=== PATIENT | female | born 1940 | race Caucasian/White ===

== ENCOUNTER → 2017-11-13 | Outpatient (CLI) | payer MEDICARE ==
[2017-11-13 18:52] LABS: Hemoglobin A1C 7.5 % (4.0-6.0)
[2017-11-14 15:26] LABS: Imipramine + Desipramine 231 ng/mL (150-300)
== END | disposition home or self-care (01) ==
LOC: LABWHC1 10:57
PROVIDERS: ATTEND Psychiatry & Neurology Psychiatry
DX: E55.9 Vitamin D deficiency, unspecified (principal); E11.9 Type 2 diabetes mellitus without complications; Z79.899 Other long term (current) drug therapy
CPT/HCPCS: 82306; 83036; 36415; G0480; 80335

== ENCOUNTER → 2018-05-18 | Outpatient (CLI) | payer MEDICARE | END | disposition home or self-care (01) | LOC: LABWHC1 10:52 | PROVIDERS: ATTEND Psychiatry & Neurology Psychiatry | DX: F33.1 Major depressive disorder, recurrent, moderate (principal); Z79.899 Other long term (current) drug therapy | CPT/HCPCS: 36415; 80336 ==

== ENCOUNTER → 2018-08-19 | Outpatient (CLI) | payer MEDICARE ==
[2018-08-19 20:43] LABS: Hemoglobin A1C 7.8 % (4.0-6.0)
== END | disposition home or self-care (01) ==
LOC: LABWHC1 12:23
PROVIDERS: ATTEND Psychiatry & Neurology Psychiatry
DX: E11.9 Type 2 diabetes mellitus without complications (principal); F33.1 Major depressive disorder, recurrent, moderate
CPT/HCPCS: 36415; 80337; 83036

== ENCOUNTER → 2019-04-15 | Outpatient (CLI) | payer MEDICARE ==
[2019-04-19 13:16] LABS: Imipramine + Desipramine 132 ng/mL (150-300)
== END | disposition home or self-care (01) ==
LOC: LABWHC1 10:11
PROVIDERS: ATTEND Psychiatry & Neurology Psychiatry
DX: F33.1 Major depressive disorder, recurrent, moderate (principal); Z79.899 Other long term (current) drug therapy
CPT/HCPCS: 36415; G0480 ×2; 80335; 80337

== ENCOUNTER → 2019-08-10 | Outpatient (CLI) | payer MEDICARE | END | disposition home or self-care (01) | LOC: LABWHC1 10:56 | PROVIDERS: ATTEND Psychiatry & Neurology Psychiatry | DX: F33.1 Major depressive disorder, recurrent, moderate (principal); Z79.899 Other long term (current) drug therapy | CPT/HCPCS: 36415 ==

== ENCOUNTER → 2020-05-11 | Outpatient (CLI) | payer MEDICARE | END | disposition home or self-care (01) | LOC: LABWHC1 11:34 | PROVIDERS: ATTEND Psychiatry & Neurology Psychiatry | DX: F33.1 Major depressive disorder, recurrent, moderate (principal); Z79.899 Other long term (current) drug therapy | CPT/HCPCS: 36415 ==

== ENCOUNTER → 2020-06-29 | Outpatient (CLI) | payer MEDICARE ==
--- NOTE | 2020-06-29 15:49 | XR ---
EXAMINATION TYPE: XR chest 2V DATE OF EXAM: 06/29/2020 COMPARISON: NONE HISTORY: COPD, cough TECHNIQUE: Frontal and lateral views of the chest are obtained. FINDINGS: There is no focal air space opacity, pleural effusion, or pneumothorax seen. The cardiac silhouette size is enlarged although the patient is rotated. Aorta is dense. There are prominent shaye g volumes which could be consistent with underlying COPD The osseous structures are intact, suspect a spinal curvature. IMPRESSION: Cardiomegaly and additional findings above.
== END | disposition home or self-care (01) ==
LOC: RADXRMAIN 13:36
PROVIDERS: ATTEND Psychiatry & Neurology Psychiatry
DX: I51.7 Cardiomegaly (principal); I77.89 Other specified disorders of arteries and arterioles; J44.9 Chronic obstructive pulmonary disease, unspecified
CPT/HCPCS: 71046

== ENCOUNTER → 2020-12-11 | Outpatient (CLI) | payer MEDICARE ==
[2020-12-12 15:28] LABS: Imipramine + Desipramine 201 ng/mL (150-300)
== END | disposition home or self-care (01) ==
LOC: LABWHC1 11:26
PROVIDERS: ATTEND Psychiatry & Neurology Psychiatry
DX: F33.1 Major depressive disorder, recurrent, moderate (principal)
CPT/HCPCS: 36415; G0480; 80335

== ENCOUNTER 2024-03-03 22:13 | Observation (INO) | payer MEDICARE ==
--- NOTE | 2024-03-03 23:33 | ED ---
Extremity Problem HPI - General Chief complaint: Extremity Injury, Upper Stated complaint: left arm pain Time Seen by Provider: 03/03/24 23:18 Source: patient, family, RN notes reviewed, old records reviewed Mode of arrival: wheelchair - History of Present Illness Initial comments: This is an 83-year-old female with severe left shoulder pain left arm pain and significant debility in the left shoulder left arm without traumatic injury. Patient states she cannot move the left arm secondary to pain. Otherwise unsure of symptoms onset or cause patient pain 2 days ago got better and is now worse MD Complaint: extremity pain, extremity swelling -: days(s) (2) Location: left, upper extremity History of Same: Yes -: Yes myalgia, Yes arthralgia Radiation: proximal, distal Severity scale (1-10): 10 Quality: stabbing, aching Consistency: constant Improves with: nothing Worsens with: nothing - Related Data Allergies Allergy/AdvReac Type Severity Reaction Status Date / Time No Known Allergies Allergy Verified 03/03/24 23:09 Review of Systems ROS Statement: Those systems with pertinent positive or pertinent negative responses have been documented in the HPI. ROS Other: All systems not noted in ROS Statement are negative. Past Medical History Past Medical History: Atrial Fibrillation, Asthma, COPD, Diabetes Mellitus, Hyperlipidemia, Hypertension, Osteoarthritis (OA) History of Any Multi-Drug Resistant Organisms: None Reported Past Surgical History: Appendectomy, Hysterectomy, Orthopedic Surgery Additional Past Surgical History / Comment(s): hip Past Psychological History: Anxiety Smoking Status: Never smoker Past Alcohol Use History: None Reported Past Drug Use History: None Reported General Exam General appearance: alert, in no apparent distress Head exam: Present: atraumatic, normocephalic, normal inspection Eye exam: Present: normal appearance, PERRL, EOMI. Absent: scleral icterus, conjunctival injection, periorbital swelling ENT exam: Present: normal exam, mucous membranes moist Neck exam: Present: normal inspection. Absent: tenderness, meningismus, lymphadenopathy Respiratory exam: Present: normal lung sounds bilaterally. Absent: respiratory distress, wheezes, rales, rhonchi, stridor Cardiovascular Exam: Present: regular rate, normal rhythm, normal heart sounds. Absent: systolic murmur, diastolic murmur, rubs, gallop, clicks GI/Abdominal exam: Present: soft, normal bowel sounds. Absent: distended, tenderness, guarding, rebound, rigid Extremities exam: Present: normal inspection, full ROM, normal capillary refill. Absent: tenderness, pedal edema, joint swelling, calf tenderness Back exam: Present: normal inspection Neurological exam: Present: alert, oriented X3, CN II-XII intact Psychiatric exam: Present: normal affect, normal mood Skin exam: Present: warm, dry, intact, normal color. Absent: rash Course Vital Signs 03/03/24 03/04/24 03/04/24 23:00 00:20 00:59 Temperature 98.4 F Pulse Rate 71 72 59 L Respiratory 22 16 20 Rate Blood Pressure 191/67 196/91 197/89 O2 Sat by Pulse 94 L 92 L 96 Oximetry 03/04/24 03/04/24 01:11 01:50 Temperature Pulse Rate 61 67 Respiratory 18 20 Rate Blood Pressure 207/91 167/99 O2 Sat by Pulse 96 96 Oximetry - Reevaluation(s) Reevaluation #1: 03/04/24 00:14 Records reviewed Reevaluation #2: 03/04/24 00:14 Symptoms improved Reevaluation #3: 03/04/24 00:14 Patient informed of results questions answered Reevaluation #4: 03/04/24 00:14 Was pt. sent in by a medical professional or institution (, PA, [employer], urgent care, hospital, or correction...) When possible be specific @ -no Did you speak to anyone other than the patient for history (EMS, parent, family, police, friend...)? What history was obtained from this source @ -no Did you review nursing and triage notes (agree or disagree)? Why? @ -agree Are old charts reviewed (outside hosp., previous admission, EMS record, old EKG, old radiological studies, urgent care reports/EKG's, correction records)? Report findings @ -yes Differential Diagnosis (chest pain, altered mental status, abdominal pain women, abdominal pain men, vaginal bleeding, weakness, fever, dyspnea, syncope, headache, dizziness, GI bleed, back pain, seizure, CVA, palpatations, mental h ealth, musculoskeletal)? @ -prior EKG interpreted by me (3pts min.). @ -yes X-rays interpreted by me (1pt min.). @ -yes negative for acute disease CT interpreted by me (1pt min.). @ -no U/S interpreted by me (1pt. min.). @ -no What testing was considered but not performed or refused? (CT, X-rays, U/S, labs)? Why? @ -none What meds were considered but not given or refused? Why? @ -none Did you discuss the management of the patient with other professionals (professionals i.e. , PA, [employer], lab, RT, psych nurse, director social welfare, coil winder, teacher, human resources officer, onsite case manager)? Give summary @ -no Was smoking cessation discussed for >3mins.? @ -no Was critical care preformed (if so, how long)? @ -no Were there social determinants of health that impacted care today? How? (Homelessness, low income, unemployed, alcoholism, drug addiction, transportation, low edu. Level, literacy, decrease access to med. care, detention, rehab)? @ -none Was there de-escalation of care discussed even if they declined (Discuss DNR or withdrawal of care, Hospice)? DNR status @ -no What co-morbidities impacted this encounter? (DM, HTN, Smoking, COPD, CAD, Cancer, CVA, ARF, Chemo, Hep., AIDS, mental health diagnosis, sleep apnea, morbid obesity)? @ -none Was patient admitted / discharged? Hospital course, mention meds given and route, prescriptions, significant lab abnormalities, going to OR and other p ertinent info. @ - Undiagnosed new problem with uncertain prognosis? @ -no Drug Therapy requiring intensive monitoring for toxicity (Heparin, Nitro, Insulin, Cardizem)? @ -no Were any procedures done? @ -no Diagnosis/symptom? @ - Acute, or Chronic, or Acute on Chronic? @ -Acute Uncomplicated (without systemic symptoms) or Complicated (systemic symptoms)? @ -Complicated Side effects of treatment? @ -no Exacerbation, Progression, or Severe Exacerbation? @ -exacerbation Poses a threat to life or bodily function? How? (Chest pain, [place], [place], pneumonia, PE, COPD, DKA, ARF, appy, cholecystitis, CVA, Diverticulitis, Homicidal, Suicidal, threat to staff... and all critical care pts) @ -yes Medical Decision Making - Lab Data Result diagrams: 03/04/24 00:34 03/04/24 00:34 Lab Results 03/04/24 03/04/24 03/04/24 Range/Units 00:34 00:34 00:34 WBC 10.8 H (3.8-10.6) k/uL RBC 4.67 (3.80-5.40) m/uL Hgb 12.3 (11.4-16.0) gm/dL Hct 41.3 (34.0-46.0) % MCV 88.6 (80.0-100.0) fL MCH 26.3 (25.0-35.0) pg MCHC 29.8 L (31.0-37.0) g/dL RDW 14.9 (11.5-15.5) % Plt Count 467 H (150-450) k/uL MPV 9.7 Neutrophils % 82 % Lymphocytes % 8 % Monocytes % 5 % Eosinophils % 3 % Basophils % 1 % Neutrophils # 8.9 H (1.3-7.7) k/uL Lymphocytes # 0.9 L (1.0-4.8) k/uL Monocytes # 0.6 (0-1.0) k/uL Eosinophils # 0.3 (0-0.7) k/uL Basophils # 0.1 (0-0.2) k/uL Hypochromasia Moderate PT 10.2 (10.0-12.5) sec INR 0.9 (<1.2) APTT 23.5 (22.0-30.0) sec D-Dimer 0.52 (<0.60) mg/L FEU Sodium 138 (137-145) mmol/L Potassium 4.8 (3.5-5.1) mmol/L Chloride 105 (98-107) mmol/L Carbon Dioxide 27 (22-30) mmol/L Anion Gap 6 mmol/L BUN 46 H (7-17) mg/dL Creatinine 1.47 H (0.52-1.04) mg/dL Est GFR (CKD-EPI)AfAm 38 (>60 ml/min/1.73 sqM) Est GFR (CKD-EPI)NonAf 33 (>60 ml/min/1.73 sqM) Glucose 180 H (74-99) mg/dL Plasma Lactic Acid Marco (0.7-2.0) mmol/L Calcium 9.8 (8.4-10.2) mg/dL Phosphorus 5.0 H (2.5-4.5) mg/dL Magnesium 2.3 (1.6-2.3) mg/dL Total Bilirubin 0.5 (0.2-1.3) mg/dL AST 20 (14-36) U/L ALT 10 (4-34) U/L Alkaline Phosphatase 86 (38-126) U/L Troponin I (0.000-0.034) ng/mL NT-Pro-B Natriuret Pep 2960 pg/mL Total Protein 6.9 (6.3-8.2) g/dL Albumin 3.9 (3.5-5.0) g/dL 03/04/24 03/04/24 Range/Units 00:34 00:34 WBC (3.8-10.6) k/uL RBC (3.80-5.40) m/uL Hgb (11.4-16.0) gm/dL Hct (34.0-46.0) % MCV (80.0-100.0) fL MCH (25.0-35.0) pg MCHC (31.0-37.0) g/dL RDW (11.5-15.5) % Plt Count (150-450) k/uL MPV Neutrophils % % Lymphocytes % % Monocytes % % Eosinophils % % Basophils % % Neutrophils # (1.3-7.7) k/uL Lymphocytes # (1.0-4.8) k/uL Monocytes # (0-1.0) k/uL Eosinophils # (0-0.7) k/uL Basophils # (0-0.2) k/uL Hypochromasia PT (10.0-12.5) sec INR (<1.2) APTT (22.0-30.0) sec D-Dimer (<0.60) mg/L FEU Sodium (137-145) mmol/L Potassium (3.5-5.1) mmol/L Chloride (98-107) mmol/L Carbon Dioxide (22-30) mmol/L Anion Gap mmol/L BUN (7-17) mg/dL Creatinine (0.52-1.04) mg/dL Est GFR (CKD-EPI)AfAm (>60 ml/min/1.73 sqM) Est GFR (CKD-EPI)NonAf (>60 ml/min/1.73 sqM) Glucose (74-99) mg/dL Plasma Lactic Acid Marco 1.3 (0.7-2.0) mmol/L Calcium (8.4-10.2) mg/dL Phosphorus (2.5-4.5) mg/dL Magnesium (1.6-2.3) mg/dL Total Bilirubin (0.2-1.3) mg/dL AST (14-36) U/L ALT (4-34) U/L Alkaline Phosphatase (38-126) U/L Troponin I <0.012 (0.000-0.034) ng/mL NT-Pro-B Natriuret Pep pg/mL Total Protein (6.3-8.2) g/dL Albumin (3.5-5.0) g/dL - EKG Data -: EKG Interpreted by Me (EKG is sinus 63 IL 146 QRS 89 QTc 438) Disposition Clinical Impression: Left shoulder pain, Shoulder effusion, Hypertension Disposition: ADMITTED IP TO THIS HOSP Condition: Fair Is patient prescribed a controlled substance at d/c from ED?: No Referrals: Chris Juarez DO [Primary Care Provider] - 1-2 days Time of Disposition: 02:00
[2024-03-03] MEDS: HYDROmorphone 1 MG/ML 1 ML SYRINGE IM STA (23:44)
--- NOTE | 2024-03-04 00:06 | XR ---
EXAM: XR Chest, 2 Views CLINICAL HISTORY: ITS.REASON XR Reason: pain TECHNIQUE: Frontal and lateral views of the chest. COMPARISON: No relevant prior studies available. FINDINGS: Lungs: Volume loss and atelectasis at the left base. Pleural space: Small left pleural effusion. Heart: Cardiomegaly. Bones/joints: Unremarkable. No fracture or malalignment. IMPRESSION: 1. Cardiomegaly. 2. Small left pleural effusion. 3. Volume loss and atelectasis at the left base.
--- NOTE | 2024-03-04 00:07 | XR ---
EXAM: XR Left Shoulder Complete, 2 or More Views CLINICAL HISTORY: ITS.REASON XR Reason: pain TECHNIQUE: Two or more views of the left shoulder. COMPARISON: No relevant prior studies available. FINDINGS: Bones/joints: No acute fracture. Sizable joint effusion present. Soft tissues: Unremarkable. IMPRESSION: 1. No acute fracture. 2. Sizable joint effusion present. Could be further evaluated by MRI on a nonemergent basis.
[2024-03-04] MEDS: SODIUM CHLORIDE 0.9% 1,000 ML IV STA (00:37)
[2024-03-04] MEDS: MORPHINE SULFATE 4 MG/ML SYRINGE IV STA (00:38)
[2024-03-04 01:00] LABS: Basophils # (A) 0.1 k/uL (0-0.2); Basophils % (A) 1 %; Eosinophils # (A) 0.3 k/uL (0-0.7); Eosinophils % (A) 3 %; HCT 41.3 % (34.0-46.0); HGB 12.3 gm/dL (11.4-16.0); Hypochromasia Moderate; Lymphocytes # (A) 0.9 k/uL (1.0-4.8); Lymphocytes % (A) 8 %; MCH 26.3 pg (25.0-35.0); MCHC 29.8 g/dL (31.0-37.0); MCV 88.6 fL (80.0-100.0); Mean Platelet Volume 9.7; Monocytes # (A) 0.6 k/uL (0-1.0); Monocytes % (A) 5 %; Neutrophils # (A) 8.9 k/uL (1.3-7.7); Neutrophils % (A) 82 %; Platelet Count 467 k/uL (150-450); RBC 4.67 m/uL (3.80-5.40); RDW 14.9 % (11.5-15.5); WBC 10.8 k/uL (3.8-10.6)
[2024-03-04] MEDS: hydrALAZINE HCL 20 MG/ML 1 ML VIAL IVP STA (01:14)
[2024-03-04 01:15] LABS: INR 0.9 (<1.2); Partial Thromboplastin Time 23.5 sec (22.0-30.0); Prothrombin Time 10.2 sec (10.0-12.5)
[2024-03-04 01:33] LABS: ALT 10 U/L (4-34); AST 20 U/L (14-36); African American GFR (CKD) 38 (>60 ml/min/1.73 sqM); Albumin 3.9 g/dL (3.5-5.0); Alkaline Phosphatase 86 U/L (38-126); Anion Gap 6 mmol/L; Blood Urea Nitrogen 46 mg/dL (7-17); Calcium 9.8 mg/dL (8.4-10.2); Carbon Dioxide 27 mmol/L (22-30); Chloride 105 mmol/L (98-107); Glucose 180 mg/dL (74-99); Magnesium 2.3 mg/dL (1.6-2.3); Non-African American GFR(CKD) 33 (>60 ml/min/1.73 sqM); Potassium 4.8 mmol/L (3.5-5.1); Sodium 138 mmol/L (137-145); Total Bilirubin 0.5 mg/dL (0.2-1.3); Total Protein 6.9 g/dL (6.3-8.2)
[2024-03-04 01:38] LABS: NT-Pro-B-Type Natriuretic Pept 2960 pg/mL
[2024-03-04] MEDS ORDERED: HYDROmorphone 1 MG/ML 1 ML SYRINGE IVP PRN (01:58)
[2024-03-04] MEDS ORDERED: ONDANSETRON 4 MG/2 ML VIAL IVP PRN (01:58)
[2024-03-04] MEDS ORDERED: NALOXONE 0.4 MG/ML 1 ML VIAL IV PRN (01:58)
[2024-03-04] MEDS: SODIUM CHLORIDE 0.9% 1,000 ML IV SCH (02:03)
[2024-03-04] MEDS: KETOROLAC 15 MG/ML 1 ML VIAL IVP STA (02:14)
[2024-03-04 02:55] LABS: Glucose,Whole Blood 203 mg/dL (70-110)
[2024-03-04] MEDS ORDERED: DEXTROSE 50% SYRINGE 50 ML IVP PRN ×2 (09:56)
[2024-03-04] MEDS: ALPRAZolam 0.5 MG TAB PO SCH (10:24)
[2024-03-04] MEDS: ASPIRIN 81 MG PO SCH (10:24)
[2024-03-04] MEDS: busPIRone HCl 5 MG TAB PO SCH (10:25)
[2024-03-04] MEDS: CHOLECALCIFEROL 25 MCG (1000 IU) TABLET PO SCH (10:25)
[2024-03-04] MEDS: FENOFIBRATE 160 MG TAB PO SCH (10:26)
[2024-03-04] MEDS: FERROUS SULFATE 325 MG TAB PO SCH (10:26)
[2024-03-04] MEDS: ESCITALOPRAM 10 MG TAB PO SCH (10:26)
[2024-03-04] MEDS: metFORMIN 500 MG TAB PO SCH (10:27)
[2024-03-04] MEDS: METOPROLOL TARTRATE 25 MG TAB PO SCH (10:27)
[2024-03-04] MEDS: LOSARTAN 25 MG TAB PO SCH (10:27)
[2024-03-04] MEDS: POTASSIUM CHLORIDE ER 20 MEQ TAB.ER PO SCH (10:28)
[2024-03-04] MEDS: DESVENLAFAXINE SUCCINATE 50 MG TAB.ER.24H PO SCH (10:29)
[2024-03-04] MEDS: ETODOLAC 400 MG TAB PO SCH (10:30)
[2024-03-04] MEDS: PIOGLITAZONE 15 MG TAB PO SCH (10:31)
[2024-03-04] MEDS: GLIMEPIRIDE 4 MG TAB PO SCH (10:32)
[2024-03-04] MEDS: ENOXAPARIN 40 MG/0.4 ML SYRINGE SQ SCH (10:33)
--- NOTE | 2024-03-04 10:52 | P.CRDCN ---
History of Present Illness History of present illness: HISTORY OF PRESENT ILLNESS: This is a 83-year-old female with a past medical history significant for hypertension, hyperlipidemia, diabetes, and paroxysmal atrial fibrillation. Patient follows with Dr. Dennis in [place]. We have been asked to see the patient in consultation for hypertension and chest pain. Patient examined at the bedside. Patient states she has been having left shoulder pain for the past 3 days. She states the pain has been on and off. She states that she did not take anything at home to help with the pain. Patient denied having any chest pain or pressure. She denied having any shortness of breath. Patient's blood pressures were found to be significantly elevated upon admission to the hospital with a systolic around 200. Patient states she has been compliant with her blood pressure medications at home. She also reports compliance with a low-sodium diet. Patient believes she is taking Eliquis on an outpatient basis for her atrial fibrillation. However this is not listed in her home medication list. We will attempt to get records from her primary veneer layer to verify her medication list. DIAGNOSTICS: - EKG reveals sinus mechanism with T wave inversions in V1V4. No previous EKG available for review. - Chest xray cardiomegaly, small left pleural effusion, volume loss and atelectasis at the left base -Left shoulder x-ray reveals no acute fracture. Sizable joint effusion present. - Laboratory data: WBC 10.7. Hemoglobin 12.3. Platelet count 467. D-dimer 0.52. Sodium 138. Potassium 4.8. BUN 46. Creatinine 1.47. Troponin negative x 3 - Current home cardiac medications include aspirin 81 mg daily, Lasix 40 mg twice a day, metoprolol tartrate 25 mg twice a day, losartan 25 mg daily, pravastatin 80 mg at night. REVIEW OF SYSTEMS: At the time of my exam: CONSTITUTIONAL: Denies fever or chills. HEENT: Denies blurred vision, vision changes, or eye pain. Denies hemoptysis CARDIOVASCULAR: Denies chest pain. Denies orthopnea. Denies PND. Denies palpitations RESPIRATORY: Denies shortness of breath. GASTROINTESTINAL: Denies abdominal pain. Denies nausea or vomiting. HEMATOLOGIC: Denies bleeding disorders. GENITOURINARY: Denies any blood in urine. SKIN: Denies pruitis. Denies rash. PHYSICAL EXAM: VITAL SIGNS: Reviewed. GENERAL: Well-developed in no acute distress. HEENT: Head is normocephalic. Pupils are equal, round. Sclerae anicteric. Mucous membranes of the mouth are moist. Neck supple. No JVD or thyromegaly LUNGS: Respirations even and unlabored. Lungs essentially clear to auscultation bilaterally. HEART: Regular rate and rhythm. S1 and S2 heard. ABDOMEN: Soft. Nondistended. Nontender. EXTREMITIES: Normal range of motion. No clubbing or cyanosis. Peripheral pulses intact. No lower extremity edema NEUROLOGIC: Awake and alert. Oriented x 3. ASSESSMENT: Left shoulder pain with sizable joint effusion present per x-ray Hypertensive urgency, improving Chest pain, ruled out, patient denies having any chest pain or pressure during hospitalization or prior to coming to the hospital Paroxysmal atrial fibrillation Hypertension Hyperlipidemia Diabetes PLAN: Obtain 2D echo to assess cardiac structure and function Resume home cardiac medications Add amlodipine 5 mg daily Continue to monitor blood pressure. Will make adjustments pending trend of BP. Patient believes she is taking Eliquis on an outpatient basis for her atrial fibrillation. However this is not listed in her home medication list. We will attempt to get records from her primary veneer layer to verify her medication list. Further recommendations pending patient course Nurse practitioner note has been reviewed by physician. Signing provider agrees with the documented findings, assessment, and plan of care documented by [employer] as a scribe. Past Medical History Past Medical History: Atrial Fibrillation, Asthma, COPD, Diabetes Mellitus, Hyperlipidemia, Hypertension, Osteoarthritis (OA) History of Any Multi-Drug Resistant Organisms: None Reported Past Surgical History: Appendectomy, Hysterectomy, Orthopedic Surgery Additional Past Surgical History / Comment(s): hip Past Psychological History: Anxiety Smoking Status: Never smoker Past Alcohol Use History: None Reported Past Drug Use History: None Reported Medications and Allergies Home Medications Medication Instructions Recorded Confirmed Type ALPRAZolam [Xanax] 0.5 mg PO TID 03/04/24 03/04/24 History Aspirin EC [Ecotrin Low Dose] 81 mg PO DAILY 03/04/24 03/04/24 History Cholecalciferol [Vitamin D3 (25 50 mcg PO DAILY 03/04/24 03/04/24 History Mcg = 1000 Iu)] Desvenlafaxine [Pristiq ER] 200 mg PO DAILY 03/04/24 03/04/24 History Diclofenac Sodium [Voltaren] 75 mg PO DAILY 03/04/24 03/04/24 History Escitalopram [Lexapro] 10 mg PO DAILY 03/04/24 03/04/24 History Fenofibrate Nanocrystallized 145 mg PO DAILY 03/04/24 03/04/24 History [Fenofibrate] Ferrous Sulfate [Feosol] 325 mg PO DAILY 03/04/24 03/04/24 History Furosemide [Lasix] 40 mg PO BID 03/04/24 03/04/24 History Glimepiride [Amaryl] 6 mg PO [id number] 03/04/24 03/04/24 History Losartan [Cozaar] 25 mg PO DAILY 03/04/24 03/04/24 History Metoprolol Tartrate [Lopressor] 25 mg PO BID 03/04/24 03/04/24 History Pioglitazone [Actos] 15 mg PO DAILY 03/04/24 03/04/24 History Potassium Chloride [Klor-Con M20] 20 meq PO DAILY 03/04/24 03/04/24 History Pravastatin Sodium 80 mg PO HS 03/04/24 03/04/24 History busPIRone HCL 15 mg PO TID 03/04/24 03/04/24 History metFORMIN HCL 1,000 mg PO BID 03/04/24 03/04/24 History Allergies Allergy/AdvReac Type Severity Reaction Status Date / Time No Known Allergies Allergy Verified 03/04/24 06:56 Physical Exam Vitals: Vital Signs Temp Pulse Resp BP Pulse Ox 03/04/24 07:30 97.4 F L 65 18 167/69 100 03/04/24 05:41 64 28 H 96 03/04/24 04:32 65 18 196/85 95 03/04/24 02:55 64 23 179/71 97 03/04/24 01:50 67 20 167/99 96 03/04/24 01:11 61 18 207/91 96 03/04/24 00:59 59 L 20 197/89 96 03/04/24 00:20 72 16 196/91 92 L 03/03/24 23:00 98.4 F 71 22 191/67 94 L Intake and Output 03/03/24 03/04/24 03/04/24 22:59 06:59 14:59 Other: Weight 86.183 kg Results 03/04/24 00:34 03/04/24 00:34 Cardiac Enzymes 03/04/24 03/04/24 03/04/24 Range/Units 00:34 00:34 04:42 AST 20 (14-36) U/L Troponin I <0.012 0.026 (0.000-0.034) ng/mL 03/04/24 Range/Units 07:18 AST (14-36) U/L Troponin I 0.031 (0.000-0.034) ng/mL Coagulation 03/04/24 Range/Units 00:34 PT 10.2 (10.0-12.5) sec APTT 23.5 (22.0-30.0) sec CBC 03/04/24 Range/Units 00:34 WBC 10.8 H (3.8-10.6) k/uL RBC 4.67 (3.80-5.40) m/uL Hgb 12.3 (11.4-16.0) gm/dL Hct 41.3 (34.0-46.0) % Plt Count 467 H (150-450) k/uL Comprehensive Metabolic Panel 03/04/24 Range/Units 00:34 Sodium 138 (137-145) mmol/L Potassium 4.8 (3.5-5.1) mmol/L Chloride 105 (98-107) mmol/L Carbon Dioxide 27 (22-30) mmol/L BUN 46 H (7-17) mg/dL Creatinine 1.47 H (0.52-1.04) mg/dL Glucose 180 H (74-99) mg/dL Calcium 9.8 (8.4-10.2) mg/dL AST 20 (14-36) U/L ALT 10 (4-34) U/L Alkaline Phosphatase 86 (38-126) U/L Total Protein 6.9 (6.3-8.2) g/dL Albumin 3.9 (3.5-5.0) g/dL Current Medications Generic Name Dose Route Start Last Admin Trade Name Freq PRN Reason Stop Dose Admin Hydromorphone HCl 1 mg 03/04/24 01:58 Hydromorphone 1 Mg/Ml 1 Ml Syringe IVP Q3HR PRN Severe Pain (Scale 7 to 10) Sodium Chloride 1,000 mls @ 75 mls/hr 03/04/24 00:21 03/04/24 00:38 Saline 0.9% IV 03/04/24 13:40 75 mls/hr .[id number] STA Administration Sodium Chloride 1,000 mls @ 75 mls/hr 03/04/24 02:00 03/04/24 02:03 Saline 0.9% IV Not Given .[id number] JAD Naloxone HCl 0.2 mg 03/04/24 01:58 Naloxone 0.4 Mg/Ml 1 Ml Vial IV Q2M PRN Opioid Reversal Ondansetron HCl 4 mg 03/04/24 01:58 Ondansetron 4 Mg/2 Ml Vial IVP Q8HR PRN Nausea And Vomiting Intake and Output 03/03/24 03/04/24 03/04/24 22:59 06:59 14:59 Other: Weight 86.183 kg 03/04/24 00:34 03/04/24 00:34
[2024-03-04] MEDS: INSULIN ASPART (NovoLOG) 100 UNIT/ML VIAL SQ SCH (12:22)
[2024-03-04 12:23] LABS: Glucose,Whole Blood 137 mg/dL (70-110)
[2024-03-04] MEDS: amLODIPine 5 MG TAB PO SCH (12:24)
[2024-03-04] MEDS: DICLOFENAC SODIUM GEL 50 GM TUBE TOPICAL SCH (13:28)
--- NOTE | 2024-03-04 13:44 | P.CNOR ---
History of Present Illness - [facility] Consult date: 03/04/24 Consult reason: joint pain (Left shoulder pain) History of present illness: Patient is an 83-year-old female who presented to [facility] on 03/03/2024 with regards to severe left shoulder pain. No history of trauma is reported. Upon arrival patient was noted to have significant elevated blood pr essure. Patient has a known history of hypertension along with A-fib, she does take Eliquis. Patient was admitted to [facility] for further evaluation, cardiology and our orthopedic group were placed on consult. Patient was evaluated at bedside today, she is resting comfortably. Patient states that the pain started about 3 days ago. Patient has no change in activity, she denies any trauma. She has never had left shoulder problems she states before. Patient does take Eliquis for A-fib. Second time that the patient was evaluated the patient's daughter was there. She states that she was at [facility] about a month and a half ago with regards to congestive heart failure. Patient normally lives at home with her . Patient has no other orthopedic complaints at this time. She denies any previous surgery to the left shoulder. Review of Systems Constitutional: Reports as per [facility] Past Medical History Past Medical History: Atrial Fibrillation, Asthma, COPD, Diabetes Mellitus, Hyperlipidemia, Hypertension, Osteoarthritis (OA) History of Any Multi-Drug Resistant Organisms: None Reported Past Surgical History: Appendectomy, Hysterectomy, Orthopedic Surgery Additional Past Surgical History / Comment(s): hip Past Psychological History: Anxiety Smoking Status: Never smoker Past Alcohol Use History: None Reported Past Drug Use History: None Reported Medications and Allergies Home Medications Medication Instructions Recorded Confirmed Type ALPRAZolam [Xanax] 0.5 mg PO TID 03/04/24 03/04/24 History Aspirin EC [Ecotrin Low Dose] 81 mg PO DAILY 03/04/24 03/04/24 History Cholecalciferol [Vitamin D3 (25 50 mcg PO DAILY 03/04/24 03/04/24 History Mcg = 1000 Iu)] Desvenlafaxine [Pristiq ER] 200 mg PO DAILY 03/04/24 03/04/24 History Diclofenac Sodium [Voltaren] 75 mg PO DAILY 03/04/24 03/04/24 History Escitalopram [Lexapro] 10 mg PO DAILY 03/04/24 03/04/24 History Fenofibrate Nanocrystallized 145 mg PO DAILY 03/04/24 03/04/24 History [Fenofibrate] Ferrous Sulfate [Feosol] 325 mg PO DAILY 03/04/24 03/04/24 History Furosemide [Lasix] 40 mg PO BID 03/04/24 03/04/24 History Glimepiride [Amaryl] 6 mg PO AC-BRKFST 03/04/24 03/04/24 History Losartan [Cozaar] 25 mg PO DAILY 03/04/24 03/04/24 History Metoprolol Tartrate [Lopressor] 25 mg PO BID 03/04/24 03/04/24 History Pioglitazone [Actos] 15 mg PO DAILY 03/04/24 03/04/24 History Potassium Chloride [Klor-Con M20] 20 meq PO DAILY 03/04/24 03/04/24 History Pravastatin Sodium 80 mg PO HS 03/04/24 03/04/24 History busPIRone HCL 15 mg PO TID 03/04/24 03/04/24 History metFORMIN HCL 1,000 mg PO BID 03/04/24 03/04/24 History Allergies Allergy/AdvReac Type Severity Reaction Status Date / Time No Known Allergies Allergy Verified 03/04/24 06:56 Physical Examination Left upper extremity: No obvious open lesions, sores, areas of erythema. Generalized swelling is note d to the lateral aspect of the shoulder compared to the right side. Patient does demonstrate tenderness to palpation along the glenohumeral joint line. Patient is nontender along the clavicle and acromioclavicular joint. Patient demonstrates no point tenderness to the lower humerus, elbow, forearm, hand and wrist Active range of motion, she can forward elevate to about 90 degrees and abduct to about 90 degrees before pain is reproduced. She has about 60 degrees of external rotation before pain is reproduced. Passive range of motion I am able to extend past 90 degrees in all ranges of motion, this does reproduce some discomfort Elbow extension, elbow flexion, wrist extension, wrist flexion, occupational therapy manager are intact 4-/5 strength is appreciated in the left upper extremity with shoulder elevation and shoulder abduction, 4+/5 strength is appreciated with elbow extension, elbow flexion, wrist extension, wrist flexion, occupational therapy manager Sensory exam to light touch throughout the extremity is intact Radial ulnar pulse are 2+ Results - Labs Labs: Abnormal Lab Results - Last 24 Hours (Table) 03/04/24 03/04/24 03/04/24 Range/Units 00:34 00:34 02:51 WBC 10.8 H (3.8-10.6) k/uL MCHC 29.8 L (31.0-37.0) g/dL Plt Count 467 H (150-450) k/uL Neutrophils # 8.9 H (1.3-7.7) k/uL Lymphocytes # 0.9 L (1.0-4.8) k/uL BUN 46 H (7-17) mg/dL Creatinine 1.47 H (0.52-1.04) mg/dL Glucose 180 H (74-99) mg/dL POC Glucose (mg/dL) 203 H (70-110) mg/dL Phosphorus 5.0 H (2.5-4.5) mg/dL 03/04/24 Range/Units 12:21 WBC (3.8-10.6) k/uL MCHC (31.0-37.0) g/dL Plt Count (150-450) k/uL Neutrophils # (1.3-7.7) k/uL Lymphocytes # (1.0-4.8) k/uL BUN (7-17) mg/dL Creatinine (0.52-1.04) mg/dL Glucose (74-99) mg/dL POC Glucose (mg/dL) 137 H (70-110) mg/dL Phosphorus (2.5-4.5) mg/dL H & H 03/04/24 Range/Units 00:34 Hgb 12.3 (11.4-16.0) gm/dL Hct 41.3 (34.0-46.0) % Coagulation 03/04/24 Range/Units 00:34 INR 0.9 (<1.2) Result Diagrams: 03/04/24 00:34 03/04/24 00:34 - Diagnostic results Shoulder x-ray: report reviewed, image reviewed (Images and reports were rev iewed of the left shoulder. No acute fractures noted. Subluxation of the humeral head noted. Sclerotic changes are appreciated near the greater tuberosity. Moderate acromioclavicular joint osteoarthritic changes noted with joint space narrowing and osteophyte formatio ) Assessment and Plan Assessment: Left shoulder pain Left shoulder joint pseudosubluxation Left shoulder acromioclavicular joint osteoarthritis Multiple medical comorbidities Plan: I was able to discuss the case, this to include imaging tests and physical exam findings and my attending Dr. Scherer. No emergent orthopedic surgical intervention is recommended at this time. I did discuss with the patient and family today options for treatment, we did discuss the possibility of an aspiration with cortisone injection. Risk and benefits of this procedure were discussed, this to include blood loss, neurovascular injury, infection, and adequate resolution of symptoms. Discussed with patient and family if I am unable to aspirate any obvious fluid suggesting infection that we could provide a intra-articular cortisone injection to help with symptoms. Patient and family were in good understanding would like to proceed. A consent form was obtained prior to the procedure. Please see procedure note for further detail. During procedure, I was unable to aspirate any obvious fluid from the shoulder joint. Cortisone injection was placed. Recommend use of Tylenol, internal medicine did order Voltaren gel to be utilized basic range of motion exercises to help prevent further stiffness in the shoulder, can ice the extremity for symptomatic relief GI/ DVT prophylaxis, orthopedically patient can remain on her scheduled blood thinner Other medical specialty recommendations appreciated We will continue to follow patient during hospital stay Time with Patient: Less than 30
--- NOTE | 2024-03-04 13:46 | P.PCN ---
Date of Procedure: 03/04/24 Preoperative Diagnosis: Left shoulder pain Postoperative Diagnosis: Same Procedure(s) Performed: Left shoulder aspiration with intra-articular cortisone injection Anesthesia: local Surgeon: Kiet Haile Estimated Blood Loss (ml): 0 Pathology: none sent Condition: stable Disposition: no change Indications for Procedure: Left shoulder pain Description of Procedure: Discussed with patient at bedside possible causes for the acute pain, inflammation and swelling in the left shoulder. With the patient's white blood cell count, aspiration was also done to evaluate for any infective processes. Risk and benefits of the procedure were discussed with the patient prior, consent form was then obtained. Patient was sitting up in bed, the anterior glenohumeral joint line was prepped with 1 iodine swab and 3 alcohol swabs. A 25-gauge needle was used to first try to aspirate any obvious fluid from the joint, no fluid was obtained. I then changed syringes and placed 1 cc of 1% plain lidocaine, 1 cc of quarter percent plain Marcaine and 40 mg of Depo-Medrol. Patient tolerated the procedure well, a bandage was then placed.
--- NOTE | 2024-03-04 14:46 | P.HPIM ---
History of Present Illness H&P Date: 03/04/24 Chief Complaint: Left arm pain This is a pleasant 83-year-old patient who follows with Dr. Chris Drummond. Patient is accompanied by her daughter at the bedside in the ER. Chronic stable medical conditions include asthma, diabetes, hyperlipidemia, hypertension, oste oarthritis, atrial fibrillation. About couple of months ago was also admitted for CHF. Has home oxygen. Unsure about the amount possibly 2 L. Also has depression and anxiety. Patient complains of pain in the left arm for last 4 days. On day 1 it felt like it to take from the left shoulder laterally. Next day did not hurt much. Following day again pain was much more. Pain is much worse when she moves her arm. Not related to her activity. Denies any anterior chest wall pain. Review of systems: GEN.: None EYES: None HEENT: None NECK: None RESPIRATORY: [Baseline some shortness of breath CARDIOVASCULAR: As above GASTROINTESTINAL: None GENITOURINARY: None MUSCULOSKELETAL: [Joint pains LYMPHATICS: None HEMATOLOGICAL: None PSYCHIATRY: None NEUROLOGICAL: None Social history: Lives with her . Non-smoker. Home oxygen Physical examination: VITAL SIGNS: 97.4, 65, 18, 167/69, 100% on 2 L GENERAL: [BMI 31.6, reclining bed awake not in distress. EYES: Pupils equal. Conjunctiva rosalind l. HEENT: External appearance of nose and ears normal, oral cavity grossly normal. NECK: JVD not raised; masses not palpable. HEART: First and second heart sounds are normal; no edema. LUNGS: Respiratory rate normal; decreased breath sounds. ABDOMEN: Soft, nontender, liver spleen not palpable, no masses palpable. PSYCH: Alert and oriented x3; mood and affect rosalind l. MUSCULOSKELETAL:No Clubbing/cyanosis;muscles-grossly intact. OA Limited range of motion of the left shoulder. Some tenderness at the AC joint. Patient is limited in raising her arm sideways to about 90 degrees. Barely able to take her arm towards the back. NEUROLOGICAL: Cranial nerves grossly intact; no facial asymmetry, power and sensation grossly intact. LYMPHATICS: No lymph nodes palpable in the axilla and neck INVESTIGATIONS, reviewed in the clinical context: March 04, 2024: White count 10.8 hemoglobin 12.3 platelets 467 sodium 138 potassium 4.8 BUN 46 creatinine 1.47 Troponin I less than 0.012 x 3 EKG tracing personally reviewed by me-normal sinus rhythm. Flipped T waves. Anterior leads. And some of the T wave changes in inferior leads II. Chest x-ray film personally reviewed by me-cardiomegaly. [AP film] some atelectasis X-ray left shoulder: No fracture. Sizable joint effusion. Assessment plan: -Left arm pain, there was concern from the ER about this being a cardiac presentation. No anterior chest wall pain. No cardiac sounding pain. Unlikely. Add Voltaren gel. Patient does take Voltaren p.o. Cardiology consulted for the input -Acute on chronic AC joint osteoarthritis likely leading to referred pain. Also may be involving rotator cuff. Consult orthopedics -Asthma/COPD in a non-smoker. Causing chronic hypoxic respiratory failure On home oxygen 2 L -Diabetes mellitus type 2 on oral hypoglycemic Amaryl, Actos, metformin Diabetic diet with sliding scale insulin -Depression and anxiety, chronic BuSpar. Xanax. Lexapro. -Chronic congestive heart failure EF not known Lasix 40 mg twice daily. Potassium. -Essential hypertension Cozaar. Lopressor. -Chronic hypoxic respiratory failure from underlying COPD/asthma Home oxygen 2 L -Paroxysmal atrial fibrillation, currently sinus rhythm Lopressor 25 mg twice daily -Primary osteoarthritis Continue Motrin -Obesity BMI 31.6 Weight loss measures -Full code Care was discussed with the patient daughter at bedside. Both cardiology and orthopedics consulted. Past Medical History Past Medical History: Atrial Fibrillation, Asthma, COPD, Diabetes Mellitus, Hy perlipidemia, Hypertension, Osteoarthritis (OA) History of Any Multi-Drug Resistant Organisms: None Reported Past Surgical History: Appendectomy, Hysterectomy, Orthopedic Surgery Additional Past Surgical History / Comment(s): hip Past Psychological History: Anxiety Smoking Status: Never smoker Past Alcohol Use History: None Reported Past Drug Use History: None Reported Medications and Allergies Home Medications Medication Instructions Recorded Confirmed Type ALPRAZolam [Xanax] 0.5 mg PO TID 03/04/24 03/04/24 History Aspirin EC [Ecotrin Low Dose] 81 mg PO DAILY 03/04/24 03/04/24 History Cholecalciferol [Vitamin D3 (25 50 mcg PO DAILY 03/04/24 03/04/24 History Mcg = 1000 Iu)] Desvenlafaxine [Pristiq ER] 200 mg PO DAILY 03/04/24 03/04/24 History Diclofenac Sodium [Voltaren] 75 mg PO DAILY 03/04/24 03/04/24 History Escitalopram [Lexapro] 10 mg PO DAILY 03/04/24 03/04/24 History Fenofibrate Nanocrystallized 145 mg PO DAILY 03/04/24 03/04/24 History [Fenofibrate] Ferrous Sulfate [Feosol] 325 mg PO DAILY 03/04/24 03/04/24 History Furosemide [Lasix] 40 mg PO BID 03/04/24 03/04/24 History Glimepiride [Amaryl] 6 mg PO AC-BRKFST 03/04/24 03/04/24 History Losartan [Cozaar] 25 mg PO DAILY 03/04/24 03/04/24 History Metoprolol Tartrate [Lopressor] 25 mg PO BID 03/04/24 03/04/24 History Pioglitazone [Actos] 15 mg PO DAILY 03/04/24 03/04/24 History Potassium Chloride [Klor-Con M20] 20 meq PO DAILY 03/04/24 03/04/24 History Pravastatin Sodium 80 mg PO HS 03/04/24 03/04/24 History busPIRone HCL 15 mg PO TID 03/04/24 03/04/24 History metFORMIN HCL 1,000 mg PO BID 03/04/24 03/04/24 History Allergies Allergy/AdvReac Type Severity Reaction Status Date / Time No Known Allergies Allergy Verified 03/04/24 06:56 Physical Exam Vitals: Vital Signs Temp Pulse Resp BP Pulse Ox 03/04/24 07:30 97.4 F L 65 18 167/69 100 03/04/24 05:41 64 28 H 96 03/04/24 04:32 65 18 196/85 95 03/04/24 02:55 64 23 179/71 97 03/04/24 01:50 67 20 167/99 96 03/04/24 01:11 61 18 207/91 96 03/04/24 00:59 59 L 20 197/89 96 03/04/24 00:20 72 16 196/91 92 L 03/03/24 23:00 98.4 F 71 22 191/67 94 L Intake and Output 03/03/24 03/04/24 03/04/24 22:59 06:59 14:59 Other: Weight 86.183 kg Results CBC & Chem 7: 03/04/24 00:34 03/04/24 00:34 Labs: Abnormal Lab Results - Last 24 Hours (Table) 03/04/24 03/04/24 03/04/24 Range/Units 00:34 00:34 02:51 WBC 10.8 H (3.8-10.6) k/uL MCHC 29.8 L (31.0-37.0) g/dL Plt Count 467 H (150-450) k/uL Neutrophils # 8.9 H (1.3-7.7) k/uL Lymphocytes # 0.9 L (1.0-4.8) k/uL BUN 46 H (7-17) mg/dL Creatinine 1.47 H (0.52-1.04) mg/dL Glucose 180 H (74-99) mg/dL POC Glucose (mg/dL) 203 H (70-110) mg/dL Phosphorus 5.0 H (2.5-4.5) mg/dL
[2024-03-04] MEDS: FUROSEMIDE 40 MG TAB PO SCH (15:33)
[2024-03-04 17:55] LABS: Glucose,Whole Blood 130 mg/dL (70-110)
[2024-03-04 21:26] LABS: Glucose,Whole Blood 133 mg/dL (70-110)
[2024-03-04] MEDS: PRAVASTATIN SODIUM 80 MG TAB PO SCH (22:52)
[2024-03-05 02:39] VITALS: RESP 16
[2024-03-05 06:22] LABS: Glucose,Whole Blood 103 mg/dL (70-110)
[2024-03-05 07:34] VITALS: BP 175/67; PULSE 71; TEMP 98.1
[2024-03-05] MEDS: APIXABAN 5 MG TAB PO SCH (08:41)
[2024-03-05] MEDS: amLODIPine 10 MG TAB PO SCH (08:43)
--- NOTE | 2024-03-05 10:19 | P.PN ---
Subjective HISTORY OF PRESENT ILLNESS: This is a 83-year-old female with a past medical history significant for hypertension, hyperlipidemia, diabetes, and paroxysmal atrial fibrillation. Patient follows with Dr. Dennis in [place]. We have been asked to see the patient in consultation for hypertension and chest pain. Patient examined at the bedside. Patient states she has been having left shoulder pain for the past 3 days. She states the pain has been on and off. She states that she did not take anything at home to help with the pain. Patient denied having any chest pain or pressure. She denied having any shortness of breath. Patient's blood pressures were found to be significantly elevated upon admission to the hospital with a systolic around 200. Patient states she has been compliant with her blood pressure medications at home. She also reports compliance with a low- sodium diet. Patient believes she is taking Eliquis on an outpatient basis for her atrial fibrillation. However this is not listed in her home medication list. We will attempt to get records from her primary taper operator to verify her medication list. DIAGNOSTICS: - EKG reveals sinus mechanism with T wave inversions in V1V4. No previous EKG available for review. - Chest xray cardiomegaly, small left pleural effusion, volume loss and atelectasis at the left base -Left shoulder x-ray reveals no acute fracture. Sizable joint effusion present. - Laboratory data: WBC 10.7. Hemoglobin 12.3. Platelet count 467. D-dimer 0.52. Sodium 138. Potassium 4.8. BUN 46. Creatinine 1.47. Troponin negative x 3 - Current home cardiac medications include aspirin 81 mg daily, Lasix 40 mg twice a day, metoprolol tartrate 25 mg twice a day, losartan 25 mg daily, pravastatin 80 mg at night. 03/05/2024 Patient examined this morning at the bedside. Patient denies chest pain or pressure. Denies SOB. Vital signs are stable. PHYSICAL EXAM: VITAL SIGNS: Reviewed. GENERAL: Well-developed in no acute distress. HEENT: Head is normocephalic. Pupils are equal, round. Sclerae anicteric. Mucous membranes of the mouth are moist. Neck supple. No JVD or thyromegaly LUNGS: Respirations even and unlabored. Lungs essentially clear to auscultation bilaterally. HEART: Regular rate and rhythm. S1 and S2 heard. ABDOMEN: Soft. Nondistended. Nontender. EXTREMITIES: Normal range of motion. No clubbing or cyanosis. Peripheral pulses intact. No lower extremity edema NEUROLOGIC: Awake and alert. Oriented x 3. ASSESSMENT: Left shoulder pain with sizable joint effusion present per x-ray Hypertensive urgency, improving Chest pain, ruled out, patient denies having any chest pain or pressure during hospitalization or prior to coming to the hospital Paroxysmal atrial fibrillation Hypertension Hyperlipidemia Diabetes PLAN: Increase amlodipine to 10 mg daily Add Eliquis 5 mg twice a day Patient is stable for discharge home today from a cardiac standpoint She is to follow-up postdischarge with her primary taper operator Nurse practitioner note has been reviewed by physician. Signing provider agrees with the documented findings, assessment, and plan of care documented by TRANSITION SOCIAL WORKER as a scribe. Objective - Vital Signs Vital signs: Vital Signs Temp 98.1 F 03/05/24 07:01 Pulse 71 03/05/24 07:01 Resp 16 03/05/24 07:01 BP 175/67 03/05/24 07:01 Pulse Ox 100 03/05/24 07:01 FiO2 Intake & Output 03/04/24 03/05/24 03/05/24 18:59 06:59 18:59 Intake Total 100 Balance 100 Weight 86.183 kg Intake: Oral 100 Other: Voiding Method Toilet # Voids 1 2 - Labs CBC & Chem 7: 03/04/24 00:34 03/04/24 00:34 Labs: Abnormal Lab Results - Last 24 Hours (Table) 03/04/24 03/04/24 03/04/24 Range/Units 12:21 17:54 21:25 POC Glucose (mg/dL) 137 H 130 H 133 H (70-110) mg/dL
--- NOTE | 2024-03-05 10:41 | CA ---
Transthoracic Echo Report Name: Wanda Teran Age: 83 Gender: F : 1940 Exam Date: 03/04/2024 14:25 Exam Location: [facility] Ht (in): 65 Wt (lb): 190 Ordering Physician: Alissa Ivory Attending/Referring Phys: [id number], [employer] Operator Luz Celestin, THONG Procedure CPT: Indications: LV function, elevated blood pressure Cardiac Hx: Technical Quality: Contrast 1: Total Dose (mL): Contrast 2: Total Dose (mL): MEASUREMENTS (Male / Female) Normal Values 2D ECHO LV Diastolic Diameter PLAX 5.3 cm 4.2 - 5.9 / 3.9 - 5.3 cm LV Systolic Diameter PLAX 4.5 cm IVS Diastolic Thickness 1.5 cm 0.6 - 1.0 / 0.6 - 0.9 cm LVPW Diastolic Thickness 1.7 cm 0.6 - 1.0 / 0.6 - 0.9 cm LV Relative Wall Thickness 0.6 RV Internal Dim ED PLAX 2.3 cm LA Systolic Diameter LX 3.9 cm 3.0 - 4.0 / 2.7 - 3.8 cm LA Volume 109.1 cm??? 18 - 58 / 22 - 52 cm??? LA Volume Index 54.1 cm???/m??? 16 - 28 cm???/m??? M-MODE Aortic Root Diameter MM 3.2 cm AV Cusp Separation MM 2.1 cm DOPPLER AV Peak Velocity 166.4 cm/s AV Peak Gradient 11.1 mmHg MV Area PHT 2.3 cm??? Mitral E Point Velocity 70.1 cm/s Mitral A Point Velocity 115.1 cm/s Mitral E to A Ratio 0.6 MV Deceleration Time 330.2 ms TR Peak Velocity 220.7 cm/s TR Peak Gradient 19.5 mmHg Right Ventricular Systolic Press 24.5 mmHg FINDINGS Left Ventricle Left ventricular ejection fraction is estimated at 55-60 %. Moderately increased septal wall thickness. Severely increased posterior wall thickness. Normal left ventricular wall motion. Right Ventricle Normal right ventricular size and function. Severely increased right ventricular wall thickness. Right Atrium Normal right atrial size. No right atrial thrombus or mass seen. Left Atrium Mildly increased left atrial diameter. Severely increased left atrial volume. Mildly increased left atrial area. Mitral Valve Structurally normal mitral valve. Mitral annular calcification. Aortic Valve Aortic valve sclerosis. No aortic valve stenosis or regurgitation. Tricuspid Valve Tricuspid valve not well visualized. Mild tricuspid regurgitation. Pulmonic Valve Pulmonic valve not well visualized. No pulmonic regurgitation. Pericardium No pericardial effusion. Aorta Normal size aortic root and proximal ascending aorta. CONCLUSIONS Technically very difficult study for interpretation Probably normal LV systolic function Poorly visualized intracardiac valves Previewed by: Dr. Hadley Estrada MD (Electronically Signed) Final Date: 05 Mar 2024 10:40
[2024-03-05 10:44] LABS: Basophils # (A) 0.08 X 10*3/uL (0.00-0.10); Basophils % (A) 0.9 %; Eosinophils # (A) 0.27 X 10*3/uL (0.04-0.35); Eosinophils % (A) 3.1 %; HCT 38.7 % (37.2-46.3); HGB 11.3 g/dL (12.0-15.0); Lymphocytes # (A) 1.07 X 10*3/uL (0.90-5.00); Lymphocytes % (A) 12.5 %; MCH 26.7 pg (27.0-32.0); MCHC 29.2 g/dL (32.0-37.0); MCV 91.5 FL (80.0-97.0); Mean Platelet Volume 12.3 FL (9.5-12.2); Monocytes # (A) 0.63 X 10*3/uL (0.20-1.00); Monocytes % (A) 7.3 %; NRBC Per 100 WBC 0 X 10*3/uL (0.00-0.01); Neutrophils # (A) 6.38 X 10*3/uL (1.80-7.70); Neutrophils % (A) 74.3 %; Platelet Count 458 X 10*3/uL (140-440); RBC 4.23 X 10*6/uL (4.10-5.20); RDW 15.6 % (11.5-14.5); WBC 8.59 X 10*3/uL (4.50-10.00)
--- NOTE | 2024-03-05 10:58 | P.PN ---
Subjective Progress Note Date: 03/05/24 Principal diagnosis: Left shoulder pain Patient was seen at bedside this morning lying in bed. Patient says since receiving a steroid injection yesterday she has noticed any changes as far as improvement in pain or range of motion in the left shoulder. Patient denies any other orthopedic issues at this time. Patient says she has been trying to move her shoulder a little bit more since the injection yesterday. Patient denies any other issues at this time Objective - Vital Signs Vital signs: Vital Signs Temp 98.1 F 03/05/24 07:01 Pulse 71 03/05/24 07:01 Resp 16 03/05/24 07:01 BP 175/67 03/05/24 07:01 Pulse Ox 100 03/05/24 07:01 FiO2 Intake & Output 03/04/24 03/05/24 03/05/24 18:59 06:59 18:59 Intake Total 100 Balance 100 Weight 86.183 kg Intake: Oral 100 Other: Voiding Method Toilet # Voids 1 2 - Exam Negative for any obvious lesions, ecchymosis, erythema or wounds to the left upper extremity. Patient does seem to hold left shoulder fully adducted. Sensation is equal, symmetric, bilaterally intact about the upper extremities. There is some tenderness to palpation over the glenohumeral joint anteriorly. NTTP throughout left elbow distal humerus and AC joint. Patient does have full range of motion throughout left wrist and left elbow in flexion/extension. Limit range of motion left shoulder forward elevation, abduction, external/internal rotation. 4-/5 in resisted left shoulder forward elevation, abduction and external/internal rotation. 4+/5 in resisted left elbow flexi on/extension and left wrist flexion extension. Radial pulse intact, 2+ bilaterally. Cap refill under 3 seconds in digits of upper extremities. - Labs CBC & Chem 7: 03/05/24 06:21 03/04/24 00:34 Labs: Abnormal Lab Results - Last 24 Hours (Table) 03/04/24 03/04/24 03/04/24 Range/Units 12:21 17:54 21:25 POC Glucose (mg/dL) 137 H 130 H 133 H (70-110) mg/dL Assessment and Plan Assessment: 1. Left shoulder pseudosubluxation; AC joint osteoarthritis Plan: 1. Left shoulder pseudosubluxation; AC joint osteoarthritis - surgery injection was performed yesterday at bedside into the glenohumeral joint on the left shoulder. Pain medication as needed. Patient may weight-bear as tolerated. Patient is encouraged to perform gentle range of motion exercises of the left shoulder as tolerated. Apply Voltaren gel left shoulder. We do recommend patient to follow-up in the outpatient setting for continued evaluation. From orthopedic standpoint, patient is stable from discharge. At this time, orthopedics is signing off. Please do not hesitate to contact us for any further questions. 2. Appreciate medical management 3. Pain management - voltaren 4. GI prophylaxis recs 5. DVT prophylaxis - Eliquis; aspirin 6. PT/OT - patient may perform gentle range of motion x-rays of the left shoulder/upper extremity. Weightbearing as tolerated with walker 7. Encourage incentive spirometer use Time with Patient: Less than 30
[2024-03-05 11:08] LABS: ALT 10 U/L (8-44); AST 18 U/L (13-35); Albumin 3.8 g/dL (3.8-4.9); Albumin/Globulin Ratio 1.52 Ratio (1.60-3.17); Alkaline Phosphatase 49 U/L (41-126); BUN/Creat Ratio 26.38 Ratio (12.00-20.00); Blood Urea Nitrogen 42.2 mg/dL (9.0-27.0); Calcium 9.9 mg/dL (8.7-10.3); Carbon Dioxide 22.2 mmol/L (21.6-31.8); Chloride 104 mmol/L (96-109); Globulin 2.5 g/dL (1.6-3.3); Glucose 95 mg/dL (70-110); Magnesium 2.3 mg/dL (1.5-2.4); Potassium 4.9 mmol/L (3.5-5.5); Sodium 141 mmol/L (135-145); Total Bilirubin 0.3 mg/dL (0.3-1.2); Total Protein 6.3 g/dL (6.2-8.2)
[2024-03-05 12:17] LABS: Glucose,Whole Blood 72 mg/dL (70-110)
--- NOTE | 2024-03-05 16:35 | P.DS ---
Providers Date of admission: 03/04/24 01:59 Expected date of discharge: 03/05/24 Attending physician: Elvin Mendez Consults: 03/04/24 01:58 Consult Physician Routine Consulting Provider: Antoine Scherer Consult Reason/Comments: shoulderPain,effusion Do you want consulting provider notified?: Yes Primary care physician: [facility] Course: Chief Complaint: Left arm pain This is a pleasant 83-year-old patient who follows with Dr. Chris Drummond. Patient is accompanied by her daughter at the bedside in the ER. Chronic stable medical conditions include asthma, diabetes, hyperlipidemia, hypertension, osteoarthritis, atrial fibrillation. About couple of months ago was also admitted for CHF. Has home oxygen. Unsure about the amount possibly 2 L. Also has depression and anxiety. Patient complains of pain in the left arm for last 4 days. On day 1 it felt like it to take from the left shoulder laterally. Next day did not hurt much. Following day again pain was much more. Pain is much worse when she moves her arm. Not related to her activity. Denies any anterior chest wall pain. March 05, 2024: Left shoulder pain much better. 2D echo unremarkable. Discussed with patient. Follow-up with orthopedic Dr. Nielsen outpatient. Overall feeling much better. Social history: Lives with her . Non-smoker. Home oxygen Physical examination: VITAL SIGNS: 98.1, 71, 16, 156% 8, 97% room air GENERAL: Reclining in bed, comfortable EYES: Pupils equal. Conjunctiva rosalind l. HEENT: External appearance of nose and ears normal, oral cavity grossly normal. NECK: JVD not raised; masses not palpable. HEART: First and second heart sounds are normal; no edema. LUNGS: Respiratory rate normal; decreased breath sounds. ABDOMEN: Soft, nontender, liver spleen not palpable, no masses palpable. PSYCH: Alert and oriented x3; mood and affect rosalind l. MUSCULOSKELETAL:No Clubbing/cyanosis;muscles-grossly intact. OA Limited range of motion of the left shoulder. Some tenderness at the AC joint. Patient is limited in raising her arm sideways to about 90 degrees. Barely able to take her arm towards the back. INVESTIGATIONS, reviewed in the clinical context: March 05, 2024: White count 8.5 hemoglobin 11.3 platelets 458 sodium 141 potassium 4.9 BUN 42.2 creatinine 1.6 March 04, 2024: White count 10.8 hemoglobin 12.3 platelets 467 sodium 138 potassium 4.8 BUN 46 creatinine 1.47 Troponin I less than 0.012 x 3 EKG tracing personally reviewed by me-normal sinus rhythm. Flipped T waves. Anterior leads. And some of the T wave changes in inferior leads II. Chest x-ray film personally reviewed by me-cardiomegaly. [AP film] some atelectasis X-ray left shoulder: No fracture. Sizable joint effusion. Assessment plan: -Left arm pain, there was concern from the ER about this being a cardiac presentation. No anterior chest wall pain. No cardiac sounding pain. Unlikely. Added Voltaren gel. Patient does take Voltaren p.o. -Acute on chronic AC joint osteoarthritis likely leading to referred pain. Also may be involving rotator cuff. By Dr. Scherer. Left shoulder aspiration was done: Nothing obtained. 40 mg of Depo-Medrol was placed.-Much improved after that -Asthma/COPD in a non-smoker. Causing chronic hypoxic respiratory failure On home oxygen 2 L -Diabetes mellitus type 2 on oral hypoglycemic Amaryl, Actos, metformin Diabetic diet with sliding scale insulin -Depression and anxiety, chronic BuSpar. Xanax. Lexapro. -Chronic congestive heart failure EF not known Lasix 40 mg twice daily. Potassium. -Essential hypertension Cozaar. Lopressor. -Chronic hypoxic respiratory failure from underlying COPD/asthma Home oxygen 2 L -Paroxysmal atrial fibrillation, currently sinus rhythm Lopressor 25 mg twice daily -Primary osteoarthritis Continue Motrin -Obesity BMI 31.6 Weight loss measures -Full code Disposition: Home Past Medical History Past Medical History: Atrial Fibrillation, Asthma, COPD, Diabetes Mellitus, Hyperlipidemia, Hypertension, Osteoarthritis (OA) History of Any Multi-Drug Resistant Organisms: None Reported Past Surgical History: Appendectomy, Hysterectomy, Orthopedic Surgery Additional Past Surgical History / Comment(s): hip Past Psychological History: Anxiety Smoking Status: Never smoker Past Alcohol Use History: None Reported Past Drug Use History: None Reported Plan - Discharge Summary Discharge Rx Participant: Yes New Discharge Prescriptions: New Diclofenac Sodium Gel [Voltaren 1% Gel] 2 gm TOPICAL TID #1 gm amLODIPine [Norvasc] 10 mg PO DAILY #30 tab Continue Potassium Chloride [Klor-Con M20] 20 meq PO DAILY Diclofenac Sodium [Voltaren] 75 mg PO DAILY Metoprolol Tartrate [Lopressor] 25 mg PO BID Desvenlafaxine [Pristiq ER] 200 mg PO DAILY Pravastatin Sodium 80 mg PO HS Fenofibrate Nanocrystallized [Fenofibrate] 145 mg PO DAILY Cholecalciferol [Vitamin D3 (25 Mcg = 1000 Iu)] 50 mcg PO DAILY Apixaban [Eliquis] 5 mg PO BID Furosemide [Lasix] 40 mg PO BID Escitalopram [Lexapro] 10 mg PO DAILY Losartan [Cozaar] 25 mg PO DAILY ALPRAZolam [Xanax] 0.5 mg PO TID Ferrous Sulfate [Iron (65 MG Elemental)] 325 mg PO DAILY metFORMIN HCL 1,000 mg PO BID busPIRone HCL 15 mg PO TID Pioglitazone [Actos] 15 mg PO DAILY Glimepiride [Amaryl] 6 mg PO - Aspirin EC [Ecotrin Low Dose] 81 mg PO DAILY Discharge Medication List ALPRAZolam [Xanax] 0.5 mg PO TID 03/04/24 [History] Apixaban [Eliquis] 5 mg PO BID 03/04/24 [History] Aspirin EC [Ecotrin Low Dose] 81 mg PO DAILY 03/04/24 [History] Cholecalciferol [Vitamin D3 (25 Mcg = 1000 Iu)] 50 mcg PO DAILY 03/04/24 [History] Desvenlafaxine [Pristiq ER] 200 mg PO DAILY 03/04/24 [History] Diclofenac Sodium [Voltaren] 75 mg PO DAILY 03/04/24 [History] Escitalopram [Lexapro] 10 mg PO DAILY 03/04/24 [History] Fenofibrate Nanocrystallized [Fenofibrate] 145 mg PO DAILY 03/04/24 [History] Ferrous Sulfate [Iron (65 MG Elemental)] 325 mg PO DAILY 03/04/24 [History] Furosemide [Lasix] 40 mg PO BID 03/04/24 [History] Glimepiride [Amaryl] 6 mg PO AC-BRKT 03/04/24 [History] Losartan [Cozaar] 25 mg PO DAILY 03/04/24 [History] Metoprolol Tartrate [Lopressor] 25 mg PO BID 03/04/24 [History] Pioglitazone [Actos] 15 mg PO DAILY 03/04/24 [History] Potassium Chloride [Klor-Con M20] 20 meq PO DAILY 03/04/24 [History] Pravastatin Sodium 80 mg PO HS 03/04/24 [History] busPIRone HCL 15 mg PO TID 03/04/24 [History] metFORMIN HCL 1,000 mg PO BID 03/04/24 [History] Diclofenac Sodium Gel [Voltaren 1% Gel] 2 gm TOPICAL TID #1 gm 03/05/24 [Rx] amLODIPine [Norvasc] 10 mg PO DAILY #30 tab 03/05/24 [Rx] Follow up Appointment(s)/Referral(s): Alton Ragland DO [Doctor of Osteopathic Medicine] - 3 Weeks Chris Juarez DO [Primary Care Provider] - 1-2 days Scottie Cooper MD [STAFF PHYSICIAN] - 3 Weeks Discharge Disposition: HOME SELF-CARE
== END 2024-03-05 14:19 | disposition home or self-care (01) ==
LOC: EC 22:13 → 6NMEDSUR 03-04 01:59
PROVIDERS: ADMIT Hospitalist; ATTEND Hospitalist
DX: M79.602 Pain in left arm (principal); M19.012 Primary osteoarthritis, left shoulder; J44.9 Chronic obstructive pulmonary disease, unspecified; E11.9 Type 2 diabetes mellitus without complications; F41.8 Other specified anxiety disorders; I50.9 Heart failure, unspecified; J96.11 Chronic respiratory failure with hypoxia; I48.0 Paroxysmal atrial fibrillation; I11.0 Hypertensive heart disease with heart failure; E78.5 Hyperlipidemia, unspecified; E66.9 Obesity, unspecified; Z68.31 Body mass index [BMI] 31.0-31.9, adult; Z90.49 Acquired absence of other specified parts of digestive tract; Z90.710 Acquired absence of both cervix and uterus; Z79.82 Long term (current) use of aspirin; Z79.84 Long term (current) use of oral hypoglycemic drugs; Z79.899 Other long term (current) drug therapy
CPT/HCPCS: 36415; 93005; 85379; 83880; 80053 ×2; 83605; 83735 ×2; 84100 ×2; 84484; 85025 ×2; 85610; 85730; 73030; 71046; 20610; G0378 ×2; C8929; J2270; J0360; J1650; Q9957; J1170; J1885; 93306

== ENCOUNTER 2024-08-24 23:08 | Observation (INO) | payer MEDICARE ==
[2024-08-25] MEDS: SODIUM CHLORIDE 0.9% 500 ML 500 ML IV ONE (00:22)
[2024-08-25 00:56] LABS: ALT 8 U/L (4-34); AST 21 U/L (14-36); African American GFR (CKD) 34 (>60 ml/min/1.73 sqM); Albumin 3.9 g/dL (3.5-5.0); Alkaline Phosphatase 74 U/L (38-126); Anion Gap 4 mmol/L; Blood Urea Nitrogen 30 mg/dL (7-17); Calcium 9.2 mg/dL (8.4-10.2); Carbon Dioxide 30 mmol/L (22-30); Chloride 107 mmol/L (98-107); Glucose 154 mg/dL (74-99); Non-African American GFR(CKD) 29 (>60 ml/min/1.73 sqM); Partial Thromboplastin Time 20.1 sec (22.0-30.0); Potassium 4.6 mmol/L (3.5-5.1); Prothrombin Time 10.5 sec (10.0-12.5); Sodium 141 mmol/L (137-145); Total Bilirubin 0.5 mg/dL (0.2-1.3)
[2024-08-25 00:58] LABS: HCT 37.9 % (34.0-46.0); HGB 11.5 gm/dL (11.4-16.0); Hypochromasia Marked; MCH 27.8 pg (25.0-35.0); MCHC 30.3 g/dL (31.0-37.0); MCV 91.8 fL (80.0-100.0); Mean Platelet Volume 9.3; Platelet Count 343 k/uL (150-450); RBC 4.13 m/uL (3.80-5.40); RDW 14.2 % (11.5-15.5); WBC 8.1 k/uL (3.8-10.6)
[2024-08-25 01:08] LABS: Appearance,Urine Clear (Clear); Bacteria,Urine Many /hpf; Bilirubin,Urine Negative (Negative); Blood,Urine Trace (Negative); Color,Urine Colorless; Glucose,Urine (UA) 4+ (Negative); Ketones,Urine Negative (Negative); Leukocyte Esterase,Urine Large (Negative); Nitrite,Urine Positive (Negative); PH, Urine 5.5 (5.0-8.0); Protein,Urine 1+ (Negative); RBC,Urine 1 /hpf (0-5); Specific Gravity,Urine 1.013 (1.001-1.035); Squamous Epithelial Cell,Urine 2 /hpf (0-4); Urobilinogen,Urine <2.0 mg/dL (<2.0); WBC,Urine 69 /hpf (0-5)
[2024-08-25 01:39] LABS: Lymphocytes # (M) 0.73 k/uL (1.0-4.8); Monocytes # (M) 0.57 k/uL (0-1.0); Neutrophils % (M) 84 %; Nucleated Red Blood Cells 0 /100 WBC (0-0); Total Cells Counted 100
[2024-08-25] MEDS: cefTRIAXone IN SWFI 1,000 MG/10 ML SYRINGE IVP STA (02:32)
--- NOTE | 2024-08-25 02:40 | ED ---
General Adult HPI - General Chief complaint: Psychiatric Symptoms Stated complaint: AMS Time Seen by Provider: 08/24/24 23:24 Source: patient Mode of arrival: EMS - History of Present Illness Initial comments: 83-year-old female brought in by her with chief complaint of unco ntrollable crying. Patient's states the patient has been uncontrollably crying for few weeks now. Symptoms are particularly bad at night. She has also been increasingly confused. Patient denies feeling sad. She denies any suicidal or homicidal ideation. She denies any chest pain, difficulty breathing, abdominal pain, nausea, vomiting, extremity pain, fever, cough, congestion, sore throat. is requesting psychiatric evaluation - Related Data Home Medications Medication Instructions Recorded Confirmed ALPRAZolam [Xanax] 0.5 mg PO TID 03/04/24 03/04/24 Apixaban [Eliquis] 5 mg PO BID 03/04/24 03/04/24 Aspirin EC [Ecotrin Low Dose] 81 mg PO DAILY 03/04/24 03/04/24 Cholecalciferol [Vitamin D3 (25 50 mcg PO DAILY 03/04/24 03/04/24 Mcg = 1000 Iu)] Desvenlafaxine [Pristiq ER] 200 mg PO DAILY 03/04/24 03/04/24 Diclofenac Sodium [Voltaren] 75 mg PO DAILY 03/04/24 03/04/24 Escitalopram [Lexapro] 10 mg PO DAILY 03/04/24 03/04/24 Fenofibrate Nanocrystallized 145 mg PO DAILY 03/04/24 03/04/24 [Fenofibrate] Ferrous Sulfate [Iron (65 MG 325 mg PO DAILY 03/04/24 03/04/24 Elemental)] Furosemide [Lasix] 40 mg PO BID 03/04/24 03/04/24 Glimepiride [Amaryl] 6 mg PO AC-BRKFST 03/04/24 03/04/24 Losartan [Cozaar] 25 mg PO DAILY 03/04/24 03/04/24 Metoprolol Tartrate [Lopressor] 25 mg PO BID 03/04/24 03/04/24 Pioglitazone [Actos] 15 mg PO DAILY 03/04/24 03/04/24 Potassium Chloride [Klor-Con M20] 20 meq PO DAILY 03/04/24 03/04/24 Pravastatin Sodium 80 mg PO HS 03/04/24 03/04/24 busPIRone HCL 15 mg PO TID 03/04/24 03/04/24 metFORMIN HCL 1,000 mg PO BID 03/04/24 03/04/24 Previous Rx's Medication Instructions Recorded Diclofenac Sodium Gel [Voltaren 1% 2 gm TOPICAL TID #1 gm 03/05/24 Gel] amLODIPine [Norvasc] 10 mg PO DAILY #30 tab 03/05/24 Allergies Allergy/AdvReac Type Severity Reaction Status Date / Time No Known Allergies Allergy Verified 08/24/24 23:09 Review of Systems ROS Statement: Those systems with pertinent positive or pertinent negative responses have been documented in the HPI. ROS Other: All systems not noted in ROS Statement are negative. Past Medical History Past Medical History: Atrial Fibrillation, Asthma, COPD, CVA/TIA, Diabetes Mellitus, Hyperlipidemia, Hypertension, Memory Impairment, Osteoarthritis (OA) History of Any Multi-Drug Resistant Organisms: None Reported Past Surgical History: Appendectomy, Hysterectomy, Orthopedic Surgery Additional Past Surgical History / Comment(s): hip Past Psychological History: Anxiety Smoking Status: Former smoker Past Alcohol Use History: None Reported Past Drug Use History: None Reported General Exam General appearance: alert, in no apparent distress Head exam: Present: atraumatic, normocephalic, normal inspection Eye exam: Present: normal appearance, EOMI Neck exam: Present: normal inspection. Absent: meningismus Respiratory exam: Present: normal lung sounds bilaterally. Absent: respiratory distress, wheezes, rales, rhonchi, stridor Cardiovascular Exam: Present: regular rate, normal rhythm, normal heart sounds. Absent: systolic murmur, diastolic murmur, rubs, gallop, clicks Neurological exam: Present: alert, altered (Pleasantly confused) Psychiatric exam: Present: normal affect, normal mood Skin exam: Present: warm, dry Course Vital Signs 08/24/24 08/25/24 23:10 02:22 Temperature 98 F Pulse Rate 65 67 Respiratory 18 18 Rate Blood Pressure 208/77 167/72 O2 Sat by Pulse 89 L 95 Oximetry EKG Findings - EKG Comments: EKG Findings:: Atrial fibrillation with slow ventricular response. Ventricular rate 57. QRS 109. QT 465. QTc 460. Medical Decision Making - Medical Decision Making Was pt. sent in by a medical professional or institution ([facility], SLD TE[employer]ER, urgent care, hospital, or penitentiary...) When possible be specific @ -No Did you speak to anyone other than the patient for history (EMS, parent, family, police, friend...)? What history was obtained from this source @ -Majority of history is obtained from Did you review nursing and triage notes (agree or disagree)? Why? @ -I reviewed and agree with nursing and triage notes Were old charts reviewed (outside hosp., previous admission, EMS record, old EKG, old radiological studies, urgent care reports/EKG's, penitentiary records)? Report findings @ -No old charts were reviewed Differential Diagnosis (chest pain, altered mental status, abdominal pain women, abdominal pain men, vaginal bleeding, weakness, fever, dyspnea, syncope, headache, dizziness, GI bleed, back pain, seizure, CVA, palpatations, mental health, musculoskeletal)? @ -MDM Differential Altered Mental Status: Hypoglycemia, DKA, hypercapnia, ETOH, overdose, CO poisoning, trauma, myxedema coma, HTN encephalopathy, infection, encephalitis, psychosis, intercranial hemorrhage, hepatic encephalopathy, meningitis, CVA this is not meant to be an all-inclusive list EKG interpreted by me (3pts min.). @ -As above X-rays interpreted by me (1pt min.). @ -Chest x-ray shows cardiomegaly. Mild vascular congestion. CT interpreted by me (1pt min.). @ -None done U/S interpreted by me (1pt. min.). @ -None done What testing was considered but not performed or refused? (CT, X-rays, U/S, labs)? Why? @ -None What meds were considered but not given or refused? Why? @ -None Did you discuss the management of the patient with other professionals (professionals i.e. [facility], SLD TEACHER, lab, RT, psych nurse, social media specialist, radiator mechanic, teacher, data officer, disease case manager)? Give summary @ -Attending spoke with the [facility] provider on-call accepts admission Was smoking cessation discussed for >3mins.? @ -No Was critical care preformed (if so, how long)? @ -No Were there social determinants of health that impacted care today? How? (Homelessness, low income, unemployed, alcoholism, drug addiction, transportation, low edu. Level, literacy, decrease access to med. care, residential, rehab)? @ -No Was there de-escalation of care discussed even if they declined (Discuss DNR or withdrawal of care, Hospice)? DNR status @ -No What co-morbidities impacted this encounter? (DM, HTN, Smoking, COPD, CAD, Cancer, CVA, ARF, Chemo, Hep., AIDS, mental health diagnosis, sleep apnea, m orbid obesity)? @ -None Was patient admitted / discharged? Hospital course, mention meds given and route, prescriptions, significant lab abnormalities, going to OR and other pertinent info. @ -84-year-old female brought in by her with chief complaint of uncontrollable crying has been ongoing for few weeks. He is requesting mental health evaluation. History and physical examination are conducted. Urine shows positive nitrates and large leukocytes, patient is treated with Rocephin for UTI and urine culture sent out. Elevated BUN and creatinine of 30 and 1.61 respectively appear consistent with baseline. Negative troponin. Patient and are educated on today's findings. Patient will be admitted for UTI and consult was placed for psychiatry per 's request. Patient has been are agreeable with this plan. I discussed this case with my attending Dr. Varghese patient denies any shortness of breath but appears slightly dyspneic on reassessment. Chest x-ray and BNP are ordered. Chest x-ray shows cardiomegaly with mild vascular congestion. BNP is pending. Undiagnosed new problem with uncertain prognosis? @ -No Drug Therapy requiring intensive monitoring for toxicity (Heparin, Nitro, Insulin, Cardizem)? @ -No Were any procedures done? @ -No Diagnosis/symptom? @ -UTI, altered mental status Acute, or Chronic, or Acute on Chronic? @ -Acute Uncomplicated (without systemic symptoms) or Complicated (systemic symptoms)? @ -Complicated Side effects of treatment? @ -No Exacerbation, Progression, or Severe Exacerbation? @ -No Poses a threat to life or bodily function? How? (Chest pain, [place], [place], pneumonia, PE, COPD, DKA, ARF, appy, cholecystitis, CVA, Diverticulitis, Homicidal, Suicidal, threat to staff... and all critical care pts) @ -Yes - Lab Data Result diagrams: 08/25/24 00:00 08/25/24 00:00 Lab Results 08/25/24 08/25/24 08/25/24 Range/Units 00:00 00:00 00:00 WBC 8.1 (3.8-10.6) k/uL RBC 4.13 (3.80-5.40) m/uL Hgb 11.5 (11.4-16.0) gm/dL Hct 37.9 (34.0-46.0) % MCV 91.8 (80.0-100.0) fL MCH 27.8 (25.0-35.0) pg MCHC 30.3 L (31.0-37.0) g/dL RDW 14.2 (11.5-15.5) % Plt Count 343 (150-450) k/uL MPV 9.3 Neutrophils % Not Reportable Neutrophils % (Manual) 84 % Lymphocytes % Not Reportable Lymphocytes % (Manual) 9 % Monocytes % Not Reportable Monocytes % (Manual) 7 % Eosinophils % Not Reportable Basophils % Not Reportable Neutrophils # Not Reportable Neutrophils # (Manual) 6.80 (1.3-7.7) k/uL Lymphocytes # Not Reportable Lymphocytes # (Manual) 0.73 L (1.0-4.8) k/uL Monocytes # Not Reportable Monocytes # (Manual) 0.57 (0-1.0) k/uL Eosinophils # Not Reportable Basophils # Not Reportable Nucleated RBCs 0 (0-0) /100 WBC Manual Slide Review Performed Hypochromasia Marked PT 10.5 (10.0-12.5) sec INR 1.0 (<1.2) APTT 20.1 L (22.0-30.0) sec Sodium 141 (137-145) mmol/L Potassium 4.6 (3.5-5.1) mmol/L Chloride 107 (98-107) mmol/L Carbon Dioxide 30 (22-30) mmol/L Anion Gap 4 mmol/L BUN 30 H (7-17) mg/dL Creatinine 1.61 H (0.52-1.04) mg/dL Est GFR (CKD-EPI)AfAm 34 (>60 ml/min/1.73 sqM) Est GFR (CKD-EPI)NonAf 29 (>60 ml/min/1.73 sqM) Glucose 154 H (74-99) mg/dL Calcium 9.2 (8.4-10.2) mg/dL Total Bilirubin 0.5 (0.2-1.3) mg/dL AST 21 (14-36) U/L ALT 8 (4-34) U/L Alkaline Phosphatase 74 (38-126) U/L Troponin I (0.000-0.034) ng/mL Total Protein 7.0 (6.3-8.2) g/dL Albumin 3.9 (3.5-5.0) g/dL Urine Color Urine Appearance (Clear) Urine pH (5.0-8.0) Ur Specific Miles (1.001-1.035) Urine Protein (Negative) Urine Glucose (UA) (Negative) Urine Ketones (Negative) Urine Blood (Negative) Urine Nitrite (Negative) Urine Bilirubin (Negative) Urine Urobilinogen (<2.0) mg/dL Ur Leukocyte Esterase (Negative) Urine RBC (0-5) /hpf Urine WBC (0-5) /hpf Ur Squamous Epith Cells (0-4) /hpf Urine Bacteria (None) /hpf 08/25/24 08/25/24 Range/Units 00:00 00:23 WBC (3.8-10.6) k/uL RBC (3.80-5.40) m/uL Hgb (11.4-16.0) gm/dL Hct (34.0-46.0) % MCV (80.0-100.0) fL MCH (25.0-35.0) pg MCHC (31.0-37.0) g/dL RDW (11.5-15.5) % Plt Count (150-450) k/uL MPV Neutrophils % Neutrophils % (Manual) % Lymphocytes % Lymphocytes % (Manual) % Monocytes % Monocytes % (Manual) % Eosinophils % Basophils % Neutrophils # Neutrophils # (Manual) (1.3-7.7) k/uL Lymphocytes # Lymphocytes # (Manual) (1.0-4.8) k/uL Monocytes # Monocytes # (Manual) (0-1.0) k/uL Eosinophils # Basophils # Nucleated RBCs (0-0) /100 WBC Manual Slide Review Hypochromasia PT (10.0-12.5) sec INR (<1.2) APTT (22.0-30.0) sec Sodium (137-145) mmol/L Potassium (3.5-5.1) mmol/L Chloride (98-107) mmol/L Carbon Dioxide (22-30) mmol/L Anion Gap mmol/L BUN (7-17) mg/dL Creatinine (0.52-1.04) mg/dL Est GFR (CKD-EPI)AfAm (>60 ml/min/1.73 sqM) Est GFR (CKD-EPI)NonAf (>60 ml/min/1.73 sqM) Glucose (74-99) mg/dL Calcium (8.4-10.2) mg/dL Total Bilirubin (0.2-1.3) mg/dL AST (14-36) U/L ALT (4-34) U/L Alkaline Phosphatase (38-126) U/L Troponin I <0.012 (0.000-0.034) ng/mL Total Protein (6.3-8.2) g/dL Albumin (3.5-5.0) g/dL Urine Color Colorless Urine Appearance Clear (Clear) Urine pH 5.5 (5.0-8.0) Ur Specific Miles 1.013 (1.001-1.035) Urine Protein 1+ H (Negative) Urine Glucose (UA) 4+ H (Negative) Urine Ketones Negative (Negative) Urine Blood Trace H (Negative) Urine Nitrite Positive H (Negative) Urine Bilirubin Negative (Negative) Urine Urobilinogen <2.0 (<2.0) mg/dL Ur Leukocyte Esterase Large H (Negative) Urine RBC 1 (0-5) /hpf Urine WBC 69 H (0-5) /hpf Ur Squamous Epith Cells 2 (0-4) /hpf Urine Bacteria Many H (None) /hpf Disposition Clinical Impression: UTI (urinary tract infection), AMS (altered mental status) Disposition: ADMITTED IP TO THIS HOSP Condition: Fair Time of Disposition: 03:52
[2024-08-25] MEDS ORDERED: NALOXONE 0.4 MG/ML 1 ML VIAL IV PRN (03:50)
--- NOTE | 2024-08-25 04:22 | XR ---
EXAM: XR Chest, 2 Views CLINICAL HISTORY: ITS.REASON XR Reason: dyspnea TECHNIQUE: Frontal and lateral views of the chest. COMPARISON: No relevant prior studies available. IMPRESSION: Cardiomegaly. Mild vascular congestion
[2024-08-25] MEDS: SODIUM CHLORIDE 0.9% 1,000 ML IV SCH (04:46)
[2024-08-25] MEDS: amLODIPine 10 MG TAB PO STA (06:52)
[2024-08-25] MEDS: LOSARTAN 25 MG TAB PO STA (06:52)
[2024-08-25] MEDS: FENOFIBRATE 160 MG TAB PO SCH (10:28)
[2024-08-25] MEDS: busPIRone HCl 5 MG TAB PO SCH (10:28)
[2024-08-25] MEDS: ALPRAZolam 0.5 MG TAB PO SCH (10:28)
[2024-08-25] MEDS: FUROSEMIDE 40 MG TAB PO SCH (10:28)
[2024-08-25] MEDS: ESCITALOPRAM 10 MG TAB PO SCH (10:31)
[2024-08-25] MEDS: ARIPiprazole 2 MG TAB PO SCH (10:31)
[2024-08-25] MEDS: POTASSIUM CHLORIDE ER 20 MEQ TAB.ER PO SCH (10:31)
[2024-08-25] MEDS: DESVENLAFAXINE SUCCINATE 50 MG TAB.ER.24H PO SCH (10:31)
[2024-08-25] MEDS: metFORMIN 500 MG TAB PO SCH (10:31)
[2024-08-25] MEDS: METOPROLOL TARTRATE 25 MG TAB PO SCH (10:31)
[2024-08-25] MEDS: PIOGLITAZONE 15 MG TAB PO SCH (10:31)
[2024-08-25] MEDS: FERROUS SULFATE 325 MG TAB PO SCH (10:31)
[2024-08-25] MEDS: DAPAGLIFLOZIN PROPANEDIOL 5 MG TABLET PO SCH (10:31)
[2024-08-25 14:20] VITALS: RESP 18
--- NOTE | 2024-08-25 14:36 | P.CN ---
Psychiatric Consult - . Consult date: 08/25/24 Consult:: 08/25/24 14:26 IDENTIFYING DATA: This patient is a 84-year-old female, retired and living with REASON FOR REFERRAL: Psychiatry was consulted for AMS HISTORY OF PRESENT ILLNESS: The patient presented to the hospital on 08/24 with a chief complaint of AMS. Per ED note, "patient brought in by her with chief complaint of uncontrollable crying. Patient's states the patient has been uncontrollably crying for few weeks now. Symptoms are particularly bad at night. She has also been increasingly confused. She denies any suicidal homicidal ideations. is requesting psychiatric eval." UA returned positive for UTI, patient vitals were significant for hypertension, EKG showed A-fib, QTc 460. Patient seen and evaluated at bedside however most of patient's history was provided by her Jonathon. He states for the past year patient has been uncontrollably crying that is worse at night and getting progressively worse. He denies any triggers or stressors however did state that patient does not like their apartment that they are staying at and she does better when she is able to leave the house. Patient reports both depressive and anxious symptoms, rating both a 6 out of 10 in severity. She reports feeling afraid for unknown reason. She has been following Dr. Trotter psychiatrist for the past 2 years and he has been adjusting her medications for the symptoms, most recently discontinuing Abilify. Patient's states she also sees a neurologist who started her on nuedexta for crying spells however he discontinued this after no improvement but recently patient psychiatrist restarted this medication. At this time patient denies any suicidal or homical ideations, intent or plan. Patient denies any auditory, visual hallucinations and denies any paranoia or delusions. reports patient's memory has been impaired for quite a while however has worsened over the last few months. He states patient is not independent with her ADLs as he assists with her medications. Lengthy discussion was had with patient and her regarding medication adjustments and was resistant on decreasing 1 of patient's antidepressants thus this will be deferred to her outpatient psychiatrist as he states having an upcoming appointment in a few weeks. PAST PSYCHIATRIC HISTORY: Patient has a a history of depression, anxiety. She is currently taking Lexapro 10 mg daily, Xanax 0.5 mg 3 times daily, Pristiq ER 200 mg daily, BuSpar 15 mg 3 times daily. Patient has 2 prior inpatient hospitalizations, both remotely. Patient sees Dr. Trotter patient and has an upcoming counseling appointment as well within the next month. Patient denies any history of suicide attempts in the past. PAST MEDICAL HISTORY: A-fib, COPD, asthma, diabetes, hypertension, memory impairment. ALLERGIES: as per EMR. CHEMICAL DEPENDENCY HISTORY: as per HPI. FAMILY PSYCHIATRIC/SUBSTANCE USE HISTORY: Patient's dad had dementia and underlying mental illness SOCIAL HISTORY: Patient is and has 2 children. She lives at home with her in an apartment. She is retired. She has no legal issues. MENTAL STATUS EXAM: General Appearance: Patient appears to be stated age is alert, pleasant, and cooperative. Patient appears to have fair hygiene and grooming wearing hospital gown with fair eye contact. Behavior: Patient is calmly lying in bed without any agitated behavior. Speech: Patient's speech is fluent and nonpressured. Mood/Affect: Patient reports their mood is "ok", affect is congruent Suicidality/Homicidality: Patient denies having any suicidal or homicidal id eation intent or plan. Perceptions: Patient denies any visual hallucinations and denies any auditory hallucinations Though content/process: There is no evidence of any delusional thought content and thought process is linear and goal-directed. Memory and concentration: AOX3, grossly intact for the purposes of this session. Can spell "WORLD" backwards Judgment and insight: limited IMPRESSIONS: Depression, unspecified Anxiety, unspecified Unspecified neurocognitive disorder PLAN: -At this time patient DOES NOT meet criteria for inpatient psychiatric admission. -Delirium precautions recommended with patient including - avoiding use of narcotics and [employer] sedatives, limit anticholinergic medications when possible, frequent re-orientation, minimize use of restraints, open window shades during the day and close them at night -Would recommend the following medication changes/additions: Increase BuSpar to 20 mg 3 times daily, discontinue Abilify 1 mg daily and continue other psychotropic medications as is. Discussed with patient's the overall goal of simplifying her psychotropic medications however he was resistant at this time thus will defer this to her outpatient psychiatrist -Patient has an upcoming appointments for both her outpatient psychiatrist Dr. Trotter and counselor and she should follow-up with both upon discharge -Will continue to follow along -Please contact with any questions.
[2024-08-25] MEDS: busPIRone HCl 10 MG TAB PO SCH (15:31)
--- NOTE | 2024-08-25 17:19 | P.HPIM ---
History of Present Illness H&P Date: 08/25/24 Chief Complaint: Crying a lot This 84-year-old patient, follows Dr. Chris Drummond. Medical condition include atrial fibrillation, COPD, diabetes hypertension hyperlipidemia cognitive impairment, osteoarthritis. Patient presents after for a 1 month patient being crying quite a bit. Denies feeling sad but feels rather depressed. Appetite is good. Sleeps more than usual. Does use a walker. No fever no chills. Patient also had slight tremors for some time. Normally has a bowel movement every day or every other day. Review of systems: GEN.: Tired EYES: None HEENT: None NECK: None RESPIRATORY: None CARDIOVASCULAR: None GASTROINTESTINAL: None GENITOURINARY: None MUSCULOSKELETAL: Some joint pains LYMPHATICS: None HEMATOLOGICAL: None PSYCHIATRY: Depressed NEUROLOGICAL: Uses a walker Social history: . Does use a walker. Did smoke in the remote past. No alcohol Physical examination: VITAL SIGNS: 98, 65, 18, 167 x 72, 95% on 4 L GENERAL: BMI 32.3, laying in bed awake a bit withdrawn. EYES: Pupils equal. Conjunctiva rosalind l. HEENT: External appearance of nose and ears normal, oral cavity grossly normal. NECK: JVD not raised; masses not palpable. HEART: First and second heart sounds are normal; no edema. LUNGS: Respiratory rate normal; clear to auscultation. ABDOMEN: Soft, nontender, liver spleen not palpable, no masses palpable. PSYCH: [Alert and oriented x3; mood and affect appear depressed l. MUSCULOSKELETAL:No Clubbing/cyanosis;muscles-grossly intact. OA NEUROLOGICAL: Cranial nerves grossly intact; no facial asymmetry, power and sensation grossly intact. LYMPHATICS: No lymph nodes palpable in the axilla and neck INVESTIGATIONS, reviewed in the clinical context: August 25 06/15/2024: White count 8.1 hemoglobin 11.5 platelets 343 sodium 141 potassium 4.6 BUN 30 creatinine 1.61 Troponin I less than 0.012 proBNP 4340 UA: 1 protein plus glucose 4+ nitrate positive leukoesterase large WBC 69 bacteria many EKG tracing personally reviewed by me-possible atrial fibrillation Chest x-ray film personally reviewed by me-cardiomegaly. Possible venous prominence Assessment plan: -Patient presents with crying episodes for close to a month. Patient is on multiple medications depression anxiety. Her appetite is fair. Does sleep quite a bit. Psychiatry consulted, to review medications -Acute UTI with cystitis Received IV ceftriaxone. Will switch to oral Keflex -Asthma/COPD in a non-smoker. Causing chronic hypoxic respiratory failure On home oxygen 2 L -Diabetes mellitus type 2 on oral hypoglycemic Farxiga, Actos, metformin Diabetic diet with sliding scale insulin -Depression and anxiety, chronic BuSpar. Xanax. Lexapro. -Chronic congestive heart failure EF not known Lasix 40 mg twice daily. Potassium. -Essential hypertension Cozaar. Lopressor. -Chronic hypoxic respiratory failure from underlying COPD/asthma Home oxygen 2 L -Persistent atrial fibrillation, rate controlled Lopressor 25 mg twice daily -Primary osteoarthritis Continue Motrin -Obesity BMI 32.3 Weight loss measures -Full code Past Medical History Past Medical History: Atrial Fibrillation, Asthma, COPD, CVA/TIA, Diabetes Mellitus, Hyperlipidemia, Hypertension, Memory Impairment, Osteoarthritis (OA) Additional Past Medical History / Comment(s): UTI History of Any Multi-Drug Resistant Organisms: None Reported Past Surgical History: Appendectomy, Hysterectomy, Orthopedic Surgery Additional Past Surgical History / Comment(s): hip Additional Past Anesthesia/Blood Transfusion Reaction / Comment(s): Never rcvd. blood Past Psychological History: Anxiety Smoking Status: Former smoker Past Alcohol Use History: None Reported Past Drug Use History: None Reported Medications and Allergies Home Medications Medication Instructions Recorded Confirmed Type ALPRAZolam [Xanax] 0.5 mg PO TID 03/04/24 08/25/24 History Cholecalciferol [Vitamin D3 (25 50 mcg PO DAILY 03/04/24 08/25/24 History Mcg = 1000 Iu)] Desvenlafaxine [Pristiq ER] 200 mg PO DAILY 03/04/24 08/25/24 History Escitalopram [Lexapro] 10 mg PO DAILY 03/04/24 08/25/24 History Fenofibrate Nanocrystallized 145 mg PO DAILY 03/04/24 08/25/24 History [Fenofibrate] Ferrous Sulfate [Iron (65 MG 325 mg PO DAILY 03/04/24 08/25/24 History Elemental)] Furosemide [Lasix] 40 mg PO BID 03/04/24 08/25/24 History Losartan [Cozaar] 25 mg PO DAILY 03/04/24 08/25/24 History Metoprolol Tartrate [Lopressor] 25 mg PO BID 03/04/24 08/25/24 History Pioglitazone [Actos] 15 mg PO DAILY 03/04/24 08/25/24 History Potassium Chloride [Klor-Con M20] 20 meq PO DAILY 03/04/24 08/25/24 History Pravastatin Sodium 80 mg PO HS 03/04/24 08/25/24 History busPIRone HCL 15 mg PO TID 03/04/24 08/25/24 History metFORMIN HCL 1,000 mg PO BID 03/04/24 08/25/24 History amLODIPine [Norvasc] 10 mg PO DAILY #30 tab 03/05/24 08/25/24 Rx ARIPiprazole [Abilify] 1 mg PO DAILY 08/25/24 08/25/24 History Dapagliflozin Propanediol [Farxiga] 5 mg PO DAILY 08/25/24 08/25/24 History Allergies Allergy/AdvReac Type Severity Reaction Status Date / Time No Known Allergies Allergy Verified 08/25/24 09:55 Physical Exam Vitals: Vital Signs Temp Pulse Pulse Resp BP BP Pulse Ox 08/25/24 09:30 80 186/68 92 L 08/25/24 07:30 98.5 F 78 22 191/88 94 L 08/25/24 06:00 69 18 177/94 95 08/25/24 05:30 19 186/83 95 08/25/24 02:22 67 18 167/72 95 08/24/24 23:10 98 F 65 18 208/77 89 L Intake and Output 08/24/24 08/25/24 08/25/24 22:59 06:59 14:59 Other: # Voids 1 Weight 90.718 kg 90.718 kg Results CBC & Chem 7: 08/25/24 00:00 08/25/24 00:00 Labs: Abnormal Lab Results - Last 24 Hours (Table) 08/25/24 08/25/24 08/25/24 Range/Units 00:00 00:00 00:00 MCHC 30.3 L (31.0-37.0) g/dL Lymphocytes # (Manual) 0.73 L (1.0-4.8) k/uL APTT 20.1 L (22.0-30.0) sec BUN 30 H (7-17) mg/dL Creatinine 1.61 H (0.52-1.04) mg/dL Glucose 154 H (74-99) mg/dL Urine Protein (Negative) Urine Glucose (UA) (Negative) Urine Blood (Negative) Urine Nitrite (Negative) Ur Leukocyte Esterase (Negative) Urine WBC (0-5) /hpf Urine Bacteria (None) /hpf 08/25/24 Range/Units 00:23 MCHC (31.0-37.0) g/dL Lymphocytes # (Manual) (1.0-4.8) k/uL APTT (22.0-30.0) sec BUN (7-17) mg/dL Creatinine (0.52-1.04) mg/dL Glucose (74-99) mg/dL Urine Protein 1+ H (Negative) Urine Glucose (UA) 4+ H (Negative) Urine Blood Trace H (Negative) Urine Nitrite Positive H (Negative) Ur Leukocyte Esterase Large H (Negative) Urine WBC 69 H (0-5) /hpf Urine Bacteria Many H (None) /hpf Thrombosis Risk Factor Assmnt - Choose All That Apply Any of the Below Risk Factors Present?: Yes Each Factor Represents 1 point: Abnormal pulmonary function (COPD), Obesity (BMI >25) Each Risk Factor Represents 3 Points: Age 75 years or older Thrombosis Risk Factor Assessment Total Risk Factor Score: 5 Thrombosis Risk Factor Assessment Level: High Risk
[2024-08-25] MEDS: PRAVASTATIN SODIUM 80 MG TAB PO SCH (20:30)
[2024-08-26] MEDS: ACETAMINOPHEN TAB 325 MG TAB PO PRN (00:08)
[2024-08-26] MEDS: amLODIPine 10 MG TAB PO SCH (08:51)
[2024-08-26] MEDS: LOSARTAN 25 MG TAB PO SCH (08:51)
[2024-08-26] MEDS: CEPHALEXIN 250 MG CAP PO SCH (08:56)
[2024-08-26 12:43] VITALS: BP 195/72; PULSE 63; TEMP 98.1
--- NOTE | 2024-08-26 16:55 | P.DS ---
Providers Date of admission: 08/25/24 03:51 Expected date of discharge: 08/26/24 Attending physician: Elvin Mendez Consults: 08/25/24 03:50 Consult Physician Urgent Consulting Provider: Starr Umaña Consult Reason/Comments: AMS Do you want consulting provider notified?: Already Contacted Primary care physician: Chris Gomesrien [facility] Course: Chief Complaint: Crying a lot This 84-year-old patient, follows Dr. Crhis Chow. Medical condition include atrial fibrillation, COPD, diabetes hypertension hyperlipidemia cognitive impairment, osteoarthritis. Patient presents after for a 1 month patient being crying quite a bit. Denies feeling sad but feels rather depressed. Appetite is good. Sleeps more than usual. Does use a walker. No fever no chills. Patient also had slight tremors for some time. Normally has a bowel movement every day or every other day. August 26: Laying in bed. Comfortable. Patient to complete a short course of Keflex for UTI. Abilify discontinued per psychiatry. BuSpar increased to 60 mg total a day. Patient to follow-up with outpatient psychiatry. Since patient's blood pressure is running high. I am also sending a prescription of clonidine 0.1 mg twice daily. I called the patient's and let him know the same. Prescription being sent to the [facility] pharmacy in [place]. Discussion and discharge planning more than 35 minutes Social history: . Does use a walker. Did smoke in the remote past. No alcohol Physical examination: VITAL SIGNS: 97.8, 66, 18, 167 x 77, 93% on 3 L GENERAL: BMI 32.3, laying in bed awake a bit withdrawn. EYES: Pupils equal. Conjunctiva rosalind l. HEENT: External appearance of nose and ears normal, oral cavity grossly normal. NECK: JVD not raised; masses not palpable. HEART: First and second heart sounds are normal; no edema. LUNGS: Respiratory rate normal; clear to auscultation. ABDOMEN: Soft, nontender, liver spleen not palpable, no masses palpable. PSYCH: [Alert and oriented x3; mood and affect appear depressed l. MUSCULOSKELETAL:No Clubbing/cyanosis;muscles-grossly intact. OA NEUROLOGICAL: Cranial nerves grossly intact; no facial asymmetry, power and sensation grossly intact. LYMPHATICS: No lymph nodes palpable in the axilla and neck INVESTIGATIONS, reviewed in the clinical context: August 25 06/15/2024: White count 8.1 hemoglobin 11.5 platelets 343 sodium 141 potassium 4.6 BUN 30 creatinine 1.61 Troponin I less than 0.012 proBNP 4340 UA: 1 protein plus glucose 4+ nitrate positive leukoesterase large WBC 69 bacteria many EKG tracing personally reviewed by me-possible atrial fibrillation Chest x-ray film personally reviewed by me-cardiomegaly. Possible venous prominence Assessment plan: -Depression unspecified: Anxiety unspecified: Exacerbation BuSpar increased to 30 mg twice daily -Acute UTI with cystitis Received IV ceftriaxone. Complete short course of Keflex -Asthma/COPD in a non-smoker. Causing chronic hypoxic respiratory failure On home oxygen 2 L -Diabetes mellitus type 2 on oral hypoglycemic Farxiga, Actos, metformin Diabetic diet with sliding scale insulin -Depression and anxiety, chronic BuSpar. Xanax. Lexapro. -Chronic congestive heart failure EF not known Lasix 40 mg twice daily. Potassium. -Essential hypertension: Uncontrolled Cozaar. Lopressor. Add clonidine 0.1 mg twice daily -Chronic hypoxic respiratory failure from underlying COPD/asthma Home oxygen 2 L -Cognitive impairment -Persistent atrial fibrillation, rate controlled Lopressor 25 mg twice daily -Chronic kidney disease stage III likely nephrosclerosis from hypertension and diabetic nephropathy Baseline creatinine about 1.6 -Primary osteoarthritis Tylenol as needed -Obesity BMI 32.3 Weight loss measures -Full code Disposition: Home Past Medical History Past Medical History: Atrial Fibrillation, Asthma, COPD, CVA/TIA, Diabetes Mellitus, Hyperlipidemia, Hypertension, Memory Impairment, Osteoarthritis (OA) Additional Past Medical History / Comment(s): UTI History of Any Multi-Drug Resistant Organisms: None Reported Past Surgical History: Appendectomy, Hysterectomy, Orthopedic Surgery Additional Past Surgical History / Comment(s): hip Additional Past Anesthesia/Blood Transfusion Reaction / Comment(s): Never rcvd. blood Past Psychological History: Anxiety Smoking Status: Former smoker Past Alcohol Use History: None Reported Past Drug Use History: None Reported Plan - Discharge Summary Discharge Rx Participant: Yes New Discharge Prescriptions: New Cephalexin [Keflex] 250 mg PO QID #12 cap busPIRone HCL [Buspar] 30 mg PO BID #60 tablet Continue Potassium Chloride [Klor-Con M20] 20 meq PO DAILY Metoprolol Tartrate [Lopressor] 25 mg PO BID Desvenlafaxine [Pristiq ER] 200 mg PO DAILY Pravastatin Sodium 80 mg PO HS Fenofibrate Nanocrystallized [Fenofibrate] 145 mg PO DAILY Cholecalciferol [Vitamin D3 (25 Mcg = 1000 Iu)] 50 mcg PO DAILY Dapagliflozin Propanediol [Farxiga] 5 mg PO DAILY Furosemide [Lasix] 40 mg PO BID Escitalopram [Lexapro] 10 mg PO DAILY Losartan [Cozaar] 25 mg PO DAILY ALPRAZolam [Xanax] 0.5 mg PO TID Ferrous Sulfate [Iron (65 MG Elemental)] 325 mg PO DAILY metFORMIN HCL 1,000 mg PO BID Pioglitazone [Actos] 15 mg PO DAILY amLODIPine [Norvasc] 10 mg PO DAILY #30 tab Discontinued ARIPiprazole [Abilify] 1 mg PO DAILY busPIRone HCL 15 mg PO TID Discharge Medication List ALPRAZolam [Xanax] 0.5 mg PO TID 03/04/24 [History] Cholecalciferol [Vitamin D3 (25 Mcg = 1000 Iu)] 50 mcg PO DAILY 03/04/24 [History] Desvenlafaxine [Pristiq ER] 200 mg PO DAILY 03/04/24 [History] Escitalopram [Lexapro] 10 mg PO DAILY 03/04/24 [History] Fenofibrate Nanocrystallized [Fenofibrate] 145 mg PO DAILY 03/04/24 [History] Ferrous Sulfate [Iron (65 MG Elemental)] 325 mg PO DAILY 03/04/24 [History] Furosemide [Lasix] 40 mg PO BID 03/04/24 [History] Losartan [Cozaar] 25 mg PO DAILY 03/04/24 [History] Metoprolol Tartrate [Lopressor] 25 mg PO BID 03/04/24 [History] Pioglitazone [Actos] 15 mg PO DAILY 03/04/24 [History] Potassium Chloride [Klor-Con M20] 20 meq PO DAILY 03/04/24 [History] Pravastatin Sodium 80 mg PO HS 03/04/24 [History] metFORMIN HCL 1,000 mg PO BID 03/04/24 [History] amLODIPine [Norvasc] 10 mg PO DAILY #30 tab 03/05/24 [Rx] Dapagliflozin Propanediol [Farxiga] 5 mg PO DAILY 08/25/24 [History] Cephalexin [Keflex] 250 mg PO QID #12 cap 08/26/24 [Rx] busPIRone HCL [Buspar] 30 mg PO BID #60 tablet 08/26/24 [Rx] cloNIDine HCL [Catapres] 0.1 mg PO BID #60 tab 08/26/24 [Rx] Follow up Appointment(s)/Referral(s): own-psychiatristdr [Other] - 1 Week (Please keep follow-up appt. with Psychiatrist that was previously scheduled. ) Chris Juarez DO [Primary Care Provider] - 1-2 days (please reference [facility] letter sent from Dr. Chow's office regarding new PCP recommendations. ) Patient Instructions/Handouts: Cephalexin (By mouth), Buspirone (By mouth), Urinary Tract Infection in Women (DC), Depression (DC), Anxiety (GEN) Discharge Disposition: HOME SELF-CARE
[2024-08-26] MEDS ORDERED: CEPHALEXIN 250 MG CAP PO SCH (22:00)
== END 2024-08-26 13:15 | disposition home or self-care (01) ==
LOC: EC 23:08 → 5NMEDONC 08-25 03:51
PROVIDERS: ADMIT Hospitalist; ATTEND Hospitalist
DX: F41.8 Other specified anxiety disorders (principal); N30.00 Acute cystitis without hematuria; J44.89 Other specified chronic obstructive pulmonary disease; J96.11 Chronic respiratory failure with hypoxia; I13.0 Hypertensive heart and chronic kidney disease with heart failure and stage 1 through stage 4 chronic kidney disease, or unspecified chronic kidney disease; I50.9 Heart failure, unspecified; N18.30 Chronic kidney disease, stage 3 unspecified; E11.22 Type 2 diabetes mellitus with diabetic chronic kidney disease; I48.19 Other persistent atrial fibrillation; E78.5 Hyperlipidemia, unspecified; R25.1 Tremor, unspecified; M19.91 Primary osteoarthritis, unspecified site; G31.84 Mild cognitive impairment of uncertain or unknown etiology; E66.9 Obesity, unspecified; Z68.32 Body mass index [BMI] 32.0-32.9, adult; Z66 Do not resuscitate; Z99.81 Dependence on supplemental oxygen; Z79.01 Long term (current) use of anticoagulants; Z79.82 Long term (current) use of aspirin; Z79.84 Long term (current) use of oral hypoglycemic drugs; Z79.899 Other long term (current) drug therapy; Z87.891 Personal history of nicotine dependence; Z81.8 Family history of other mental and behavioral disorders
CPT/HCPCS: 96361; 96374; 99285; 36415; 93005; 83880; 80053; 84484; 85025; 85610; 85730; 81001; 87086; 71046; G0378 ×2; J0696

== ENCOUNTER 2024-10-06 15:20 | Inpatient (IN) | payer MEDICARE, OTHER ==
[2024-10-06 16:26] LABS: Basophils # (A) 0.1 k/uL (0-0.2); Basophils % (A) 1 %; Eosinophils # (A) 0.1 k/uL (0-0.7); Eosinophils % (A) 2 %; HCT 38.5 % (34.0-46.0); HGB 12.1 gm/dL (11.4-16.0); Lymphocytes # (A) 0.5 k/uL (1.0-4.8); Lymphocytes % (A) 5 %; MCH 27.5 pg (25.0-35.0); MCHC 31.4 g/dL (31.0-37.0); MCV 87.7 fL (80.0-100.0); Mean Platelet Volume 9.8; Monocytes # (A) 0.4 k/uL (0-1.0); Monocytes % (A) 4 %; Neutrophils # (A) 7.7 k/uL (1.3-7.7); Neutrophils % (A) 87 %; Platelet Count 389 k/uL (150-450); RBC 4.39 m/uL (3.80-5.40); RDW 14.3 % (11.5-15.5); WBC 8.8 k/uL (3.8-10.6)
[2024-10-06 16:46] LABS: ALT 11 U/L (4-34); AST 25 U/L (14-36); Albumin 3.4 g/dL (3.5-5.0); Alkaline Phosphatase 59 U/L (38-126); Anion Gap 14 mmol/L; Calcium 9.4 mg/dL (8.4-10.2); Carbon Dioxide 16 mmol/L (22-30); Chloride 103 mmol/L (98-107); Glucose 68 mg/dL (74-99); Potassium 5.9 mmol/L (3.5-5.1); Sodium 133 mmol/L (137-145); Total Bilirubin 0.7 mg/dL (0.2-1.3); Total Protein 6.1 g/dL (6.3-8.2)
[2024-10-06 16:52] LABS: African American GFR (CKD) 5 (>60 ml/min/1.73 sqM); Non-African American GFR(CKD) 4 (>60 ml/min/1.73 sqM)
--- NOTE | 2024-10-06 17:13 | US ---
EXAMINATION TYPE: US renals and bladder DATE OF EXAM: 10/06/2024 COMPARISON: NONE CLINICAL INDICATION: Female, 84 years old with history of arf; ARF TECHNIQUE: Grayscale imaging of the bilateral kidneys and urinary bladder: FINDINGS: EXAM MEASUREMENTS: Right Kidney: 12.5 x 5.0 x 4.5 cm Left Kidney: 11.6 x 6.0 x 4.5 cm Right Kidney: no evidence of hydronephrosis Left Kidney: limited evaluation due to overlying bowel gas Bladder: debris noted *incidental finding: gallstones IMPRESSION: 1. [facility], , 10/06/2024 5:11 PM
[2024-10-06 17:22] LABS: Blood Urea Nitrogen 113 mg/dL (7-17)
[2024-10-06] MEDS: ALBUTEROL NEB (CONC) 2.5 MG/0.5 ML INHALATION ONE (17:57)
[2024-10-06] MEDS: SODIUM BICARB 8.4% 50 ML SYR (1 MEQ/ML) IV ONE (18:10)
[2024-10-06] MEDS: DEXTROSE 50% SYRINGE 50 ML IVP ONE (18:12)
[2024-10-06] MEDS: INSULIN REGULAR 100 UNIT/ML VIAL (IV) IV ONE (18:12)
[2024-10-06] MEDS: SODIUM ZIRCONIUM CYCLOSILICATE 10 GM PACKET PO ONE (18:14)
[2024-10-06 18:55] LABS: Appearance,Urine Turbid (Clear); Bacteria,Urine Many /hpf; Bilirubin,Urine Negative (Negative); Blood,Urine Large (Negative); Color,Urine Light Red; Glucose,Urine (UA) Negative (Negative); Ketones,Urine Negative (Negative); Leukocyte Esterase,Urine Large (Negative); Nitrite,Urine Negative (Negative); Protein,Urine 3+ (Negative); RBC,Urine 67 /hpf (0-5); Urobilinogen,Urine <2.0 mg/dL (<2.0); WBC,Urine >182 /hpf (0-5)
[2024-10-06 18:59] LABS: Specific Gravity,Urine 1.016 (1.001-1.035)
[2024-10-06] MEDS: LACTATED RINGERS 1,000 ML IV ONE (19:09)
[2024-10-06] MEDS ORDERED: NALOXONE 0.4 MG/ML 1 ML VIAL IV PRN (19:17)
--- NOTE | 2024-10-06 19:20 | ED ---
General Adult HPI - General Chief complaint: Recheck/Abnormal Lab/Rx Stated complaint: renal failure Time Seen by Provider: 10/06/24 16:07 Source: patient, EMS, RN notes reviewed, old records reviewed Mode of arrival: EMS Limitations: no limitations - History of Present Illness Initial comments: Is an 84-year-old female who presents emergency department after being transferred to our facility for acute renal failure. Patient has been monitored for NANCY on CKD since October. Was at her nursing facility where they found that she was hyperkalemic as well as an acute renal failure. Was transferred here for further evaluation. Patient given hyperkalemia cocktail at [facility]. Patient has no other acute complaints at this time. States she feels fine. Denies nausea or vomiting. Denies chest pain. No other acute complaints. - Related Data Home Medications Medication Instructions Recorded Confirmed ALPRAZolam [Xanax] 0.5 mg PO Q6H PRN 03/04/24 10/06/24 Desvenlafaxine [Pristiq ER] 100 mg PO DAILY 03/04/24 10/06/24 Fenofibrate Nanocrystallized 145 mg PO DAILY 03/04/24 10/06/24 [Fenofibrate] Ferrous Sulfate [Iron (65 MG 325 mg PO DAILY 03/04/24 10/06/24 Elemental)] Losartan [Cozaar] 25 mg PO DAILY 03/04/24 10/06/24 Metoprolol Tartrate [Lopressor] 25 mg PO BID 03/04/24 10/06/24 Pioglitazone [Actos] 15 mg PO DAILY 03/04/24 10/06/24 Pravastatin Sodium 80 mg PO HS 03/04/24 10/06/24 metFORMIN HCL 1,000 mg PO BID 03/04/24 10/06/24 ARIPiprazole [Abilify] 2 mg PO DAILY 10/06/24 10/06/24 Apixaban [Eliquis] 5 mg PO BID 10/06/24 10/06/24 Bumetanide [Bumex] 1 mg PO DAILY 10/06/24 10/06/24 Cholecalciferol [Vitamin D3 (125 125 mcg PO DAILY 10/06/24 10/06/24 Mcg = 5000 Iu)] Escitalopram [Lexapro] 20 mg PO DAILY 10/06/24 10/06/24 INSULIN LISPRO (HumaLOG) [humaLOG] See Protocol SQ ACHS 10/06/24 10/06/24 Melatonin 5 mg PO HS 10/06/24 10/06/24 amLODIPine [Norvasc] 5 mg PO DAILY 10/06/24 10/06/24 busPIRone HCL 15 mg PO BID 10/06/24 10/06/24 Allergies Allergy/AdvReac Type Severity Reaction Status Date / Time No Known Allergies Allergy Verified 10/06/24 18:16 Review of Systems ROS Statement: Those systems with pertinent positive or pertinent negative responses have been documented in the HPI. Review of Systems: CONST: Denies fever EYES: Denies blurry vision ENT: Denies nasal congestion C/V: Denies Chest pain RESP: Denies shortness of breath GI: Denies abdominal pain : Denies dysuria SKIN: Denies rash. MSK: Denies joint pain. NEURO: Denies headache ROS Other: All systems not noted in ROS Statement are negative. Past Medical History Past Medical History: Atrial Fibrillation, Asthma, COPD, CVA/TIA, Diabetes Mellitus, Hyperlipidemia, Hypertension, Memory Impairment, Osteoarthritis (OA) Additional Past Medical History / Comment(s): UTI History of Any Multi-Drug Resistant Organisms: None Reported Past Surgical History: Appendectomy, Hysterectomy, Orthopedic Surgery Additional Past Surgical History / Comment(s): hip Additional Past Anesthesia/Blood Transfusion Reaction / Comment(s): Never rcvd. blood Past Psychological History: Anxiety Smoking Status: Former smoker Past Alcohol Use History: None Reported Past Drug Use History: None Reported General Exam - General Exam Comments Initial Comments: General: Appears in no acute distress. HEAD: Normal with no signs of head trauma. EYES: PERRLA, EOMI, conjunctiva normal, no discharge. ENT: Hearing grossly intact, normal oropharynx. Appears dehydrated. RESPIRATORY: Clear breath sounds bilaterally. No wheezes, rales, or rhonchi. C/V: Regular rate and rhythm. S1 and S2 auscultated, no edema, peripheral pulses 2+ and intact throughout ABD: Abd is soft, nontender, nondistended EXT: Normal range of motion, no obvious deformity SKIN: No rashes or lesions observed on exposed skin. NEURO: Alert and oriented x 4. Limitations: no limitations Course Vital Signs 10/06/24 10/06/24 10/06/24 15:29 17:58 18:16 Temperature 97.4 F L Pulse Rate 62 64 67 Respiratory 17 Rate Blood Pressure 144/72 O2 Sat by Pulse 100 Oximetry 10/06/24 10/06/24 19:00 21:00 Temperature Pulse Rate 73 Respiratory 24 Rate Blood Pressure 88/61 116/60 O2 Sat by Pulse 98 Oximetry Medical Decision Making - Medical Decision Making Was pt. sent in by a medical professional or institution (, [facility], SHIFT FOREMAN, urgent care, hospital, or jail...) When possible be specific @ -Transferred from [facility] for evaluation by nephrology. Did you speak to anyone other than the patient for history (EMS, parent, family, police, friend...)? What history was obtained from this source @ -No Did you review nursing and triage notes (agree or disagree)? Why? @ -I reviewed and agree with nursing and triage notes Were old charts reviewed (outside hosp., previous admission, EMS record, old EKG, old radiological studies, urgent care reports/EKG's, jail records)? Report findings @ -No old charts were reviewed Differential Diagnosis (chest pain, altered mental status, abdominal pain women, abdominal pain men, vaginal bleeding, weakness, fever, dyspnea, syncope, headache, dizziness, GI bleed, back pain, seizure, CVA, palpatations, mental health, musculoskeletal)? @ -Acute renal failure, hyperkalemia, dehydration, UTI. This list is not all inclusive. EKG interpreted by me (3pts min.). @ -As above X-rays interpreted by me (1pt min.). @ -None done CT interpreted by me (1pt min.). @ -None done U/S interpreted by me (1pt. min.). @ -Renal ultrasound unremarkable. What testing was considered but not performed or refused? (CT, X-rays, U/S, labs)? Why? @ -None What meds were considered but not given or refused? Why? @ -None Did you discuss the management of the patient with other professionals (professionals i.e. [facility] Fisher, SHIFT FOREMAN, lab, RT, psych nurse, social media marketer, pbx supervisor, teacher, signals officer, counter caser)? Give summary @ -Discussed with on-call pulp plant supervisor, Dr. Hancock who was in agreement the plan with her acute hyperkalemia cocktail. Recommended initiation of lactated Ringer's IV fluids. She will be notified of repeat potassium by nursing staff later this evening. Discussed the case with admitting provider, TERRENCE Laura of [facility] who accepted the admission. Was smoking cessation discussed for >3mins.? @ -No Was critical care preformed (if so, how long)? @ -Yes, 36 minutes Were there social determinants of health that impacted care today? How? (Homelessness, low income, unemployed, alcoholism, drug addiction, transportation, low edu. Level, literacy, decrease access to med. care, halfway, rehab)? @ -No Was there de-escalation of care discussed even if they declined (Discuss DNR or withdrawal of care, Hospice)? DNR status @ -No What co-morbidities impacted this encounter? (DM, HTN, Smoking, COPD, CAD, Cancer, CVA, ARF, Chemo, Hep., AIDS, mental health diagnosis, sleep apnea, morbid obesity)? @ -None Was patient admitted / discharged? Hospital course, mention meds given and route, prescriptions, significant lab abnormalities, going to OR and other pertinent info. @ -Patient presents for acute renal failure and hyperkalemia. We will repeat labs however patient had elevated BUN and creatinine as well as elevated potassium outside facility. Was given hyperkalemia cocktail at outside facility. Vitals within acceptable limits. EKG shows some T wave inversions. Laboratory studies remarkable for hyperkalemia of 5.9, as well as elevated BUN and creatinine of 113 and 8.51. Urinalysis returned positive for UTI. Patient started on IV Rocephin. Patient given hyperkalemia cocktail including Lokelma, insulin, D50 amp, sodium bicarb. Repeat potassium ordered. Patient and she will be admitted to the hospital. She was in agreement this plan. So was family. Linares catheter placed for urine monitoring. Discussed with nephrology and we will hold diuretic medications at this time as patient appears clinically dehydrated. Discussed with on-call pulp plant supervisor, Dr. Hancock who was in agreement the plan with her acute hyperkalemia cocktail. Recommended initiation of lactated Ringer's IV fluids. She will be notified of repeat potassium by nursing staff later this evening. Discussed the case with admitting provider, TERRENCE Laura of [facility] who accepted the admission. Undiagnosed new problem with uncertain prognosis? @ -No Drug Therapy requiring intensive monitoring for toxicity (Heparin, Nitro, Insulin, Cardizem)? @ -No Were any procedures done? @ -No Diagnosis/symptom? @ -Acute renal failure, hyperkalemia, UTI Acute, or Chronic, or Acute on Chronic? @ -Acute Uncomplicated (without systemic symptoms) or Complicated (systemic symptoms)? @ -Complicated Side effects of treatment? @ -No Exacerbation, Progression, or Severe Exacerbation? @ -No Poses a threat to life or bodily function? How? (Chest pain, USA, PR, pneumonia, PE, COPD, DKA, ARF, appy, cholecystitis, CVA, Diverticulitis, Homicidal, Suicidal, threat to staff... and all critical care pts) @ -Yes - Lab Data Result diagrams: 10/06/24 16:15 10/06/24 16:15 Lab Results 10/06/24 10/06/24 10/06/24 Range/Units 16:15 16:15 16:15 WBC 8.8 (3.8-10.6) k/uL RBC 4.39 (3.80-5.40) m/uL Hgb 12.1 (11.4-16.0) gm/dL Hct 38.5 (34.0-46.0) % MCV 87.7 (80.0-100.0) fL MCH 27.5 (25.0-35.0) pg MCHC 31.4 (31.0-37.0) g/dL RDW 14.3 (11.5-15.5) % Plt Count 389 (150-450) k/uL MPV 9.8 Neutrophils % 87 % Lymphocytes % 5 % Monocytes % 4 % Eosinophils % 2 % Basophils % 1 % Neutrophils # 7.7 (1.3-7.7) k/uL Lymphocytes # 0.5 L (1.0-4.8) k/uL Monocytes # 0.4 (0-1.0) k/uL Eosinophils # 0.1 (0-0.7) k/uL Basophils # 0.1 (0-0.2) k/uL Sodium 133 L (137-145) mmol/L Potassium 5.9 H (3.5-5.1) mmol/L Chloride 103 (98-107) mmol/L Carbon Dioxide 16 L (22-30) mmol/L Anion Gap 14 mmol/L BUN 113 H* (7-17) mg/dL Creatinine 8.51 H* (0.52-1.04) mg/dL Est GFR (CKD-EPI)AfAm 5 (>60 ml/min/1.73 sqM) Est GFR (CKD-EPI)NonAf 4 (>60 ml/min/1.73 sqM) Glucose 68 L (74-99) mg/dL Calcium 9.4 (8.4-10.2) mg/dL Total Bilirubin 0.7 (0.2-1.3) mg/dL AST 25 (14-36) U/L ALT 11 (4-34) U/L Alkaline Phosphatase 59 (38-126) U/L Troponin I 0.017 (0.000-0.034) ng/mL Total Protein 6.1 L (6.3-8.2) g/dL Albumin 3.4 L (3.5-5.0) g/dL Urine Color Urine Appearance (Clear) Urine pH (5.0-8.0) Ur Specific [place] (1.001-1.035) Urine Protein (Negative) Urine Glucose (UA) (Negative) Urine Ketones (Negative) Urine Blood (Negative) Urine Nitrite (Negative) Urine Bilirubin (Negative) Urine Urobilinogen (<2.0) mg/dL Ur Leukocyte Esterase (Negative) Urine RBC (0-5) /hpf Urine WBC (0-5) /hpf Urine WBC Clumps (None) /hpf Urine Bacteria (None) /hpf 10/06/24 Range/Units 18:16 WBC (3.8-10.6) k/uL RBC (3.80-5.40) m/uL Hgb (11.4-16.0) gm/dL Hct (34.0-46.0) % MCV (80.0-100.0) fL MCH (25.0-35.0) pg MCHC (31.0-37.0) g/dL RDW (11.5-15.5) % Plt Count (150-450) k/uL MPV Neutrophils % % Lymphocytes % % Monocytes % % Eosinophils % % Basophils % % Neutrophils # (1.3-7.7) k/uL Lymphocytes # (1.0-4.8) k/uL Monocytes # (0-1.0) k/uL Eosinophils # (0-0.7) k/uL Basophils # (0-0.2) k/uL Sodium (137-145) mmol/L Potassium (3.5-5.1) mmol/L Chloride (98-107) mmol/L Carbon Dioxide (22-30) mmol/L Anion Gap mmol/L BUN (7-17) mg/dL Creatinine (0.52-1.04) mg/dL Est GFR (CKD-EPI)AfAm (>60 ml/min/1.73 sqM) Est GFR (CKD-EPI)NonAf (>60 ml/min/1.73 sqM) Glucose (74-99) mg/dL Calcium (8.4-10.2) mg/dL Total Bilirubin (0.2-1.3) mg/dL AST (14-36) U/L ALT (4-34) U/L Alkaline Phosphatase (38-126) U/L Troponin I (0.000-0.034) ng/mL Total Protein (6.3-8.2) g/dL Albumin (3.5-5.0) g/dL Urine Color Light Red Urine Appearance Turbid H (Clear) Urine pH 8.0 (5.0-8.0) Ur Specific [place] 1.016 (1.001-1.035) Urine Protein 3+ H (Negative) Urine Glucose (UA) Negative (Negative) Urine Ketones Negative (Negative) Urine Blood Large H (Negative) Urine Nitrite Negative (Negative) Urine Bilirubin Negative (Negative) Urine Urobilinogen <2.0 (<2.0) mg/dL Ur Leukocyte Esterase Large H (Negative) Urine RBC 67 H (0-5) /hpf Urine WBC >182 H (0-5) /hpf Urine WBC Clumps Many H (None) /hpf Urine Bacteria Many H (None) /hpf - EKG Data -: EKG Interpreted by Me EKG Comments: 12-lead Electrocardiogram Interpretation Note EKG was reviewed and interpreted by myself. 12-lead ECG performed at 1554 is interpreted by me as revealing normal sinus rhythm at a rate of 57 beats per minute. Left axis deviation. SD interval is 155 ms, QRS duration is 104 ms, QTc is 461 ms. T wave inversions present.. There were no ST or T wave abnormalities to suggest myocardial ischemia or injury. R wave progression across the precordium was satisfactory. Disposition Clinical Impression: Acute renal failure, Hyperkalemia, Dehydration Disposition: ADMITTED IP TO THIS [facility] Condition: Serious Time of Disposition: 16:10
[2024-10-06 20:48] LABS: Glucose,Whole Blood 85 mg/dL (70-110)
--- NOTE | 2024-10-06 21:59 | ED ---
Medical Decision Making - Lab Data Result diagrams: 10/06/24 16:15 10/06/24 16:15 Lab Results 10/06/24 10/06/24 10/06/24 Range/Units 16:15 16:15 16:15 WBC 8.8 (3.8-10.6) k/uL RBC 4.39 (3.80-5.40) m/uL Hgb 12.1 (11.4-16.0) gm/dL Hct 38.5 (34.0-46.0) % MCV 87.7 (80.0-100.0) fL MCH 27.5 (25.0-35.0) pg MCHC 31.4 (31.0-37.0) g/dL RDW 14.3 (11.5-15.5) % Plt Count 389 (150-450) k/uL MPV 9.8 Neutrophils % 87 % Lymphocytes % 5 % Monocytes % 4 % Eosinophils % 2 % Basophils % 1 % Neutrophils # 7.7 (1.3-7.7) k/uL Lymphocytes # 0.5 L (1.0-4.8) k/uL Monocytes # 0.4 (0-1.0) k/uL Eosinophils # 0.1 (0-0.7) k/uL Basophils # 0.1 (0-0.2) k/uL Sodium 133 L (137-145) mmol/L Potassium 5.9 H (3.5-5.1) mmol/L Chloride 103 (98-107) mmol/L Carbon Dioxide 16 L (22-30) mmol/L Anion Gap 14 mmol/L BUN 113 H* (7-17) mg/dL Creatinine 8.51 H* (0.52-1.04) mg/dL Est GFR (CKD-EPI)AfAm 5 (>60 ml/min/1.73 sqM) Est GFR (CKD-EPI)NonAf 4 (>60 ml/min/1.73 sqM) Glucose 68 L (74-99) mg/dL Calcium 9.4 (8.4-10.2) mg/dL Total Bilirubin 0.7 (0.2-1.3) mg/dL AST 25 (14-36) U/L ALT 11 (4-34) U/L Alkaline Phosphatase 59 (38-126) U/L Troponin I 0.017 (0.000-0.034) ng/mL Total Protein 6.1 L (6.3-8.2) g/dL Albumin 3.4 L (3.5-5.0) g/dL Urine Color Urine Appearance (Clear) Urine pH (5.0-8.0) Ur Specific [place] (1.001-1.035) Urine Protein (Negative) Urine Glucose (UA) (Negative) Urine Ketones (Negative) Urine Blood (Negative) Urine Nitrite (Negative) Urine Bilirubin (Negative) Urine Urobilinogen (<2.0) mg/dL Ur Leukocyte Esterase (Negative) Urine RBC (0-5) /hpf Urine WBC (0-5) /hpf Urine WBC Clumps (None) /hpf Urine Bacteria (None) /hpf 10/06/24 Range/Units 18:16 WBC (3.8-10.6) k/uL RBC (3.80-5.40) m/uL Hgb (11.4-16.0) gm/dL Hct (34.0-46.0) % MCV (80.0-100.0) fL MCH (25.0-35.0) pg MCHC (31.0-37.0) g/dL RDW (11.5-15.5) % Plt Count (150-450) k/uL MPV Neutrophils % % Lymphocytes % % Monocytes % % Eosinophils % % Basophils % % Neutrophils # (1.3-7.7) k/uL Lymphocytes # (1.0-4.8) k/uL Monocytes # (0-1.0) k/uL Eosinophils # (0-0.7) k/uL Basophils # (0-0.2) k/uL Sodium (137-145) mmol/L Potassium (3.5-5.1) mmol/L Chloride (98-107) mmol/L Carbon Dioxide (22-30) mmol/L Anion Gap mmol/L BUN (7-17) mg/dL Creatinine (0.52-1.04) mg/dL Est GFR (CKD-EPI)AfAm (>60 ml/min/1.73 sqM) Est GFR (CKD-EPI)NonAf (>60 ml/min/1.73 sqM) Glucose (74-99) mg/dL Calcium (8.4-10.2) mg/dL Total Bilirubin (0.2-1.3) mg/dL AST (14-36) U/L ALT (4-34) U/L Alkaline Phosphatase (38-126) U/L Troponin I (0.000-0.034) ng/mL Total Protein (6.3-8.2) g/dL Albumin (3.5-5.0) g/dL Urine Color Light Red Urine Appearance Turbid H (Clear) Urine pH 8.0 (5.0-8.0) Ur Specific [place] 1.016 (1.001-1.035) Urine Protein 3+ H (Negative) Urine Glucose (UA) Negative (Negative) Urine Ketones Negative (Negative) Urine Blood Large H (Negative) Urine Nitrite Negative (Negative) Urine Bilirubin Negative (Negative) Urine Urobilinogen <2.0 (<2.0) mg/dL Ur Leukocyte Esterase Large H (Negative) Urine RBC 67 H (0-5) /hpf Urine WBC >182 H (0-5) /hpf Urine WBC Clumps Many H (None) /hpf Urine Bacteria Many H (None) /hpf Critical Care Time Critical Care Time: Yes Total Critical Care Time: 36 Disposition Clinical Impression: Acute renal failure, Hyperkalemia, Dehydration Disposition: ADMITTED IP TO THIS [facility] Condition: Serious
[2024-10-06] MEDS: ALPRAZolam 0.5 MG TAB PO PRN (22:29)
[2024-10-07 06:19] LABS: Glucose,Whole Blood 110 mg/dL (70-110)
[2024-10-07] MEDS ORDERED: ZINC OXIDE PASTE (Z-GUARD) 1 APPLIC TOPICAL PRN (06:24)
[2024-10-07 07:57] LABS: Basophils # (A) 0.1 k/uL (0-0.2); Basophils % (A) 1 %; Eosinophils % (A) 1 %; HCT 38.1 % (34.0-46.0); HGB 12.3 gm/dL (11.4-16.0); Lymphocytes # (A) 0.5 k/uL (1.0-4.8); Lymphocytes % (A) 5 %; MCH 28.5 pg (25.0-35.0); MCHC 32.2 g/dL (31.0-37.0); MCV 88.5 fL (80.0-100.0); Mean Platelet Volume 9.4; Monocytes # (A) 0.5 k/uL (0-1.0); Monocytes % (A) 5 %; Neutrophils # (A) 8.3 k/uL (1.3-7.7); Neutrophils % (A) 88 %; Platelet Count 362 k/uL (150-450); RBC 4.31 m/uL (3.80-5.40); RDW 14.4 % (11.5-15.5); WBC 9.4 k/uL (3.8-10.6)
[2024-10-07 08:12] LABS: ALT 10 U/L (4-34); AST 23 U/L (14-36); Albumin 3.4 g/dL (3.5-5.0); Alkaline Phosphatase 57 U/L (38-126); Anion Gap 14 mmol/L; Calcium 9.4 mg/dL (8.4-10.2); Carbon Dioxide 20 mmol/L (22-30); Chloride 100 mmol/L (98-107); Glucose 104 mg/dL (74-99); Sodium 134 mmol/L (137-145); Total Bilirubin 0.5 mg/dL (0.2-1.3); Total Protein 5.9 g/dL (6.3-8.2)
[2024-10-07 08:18] LABS: African American GFR (CKD) 5 (>60 ml/min/1.73 sqM); Non-African American GFR(CKD) 4 (>60 ml/min/1.73 sqM)
[2024-10-07 08:25] LABS: Blood Urea Nitrogen 115 mg/dL (7-17)
[2024-10-07 08:26] LABS: Potassium 6.1 mmol/L (3.5-5.1)
[2024-10-07] MEDS: amLODIPine 5 MG TAB PO SCH (08:33)
[2024-10-07] MEDS: busPIRone HCl 5 MG TAB PO SCH (08:33)
[2024-10-07] MEDS: LOSARTAN 25 MG TAB PO SCH (08:33)
[2024-10-07] MEDS: APIXABAN 2.5 MG TABLET PO SCH (08:33)
[2024-10-07] MEDS: METOPROLOL TARTRATE 25 MG TAB PO SCH (08:33)
[2024-10-07] MEDS: SODIUM CHLORIDE 0.9% 1,000 ML IV SCH (11:38)
[2024-10-07] MEDS: SODIUM CHLORIDE 0.9% 500 ML 500 ML IV ONE (11:39)
[2024-10-07] MEDS: SODIUM ZIRCONIUM CYCLOSILICATE 10 GM PACKET PO ONE (11:40)
[2024-10-07] MEDS: DEXTROSE 50% SYRINGE 50 ML IVP STA (11:41)
[2024-10-07] MEDS: INSULIN REGULAR 100 UNIT/ML VIAL (IV) IV ONE (11:45)
--- NOTE | 2024-10-07 12:58 | P.NPCON ---
History of Present Illness - Reason for Consult acute renal failure - History of Present Illness patient is an 84-year-old female who has been transferred from an outside facility for further evaluation of acute kidney injury. Patient initially presented at [facility]. She was noted to be hyperkalemic and was treated with IV medications and transferred here. Difficult to obtain history from the patient. Serum creatinine at 8.5 today. It was 1.4 on 09/13/2024 Serum potassium was 6.1 today Losartan noted on home med list. I do not see any NSAIDs. Patient was maintained on Bumex which is currently on hold. Blood pressure is notLow currently. Patient has a Linares catheter with no s ignificant urine output noted. Past Medical History Past Medical History: Atrial Fibrillation, Asthma, COPD, CVA/TIA, Diabetes Mellitus, Hyperlipidemia, Hypertension, Memory Impairment, Osteoarthritis (OA) Additional Past Medical History / Comment(s): UTI History of Any Multi-Drug Resistant Organisms: None Reported Past Surgical History: Appendectomy, Hysterectomy, Orthopedic Surgery Additional Past Surgical History / Comment(s): hip Additional Past Anesthesia/Blood Transfusion Reaction / Comment(s): Never rcvd. blood Past Psychological History: Anxiety Smoking Status: Former smoker Past Alcohol Use History: None Reported Past Drug Use History: None Reported Medications and Allergies Home Medications Medication Instructions Recorded Confirmed Type ALPRAZolam [Xanax] 0.5 mg PO Q6H PRN 03/04/24 10/06/24 History Desvenlafaxine [Pristiq ER] 100 mg PO DAILY 03/04/24 10/06/24 History Fenofibrate Nanocrystallized 145 mg PO DAILY 03/04/24 10/06/24 History [Fenofibrate] Ferrous Sulfate [Iron (65 MG 325 mg PO DAILY 03/04/24 10/06/24 History Elemental)] Losartan [Cozaar] 25 mg PO DAILY 03/04/24 10/06/24 History Metoprolol Tartrate [Lopressor] 25 mg PO BID 03/04/24 10/06/24 History Pioglitazone [Actos] 15 mg PO DAILY 03/04/24 10/06/24 History Pravastatin Sodium 80 mg PO HS 03/04/24 10/06/24 History metFORMIN HCL 1,000 mg PO BID 03/04/24 10/06/24 History ARIPiprazole [Abilify] 2 mg PO DAILY 10/06/24 10/06/24 History Apixaban [Eliquis] 5 mg PO BID 10/06/24 10/06/24 History Bumetanide [Bumex] 1 mg PO DAILY 10/06/24 10/06/24 History Cholecalciferol [Vitamin D3 (125 125 mcg PO DAILY 10/06/24 10/06/24 History Mcg = 5000 Iu)] Escitalopram [Lexapro] 20 mg PO DAILY 10/06/24 10/06/24 History INSULIN LISPRO (HumaLOG) [humaLOG] See Protocol SQ ACHS 10/06/24 10/06/24 History Melatonin 5 mg PO HS 10/06/24 10/06/24 History amLODIPine [Norvasc] 5 mg PO DAILY 10/06/24 10/06/24 History busPIRone HCL 15 mg PO BID 10/06/24 10/06/24 History Allergies Allergy/AdvReac Type Severity Reaction Status Date / Time No Known Allergies Allergy Verified 10/06/24 18:16 Physical Exam Vitals: Vital Signs Temp Pulse Pulse Resp BP BP Pulse Ox 10/07/24 11:06 60 20 118/52 98 10/07/24 08:00 98 F 69 20 161/69 98 10/07/24 04:00 97.8 F 67 17 154/76 100 10/07/24 02:00 71 18 10/06/24 23:40 97.7 F 71 18 124/73 97 10/06/24 22:56 85 20 123/72 10/06/24 21:00 116/60 10/06/24 19:00 73 24 88/61 98 10/06/24 18:16 67 10/06/24 17:58 64 10/06/24 15:29 97.4 F L 62 17 144/72 100 Intake and Output 10/06/24 10/07/24 10/07/24 22:59 06:59 14:59 Intake Total 10 Output Total 140 Balance -130 Intake: IV 10 Invasive Line 1 10 Output: Urine 140 Other: Voiding Method Indwelling Catheter Indwelling Catheter # Bowel Movements 1 Weight 90.718 kg 90.5 kg patient is awake, comfortable, no acute distress. Examination of the heart S1 and S2 Examination of the lungs bilateral breath sounds are heard Abdomen is soft nontender Examination of lower extremities shows no significant edema, chronic skin changes noted. FINANCIAL PLANNING ADVISOR exam is grossly intact. Results - Lab Results Most recent lab results Calcium 9.4 mg/dL (8.4-10.2) 10/07/24 07:28 10/07/24 07:28 10/07/24 07:28 Assessment and Plan Assessment: 1. Acute kidney injury, ATN, oliguric associated with underlying infection and volume depletion. Rule out obstructive uropathy. UA is suggestive of UTI. 2. Hyperkalemia associated with acute kidney injury and metabolic acidosis 3. Non-gap metabolic acidosis secondary to acute kidney injury 4. Pyuria rule out UTI 5. Volume depletion 6. History of hypertension, Cozaar currently on hold Plan: IV fluid bolus 1 Start normal saline at 100 mL an hour Check ultrasound of the kidneys Continue to hold angiotensin receptor blockers and metformin Repeat labs in a.m. Avoid any nephrotoxic agents Continue with empiric antibiotics Patient may need renal replacement therapy if there is no improvement in renal function. Thank you for the consultation. We will continue to follow the patient with you during her hospitalization.
--- NOTE | 2024-10-07 13:02 | P.HPIM ---
History of Present Illness Patient pleasant 83-year-old female was transferred [place] a penitentiary to her district in from [facility] to here weekly dose of acute renal failure with serum creatinine going up to 8.5 baseline around 1.3. Patient has longstanding history of major depression and is on multiple antidepressants and antianxiety medications has been in penitentiary as her was unable to take care of the patient. Patient does have some memory loss appears to have mild to moderate dementia occasional agitation episodes. Patient denies any fever chills dysuria nausea vomiting abdominal pain increased urinary urgency or frequency but patient has not been urinating. Renal ultrasound was done which showed incidental finding of cholelithiasis without any evidence of cholecystitis. Patient urine is significantly abnormal with highly elevated white count patient does not have any fever or leukocytosis. Patient is on losartan as well as along with diuretics for congestive heart failure patient has a normal systolic function appears to have chronic diastolic function has admissions in the past for heart failure exacerbations. REVIEW OF SYSTEMS: All other systems are negative except those mentioned in the HPI PHYSICAL EXAMINATION: GENERAL: The patient is alert and oriented x3, not in any acute distress. Well developed, well nourished. Obese appears to be severely depressed. HEENT: Pupils are round and equally reacting to light. EOMI. No scleral icterus. No conjunctival pallor. Normocephalic, atraumatic. No pharyngeal erythema. No thyromegaly. CARDIOVASCULAR: S1 and S2 present. No murmurs, rubs, or gallops. PULMONARY: Chest is clear to auscultation, no wheezing or crackles. ABDOMEN: Soft, nontender, nondistended, normoactive bowel sounds. No palpable organomegaly. MUSCULOSKELETAL: No joint swelling or deformity. EXTREMITIES: No cyanosis, clubbing, or pedal edema. NEUROLOGICAL: Gross neurological examination did not reveal any focal deficits. SKIN: No rashes. Assessment and plan -Acute renal failure secondary to acute tubular necrosis patient has poor p.o. intake and UTI may have contributed to her acute tubular necrosis will continue with Rocephin continue with IV fluids nephrology for evaluated the patient -Hyperkalemia secondary to acute renal failure patient was given Lokelma and insulin calcium gluconate will repeat the potassium patient potassium was around 6 -Possible urinary tract infection patient is on Rocephin which will be continued Cholelithiasis incidental finding no further intervention at this time -Dementia supportive care PT and OT evaluation Seroquel as needed at nighttime -Congestive heart failure chronic diastolic function without any acute exacerbation. Chest x-ray was ordered will also order BNP -Hypertension hold off on losartan -Atrial fibrillation paroxysmal presently rate controlled continue with rate control medications and Eliquis -COPD without any acute exacerbation patient has chronic hypercapnic respiratory failure uses 2 L of oxygen presently on 2 L of oxygen -Obesity -Possibility of senile dementia/vascular dementia -Hypertension holding of losartan because of hyperkalemia and acute renal failure -Type 2 diabetes mellitus patient will be on sliding scale insulin hold of Actos DVT prophylaxis:on Eliquis text Past Medical History Past Medical History: Atrial Fibrillation, Asthma, COPD, CVA/TIA, Diabetes Mellitus, Hyperlipidemia, Hypertension, Memory Impairment, Osteoarthritis (OA) Additional Past Medical History / Comment(s): UTI History of Any Multi-Drug Resistant Organisms: None Reported Past Surgical History: Appendectomy, Hysterectomy, Orthopedic Surgery Additional Past Surgical History / Comment(s): hip Additional Past Anesthesia/Blood Transfusion Reaction / Comment(s): Never rcvd. blood Past Psychological History: Anxiety Smoking Status: Former smoker Past Alcohol Use History: None Reported Past Drug Use History: None Reported Medications and Allergies Home Medications Medication Instructions Recorded Confirmed Type ALPRAZolam [Xanax] 0.5 mg PO Q6H PRN 03/04/24 10/06/24 History Desvenlafaxine [Pristiq ER] 100 mg PO DAILY 03/04/24 10/06/24 History Fenofibrate Nanocrystallized 145 mg PO DAILY 03/04/24 10/06/24 History [Fenofibrate] Ferrous Sulfate [Iron (65 MG 325 mg PO DAILY 03/04/24 10/06/24 History Elemental)] Losartan [Cozaar] 25 mg PO DAILY 03/04/24 10/06/24 History Metoprolol Tartrate [Lopressor] 25 mg PO BID 03/04/24 10/06/24 History Pioglitazone [Actos] 15 mg PO DAILY 03/04/24 10/06/24 History Pravastatin Sodium 80 mg PO HS 03/04/24 10/06/24 History metFORMIN HCL 1,000 mg PO BID 03/04/24 10/06/24 History ARIPiprazole [Abilify] 2 mg PO DAILY 10/06/24 10/06/24 History Apixaban [Eliquis] 5 mg PO BID 10/06/24 10/06/24 History Bumetanide [Bumex] 1 mg PO DAILY 10/06/24 10/06/24 History Cholecalciferol [Vitamin D3 (125 125 mcg PO DAILY 10/06/24 10/06/24 History Mcg = 5000 Iu)] Escitalopram [Lexapro] 20 mg PO DAILY 10/06/24 10/06/24 History INSULIN LISPRO (HumaLOG) [humaLOG] See Protocol SQ ACHS 10/06/24 10/06/24 History Melatonin 5 mg PO HS 10/06/24 10/06/24 History amLODIPine [Norvasc] 5 mg PO DAILY 10/06/24 10/06/24 History busPIRone HCL 15 mg PO BID 10/06/24 10/06/24 History Allergies Allergy/AdvReac Type Severity Reaction Status Date / Time No Known Allergies Allergy Verified 10/06/24 18:16 Physical Exam Vitals: Vital Signs Temp Pulse Pulse Resp BP BP Pulse Ox 10/07/24 11:06 60 20 118/52 98 10/07/24 08:00 98 F 69 20 161/69 98 10/07/24 04:00 97.8 F 67 17 154/76 100 10/07/24 02:00 71 18 10/06/24 23:40 97.7 F 71 18 124/73 97 10/06/24 22:56 85 20 123/72 10/06/24 21:00 116/60 10/06/24 19:00 73 24 88/61 98 10/06/24 18:16 67 10/06/24 17:58 64 10/06/24 15:29 97.4 F L 62 17 144/72 100 Intake and Output 10/06/24 10/07/24 10/07/24 22:59 06:59 14:59 Intake Total 10 Output Total 140 Balance -130 Intake: IV 10 Invasive Line 1 10 Output: Urine 140 Other: Voiding Method Indwelling Catheter Indwelling Catheter # Bowel Movements 1 Weight 90.718 kg 90.5 kg Results CBC & Chem 7: 10/07/24 07:28 10/07/24 07:28 Labs: Abnormal Lab Results - Last 24 Hours (Table) 10/06/24 10/06/24 10/06/24 Range/Units 16:15 16:15 18:16 Neutrophils # (1.3-7.7) k/uL Lymphocytes # 0.5 L (1.0-4.8) k/uL Sodium 133 L (137-145) mmol/L Potassium 5.9 H (3.5-5.1) mmol/L Carbon Dioxide 16 L (22-30) mmol/L BUN 113 H* (7-17) mg/dL Creatinine 8.51 H* (0.52-1.04) mg/dL Glucose 68 L (74-99) mg/dL Total Protein 6.1 L (6.3-8.2) g/dL Albumin 3.4 L (3.5-5.0) g/dL Urine Appearance Turbid H (Clear) Urine Protein 3+ H (Negative) Urine Blood Large H (Negative) Ur Leukocyte Esterase Large H (Negative) Urine RBC 67 H (0-5) /hpf Urine WBC >182 H (0-5) /hpf Urine WBC Clumps Many H (None) /hpf Urine Bacteria Many H (None) /hpf 10/06/24 10/07/24 10/07/24 Range/Units 21:20 07:28 07:28 Neutrophils # 8.3 H (1.3-7.7) k/uL Lymphocytes # 0.5 L (1.0-4.8) k/uL Sodium 134 L (137-145) mmol/L Potassium 5.5 H 6.1 H* (3.5-5.1) mmol/L Carbon Dioxide 20 L (22-30) mmol/L BUN 115 H* (7-17) mg/dL Creatinine 8.53 H* (0.52-1.04) mg/dL Glucose 104 H (74-99) mg/dL Total Protein 5.9 L (6.3-8.2) g/dL Albumin 3.4 L (3.5-5.0) g/dL Urine Appearance (Clear) Urine Protein (Negative) Urine Blood (Negative) Ur Leukocyte Esterase (Negative) Urine RBC (0-5) /hpf Urine WBC (0-5) /hpf Urine WBC Clumps (None) /hpf Urine Bacteria (None) /hpf Thrombosis Risk Factor Assmnt - Choose All That Apply Any of the Below Risk Factors Present?: Yes Each Factor Represents 1 point: Abnormal pulmonary function (COPD), Obesity (BMI >25) Other Risk Factors: Yes Each Risk Factor Represents 3 Points: Age 75 years or older Thrombosis Risk Factor Assessment Total Risk Factor Score: 5 Thrombosis Risk Factor Assessment Level: High Risk
--- NOTE | 2024-10-07 13:11 | XR ---
EXAMINATION TYPE: XR chest 1V DATE OF EXAM: 10/07/2024 12:49 PM COMPARISON: Chest radiographs from 08/25/2024 CLINICAL INDICATION: Female, 84 years old with history of CHF; TECHNIQUE: XR chest 1V Frontal view of the chest. FINDINGS: Lungs/Pleura: There is no evidence of pleural effusion, focal consolidation, or pneumothorax. Pulmonary vascularity: Pulmonary vascular congestion. Heart/mediastinum: Cardiomediastinal silhouette is enlarged. Musculoskeletal: No acute osseous pathology. IMPRESSION: Improved aeration with persistent Cardiomegaly and mild pulmonary vascular congestion. Correlate with BNP for congestive heart failure. [facility], , 10/07/2024 1:09 PM
[2024-10-07] MEDS: DESVENLAFAXINE SUCCINATE 50 MG TAB.ER.24H PO SCH (16:32)
[2024-10-07 16:45] LABS: Glucose,Whole Blood 98 mg/dL (70-110)
[2024-10-07] MEDS: INSULIN ASPART (NovoLOG) 100 UNIT/ML VIAL SQ SCH (16:56)
[2024-10-07 19:51] LABS: Glucose,Whole Blood 80 mg/dL (70-110)
[2024-10-07] MEDS: PRAVASTATIN SODIUM 80 MG TAB PO SCH (20:16)
[2024-10-08] MEDS: ACETAMINOPHEN TAB 325 MG TAB PO PRN (05:04)
[2024-10-08 06:03] LABS: Glucose,Whole Blood 78 mg/dL (70-110)
[2024-10-08 08:12] LABS: Anion Gap 11 mmol/L; Calcium 8.6 mg/dL (8.4-10.2); Carbon Dioxide 14 mmol/L (22-30); Chloride 110 mmol/L (98-107); Glucose 86 mg/dL (74-99); Sodium 135 mmol/L (137-145)
[2024-10-08 08:18] LABS: African American GFR (CKD) 5 (>60 ml/min/1.73 sqM); Non-African American GFR(CKD) 4 (>60 ml/min/1.73 sqM)
[2024-10-08 08:22] LABS: Blood Urea Nitrogen 111 mg/dL (7-17)
[2024-10-08] MEDS: ARIPiprazole 2 MG TAB PO SCH (09:17)
[2024-10-08] MEDS: FENOFIBRATE 160 MG TAB PO SCH (09:17)
[2024-10-08] MEDS: ESCITALOPRAM 20 MG TAB PO SCH (09:17)
[2024-10-08] MEDS: ONDANSETRON 4 MG/2 ML VIAL IVP PRN (10:40)
[2024-10-08] MEDS: DEXTROSE 50% SYRINGE 50 ML IVP STA (10:57)
[2024-10-08] MEDS: SODIUM BICARB 8.4% 50 ML SYR (1 MEQ/ML) IV STA (10:57)
[2024-10-08] MEDS: INSULIN REGULAR 100 UNIT/ML VIAL (IV) IV ONE (10:57)
[2024-10-08] MEDS: DEXTROSE 5% IN WATER 1,000 ML with SODIUM BICARB (1 MEQ/ML) 150 ML IV SCH (10:57)
[2024-10-08 11:23] LABS: Glucose,Whole Blood 118 mg/dL (70-110)
[2024-10-08 12:28] LABS: Potassium 4.5 mmol/L (3.5-5.1)
[2024-10-08 12:35] LABS: African American GFR (CKD) 5 (>60 ml/min/1.73 sqM); Non-African American GFR(CKD) 4 (>60 ml/min/1.73 sqM)
[2024-10-08 12:43] LABS: Blood Urea Nitrogen 110 mg/dL (7-17)
[2024-10-08 16:09] LABS: Basophils % (A) 1 %; Eosinophils # (A) 0.1 k/uL (0-0.7); Eosinophils % (A) 1 %; HCT 38.1 % (34.0-46.0); HGB 11.9 gm/dL (11.4-16.0); Hypochromasia Slight; Lymphocytes # (A) 0.4 k/uL (1.0-4.8); Lymphocytes % (A) 5 %; MCH 28.1 pg (25.0-35.0); MCHC 31.3 g/dL (31.0-37.0); MCV 89.7 fL (80.0-100.0); Monocytes # (A) 0.3 k/uL (0-1.0); Monocytes % (A) 4 %; Neutrophils # (A) 7.2 k/uL (1.3-7.7); Neutrophils % (A) 89 %; Platelet Count 356 k/uL (150-450); RBC 4.25 m/uL (3.80-5.40); RDW 14.2 % (11.5-15.5); WBC 8.1 k/uL (3.8-10.6)
[2024-10-08 16:09] LABS: Glucose,Whole Blood 91 mg/dL (70-110)
[2024-10-08] MEDS: FUROSEMIDE 10 MG/ML 10 ML VIAL IV STA (16:09)
--- NOTE | 2024-10-08 16:36 | P.PN ---
Subjective Patient is seen for follow-up for acute kidney injury. Serum creatinine remains elevated at 8.3. Urine output is minimal. Serum potassium was elevated at 6.0 this morning. Family is present at bedside and discussed renal replacement therapy with the patient and family. They are agreeable to proceed. Objective - Vital Signs Vital signs: Vital Signs Temp 97.6 F 10/08/24 04:00 Pulse 60 10/08/24 09:10 Resp 18 10/08/24 09:10 BP 176/70 10/08/24 09:10 Pulse Ox 96 10/08/24 09:10 FiO2 Intake & Output 10/07/24 10/08/24 10/08/24 18:59 06:59 18:59 Intake Total 1150 Output Total 100 110 Balance 1050 -110 Weight 83.5 kg 83.5 kg Intake: Intake, IV Titration 1150 Amount Sodium Chloride 0.9% 1, 600 000 ml @ 100 mls/hr IV . Q10H [facility] Rx#:[id number] Sodium Chloride 0.9% 500 500 ml 500 ml @ 999 mls/hr IV .Q31M ONE Rx#:[id number] cefTRIAXone 1 gm In 50 Sodium Chloride 0.9% 50 ml @ 100 mls/hr IVPB Q24HR [facility] Rx#:[id number] Output: Urine 100 110 Other: Voiding Method Indwelling Catheter Indwelling Catheter Indwelling Catheter # Bowel Movements 1 - Exam patient is awake, comfortable, no acute distress. Examination of the heart S1 and S2 Examination of the lungs bilateral breath sounds are heard Abdomen is soft nontender Examination of lower extremities shows no significant edema, chronic skin changes noted. [employer] exam is grossly intact. - Labs CBC & Chem 7: 10/08/24 16:00 10/08/24 11:54 Labs: Abnormal Lab Results - Last 24 Hours (Table) 10/07/24 10/08/24 10/08/24 Range/Units 16:52 06:29 11:22 Lymphocytes # (1.0-4.8) k/uL Sodium 135 L (137-145) mmol/L Potassium 5.5 H 6.0 H (3.5-5.1) mmol/L Chloride 110 H (98-107) mmol/L Carbon Dioxide 14 L (22-30) mmol/L BUN 111 H* (7-17) mg/dL Creatinine 8.30 H* (0.52-1.04) mg/dL POC Glucose (mg/dL) 118 H (70-110) mg/dL 10/08/24 10/08/24 Range/Units 11:54 16:00 Lymphocytes # 0.4 L (1.0-4.8) k/uL Sodium (137-145) mmol/L Potassium (3.5-5.1) mmol/L Chloride (98-107) mmol/L Carbon Dioxide (22-30) mmol/L BUN 110 H* (7-17) mg/dL Creatinine 8.35 H* (0.52-1.04) mg/dL POC Glucose (mg/dL) (70-110) mg/dL Microbiology - Last 24 Hours (Table) 10/06/24 18:16 Urine Culture - Preliminary Urine,Voided Gram Neg Bacilli Assessment and Plan Assessment: 1. Acute kidney injury, ATN, oliguric associated with underlying infection and volume depletion. No evidence of obstructive uropathy. UA is suggestive of UTI. Proceed with renal replacement therapy as there is no improvement in renal function. 2. Hyperkalemia associated with acute kidney injury and metabolic acidosis 3. Non-gap metabolic acidosis secondary to acute kidney injury 4. Pyuria rule out UTI 5. Volume depletion 6. History of hypertension, Cozaar currently on hold Plan: proceed with renal replacement therapy as there is no improvement in renal function. Family is agreeable. Treat hyperkalemia with IV medications. Repeat labs later today Start IV bicarb
--- NOTE | 2024-10-08 16:51 | P.OP ---
Date of Procedure: 10/08/24 Description of Procedure: SURGEON: Sari Linares DO PROCESS ENGINEERING TECHNICIAN: None PREOPERATIVE DIAGNOSIS: NANCY, need for dialysis POSTOPERATIVE DIAGNOSIS: Same OPERATION: Ultrasound-guided right common femoral vein access, placement of temporary dialysis catheter DESCRIPTION OF PROCEDURE: The groin was prepped and draped in usual sterile fashion. A preprocedure timeout was performed, all parties were in agreement. An ultrasound was utilized and the right common femoral vein was identified. It was patent and compressible. The skin overlying the vein was anesthetized with 1% lidocaine plain. A multipurpose needle was utilized and the femoral vein was accessed under ultrasound guidance on first attempt with return of dark venous, nonpulsatile blood. The guidewire was passed easily. Serial dilation was performed of the subcutaneous tissues. The catheter was placed and secured with suture. It aspirated and flushed freely. A dressing was applied. The patient tolerated the procedure well.
[2024-10-08] MEDS: QUEtiapine 25 MG TAB PO PRN (20:18)
[2024-10-08 20:48] LABS: Glucose,Whole Blood 79 mg/dL (70-110)
[2024-10-09 06:11] LABS: Glucose,Whole Blood 82 mg/dL (70-110)
[2024-10-09 06:39] LABS: Basophils % (A) 1 %; Eosinophils # (A) 0.1 k/uL (0-0.7); Eosinophils % (A) 2 %; HCT 34.1 % (34.0-46.0); HGB 10.9 gm/dL (11.4-16.0); Lymphocytes # (A) 0.6 k/uL (1.0-4.8); Lymphocytes % (A) 9 %; MCH 28.3 pg (25.0-35.0); MCHC 31.9 g/dL (31.0-37.0); MCV 88.5 fL (80.0-100.0); Mean Platelet Volume 9.5; Monocytes # (A) 0.4 k/uL (0-1.0); Monocytes % (A) 7 %; Neutrophils # (A) 5.2 k/uL (1.3-7.7); Neutrophils % (A) 81 %; Platelet Count 314 k/uL (150-450); RBC 3.85 m/uL (3.80-5.40); RDW 14.6 % (11.5-15.5); WBC 6.3 k/uL (3.8-10.6)
[2024-10-09 06:58] LABS: Anion Gap 9 mmol/L; Calcium 8.4 mg/dL (8.4-10.2); Carbon Dioxide 25 mmol/L (22-30); Chloride 102 mmol/L (98-107); Glucose 89 mg/dL (74-99); Magnesium 1.4 mg/dL (1.6-2.3); Potassium 4.9 mmol/L (3.5-5.1); Sodium 136 mmol/L (137-145)
[2024-10-09 07:04] LABS: African American GFR (CKD) 4 (>60 ml/min/1.73 sqM); Non-African American GFR(CKD) 3 (>60 ml/min/1.73 sqM)
[2024-10-09 07:19] LABS: Blood Urea Nitrogen 108 mg/dL (7-17)
--- NOTE | 2024-10-09 10:03 | P.PN ---
Subjective Progress Note Date: 10/08/24 Patient pleasant 83-year-old female was transferred from a care home to her district in from [facility] to here weekly dose of acute renal failure with serum creatinine going up to 8.5 baseline around 1.3. Patient has longstanding history of major depression and is on multiple antidepressants and antianxiety medications has been in care home as her was unable to take care of the patient. Patient does have some memory loss appears to have mild to moderate dementia occasional agitation episodes. Patient denies any fever chills dysuria nausea vomiting abdominal pain increased urinary urgency or frequency but patient has not been urinating. Renal ultrasound was done which showed incidental finding of cholelithiasis without any evidence of cholecystitis. Patient urine is significantly abnormal with highly elevated white count patient does not have any fever or leukocytosis. Patient is on losartan as well as along with diuretics for congestive heart failure patient has a normal systolic function appears to have chronic diastolic function has admissions in the past for heart failure exacerbations. 10/08/2024 Patient is evaluated today sitting in the chair she is quite anxious and tearful states that she is having worsening depression. She is being treated for an acute urinary tract infection and at this time continues on IV Rocephin. Cultures are growing gram-negative bacilli. She continues on a bicarb drip running at 100 mL/h. Renal function today reveals a BUN of 110 and a creatinine of 8.35 her potassium is down to 4.5. Patient scheduled for temporary dialysis catheter placement this afternoon with plans to start hemodialysis tomorrow Review of Systems Constitutional: Denied any fatigue denied any fever. Cardio vascular: denied any chest pain, palpitations Gastrointestinal: denied any nausea, vomiting, diarrhea Pulmonary: Denied any shortness of breath cough Neurologic denied any new focal deficits All inpatient medications were reviewed and appropriate changes in these medications as dictated in the interval history and assessment and plan. PHYSICAL EXAMINATION: GENERAL: The patient is alert and oriented x3, not in any acute distress. Well developed, well nourished. Obese appears to be severely depressed. HEENT: Pupils are round and equally reacting to light. EOMI. No scleral icterus. No conjunctival pallor. Normocephalic, atraumatic. No pharyngeal erythema. No thyromegaly. CARDIOVASCULAR: S1 and S2 present. No murmurs, rubs, or gallops. PULMONARY: Chest is clear to auscultation, no wheezing or crackles. ABDOMEN: Soft, nontender, nondistended, normoactive bowel sounds. No palpable organomegaly. MUSCULOSKELETAL: No joint swelling or deformity. EXTREMITIES: No cyanosis, clubbing, or pedal edema. NEUROLOGICAL: Gross neurological examination did not reveal any focal deficits. SKIN: No rashes. Assessment and plan -Acute renal failure secondary to acute tubular necrosis patient has poor p.o. intake and UTI may have contributed to her acute tubular necrosis will continue with Rocephin continue with IV fluids nephrology for evaluated the patient and patient will be started on hemodialysis -Hyperkalemia secondary to acute renal failure patient was given Lokelma and insulin calcium gluconate will repeat the potassium patient potassium was around 6 -Possible urinary tract infection patient is on Rocephin which will be continued Cholelithiasis incidental finding no further intervention at this time -Dementia supportive care PT and OT evaluation Seroquel as needed at nighttime -Congestive heart failure chronic diastolic function without any acute exacerbation. Chest x-ray was ordered will also order BNP -Hypertension hold off on losartan -Atrial fibrillation paroxysmal presently rate controlled continue with rate control medications and Eliquis -COPD without any acute exacerbation patient has chronic hypercapnic respiratory failure uses 2 L of oxygen presently on 2 L of oxygen -Obesity -Possibility of senile dementia/vascular dementia -Hypertension holding of losartan because of hyperkalemia and acute renal failure -Type 2 diabetes mellitus patient will be on sliding scale insulin hold of Actos DVT prophylaxis:on Eliquis The impression and plan of care has been dictated by Jaye Fonseca, Nurse Practitioner as directed. Dr. Denzel MD I have performed a history and physical examination and medical decision making of this patient, discussed the same with the dictator, and agree with the dictators assessment and plan as written, documented as a scribe. Based on total visit time, I have performed more than 50% of this visit. Objective - Vital Signs Vital signs: Vital Signs Temp 97.6 F 10/08/24 04:00 Pulse 60 10/08/24 04:00 Resp 19 10/08/24 04:00 BP 144/60 10/08/24 04:00 Pulse Ox 96 10/08/24 04:00 FiO2 Intake & Output 10/07/24 10/08/24 10/08/24 18:59 06:59 18:59 Intake Total 1150 Output Total 100 110 Balance 1050 -110 Weight 83.5 kg Intake: Intake, IV Titration 1150 Amount Sodium Chloride 0.9% 1, 600 000 ml @ 100 mls/hr IV . Q10H [facility] Rx#:[id number] Sodium Chloride 0.9% 500 500 ml 500 ml @ 999 mls/hr IV .Q31M ONE Rx#:[id number] cefTRIAXone 1 gm In 50 Sodium Chloride 0.9% 50 ml @ 100 mls/hr IVPB Q24HR [facility] Rx#:[id number] Output: Urine 100 110 Other: Voiding Method Indwelling Catheter Indwelling Catheter # Bowel Movements 1 - Labs CBC & Chem 7: 10/09/24 05:53 10/09/24 05:53 Labs: Abnormal Lab Results - Last 24 Hours (Table) 10/07/24 10/08/24 Range/Units 16:52 06:29 Sodium 135 L (137-145) mmol/L Potassium 5.5 H 6.0 H (3.5-5.1) mmol/L Chloride 110 H (98-107) mmol/L Carbon Dioxide 14 L (22-30) mmol/L BUN 111 H* (7-17) mg/dL Creatinine 8.30 H* (0.52-1.04) mg/dL Microbiology - Last 24 Hours (Table) 10/06/24 18:16 Urine Culture - Preliminary Urine,Voided Gram Neg Bacilli Assessment and Plan Time with Patient: Less than 30
[2024-10-09] MEDS ORDERED: Magnesium Replacement Protocol 1 EACH MISC MISCELLANE PRN (10:04)
[2024-10-09] MEDS: MAGNESIUM SULFATE-D5W PMX 1 GM in DEXTROSE/WATER 1 100ML.BAG IVPB SCH (11:28)
[2024-10-09 11:31] LABS: Glucose,Whole Blood 63 mg/dL (70-110)
[2024-10-09 11:55] LABS: Glucose,Whole Blood 82 mg/dL (70-110)
--- NOTE | 2024-10-09 12:47 | P.PN ---
Subjective Patient is seen for follow-up for acute kidney injury. status post dialysis catheter placement and received first treatment of hemodialysis today. Urine output is minimal. no significant complaints. no vomiting today. Appetite remains poor Objective - Vital Signs Vital signs: Vital Signs Temp 97.1 F L 10/09/24 03:55 Pulse 60 10/09/24 12:00 Resp 16 10/09/24 12:00 BP 172/74 10/09/24 12:00 Pulse Ox 96 10/09/24 08:31 FiO2 Intake & Output 10/08/24 10/09/24 10/09/24 18:59 06:59 18:59 Intake Total 332 Output Total 125 Balance -125 332 Weight 83.5 kg 59.3 kg Intake: Oral 332 Output: Urine 125 Other: Voiding Method Indwelling Catheter Indwelling Catheter Indwelling Catheter # Bowel Movements 0 - Exam patient is awake, comfortable, no acute distress. Examination of the heart S1 and S2 Examination of the lungs bilateral breath sounds are heard Abdomen is soft nontender Examination of lower extremities shows no significant edema, chronic skin changes noted. [employer] exam is grossly intact. - Labs CBC & Chem 7: 10/09/24 05:53 10/09/24 05:53 Labs: Abnormal Lab Results - Last 24 Hours (Table) 10/08/24 10/08/24 10/09/24 Range/Units 11:54 16:00 05:53 Hgb 10.9 L (11.4-16.0) gm/dL Lymphocytes # 0.4 L 0.6 L (1.0-4.8) k/uL Sodium (137-145) mmol/L BUN 110 H* (7-17) mg/dL Creatinine 8.35 H* (0.52-1.04) mg/dL POC Glucose (mg/dL) (70-110) mg/dL Magnesium (1.6-2.3) mg/dL 10/09/24 10/09/24 Range/Units 05:53 11:26 Hgb (11.4-16.0) gm/dL Lymphocytes # (1.0-4.8) k/uL Sodium 136 L (137-145) mmol/L BUN 108 H* (7-17) mg/dL Creatinine 9.63 H* (0.52-1.04) mg/dL POC Glucose (mg/dL) 63 L (70-110) mg/dL Magnesium 1.4 L (1.6-2.3) mg/dL Microbiology - Last 24 Hours (Table) 10/06/24 18:16 Urine Culture - Preliminary Urine,Voided Gram Neg Bacilli Assessment and Plan Assessment: 1. Acute kidney injury, ATN, oliguric associated with underlying infection and volume depletion. No evidence of obstructive uropathy. UA is suggestive of UTI. Started with hemodialysis on 10/09/2024 2. Hyperkalemia associated with acute kidney injury and metabolic acidosis 3. Non-gap metabolic acidosis secondary to acute kidney injury 4. UTI with urine culture growing gram-negative bacilli 5. Volume depletion 6. History of hypertension, Cozaar currently on hold Plan: next hemodialysis on 10/11/2024 Continue to avoid nephrotoxic agents. Continue to monitor for recovery of renal function
[2024-10-09 13:10] LABS: Hepatitis B Surface Antigen Nonreactive (Nonreactive)
--- NOTE | 2024-10-09 13:55 | P.GSCN ---
History of Present Illness Consult date: 10/09/24 History of present illness: CHIEF COMPLAINT: Acute GI bleed HISTORY OF PRESENT ILLNESS: The patient is a 84-year-old female transferred from outside facility 10/06/2024 due to acute renal failure and hyperkalemia. She underwent temporary dialysis placement yesterday, 10/08/2024. Discussion with nursing, patient had a bowel movement dark stools consistent with intra- abdominal bleed. She was on blood thinner, Eliquis at the time of her admission. Patient presents with multiple comorbidities including congestive heart failure, hypertensive heart disease, iron deficiency anemia including insulin-dependent diabetes type 2. Patient is on regular diet. She denies any abdominal pain. She denies any known blood in her stools otherwise. She reports her last colonoscopy may have been over 10 years ago. Information is also obtained by the patient's nurse. PAST MEDICAL HISTORY: See list and reviewed PAST SURGICAL HISTORY: See list and reviewed MEDICATIONS: See list and reviewed ALLERGIES: See list and reviewed SOCIAL HISTORY: See list and reviewed FAMILY HISTORY: See list and reviewed REVIEW OF ORGAN SYSTEMS: CONSTITUTIONAL: No fevers or chills. EYES: Denies any trouble with vision. No glasses. HEENT: No difficulties with hearing. No nosebleeds. No difficulty swallowing. RESPIRATORY: Has asthma. Has chronic obstructive pulmonary disease. CARDIOVASCULAR: Hypertensive heart disease. Has congestive heart failure. On blood thinners for atrial fibrillation. Has hyperlipidemia. GASTROINTESTINAL: Denies fatty food intolerance. Denies change in bowel habits and gas bloat. Has iron deficiency anemia. GENITOURINARY: Acute renal failure. NEUROLOGICAL: History of cerebrovascular accident. Has memory impairment. MUSCULOSKELETAL: Denies any back pain, stiffness or joint arthritis. SKIN: No current skin cancer. No rash. PSYCHIATRIC: Has generalized anxiety disorder. Has depressive disorder. ENDOCRINE: Insulin-dependent diabetes type 2 HEME/LYMPHATIC: Denies any lumps and bumps around the neck. No recent deep venous thrombosis. ALLERGY/IMMUNOLOGY: No immunoglobulin therapy. No immune deficiencies. BREAST: Denies current breast lumps, pain or nipple discharge. PHYSICAL EXAM: VITALS: Reviewed CONSTITUTIONAL: Well developed and in no acute distress. EYES: Conjuctivae without sclera icterus. Extraocular movements grossly intact. HEAD, EARS, NOSE, THROAT: Moist buccal mucosa. Head is atraumatic, normocephalic. Hears conversational speech. No nasal drainage. NECK: Supple. No JV distention. No thyroidomegaly. Moderate swelling along the bilateral neck, left greater than the right. RESPIRATORY: Non-labored respirations and equal bilateral excursions. No gross wheezes. CARDIOVASCULAR: Palpable 2+ radial pulses. ABDOMEN: Obese. Nontender. LYMPH: No neck lymphadenopathy. MUSCULOSKELETAL: No clubbing cyanosis or edema SKIN: Warm and well perfused with good skin turgor. NEUROLOGIC: Cranial nerves II through XII grossly intact. No focal or lateralizing signs. PSYCH: Appropriate affect. Alert and oriented to person. CLINCAL LABS: Reviewed. Urine culture positive for E. coli. WBC normal 6.3. Hemoglobin dropped 12.2-10.9. BUN elevated 108, creatinine elevated 9.3. Magnesium low 1.4. Blood sugar glucose normal 82. Potassium 4.9. IMAGING: Independently reviewed. Chest x-ray independently reviewed demonstrates no pneumothorax or consolidation. RADIOLOGY: Report reviewed. Chest x-ray demonstrates mild pulmonary vascular congestion and cardiomegaly. EKG: Reviewed demonstrates abnormalities including sinus bradycardia, prior anteroseptal infarction, including additional findings RECORDS: previous old records reviewed echo report February 2024 demonstrates ejection fraction 55 to 60%. No aortic stenosis. ASSESSMENT: 1. Acute GI bleed with melena 2. Acute anemia 3. Acute renal failure, dialysis intervention needed 4. Chronic obstructive pulmonary disease with asthma 5. Congestive heart failure with hypertensive heart disease 6. Diabetes type 2, dialysis dependent 7. Hypertensive and diabetic nephropathy 8. Hypomagnesia 9. E. coli urinary tract infection PLAN: 1. Due to her recent acute renal failure including hyperkalemia, large volume bowel prep contraindicated at this time. 2. Recommend upper endoscopy due to melena for high risk of upper GI bleed. 3. Dialysis pending at this time 4. Once cleared by nephrology, may proceed with colonoscopy once hemodyna mically stable from acute kidney injury ADVANCE DIRECTIVE: CODE STATUS in chart. Thank you for this kind consultation. Past Medical History Past Medical History: Atrial Fibrillation, Asthma, COPD, CVA/TIA, Diabetes Mellitus, Hyperlipidemia, Hypertension, Memory Impairment, Osteoarthritis (OA) Additional Past Medical History / Comment(s): UTI History of Any Multi-Drug Resistant Organisms: None Reported Past Surgical History: Appendectomy, Hysterectomy, Orthopedic Surgery Additional Past Surgical History / Comment(s): hip Additional Past Anesthesia/Blood Transfusion Reaction / Comm: Never rcvd. blood Past Psychological History: Anxiety Smoking Status: Former smoker Past Alcohol Use History: None Reported Past Drug Use History: None Reported Medications and Allergies Home Medications Medication Instructions Recorded Confirmed Type ALPRAZolam [Xanax] 0.5 mg PO Q6H PRN 03/04/24 10/06/24 History Desvenlafaxine [Pristiq ER] 100 mg PO DAILY 03/04/24 10/06/24 History Fenofibrate Nanocrystallized 145 mg PO DAILY 03/04/24 10/06/24 History [Fenofibrate] Ferrous Sulfate [Iron (65 MG 325 mg PO DAILY 03/04/24 10/06/24 History Elemental)] Losartan [Cozaar] 25 mg PO DAILY 03/04/24 10/06/24 History Metoprolol Tartrate [Lopressor] 25 mg PO BID 03/04/24 10/06/24 History Pioglitazone [Actos] 15 mg PO DAILY 03/04/24 10/06/24 History Pravastatin Sodium 80 mg PO HS 03/04/24 10/06/24 History metFORMIN HCL 1,000 mg PO BID 03/04/24 10/06/24 History ARIPiprazole [Abilify] 2 mg PO DAILY 10/06/24 10/06/24 History Apixaban [Eliquis] 5 mg PO BID 10/06/24 10/06/24 History Bumetanide [Bumex] 1 mg PO DAILY 10/06/24 10/06/24 History Cholecalciferol [Vitamin D3 (125 125 mcg PO DAILY 10/06/24 10/06/24 History Mcg = 5000 Iu)] Escitalopram [Lexapro] 20 mg PO DAILY 10/06/24 10/06/24 History INSULIN LISPRO (HumaLOG) [humaLOG] See Protocol SQ ACHS 10/06/24 10/06/24 History Melatonin 5 mg PO HS 10/06/24 10/06/24 History amLODIPine [Norvasc] 5 mg PO DAILY 10/06/24 10/06/24 History busPIRone HCL 15 mg PO BID 10/06/24 10/06/24 History Allergies Allergy/AdvReac Type Severity Reaction Status Date / Time No Known Allergies Allergy Verified 10/06/24 18:16 Surgical - Exam Vital Signs Temp Pulse Resp BP Pulse Ox 97.4 F L 62 17 144/72 100 10/06/24 15:29 10/06/24 15:29 10/06/24 15:29 10/06/24 15:29 10/06/24 15:29 Results - Labs 10/09/24 05:53 10/09/24 05:53 Abnormal Lab Results - Last 24 Hours (Table) 10/08/24 10/09/24 10/09/24 Range/Units 16:00 05:53 05:53 Hgb 10.9 L (11.4-16.0) gm/dL Lymphocytes # 0.4 L 0.6 L (1.0-4.8) k/uL Sodium 136 L (137-145) mmol/L BUN 108 H* (7-17) mg/dL Creatinine 9.63 H* (0.52-1.04) mg/dL POC Glucose (mg/dL) (70-110) mg/dL Magnesium 1.4 L (1.6-2.3) mg/dL 10/09/24 Range/Units 11:26 Hgb (11.4-16.0) gm/dL Lymphocytes # (1.0-4.8) k/uL Sodium (137-145) mmol/L BUN (7-17) mg/dL Creatinine (0.52-1.04) mg/dL POC Glucose (mg/dL) 63 L (70-110) mg/dL Magnesium (1.6-2.3) mg/dL Microbiology - Last 24 Hours (Table) 10/06/24 18:16 Urine Culture - Final Urine,Voided Escherichia coli Diabetes panel 10/09/24 Range/Units 05:53 Sodium 136 L (137-145) mmol/L Potassium 4.9 (3.5-5.1) mmol/L Chloride 102 (98-107) mmol/L Carbon Dioxide 25 (22-30) mmol/L BUN 108 H* (7-17) mg/dL Creatinine 9.63 H* (0.52-1.04) mg/dL Glucose 89 (74-99) mg/dL Calcium 8.4 (8.4-10.2) mg/dL Calcium panel 10/09/24 Range/Units 05:53 Calcium 8.4 (8.4-10.2) mg/dL Pituitary panel 10/09/24 Range/Units 05:53 Sodium 136 L (137-145) mmol/L Potassium 4.9 (3.5-5.1) mmol/L Chloride 102 (98-107) mmol/L Carbon Dioxide 25 (22-30) mmol/L BUN 108 H* (7-17) mg/dL Creatinine 9.63 H* (0.52-1.04) mg/dL Glucose 89 (74-99) mg/dL Calcium 8.4 (8.4-10.2) mg/dL Adrenal panel 10/09/24 Range/Units 05:53 Sodium 136 L (137-145) mmol/L Potassium 4.9 (3.5-5.1) mmol/L Chloride 102 (98-107) mmol/L Carbon Dioxide 25 (22-30) mmol/L BUN 108 H* (7-17) mg/dL Creatinine 9.63 H* (0.52-1.04) mg/dL Glucose 89 (74-99) mg/dL Calcium 8.4 (8.4-10.2) mg/dL
[2024-10-09 14:09] LABS: Hepatitis B Surface AB- Quant 3.5 mIU/mL
[2024-10-09 16:35] LABS: Glucose,Whole Blood 143 mg/dL (70-110)
[2024-10-09 20:23] LABS: Glucose,Whole Blood 92 mg/dL (70-110)
[2024-10-10 05:30] LABS: Glucose,Whole Blood 92 mg/dL (70-110)
--- NOTE | 2024-10-10 07:59 | P.PN ---
Subjective Progress Note Date: 10/09/24 Patient pleasant 83-year-old female was transferred from a retirement to her district in from [facility] to here weekly dose of acute renal failure with serum creatinine going up to 8.5 baseline around 1.3. Patient has longstanding history of major depression and is on multiple antidepressants and antianxiety medications has been in retirement as her was unable to take care of the patient. Patient does have some memory loss appears to have mild to moderate dementia occasional agitation episodes. Patient denies any fever chills dysuria nausea vomiting abdominal pain increased urinary urgency or frequency but patient has not been urinating. Renal ultrasound was done which showed incidental finding of cholelithiasis without any evidence of cholecystitis. Patient urine is significantly abnormal with highly elevated white count patient does not have any fever or leukocytosis. Patient is on losartan as well as along with diuretics for congestive heart failure patient has a normal systolic function appears to have chronic diastolic function has admissions in the past for heart failure exacerbations. 10/08/2024 Patient is evaluated today sitting in the chair she is quite anxious and tearful states that she is having worsening depression. She is being treated for an acute urinary tract infection and at this time continues on IV Rocephin. Cultures are growing gram-negative bacilli. She continues on a bicarb drip running at 100 mL/h. Renal function today reveals a BUN of 110 and a creatinine of 8.35 her potassium is down to 4.5. Patient scheduled for temporary dialysis catheter placement this afternoon with plans to start hemodialysis tomorrow 10/09/2024 Patient is awaiting hemodialysis today. She is less anxious. Remains on IV ceftriaxone. Review of Systems Constitutional: Denied any fatigue denied any fever. Cardio vascular: denied any chest pain, palpitations Gastrointestinal: denied any nausea, vomiting, diarrhea Pulmonary: Denied any shortness of breath cough Neurologic denied any new focal deficits All inpatient medications were reviewed and appropriate changes in these medications as dictated in the interval history and assessment and plan. PHYSICAL EXAMINATION: GENERAL: The patient is alert and oriented x3, not in any acute distress. Well developed, well nourished. Obese appears to be severely depressed. HEENT: Pupils are round and equally reacting to light. EOMI. No scleral icterus. No conjunctival pallor. Normocephalic, atraumatic. No pharyngeal erythema. No thyromegaly. CARDIOVASCULAR: S1 and S2 present. No murmurs, rubs, or gallops. PULMONARY: Chest is clear to auscultation, no wheezing or crackles. ABDOMEN: Soft, nontender, nondistended, normoactive bowel sounds. No palpable organomegaly. MUSCULOSKELETAL: No joint swelling or deformity. EXTREMITIES: No cyanosis, clubbing, or pedal edema. NEUROLOGICAL: Gross neurological examination did not reveal any focal deficits. SKIN: No rashes. Assessment and plan -Acute renal failure secondary to acute tubular necrosis patient has poor p.o. intake and UTI may have contributed to her acute tubular necrosis will continue with Rocephin continue with IV fluids nephrology for evaluated the patient and patient will be started on hemodialysis -Hyperkalemia secondary to acute renal failure improved with lokelma and plans to start hemodialysis. -Possible urinary tract infection patient is on Rocephin which will be continued Cholelithiasis incidental finding no further intervention at this time -Dementia supportive care PT and OT evaluation Seroquel as needed at nighttime -Congestive heart failure chronic diastolic function without any acute exacerbation. Chest x-ray was ordered will also order BNP -Hypertension hold off on losartan -Atrial fibrillation paroxysmal presently rate controlled continue with rate control medications and Eliquis -COPD without any acute exacerbation patient has chronic hypercapnic respiratory failure uses 2 L of oxygen presently on 2 L of oxygen -Obesity -Possibility of senile dementia/vascular dementia -Hypertension holding of losartan because of hyperkalemia and acute renal failure -Type 2 diabetes mellitus patient will be on sliding scale insulin hold of Actos DVT prophylaxis:on Eliquis The impression and plan of care has been dictated by Jaye Fonseca, Nurse Practitioner as directed. Dr. Denzel MD I have performed a history and physical examination and medical decision making of this patient, discussed the same with the dictator, and agree with the dictators assessment and plan as written, documented as a scribe. Based on total visit time, I have performed more than 50% of this visit. Objective - Vital Signs Vital signs: Vital Signs Temp 97.1 F L 10/09/24 03:55 Pulse 67 10/09/24 03:55 Resp 14 10/09/24 03:55 BP 135/92 10/09/24 03:55 Pulse Ox 96 10/09/24 08:31 FiO2 Intake & Output 10/08/24 10/09/24 10/09/24 18:59 06:59 18:59 Output Total 125 Balance -125 Weight 83.5 kg 59.3 kg Output: Urine 125 Other: Voiding Method Indwelling Catheter Indwelling Catheter # Bowel Movements 0 - Labs CBC & Chem 7: 10/09/24 05:53 10/09/24 05:53 Labs: Abnormal Lab Results - Last 24 Hours (Table) 10/08/24 10/08/24 10/08/24 Range/Units 11:22 11:54 16:00 Hgb (11.4-16.0) gm/dL Lymphocytes # 0.4 L (1.0-4.8) k/uL Sodium (137-145) mmol/L BUN 110 H* (7-17) mg/dL Creatinine 8.35 H* (0.52-1.04) mg/dL POC Glucose (mg/dL) 118 H (70-110) mg/dL Magnesium (1.6-2.3) mg/dL 10/09/24 10/09/24 Range/Units 05:53 05:53 Hgb 10.9 L (11.4-16.0) gm/dL Lymphocytes # 0.6 L (1.0-4.8) k/uL Sodium 136 L (137-145) mmol/L BUN 108 H* (7-17) mg/dL Creatinine 9.63 H* (0.52-1.04) mg/dL POC Glucose (mg/dL) (70-110) mg/dL Magnesium 1.4 L (1.6-2.3) mg/dL Microbiology - Last 24 Hours (Table) 10/06/24 18:16 Urine Culture - Preliminary Urine,Voided Gram Neg Bacilli Assessment and Plan Time with Patient: Less than 30
[2024-10-10 11:26] LABS: Glucose,Whole Blood 86 mg/dL (70-110)
[2024-10-10 11:55] LABS: Basophils % (A) 1 %; Eosinophils # (A) 0.2 k/uL (0-0.7); Eosinophils % (A) 4 %; HCT 35.4 % (34.0-46.0); HGB 11.1 gm/dL (11.4-16.0); Hypochromasia Slight; Lymphocytes # (A) 0.5 k/uL (1.0-4.8); Lymphocytes % (A) 9 %; MCH 28.3 pg (25.0-35.0); MCHC 31.3 g/dL (31.0-37.0); MCV 90.3 fL (80.0-100.0); Monocytes # (A) 0.5 k/uL (0-1.0); Monocytes % (A) 8 %; Neutrophils # (A) 4.6 k/uL (1.3-7.7); Neutrophils % (A) 78 %; Platelet Count 289 k/uL (150-450); RBC 3.92 m/uL (3.80-5.40); RDW 14.3 % (11.5-15.5); WBC 5.9 k/uL (3.8-10.6)
--- NOTE | 2024-10-10 14:07 | P.PN ---
Subjective Patient is seen for follow-up for acute kidney injury. Status post first treatment of hemodialysis yesterday on 10/09/2024 Urine output is minimal. no significant complaints. Appetite remains poor Objective - Vital Signs Vital signs: Vital Signs Temp 97.6 F 10/10/24 11:33 Pulse 56 L 10/10/24 11:33 Resp 14 10/10/24 11:33 BP 162/69 10/10/24 11:33 Pulse Ox 98 10/10/24 11:33 FiO2 Intake & Output 10/09/24 10/10/24 10/10/24 18:59 06:59 18:59 Intake Total 932 10 0 Output Total 1600 150 0 Balance -668 -140 0 Weight 80.5 kg 82 kg Intake: IV 10 Invasive Line 4 10 Intake, IV Titration 200 Amount Dextrose 5% in Water 1, 200 000 ml @ 100 mls/hr IV . [id number] JAD with Sodium Bicarb (1 Meq/ml) 150 ml Rx#:[id number] Oral 332 0 Hemodialysis 400 Output: Gastric Drainage 0 Urine 0 150 0 Stool 0 Urine/Stool Mix 0 Emesis 0 Oral Regurgitation 0 Hemodialysis 1000 Hemodialysis Net Amount 600 Other 0 Other: Voiding Method Indwelling Catheter Indwelling Catheter Indwelling Catheter # Voids 0 # Bowel Movements 1 - Exam patient is awake, comfortable, no acute distress. Examination of the heart S1 and S2 Examination of the lungs bilateral breath sounds are heard Abdomen is soft nontender Examination of lower extremities shows no significant edema, chronic skin changes noted. [employer] exam is grossly intact. - Labs CBC & Chem 7: 10/10/24 06:10 10/09/24 05:53 Labs: Abnormal Lab Results - Last 24 Hours (Table) 10/09/24 10/10/24 Range/Units 16:33 06:10 Hgb 11.1 L (11.4-16.0) gm/dL Lymphocytes # 0.5 L (1.0-4.8) k/uL POC Glucose (mg/dL) 143 H (70-110) mg/dL Microbiology - Last 24 Hours (Table) 10/06/24 18:16 Urine Culture - Final Urine,Voided Escherichia coli Assessment and Plan Assessment: 1. Acute kidney injury, ATN, oliguric associated with underlying infection and volume depletion. No evidence of obstructive uropathy. UA is suggestive of UTI. Started with hemodialysis on 10/09/2024 2. Hyperkalemia associated with acute kidney injury and metabolic acidosis 3. Non-gap metabolic acidosis secondary to acute kidney injury 4. UTI with urine culture growing gram-negative bacilli 5. Volume depletion status post IV fluids 6. History of hypertension, Cozaar currently on hold Plan: next hemodialysis on 10/11/2024 Continue to avoid nephrotoxic agents. Continue to monitor for recovery of renal function. Urine output remains poor
--- NOTE | 2024-10-10 14:40 | P.PN ---
Subjective Progress Note Date: 10/10/24 CHIEF COMPLAINT: Acute GI bleed HISTORY OF PRESENT ILLNESS: The patient is a 84-year-old female transferred from outside facility 10/06/2024 due to acute renal failure and hyperkalemia. During hospitalization, patient was noted to have very dark stools from her bowel movement yesterday. General surgery was consulted as a result. Today she denies any abdominal pain. She is resting comfortably. Her hemoglobin has been stable. In the last 24 hours. REVIEW OF ORGAN SYSTEMS: No fevers or chills. No acute shortness of breath. PHYSICAL EXAM: VITALS: Reviewed CONSTITUTIONAL: Well developed and in no acute distress. EYES: Conjuctivae without sclera icterus. Extraocular movements grossly in tact. HEAD, EARS, NOSE, THROAT: Moist buccal mucosa. Head is atraumatic, normocephalic. Hears conversational speech. No nasal drainage. RESPIRATORY: Non-labored respirations and equal bilateral excursions. No gross wheezes. CARDIOVASCULAR: Palpable 2+ radial pulses. ABDOMEN: Obese. Nontender. MUSCULOSKELETAL: No clubbing cyanosis or edema SKIN: Warm and well perfused with good skin turgor. NEUROLOGIC: Cranial nerves II through XII grossly intact. No focal or lateralizing signs. PSYCH: Appropriate affect. Alert and oriented to person. CLINCAL LABS: Reviewed. Hemoglobin 10.9 now 11.1. WBC normal. ASSESSMENT: 1. Acute GI bleed with melena 2. Acute anemia 3. Acute renal failure, dialysis intervention needed 4. Chronic obstructive pulmonary disease with asthma 5. Congestive heart failure with hypertensive heart disease 6. Diabetes type 2, dialysis dependent 7. Hypertensive and diabetic nephropathy 8. Hypomagnesia 9. E. coli urinary tract infection PLAN: 1. Benefits risks of upper endoscopy described due to type of dark stools noted for upper GI bleed. Upper endoscopy pending for tomorrow. 2. N.p.o. after midnight. Objective - Vital Signs Vital signs: Vital Signs Temp 97.6 F 10/10/24 11:33 Pulse 56 L 10/10/24 11:33 Resp 14 10/10/24 11:33 BP 162/69 10/10/24 11:33 Pulse Ox 98 10/10/24 11:33 FiO2 Intake & Output 12/14/24 12/15/24 12/15/24 18:59 06:59 18:59 Intake Total 932 10 0 Output Total 1600 150 0 Balance -668 -140 0 Weight 80.5 kg 82 kg Intake: IV 10 Invasive Line 4 10 Intake, IV Titration 200 Amount Dextrose 5% in Water 1, 200 000 ml @ 100 mls/hr IV . [id number] JAD with Sodium Bicarb (1 Meq/ml) 150 ml Rx#:[id number] Oral 332 0 Hemodialysis 400 Output: Gastric Drainage 0 Urine 0 150 0 Stool 0 Urine/Stool Mix 0 Emesis 0 Oral Regurgitation 0 Hemodialysis 1000 Hemodialysis Net Amount 600 Other 0 Other: Voiding Method Indwelling Catheter Indwelling Catheter Indwelling Catheter # Voids 0 # Bowel Movements 1 - Labs CBC & Chem 7: 10/10/24 06:10 10/09/24 05:53 Labs: Abnormal Lab Results - Last 24 Hours (Table) 10/09/24 10/10/24 Range/Units 16:33 06:10 Hgb 11.1 L (11.4-16.0) gm/dL Lymphocytes # 0.5 L (1.0-4.8) k/uL POC Glucose (mg/dL) 143 H (70-110) mg/dL Microbiology - Last 24 Hours (Table) 10/06/24 18:16 Urine Culture - Final Urine,Voided Escherichia coli
[2024-10-10 16:26] LABS: Glucose,Whole Blood 81 mg/dL (70-110)
--- NOTE | 2024-10-10 19:09 | P.PN ---
Subjective Progress Note Date: 10/10/24 Patient pleasant 83-year-old female was [place] to her [place] in from [facility] to here weekly dose of acute renal failure with serum creatinine going up to 8.5 baseline around 1.3. Patient has longstanding history of major depression and is on multiple antidepressants and antianxiety medications has been in jail as her was unable to take care of the patient. Patient does have some memory loss appears to have mild to moderate dementia occasional agitation episodes. Patient denies any fever chills dysuria nausea vomiting abdominal pain increased urinary urgency or frequency but patient has not been urinating. Renal ultrasound was done which showed incidental finding of cholelithiasis without any evidence of cholecystitis. Patient urine is significantly abnormal with highly elevated white count patient does not have any fever or leukocytosis. Patient is on losartan as well as along with diuretics for congestive heart failure patient has a normal systolic function appears to have chronic diastolic function has admissions in the past for heart failure exacerbations. 10/08/2024 Patient is evaluated today sitting in the chair she is quite anxious and tearful states that she is having worsening depression. She is being treated for an acute urinary tract infection and at this time continues on IV Rocephin. Cultures are growing gram-negative bacilli. She continues on a bicarb drip running at 100 mL/h. Renal function today reveals a BUN of 110 and a creatinine of 8.35 her potassium is down to 4.5. Patient scheduled for temporary dialysis catheter placement this afternoon with plans to start hemodialysis tomorrow 10/09/2024 Patient is awaiting hemodialysis today. She is less anxious. Remains on IV ceftriaxone. 10/10/2024 . Patient underwent her first hemodialysis session yesterday. She is confused at baseline per the family son at the bedside. She has no acute complaints at this time. No reports of dark stool. General surgery evaluated the patient and planning for an upper endoscopy when she is cleared by nephrology for this. Hemoglobin today is 11.1. Magnesium of 2.2. Review of Systems Constitutional: Denied any fatigue denied any fever. Cardio vascular: denied any chest pain, palpitations Gastrointestinal: denied any nausea, vomiting, diarrhea Pulmonary: Denied any shortness of breath cough Neurologic denied any new focal deficits All inpatient medications were reviewed and appropriate changes in these medications as dictated in the interval history and assessment and plan. PHYSICAL EXAMINATION: GENERAL: The patient is alert and oriented x2, not in any acute distress. Well developed, well nourished. Obese appears to be severely depressed. HEENT: Pupils are round and equally reacting to light. EOMI. No scleral icterus. No conjunctival pallor. Normocephalic, atraumatic. No pharyngeal erythema. No thyromegaly. CARDIOVASCULAR: S1 and S2 present. No murmurs, rubs, or gallops. PULMONARY: Chest is clear to auscultation, no wheezing or crackles. ABDOMEN: Soft, nontender, nondistended, normoactive bowel sounds. No palpable organomegaly. MUSCULOSKELETAL: No joint swelling or deformity. EXTREMITIES: No cyanosis, clubbing, or pedal edema. NEUROLOGICAL: Gross neurological examination did not reveal any focal deficits. SKIN: No rashes. Assessment and plan -Acute renal failure secondary to acute tubular necrosis patient has poor p.o. intake and UTI may have contributed to her acute tubular necrosis patient has been started hemodialysis -Hyperkalemia secondary to acute renal failure improved with lokelma and plans to start hemodialysis. -Possible urinary tract infection patient is on Rocephin which will be continued urine culture showing E. coli -Cholelithiasis incidental finding no further intervention at this time -Dementia supportive care PT and OT evaluation Seroquel as needed at nighttime -Congestive heart failure chronic diastolic function without any acute exacerbation. Chest x-ray was ordered will also order BNP -Hypertension hold off on losartan -Atrial fibrillation paroxysmal presently rate controlled continue with rate control medications and Eliquis -COPD without any acute exacerbation patient has chronic hypercapnic respiratory failure uses 2 L of oxygen presently on 2 L of oxygen -Obesity -Possibility of senile dementia/vascular dementia -Hypertension holding of losartan because of hyperkalemia and acute renal failure -Type 2 diabetes mellitus patient will be on sliding scale insulin hold of Actos DVT prophylaxis:on Eliquis The impression and plan of care has been dictated by Jaye Fonseca, Nurse Practitioner as directed. Dr. Denzel MD I have performed a history and physical examination and medical decision making of this patient, discussed the same with the dictator, and agree with the dictators assessment and plan as written, documented as a scribe. Based on total visit time, I have performed more than 50% of this visit. Objective - Vital Signs Vital signs: Vital Signs Temp 97.6 F 10/10/24 09:07 Pulse 59 L 10/10/24 09:07 Resp 14 10/10/24 09:07 BP 168/72 10/10/24 09:07 Pulse Ox 96 10/10/24 09:07 FiO2 Intake & Output 10/09/24 10/10/24 10/10/24 18:59 06:59 18:59 Intake Total 932 10 Output Total 1600 150 Balance -668 -140 Weight 80.5 kg 82 kg Intake: IV 10 Invasive Line 4 10 Intake, IV Titration 200 Amount Dextrose 5% in Water 1, 200 000 ml @ 100 mls/hr IV . [id number] JAD with Sodium Bicarb (1 Meq/ml) 150 ml Rx#:[id number] Oral 332 Hemodialysis 400 Output: Urine 0 150 Hemodialysis 1000 Hemodialysis Net Amount 600 Other: Voiding Method Indwelling Catheter Indwelling Catheter - Labs CBC & Chem 7: 10/10/24 06:10 10/09/24 05:53 Labs: Abnormal Lab Results - Last 24 Hours (Table) 10/09/24 10/09/24 Range/Units 11:26 16:33 POC Glucose (mg/dL) 63 L 143 H (70-110) mg/dL Microbiology - Last 24 Hours (Table) 10/06/24 18:16 Urine Culture - Final Urine,Voided Escherichia coli Assessment and Plan Time with Patient: Less than 30
[2024-10-10] MEDS ORDERED: DEXTROSE 50% SYRINGE 50 ML IVP PRN (20:12)
[2024-10-10] MEDS: DEXTROSE 50% SYRINGE 50 ML IVP PRN (20:28)
[2024-10-10 21:00] LABS: Glucose,Whole Blood 45 mg/dL (70-110)
[2024-10-10 21:00] LABS: Glucose,Whole Blood 52 mg/dL (70-110)
[2024-10-10 21:00] LABS: Glucose,Whole Blood 138 mg/dL (70-110)
[2024-10-10 21:00] LABS: Glucose,Whole Blood 61 mg/dL (70-110)
[2024-10-10 21:00] LABS: Glucose,Whole Blood 54 mg/dL (70-110)
[2024-10-11 05:53] LABS: Glucose,Whole Blood 80 mg/dL (70-110)
[2024-10-11 07:27] LABS: African American GFR (CKD) 6 (>60 ml/min/1.73 sqM); Anion Gap 8 mmol/L; Blood Urea Nitrogen 73 mg/dL (7-17); Calcium 8.7 mg/dL (8.4-10.2); Carbon Dioxide 27 mmol/L (22-30); Chloride 98 mmol/L (98-107); Glucose 105 mg/dL (74-99); Non-African American GFR(CKD) 5 (>60 ml/min/1.73 sqM); Potassium 4.5 mmol/L (3.5-5.1); Sodium 133 mmol/L (137-145)
[2024-10-11 07:43] LABS: Basophils % (A) 0 %; Eosinophils # (A) 0.1 k/uL (0-0.7); Eosinophils % (A) 2 %; HCT 35.8 % (34.0-46.0); HGB 11.4 gm/dL (11.4-16.0); Lymphocytes # (A) 0.4 k/uL (1.0-4.8); Lymphocytes % (A) 7 %; MCH 28.1 pg (25.0-35.0); MCHC 31.7 g/dL (31.0-37.0); MCV 88.5 fL (80.0-100.0); Mean Platelet Volume 9.9; Monocytes # (A) 0.3 k/uL (0-1.0); Monocytes % (A) 6 %; Neutrophils # (A) 4.3 k/uL (1.3-7.7); Neutrophils % (A) 83 %; Platelet Count 295 k/uL (150-450); RBC 4.04 m/uL (3.80-5.40); RDW 14.3 % (11.5-15.5); WBC 5.1 k/uL (3.8-10.6)
[2024-10-11] MEDS ORDERED: PROPOFOL 10 MG/ML 20 ML VIAL IV ONE (08:29)
[2024-10-11] MEDS: IV FLUID CONTINUATION 500 ML IV ONE (08:30)
--- NOTE | 2024-10-11 08:55 | P.PCN ---
Date of Procedure: 10/11/24 Description of Procedure: PREOPERATIVE DIAGNOSIS: Acute gastrointestinal bleeding Melena Status post blood transfusions Anticoagulant use Dialysis dependent POSTOPERATIVE DIAGNOSIS: Acute gastrointestinal bleeding due to bleeding duodenal ulcer Acute gastritis with bleeding OPERATION: Esophagogastroduodenoscopy SURGEON: Kelly Evans MD ANESTHESIA: MAC. INDICATIONS: The patient is a 84-year-old female who presents with gastrointestinal bleeding. Benefits and risks of the procedure were described. Informed consent was obtained. DESCRIPTION: The patient was brought into the endoscopy suite and laid in the left lateral decubitus position. An Olympus gastroscope was passed along the posterior oropharynx down to the distal esophagus where the squamocolumnar junction was encountered at 40 cm from the incisors. The stomach was entered and no bile reflux was found. Additional findings are listed below. The first through third portion of the duodenum was examined with recently bleeding duodenal ulcer 8 mm at first portion of duodenum. Retroflexion of the scope confirmed Hill grade 2 lower esophageal valve. The squamocolumnar junction demonstrated LA grade B erosive esophagitis. The stomach was desufflated. The patient tolerated the procedure well. FINDINGS: Squamocolumnar junction 40 cm from the incisors. Diaphragmatic hiatus at 40 cm. No large diaphragmatic hiatal hernia Hill grade 2 lower esophageal valve. LA grade B erosive esophagitis. Acute duodenal ulcer 8 mm first portion with recent bleeding. Acute gastritis with recent bleed. Biopsies avoided due to recent anticoagulant use RECOMMENDATIONS: 1. Avoid blood thinners 3 to 4 weeks due to acute bleeding duodenal ulcer 2. Start Carafate 1 g 3 times daily 3. Recommend Protonix 40 mg twice daily to accelerate healing of ulcer if tolerated and cleared per nephrology 4. Above findings discussed with patient spouse regarding acute duodenal ulcer and need to be off blood thinners for up to 4 weeks
--- NOTE | 2024-10-11 10:41 | P.PN ---
Subjective Patient was seen in follow-up for acute kidney injury on chronic kidney disease. Started on hemodialysis October 09, 2024 via right femoral catheter. Poor historian. Has Linares catheter. Oliguric. Vital signs are stable. General: No acute distress. HEENT: Head exam is unremarkable. On nasal cannula. LUNGS: No audible rhonchi or wheezes. HEART: Rate and Rhythm are regular. ABDOMEN: Nontender. EXTREMITITES: Trace edema. Objective - Vital Signs Vital signs: Vital Signs Temp 97.4 F L 10/10/24 20:34 Pulse 60 10/11/24 08:00 Resp 16 10/11/24 08:00 BP 186/78 10/11/24 08:00 Pulse Ox 95 10/11/24 08:00 FiO2 Intake & Output 10/10/24 10/11/24 10/11/24 18:59 06:59 18:59 Intake Total 0 100 Output Total 0 150 Balance 0 -150 100 Weight 80.5 kg Intake: IV 100 Oral 0 Output: Gastric Drainage 0 Urine 0 150 Stool 0 Urine/Stool Mix 0 Emesis 0 Oral Regurgitation 0 Other 0 Other: Voiding Method Indwelling Catheter Indwelling Catheter # Voids 0 # Bowel Movements 1 1 - Labs CBC & Chem 7: 10/11/24 06:31 10/11/24 06:31 Labs: Abnormal Lab Results - Last 24 Hours (Table) 10/10/24 10/10/24 10/10/24 Range/Units 06:10 19:51 19:52 Hgb 11.1 L (11.4-16.0) gm/dL Lymphocytes # 0.5 L (1.0-4.8) k/uL Sodium (137-145) mmol/L BUN (7-17) mg/dL Creatinine (0.52-1.04) mg/dL Glucose (74-99) mg/dL POC Glucose (mg/dL) 45 L* 61 L (70-110) mg/dL 10/10/24 10/10/24 10/10/24 Range/Units 20:08 20:23 20:48 Hgb (11.4-16.0) gm/dL Lymphocytes # (1.0-4.8) k/uL Sodium (137-145) mmol/L BUN (7-17) mg/dL Creatinine (0.52-1.04) mg/dL Glucose (74-99) mg/dL POC Glucose (mg/dL) 54 L 52 L 138 H (70-110) mg/dL 10/11/24 10/11/24 Range/Units 06:31 06:31 Hgb (11.4-16.0) gm/dL Lymphocytes # 0.4 L (1.0-4.8) k/uL Sodium 133 L (137-145) mmol/L BUN 73 H (7-17) mg/dL Creatinine 7.16 H* (0.52-1.04) mg/dL Glucose 105 H (74-99) mg/dL POC Glucose (mg/dL) (70-110) mg/dL Assessment and Plan Plan: Assessment: 1. Acute kidney injury secondary to ATN secondary to volume depletion and infection. No evidence of obstructive uropathy. Started on hemodialysis October 09, 2024 via right femoral catheter. Creatinine as high as 9.63 this admission. Oliguric. 2. Chronic kidney disease stage IIIb with baseline creatinine 1.4-1.6 secondary to diabetic kidney disease. 3. E. coli UTI on antibiotics. 4. Metabolic acidosis secondary to acute kidney injury. Improved postdialysis. 5. Hypertension with chronic kidney disease. 6. Diabetes mellitus. 7. Acute GI bleed status post EGD which showed recently bleeding duodenal ulcer. Surgery following. Plan: Hemodialysis today. Add as needed hydralazine. Add torsemide 40 mg once daily. Monitor for renal recovery.
[2024-10-11 11:32] LABS: Glucose,Whole Blood 89 mg/dL (70-110)
[2024-10-11] MEDS: TORSEMIDE 20 MG TAB PO SCH (12:54)
[2024-10-11] MEDS: cloNIDine HCL 0.1 MG TAB PO STA (15:11)
[2024-10-11 16:09] LABS: Glucose,Whole Blood 92 mg/dL (70-110)
--- NOTE | 2024-10-11 16:09 | P.GSCN ---
History of Present Illness Consult date: 10/11/24 Reason for Consult: temporary HD catheter Requesting physician: Liliam Hancock History of present illness: Pleasant 84-year-old female who presented to the emergency department as a transfer from outside facility for further evaluation of acute kidney injury. Patient was noted to be hyperkalemic treated with IV medication and then transferred here. She was seen and evaluated by nephrology who is requesting patient undergo temporary hemodialysis catheter and hemodialysis. Vascular surgery was consulted to place temp hemodialysis cath. Patient has past medical history including atrial fibrillation on Eliquis, asthma, COPD, CVA/TIA, diabetes mellitus, dementia, hyperlipidemia and hypertension. Review of Systems A 14 point review systems was completed all pertinent positives and negatives as stated in the HPI. Past Medical History Past Medical History: Atrial Fibrillation, Asthma, COPD, CVA/TIA, Diabetes Mellitus, Hyperlipidemia, Hypertension, Memory Impairment, Osteoarthritis (OA) Additional Past Medical History / Comment(s): UTI History of Any Multi-Drug Resistant Organisms: None Reported Past Surgical History: Appendectomy, Hysterectomy, Orthopedic Surgery Additional Past Surgical History / Comment(s): hip Additional Past Anesthesia/Blood Transfusion Reaction / Comm: Never rcvd. blood Past Psychological History: Anxiety Smoking Status: Former smoker Past Alcohol Use History: None Reported Past Drug Use History: None Reported Medications and Allergies Home Medications Medication Instructions Recorded Confirmed Type ALPRAZolam [Xanax] 0.5 mg PO Q6H PRN 03/04/24 10/06/24 History Desvenlafaxine [Pristiq ER] 100 mg PO DAILY 03/04/24 10/06/24 History Fenofibrate Nanocrystallized 145 mg PO DAILY 03/04/24 10/06/24 History [Fenofibrate] Ferrous Sulfate [Iron (65 MG 325 mg PO DAILY 03/04/24 10/06/24 History Elemental)] Losartan [Cozaar] 25 mg PO DAILY 03/04/24 10/06/24 History Metoprolol Tartrate [Lopressor] 25 mg PO BID 03/04/24 10/06/24 History Pioglitazone [Actos] 15 mg PO DAILY 03/04/24 10/06/24 History Pravastatin Sodium 80 mg PO HS 03/04/24 10/06/24 History metFORMIN HCL 1,000 mg PO BID 03/04/24 10/06/24 History ARIPiprazole [Abilify] 2 mg PO DAILY 10/06/24 10/06/24 History Apixaban [Eliquis] 5 mg PO BID 10/06/24 10/06/24 History Bumetanide [Bumex] 1 mg PO DAILY 10/06/24 10/06/24 History Cholecalciferol [Vitamin D3 (125 125 mcg PO DAILY 10/06/24 10/06/24 History Mcg = 5000 Iu)] Escitalopram [Lexapro] 20 mg PO DAILY 10/06/24 10/06/24 History INSULIN LISPRO (HumaLOG) [humaLOG] See Protocol SQ ACHS 10/06/24 10/06/24 History Melatonin 5 mg PO HS 10/06/24 10/06/24 History amLODIPine [Norvasc] 5 mg PO DAILY 10/06/24 10/06/24 History busPIRone HCL 15 mg PO BID 10/06/24 10/06/24 History Allergies Allergy/AdvReac Type Severity Reaction Status Date / Time No Known Allergies Allergy Verified 10/06/24 18:16 Surgical - Exam Vital Signs Temp Pulse Resp BP Pulse Ox 97.4 F L 62 17 144/72 100 10/06/24 15:29 10/06/24 15:29 10/06/24 15:29 10/06/24 15:29 10/06/24 15:29 General appearance: The patient is alert, oriented, appears in no acute distress. HET: Head is normocephalic and atraumatic. Pupils are equal and reactive. Neck: Supple. Heart: Regular. Lungs: Equal expansion, normal respiratory effort. Abdomen: Soft, nontender, nondistended. Extremities: Normal skin color and turgor. Right groin with hemodialysis catheter with dressing clean dry and intact. Neurological: No focal deficits. Strength and sensation are grossly intact. Results - Labs 10/11/24 06:31 10/11/24 06:31 Abnormal Lab Results - Last 24 Hours (Table) 10/10/24 10/10/24 10/10/24 Range/Units 06:10 19:51 19:52 Hgb 11.1 L (11.4-16.0) gm/dL Lymphocytes # 0.5 L (1.0-4.8) k/uL Sodium (137-145) mmol/L BUN (7-17) mg/dL Creatinine (0.52-1.04) mg/dL Glucose (74-99) mg/dL POC Glucose (mg/dL) 45 L* 61 L (70-110) mg/dL 10/10/24 10/10/24 10/10/24 Range/Units 20:08 20:23 20:48 Hgb (11.4-16.0) gm/dL Lymphocytes # (1.0-4.8) k/uL Sodium (137-145) mmol/L BUN (7-17) mg/dL Creatinine (0.52-1.04) mg/dL Glucose (74-99) mg/dL POC Glucose (mg/dL) 54 L 52 L 138 H (70-110) mg/dL 10/11/24 10/11/24 Range/Units 06:31 06:31 Hgb (11.4-16.0) gm/dL Lymphocytes # 0.4 L (1.0-4.8) k/uL Sodium 133 L (137-145) mmol/L BUN 73 H (7-17) mg/dL Creatinine 7.16 H* (0.52-1.04) mg/dL Glucose 105 H (74-99) mg/dL POC Glucose (mg/dL) (70-110) mg/dL Diabetes panel 10/11/24 Range/Units 06:31 Sodium 133 L (137-145) mmol/L Potassium 4.5 (3.5-5.1) mmol/L Chloride 98 (98-107) mmol/L Carbon Dioxide 27 (22-30) mmol/L BUN 73 H (7-17) mg/dL Creatinine 7.16 H* (0.52-1.04) mg/dL Glucose 105 H (74-99) mg/dL Calcium 8.7 (8.4-10.2) mg/dL Calcium panel 10/11/24 Range/Units 06:31 Calcium 8.7 (8.4-10.2) mg/dL Pituitary panel 10/11/24 Range/Units 06:31 Sodium 133 L (137-145) mmol/L Potassium 4.5 (3.5-5.1) mmol/L Chloride 98 (98-107) mmol/L Carbon Dioxide 27 (22-30) mmol/L BUN 73 H (7-17) mg/dL Creatinine 7.16 H* (0.52-1.04) mg/dL Glucose 105 H (74-99) mg/dL Calcium 8.7 (8.4-10.2) mg/dL Adrenal panel 10/11/24 Range/Units 06:31 Sodium 133 L (137-145) mmol/L Potassium 4.5 (3.5-5.1) mmol/L Chloride 98 (98-107) mmol/L Carbon Dioxide 27 (22-30) mmol/L BUN 73 H (7-17) mg/dL Creatinine 7.16 H* (0.52-1.04) mg/dL Glucose 105 H (74-99) mg/dL Calcium 8.7 (8.4-10.2) mg/dL Assessment and Plan Assessment: 1. Acute kidney injury requiring hemodialysis 2. Status post temporary HD catheter placement 3. Urinary tract infection Plan: 1. Temporary hemodialysis catheter placed 2. Hemodialysis per recommendations from nephrology Thank you for this consultation, we will be on standby. If further needed please do not hesitate to call us back. The impression and plan of care has been dictated as directed. I performed a history and examination of this patient, discussed the same with the dictator. I agree with the dictator's note ,documented as a scribe. Any additional findings or plans will be noted.
[2024-10-11 19:51] LABS: Glucose,Whole Blood 63 mg/dL (70-110)
[2024-10-11 20:09] LABS: Glucose,Whole Blood 90 mg/dL (70-110)
[2024-10-11] MEDS: amLODIPine 5 MG TAB PO SCH (20:35)
--- NOTE | 2024-10-11 22:36 | P.PN ---
Subjective Progress Note Date: 10/11/24 Patient pleasant 83-year-old female was transferred from a detention to her district in from [facility] to here weekly dose of acute renal failure with serum creatinine going up to 8.5 baseline around 1.3. Patient has longstanding history of major depression and is on multiple antidepressants and antianxiety medications has been in detention as her was unable to take care of the patient. Patient does have some memory loss appears to have mild to moderate dementia occasional agitation episodes. Patient denies any fever chills dysuria nausea vomiting abdominal pain increased urinary urgency or frequency but patient has not been urinating. Renal ultrasound was done which showed incidental finding of cholelithiasis without any evidence of cholecystitis. Patient urine is significantly abnormal with highly elevated white count patient does not have any fever or leukocytosis. Patient is on losartan as well as along with diuretics for congestive heart failure patient has a normal systolic function appears to have chronic diastolic function has admissions in the past for heart failure exacerbations. 10/08/2024 Patient is evaluated today sitting in the chair she is quite anxious and tearful states that she is having worsening depression. She is being treated for an acute urinary tract infection and at this time continues on IV Rocephin. Cultures are growing gram-negative bacilli. She continues on a bicarb drip running at 100 mL/h. Renal function today reveals a BUN of 110 and a creatinine of 8.35 her potassium is down to 4.5. Patient scheduled for temporary dialysis catheter placement this afternoon with plans to start hemodialysis tomorrow 10/09/2024 Patient is awaiting hemodialysis today. She is less anxious. Remains on IV ceftriaxone. 10/10/2024 . Patient underwent her first hemodialysis session yesterday. She is confused at baseline per the family son at the bedside. She has no acute complaints at this time. No reports of dark stool. General surgery evaluated the patient and planning for an upper endoscopy when she is cleared by nephrology for this. Hemoglobin today is 11.1. Magnesium of 2.2. 10/11/2024 Patient is evaluated in follow-up on the medical floor. Patient is currently undergoing hemodialysis. She has no acute complaints at this time. Patient did undergo upper endoscopy with Dr. Evans which does reveal acute duodenal bleeding ulcer as well as acute gastritis. Patient was started on Carafate and Protonix and general surgery recommending Eliquis to be held for 3 to 4 weeks secondary to the active bleeding ulcer. Hemoglobin remained stable at this time. Urine culture showing E. coli and patient continues on IV ceftriaxone. She continues to report decreased appetite. Review of Systems Constitutional: Denied any fatigue denied any fever. Cardio vascular: denied any chest pain, palpitations Gastrointestinal: denied any nausea, vomiting, diarrhea Pulmonary: Denied any shortness of breath cough Neurologic denied any new focal deficits All inpatient medications were reviewed and appropriate changes in these medications as dictated in the interval history and assessment and plan. PHYSICAL EXAMINATION: GENERAL: The patient is alert and oriented x2, not in any acute distress. Well developed, well nourished. Obese appears to be severely depressed. HEENT: Pupils are round and equally reacting to light. EOMI. No scleral icterus. No conjunctival pallor. Normocephalic, atraumatic. No pharyngeal erythema. No thyromegaly. CARDIOVASCULAR: S1 and S2 present. No murmurs, rubs, or gallops. PULMONARY: Chest is clear to auscultation, no wheezing or crackles. ABDOMEN: Soft, nontender, nondistended, normoactive bowel sounds. No palpable organomegaly. MUSCULOSKELETAL: No joint swelling or deformity. EXTREMITIES: No cyanosis, clubbing, or pedal edema. NEUROLOGICAL: Gross neurological examination did not reveal any focal deficits. SKIN: No rashes. Assessment and plan -Acute renal failure secondary to acute tubular necrosis patient has poor p.o. intake and UTI may have contributed to her acute tubular necrosis patient has been started hemodialysis -Hyperkalemia secondary to acute renal failure improved with lokelma and plans to start hemodialysis. -Possible urinary tract infection patient is on Rocephin which will be continued urine culture showing E. coli -Acute upper GI bleed with findings of an acute duodenal bleeding ulcer on EGD patient will need to hold her Eliquis for 3 to 4 weeks and has been started on Carafate. General surgery recommending a course of oral Protonix twice a day if cleared by nephrology. -Cholelithiasis incidental finding no further intervention at this time -Dementia supportive care PT and OT evaluation Seroquel as needed at nighttime -Congestive heart failure chronic diastolic function without any acute exacerbation. Chest x-ray was ordered will also order BNP -Hypertension hold off on losartan -Atrial fibrillation paroxysmal presently rate controlled continue with rate control medications -COPD without any acute exacerbation patient has chronic hypercapnic respiratory failure uses 2 L of oxygen presently on 2 L of oxygen -Obesity -Possibility of senile dementia/vascular dementia -Hypertension holding of losartan because of hyperkalemia and acute renal failure -Type 2 diabetes mellitus patient will be on sliding scale insulin hold of Actos DVT prophylaxis: The impression and plan of care has been dictated by Jaye Fonseca, Nurse Practitioner as directed. Dr. Denzel MD I have performed a history and physical examination and medical decision making of this patient, discussed the same with the dictator, and agree with the dictators assessment and plan as written, documented as a scribe. Based on total visit time, I have performed more than 50% of this visit. Objective - Vital Signs Vital signs: Vital Signs Temp 98.0 F 10/11/24 20:37 Pulse 54 L 10/11/24 20:37 Resp 17 10/11/24 20:37 BP 155/76 10/11/24 20:37 Pulse Ox 96 10/11/24 20:37 FiO2 Intake & Output 10/11/24 10/11/24 10/12/24 06:59 18:59 06:59 Intake Total 500 Output Total 150 1000 Balance -150 -500 Weight 80.5 kg Intake: IV 100 Hemodialysis 400 Output: Urine 150 Stool 0 Hemodialysis 700 Hemodialysis Net Amount 300 Other: Voiding Method Indwelling Catheter Indwelling Catheter Indwelling Catheter # Bowel Movements 1 1 - Labs CBC & Chem 7: 10/11/24 06:31 10/11/24 06:31 Labs: Abnormal Lab Results - Last 24 Hours (Table) 10/11/24 10/11/24 10/11/24 Range/Units 06:31 06:31 19:50 Lymphocytes # 0.4 L (1.0-4.8) k/uL Sodium 133 L (137-145) mmol/L BUN 73 H (7-17) mg/dL Creatinine 7.16 H* (0.52-1.04) mg/dL Glucose 105 H (74-99) mg/dL POC Glucose (mg/dL) 63 L (70-110) mg/dL Assessment and Plan Time with Patient: Less than 30
[2024-10-12 06:09] LABS: Glucose,Whole Blood 88 mg/dL (70-110)
[2024-10-12] MEDS: SUCRALFATE 1 GM TAB PO SCH (08:52)
[2024-10-12] MEDS: PANTOPRAZOLE 40 MG/10 ML VIAL IVP SCH ×2 (08:53→21:20)
--- NOTE | 2024-10-12 10:18 | P.PN ---
Subjective Patient was seen in follow-up for acute kidney injury on chronic kidney disease. Started on hemodialysis October 09, 2024 via right femoral catheter. Poor historian. Has Linares catheter. Oliguric. No changes overnight. Vital signs are stable. General: No acute distress. HEENT: Head exam is unremarkable. On nasal cannula. LUNGS: No audible rhonchi or wheezes. HEART: Rate and Rhythm are regular. ABDOMEN: Nontender. EXTREMITITES: Trace edema. Objective - Vital Signs Vital signs: Vital Signs Temp 97.6 F 10/12/24 08:50 Pulse 62 10/12/24 08:50 Resp 18 10/12/24 08:50 BP 182/74 10/12/24 08:50 Pulse Ox 92 L 10/12/24 08:50 FiO2 Intake & Output 10/11/24 10/12/24 10/12/24 18:59 06:59 18:59 Intake Total 500 118 Output Total 1000 175 Balance -500 -175 118 Weight 82.9 kg Intake: IV 100 Oral 118 Hemodialysis 400 Output: Urine 175 Stool 0 Hemodialysis 700 Hemodialysis Net Amount 300 Other: Voiding Method Indwelling Catheter Indwelling Catheter Indwelling Catheter # Bowel Movements 1 - Labs CBC & Chem 7: 10/11/24 06:31 10/11/24 06:31 Labs: Abnormal Lab Results - Last 24 Hours (Table) 10/11/24 Range/Units 19:50 POC Glucose (mg/dL) 63 L (70-110) mg/dL Assessment and Plan Plan: Assessment: 1. Acute kidney injury secondary to ATN secondary to volume depletion and infection. No evidence of obstructive uropathy. Started on hemodialysis October 09, 2024 via right femoral catheter. Creatinine as high as 9.63 this admission. Oliguric. 2. Chronic kidney disease stage IIIb with baseline creatinine 1.4-1.6 secondary to diabetic kidney disease. 3. E. coli UTI on antibiotics. 4. Metabolic acidosis secondary to acute kidney injury. Improved postdialysis. 5. Hypertension with chronic kidney disease. 6. Diabetes mellitus. 7. Acute GI bleed status post EGD which showed recently bleeding duodenal ulcer. Surgery following. Plan: Hemodialysis tomorrow. Lasix 80 mg IV once today. Monitor for renal recovery. Check phosphorus level. Check serologies.
--- NOTE | 2024-10-12 10:52 | P.PN ---
Subjective Progress Note Date: 10/12/24 CHIEF COMPLAINT: GI bleed HISTORY OF PRESENT ILLNESS: Patient is sitting at bedside chair comfortably. S he reports no further bowel movements. Denies any abdominal pain. She is status post EGD with results reporting acute GI bleed due to bleeding duodenal ulcer and acute gastritis with bleeding. Patient started hemodialysis this admission. Scheduled for hemodialysis tomorrow. Afebrile. Hgb as of yesterday 11.4 and stable PHYSICAL EXAM: VITAL SIGNS: Reviewed GENERAL: Well-developed in no acute distress. HEENT: No sclera icterus. Extraocular movements grossly intact. Moist buccal mucosa. Head is atraumatic, normocephalic. Hears conversational speech. No nasal drainage. NECK: Supple without lymphadenopathy. CHEST: Non-labored respirations and equal bilateral excursions. CARDIOVASCULAR: Palpable 2+ radial pulses. ABDOMEN: Soft. Nondistended. Nontender. MUSCULOSKELETAL: No clubbing or cyanosis. NEUROLOGIC: No focal or lateralizing signs. Cranial nerves II through XII grossly intact. PSYCH: Appropriate affect. Awake and alert. SKIN: Well perfused. Good skin turgor. ASSESSMENT: 1. Acute gastrointestinal bleeding due to bleeding duodenal ulcer 2. Acute gastritis with bleeding 3. Acute kidney injury with chronic kidney disease started on hemodialysis 4. UTI PLAN: -Avoid blood thinners for 3 to 4 weeks due to acute bleeding duodenal ulcer -Continue Protonix twice a day and Carafate 1 g 3 times a day Physician Lead Embedded Software Engineer note has been reviewed by physician. Signing provider agrees with the documented findings, assessment, and plan of care. As above. Avoid blood thinners due to acute bleeding duodenal ulcer. Once cleared by nephrology, Protonix twice daily. May have Carafate 3 times daily. Objective - Vital Signs Vital signs: Vital Signs Temp 97.6 F 10/12/24 08:50 Pulse 62 10/12/24 08:50 Resp 18 10/12/24 08:50 BP 182/74 10/12/24 08:50 Pulse Ox 92 L 10/12/24 08:50 FiO2 Intake & Output 10/11/24 10/12/24 10/12/24 18:59 06:59 18:59 Intake Total 500 118 Output Total 1000 175 Balance -500 -175 118 Weight 82.9 kg Intake: IV 100 Oral 118 Hemodialysis 400 Output: Urine 175 Stool 0 Hemodialysis 700 Hemodialysis Net Amount 300 Other: Voiding Method Indwelling Catheter Indwelling Catheter Indwelling Catheter # Bowel Movements 1 - Labs CBC & Chem 7: 10/14/24 07:05 10/14/24 07:05 Labs: Abnormal Lab Results - Last 24 Hours (Table) 10/11/24 Range/Units 19:50 POC Glucose (mg/dL) 63 L (70-110) mg/dL
[2024-10-12 10:53] LABS: Phosphorus 4.1 mg/dL (2.5-4.5)
[2024-10-12 11:38] LABS: Glucose,Whole Blood 155 mg/dL (70-110)
[2024-10-12] MEDS: FUROSEMIDE 10 MG/ML 10 ML VIAL IV STA (11:56)
--- NOTE | 2024-10-12 13:52 | P.PN ---
Subjective Progress Note Date: 10/12/24 Patient pleasant 83-year-old female was transferred from a detention to her district in from [facility] to here weekly dose of acute renal failure with serum creatinine going up to 8.5 baseline around 1.3. Patient has longstanding history of major depression and is on multiple antidepressants and antianxiety medications has been in detention as her was unable to take care of the patient. Patient does have some memory loss appears to have mild to moderate dementia occasional agitation episodes. Patient denies any fever chills dysuria nausea vomiting abdominal pain increased urinary urgency or frequency but patient has not been urinating. Renal ultrasound was done which showed incidental finding of cholelithiasis without any evidence of cholecystitis. Patient urine is significantly abnormal with highly elevated white count patient does not have any fever or leukocytosis. Patient is on losartan as well as along with diuretics for congestive heart failure patient has a normal systolic function appears to have chronic diastolic function has admissions in the past for heart failure exacerbations. 10/08/2024 Patient is evaluated today sitting in the chair she is quite anxious and tearful states that she is having worsening depression. She is being treated for an acute urinary tract infection and at this time continues on IV Rocephin. Cultures are growing gram-negative bacilli. She continues on a bicarb drip running at 100 mL/h. Renal function today reveals a BUN of 110 and a creatinine of 8.35 her potassium is down to 4.5. Patient scheduled for temporary dialysis catheter placement this afternoon with plans to start hemodialysis tomorrow 10/09/2024 Patient is awaiting hemodialysis today. She is less anxious. Remains on IV ceftriaxone. 10/10/2024 . Patient underwent her first hemodialysis session yesterday. She is confused at baseline per the family son at the bedside. She has no acute complaints at this time. No reports of dark stool. General surgery evaluated the patient and planning for an upper endoscopy when she is cleared by nephrology for this. Hemoglobin today is 11.1. Magnesium of 2.2. 10/11/2024 Patient is evaluated in follow-up on the medical floor. Patient is currently undergoing hemodialysis. She has no acute complaints at this time. Patient did undergo upper endoscopy with Dr. Evans which does reveal acute duodenal bleeding ulcer as well as acute gastritis. Patient was started on Carafate and Protonix and general surgery recommending Eliquis to be held for 3 to 4 weeks secondary to the active bleeding ulcer. Hemoglobin remained stable at this time. Urine culture showing E. coli and patient continues on IV ceftriaxone. She continues to report decreased appetite. 10/12/2024 Patient evaluated today in follow up on the medical floor. No acute complaints overnight. Eliquis has been placed on hold. Patient remains on IV ceftriaxone for an E.Coli UTI. Patient remains on Hemodialysis. Review of Systems Constitutional: Denied any fatigue denied any fever. Cardio vascular: denied any chest pain, palpitations Gastrointestinal: denied any nausea, vomiting, diarrhea Pulmonary: Denied any shortness of breath cough Neurologic denied any new focal deficits All inpatient medications were reviewed and appropriate changes in these medications as dictated in the interval history and assessment and plan. PHYSICAL EXAMINATION: GENERAL: The patient is alert and oriented x2, not in any acute distress. Well developed, well nourished. Obese appears to be severely depressed. HEENT: Pupils are round and equally reacting to light. EOMI. No scleral icterus. No conjunctival pallor. Normocephalic, atraumatic. No pharyngeal erythema. No thyromegaly. CARDIOVASCULAR: S1 and S2 present. No murmurs, rubs, or gallops. PULMONARY: Chest is clear to auscultation, no wheezing or crackles. ABDOMEN: Soft, nontender, nondistended, normoactive bowel sounds. No palpable organomegaly. MUSCULOSKELETAL: No joint swelling or deformity. EXTREMITIES: No cyanosis, clubbing, or pedal edema. NEUROLOGICAL: Gross neurological examination did not reveal any focal deficits. SKIN: No rashes. Assessment and plan -Acute renal failure secondary to acute tubular necrosis patient has poor p.o. intake and UTI may have contributed to her acute tubular necrosis patient has been started hemodialysis -Hyperkalemia secondary to acute renal failure improved with lokelma and plans to start hemodialysis. -Possible urinary tract infection patient is on Rocephin which will be continued urine culture showing E. coli -Acute upper GI bleed with findings of an acute duodenal bleeding ulcer on EGD patient will need to hold her Eliquis for 3 to 4 weeks and has been started on Carafate. General surgery recommending a course of oral Protonix twice a day if cleared by nephrology. -Cholelithiasis incidental finding no further intervention at this time -Dementia supportive care PT and OT evaluation Seroquel as needed at nighttime -Congestive heart failure chronic diastolic function without any acute exacerbation. -Hypertension hold off on losartan -Atrial fibrillation paroxysmal presently rate controlled continue with rate control medications -COPD without any acute exacerbation patient has chronic hypercapnic respiratory failure uses 2 L of oxygen presently on 2 L of oxygen -Obesity -Possibility of senile dementia/vascular dementia -Hypertension holding of losartan because of hyperkalemia and acute renal failure -Type 2 diabetes mellitus patient will be on sliding scale insulin hold of Actos DVT prophylaxis: The impression and plan of care has been dictated by Jaye Fonseca, Nurse Practitioner as directed. Dr. Denzel MD I have performed a history and physical examination and medical decision making of this patient, discussed the same with the dictator, and agree with the dictators assessment and plan as written, documented as a scribe. Based on total visit time, I have performed more than 50% of this visit. Objective - Vital Signs Vital signs: Vital Signs Temp 97.6 F 10/12/24 08:50 Pulse 60 10/12/24 12:00 Resp 18 10/12/24 12:00 BP 160/89 10/12/24 12:00 Pulse Ox 99 10/12/24 12:00 FiO2 Intake & Output 10/11/24 10/12/24 10/12/24 18:59 06:59 18:59 Intake Total 500 118 Output Total 1000 175 Balance -500 -175 118 Weight 82.9 kg 82.9 kg Intake: IV 100 Oral 118 Hemodialysis 400 Output: Urine 175 Stool 0 Hemodialysis 700 Hemodialysis Net Amount 300 Other: Voiding Method Indwelling Catheter Indwelling Catheter Indwelling Catheter # Bowel Movements 1 - Labs CBC & Chem 7: 10/11/24 06:31 10/11/24 06:31 Labs: Abnormal Lab Results - Last 24 Hours (Table) 10/11/24 10/12/24 Range/Units 19:50 11:35 POC Glucose (mg/dL) 63 L 155 H (70-110) mg/dL Assessment and Plan Time with Patient: Less than 30
[2024-10-12] MEDS: hydrALAZINE HCL 20 MG/ML 1 ML VIAL IVP PRN (15:24)
[2024-10-12 16:19] LABS: Glucose,Whole Blood 51 mg/dL (70-110)
[2024-10-12 16:46] LABS: Protein, Total 5.5 g/dL (6.2-8.2)
[2024-10-12 16:58] LABS: Glucose,Whole Blood 84 mg/dL (70-110)
[2024-10-12 17:25] LABS: Hepatitis A Antibody IgM Nonreactive (Nonreactive)
[2024-10-12 17:26] LABS: Hepatitis B Core IgM Nonreactive (Nonreactive); Hepatitis B Surface Antigen Nonreactive (Nonreactive); Hepatitis C IgG Antibody Nonreactive (Nonreactive)
[2024-10-12 19:47] LABS: DNA Double-Stranded Negative (Negative)
[2024-10-12 20:13] LABS: Glucose,Whole Blood 48 mg/dL (70-110)
[2024-10-12 20:29] LABS: Glucose,Whole Blood 77 mg/dL (70-110)
[2024-10-12 22:14] LABS: Glucose,Whole Blood 77 mg/dL (70-110)
[2024-10-13 02:07] LABS: Glucose,Whole Blood 57 mg/dL (70-110)
[2024-10-13 02:30] LABS: Glucose,Whole Blood 88 mg/dL (70-110)
[2024-10-13 06:01] LABS: Glucose,Whole Blood 97 mg/dL (70-110)
[2024-10-13 07:51] LABS: African American GFR (CKD) 8 (>60 ml/min/1.73 sqM); Anion Gap 6 mmol/L; Blood Urea Nitrogen 40 mg/dL (7-17); Calcium 9.2 mg/dL (8.4-10.2); Carbon Dioxide 26 mmol/L (22-30); Chloride 99 mmol/L (98-107); Glucose 100 mg/dL (74-99); Non-African American GFR(CKD) 7 (>60 ml/min/1.73 sqM); Potassium 4.4 mmol/L (3.5-5.1); Sodium 131 mmol/L (137-145)
[2024-10-13 11:19] LABS: Glucose,Whole Blood 56 mg/dL (70-110)
--- NOTE | 2024-10-13 11:38 | P.PN ---
Subjective Patient was seen in follow-up for acute kidney injury on chronic kidney disease. Started on hemodialysis October 09, 2024 via right femoral catheter. Poor historian. Has Linares catheter. Oliguric. No changes overnight. Vital signs are stable. General: No acute distress. HEENT: Head exam is unremarkable. On nasal cannula. LUNGS: No audible rhonchi or wheezes. HEART: Rate and Rhythm are regular. ABDOMEN: Nontender. EXTREMITITES: Trace edema. Objective - Vital Signs Vital signs: Vital Signs Temp 97.6 F 10/13/24 09:20 Pulse 70 10/13/24 10:55 Resp 18 10/13/24 10:55 BP 164/79 10/13/24 10:55 Pulse Ox 92 L 10/13/24 10:55 FiO2 Intake & Output 10/12/24 10/13/24 10/13/24 18:59 06:59 18:59 Intake Total 236 237 0 Output Total 250 Balance -14 237 0 Weight 82.9 kg 83 kg Intake: Oral 236 237 0 Output: Urine 250 Other: Voiding Method Indwelling Catheter Indwelling Catheter Indwelling Catheter - Labs CBC & Chem 7: 10/11/24 06:31 10/13/24 07:02 Labs: Abnormal Lab Results - Last 24 Hours (Table) 10/12/24 10/12/24 10/12/24 Range/Units 10:23 11:35 16:17 Sodium (137-145) mmol/L BUN (7-17) mg/dL Creatinine (0.52-1.04) mg/dL Glucose (74-99) mg/dL POC Glucose (mg/dL) 155 H 51 L (70-110) mg/dL Total Protein (PEP) 5.5 L (6.2-8.2) g/dL 10/12/24 10/13/24 10/13/24 Range/Units 20:12 02:04 07:02 Sodium 131 L (137-145) mmol/L BUN 40 H (7-17) mg/dL Creatinine 5.12 H (0.52-1.04) mg/dL Glucose 100 H (74-99) mg/dL POC Glucose (mg/dL) 48 L* 57 L (70-110) mg/dL Total Protein (PEP) (6.2-8.2) g/dL 10/13/24 Range/Units 11:16 Sodium (137-145) mmol/L BUN (7-17) mg/dL Creatinine (0.52-1.04) mg/dL Glucose (74-99) mg/dL POC Glucose (mg/dL) 56 L (70-110) mg/dL Total Protein (PEP) (6.2-8.2) g/dL Assessment and Plan Plan: Assessment: 1. Acute kidney injury secondary to ATN secondary to volume depletion and infection. No evidence of obstructive uropathy. Started on hemodialysis October 09, 2024 via right femoral catheter. Creatinine as high as 9.63 this admission. Oliguric. 2. Chronic kidney disease stage IIIb with baseline creatinine 1.4-1.6 secondary to diabetic kidney disease. 3. E. coli UTI on antibiotics. 4. Metabolic acidosis secondary to acute kidney injury. Improved postdialysis. 5. Hypertension with chronic kidney disease. 6. Diabetes mellitus. 7. Acute GI bleed status post EGD which showed recently bleeding duodenal ulcer. Surgery following. Plan: Hemodialysis today. Will maintain on Friday schedule. No response in urine output status post IV Lasix given October 12, 2024. Monitor for renal recovery. Phosphorus level 4.1 dated October 12, 2024. Follow-up serologies. Negative so far.
[2024-10-13 11:59] LABS: Glucose,Whole Blood 102 mg/dL (70-110)
[2024-10-13 13:12] LABS: C-ANCA <1:20 Titer (<1:20)
--- NOTE | 2024-10-13 13:21 | P.PN ---
Subjective Progress Note Date: 10/13/24 CHIEF COMPLAINT: GI bleed HISTORY OF PRESENT ILLNESS: Patient has no new complaints. She is lying in bed comfortably. Denies any abdominal pain. Denies any bowel movement. She reports decreased appetite this morning. She is status post EGD with results reporting acute GI bleed due to bleeding duodenal ulcer and acute gastritis with bleeding. PHYSICAL EXAM: VITAL SIGNS: Reviewed GENERAL: Well-developed in no acute distress. HEENT: No sclera icterus. Extraocular movements grossly intact. Moist buccal mucosa. Head is atraumatic, normocephalic. Hears conversational speech. No nasal drainage. NECK: Supple without lymphadenopathy. CHEST: Non-labored respirations and equal bilateral excursions. CARDIOVASCULAR: Palpable 2+ radial pulses. ABDOMEN: Soft. Nondistended. Nontender. MUSCULOSKELETAL: No clubbing or cyanosis. NEUROLOGIC: No focal or lateralizing signs. Cranial nerves II through XII grossly intact. PSYCH: Appropriate affect. Awake and alert. SKIN: Well perfused. Good skin turgor. ASSESSMENT: 1. Acute gastrointestinal bleeding due to bleeding duodenal ulcer 2. Acute gastritis with bleeding 3. Acute kidney injury with chronic kidney disease started on hemodialysis 4. UTI PLAN: -Avoid blood thinners for 3 to 4 weeks due to acute bleeding duodenal ulcer -Continue Protonix twice a day and Carafate 1 g 3 times a day added for duodenal ulcer Physician Leadership Program Internship note has been reviewed by physician. Signing provider agrees with the documented findings, assessment, and plan of care. As above. Monitor hemoglobin. Continue with antiacid therapy for acute duodenal bleeding ulcer. Avoid blood thinners in the interim. Objective - Vital Signs Vital signs: Vital Signs Temp 97.6 F 10/13/24 09:20 Pulse 70 10/13/24 10:55 Resp 18 10/13/24 10:55 BP 164/79 10/13/24 10:55 Pulse Ox 92 L 10/13/24 10:55 FiO2 Intake & Output 10/12/24 10/13/24 10/13/24 18:59 06:59 18:59 Intake Total 236 237 0 Output Total 250 Balance -14 237 0 Weight 82.9 kg 83 kg Intake: Oral 236 237 0 Output: Urine 250 Other: Voiding Method Indwelling Catheter Indwelling Catheter Indwelling Catheter - Labs CBC & Chem 7: 10/14/24 07:05 10/14/24 07:05 Labs: Abnormal Lab Results - Last 24 Hours (Table) 10/12/24 10/12/24 10/12/24 Range/Units 10:23 16:17 20:12 Sodium (137-145) mmol/L BUN (7-17) mg/dL Creatinine (0.52-1.04) mg/dL Glucose (74-99) mg/dL POC Glucose (mg/dL) 51 L 48 L* (70-110) mg/dL Total Protein (PEP) 5.5 L (6.2-8.2) g/dL 10/13/24 10/13/24 10/13/24 Range/Units 02:04 07:02 11:16 Sodium 131 L (137-145) mmol/L BUN 40 H (7-17) mg/dL Creatinine 5.12 H (0.52-1.04) mg/dL Glucose 100 H (74-99) mg/dL POC Glucose (mg/dL) 57 L 56 L (70-110) mg/dL Total Protein (PEP) (6.2-8.2) g/dL
[2024-10-13 16:16] LABS: Glucose,Whole Blood 89 mg/dL (70-110)
[2024-10-13 20:26] LABS: Glucose,Whole Blood 53 mg/dL (70-110)
[2024-10-13 21:01] LABS: Glucose,Whole Blood 117 mg/dL (70-110)
[2024-10-13] MEDS: MELATONIN 3 MG TABLET PO SCH (21:54)
[2024-10-14 01:57] LABS: Glucose,Whole Blood 119 mg/dL (70-110)
[2024-10-14 06:16] LABS: Glucose,Whole Blood 75 mg/dL (70-110)
[2024-10-14 07:57] LABS: Basophils # (A) 0.1 k/uL (0-0.2); Basophils % (A) 1 %; Eosinophils # (A) 0.3 k/uL (0-0.7); Eosinophils % (A) 3 %; HCT 38.6 % (34.0-46.0); HGB 12.1 gm/dL (11.4-16.0); Lymphocytes # (A) 0.8 k/uL (1.0-4.8); Lymphocytes % (A) 9 %; MCH 27.8 pg (25.0-35.0); MCHC 31.3 g/dL (31.0-37.0); MCV 88.7 fL (80.0-100.0); Mean Platelet Volume 9.6; Monocytes # (A) 0.4 k/uL (0-1.0); Monocytes % (A) 5 %; Neutrophils # (A) 7.7 k/uL (1.3-7.7); Neutrophils % (A) 82 %; Platelet Count 324 k/uL (150-450); RBC 4.35 m/uL (3.80-5.40); RDW 14.2 % (11.5-15.5); WBC 9.4 k/uL (3.8-10.6)
--- NOTE | 2024-10-14 08:10 | PN ---
PROGRESS NOTE DATE OF SERVICE: 10/13/2024 SUBJECTIVE: This is an 84-year-old woman, who was admitted with acute renal failure, also had hyperkalemia and UTI also. Cultures are showing E coli. No chest pain. No palpitation. OBJECTIVE: VITAL SIGNS: Pulse 70, blood pressure 160/70, respirations 18. CHEST: A few scattered rhonchi. ABDOMEN: Soft. NERVOUS SYSTEM: Nonfocal. LABORATORY DATA: Creatinine 5.12. ASSESSMENT: 1. Acute renal failure secondary to acute tubular necrosis. 2. Hyperkalemia. 3. Urinary tract infection with Escherichia coli. 4. Acute upper GI bleeding. 5. Multiple medical issues. RECOMMENDATIONS: Recommend to continue current management. Continue symptomatic treatment. Continue with antibiotics. Monitor creatinine closely. Increase ambulation. Guarded prognosis. Further recommendations to follow. See orders for further details. MMODL / IJN: [id number] /
[2024-10-14 08:19] LABS: ALT 11 U/L (4-34); AST 24 U/L (14-36); African American GFR (CKD) 13 (>60 ml/min/1.73 sqM); Alkaline Phosphatase 62 U/L (38-126); Anion Gap 6 mmol/L; Blood Urea Nitrogen 19 mg/dL (7-17); Calcium 8.7 mg/dL (8.4-10.2); Carbon Dioxide 29 mmol/L (22-30); Chloride 96 mmol/L (98-107); Glucose 135 mg/dL (74-99); Non-African American GFR(CKD) 11 (>60 ml/min/1.73 sqM); Potassium 3.5 mmol/L (3.5-5.1); Sodium 131 mmol/L (137-145); Total Bilirubin 0.4 mg/dL (0.2-1.3); Total Protein 5.4 g/dL (6.3-8.2)
--- NOTE | 2024-10-14 11:19 | P.PN ---
Subjective Progress Note Date: 10/14/24 Principal diagnosis: Acute kidney injury Patient is seen and examined today as a follow-up for acute kidney injury who required a temporary hemodialysis catheter. Vascular surgery was notified that the patient's temporary HD catheter was not working well and nephrology was requ esting a permacath placement. Objective - Vital Signs Vital signs: Vital Signs Temp 98.0 F 10/14/24 03:26 Pulse 59 L 10/14/24 03:26 Resp 18 10/14/24 03:26 BP 168/83 10/14/24 03:26 Pulse Ox 99 10/14/24 03:26 FiO2 Intake & Output 10/13/24 10/14/24 10/14/24 18:59 06:59 18:59 Intake Total 800 240 0 Output Total 3000 200 Balance -2200 40 0 Weight 81.5 kg Intake: Oral 0 240 0 Hemodialysis 800 Output: Urine 200 200 Hemodialysis 1800 Hemodialysis Net Amount 1000 Other: Voiding Method Indwelling Catheter Indwelling Catheter - Exam General appearance: The patient is alert, oriented, appears in no acute di stress. HET: Head is normocephalic and atraumatic. Pupils are equal and reactive. Neck: Supple. Heart: Regular. Lungs: Equal expansion, normal respiratory effort. Abdomen: Soft, nondistended. Extremities: Normal skin color and turgor. Right groin with temporary HD catheter with dressing clean dry and intact. Neurological: Patient appears to be alert oriented to self, but pleasantly confused. - Labs CBC & Chem 7: 10/14/24 07:05 10/14/24 07:05 Labs: Abnormal Lab Results - Last 24 Hours (Table) 10/13/24 10/13/24 10/13/24 Range/Units 11:16 20:25 21:00 Lymphocytes # (1.0-4.8) k/uL Sodium (137-145) mmol/L Chloride (98-107) mmol/L BUN (7-17) mg/dL Creatinine (0.52-1.04) mg/dL Glucose (74-99) mg/dL POC Glucose (mg/dL) 56 L 53 L 117 H (70-110) mg/dL Total Protein (6.3-8.2) g/dL Albumin (3.5-5.0) g/dL 10/14/24 10/14/24 10/14/24 Range/Units 01:56 07:05 07:05 Lymphocytes # 0.8 L (1.0-4.8) k/uL Sodium 131 L (137-145) mmol/L Chloride 96 L (98-107) mmol/L BUN 19 H (7-17) mg/dL Creatinine 3.52 H (0.52-1.04) mg/dL Glucose 135 H (74-99) mg/dL POC Glucose (mg/dL) 119 H (70-110) mg/dL Total Protein 5.4 L (6.3-8.2) g/dL Albumin 3.0 L (3.5-5.0) g/dL Assessment and Plan Assessment: 1. Acute kidney injury requiring hemodialysis 2. Status post temporary HD catheter placement 3. Urinary tract infection Plan: 1. Will plan for permacath placement as requested by nephrology. This was discussed with patient's who is agreeable. 2. Hemodialysis per recommendations from nephrology 3. Please obtain consent from patient's Thank you for this consultation, we will be on standby. If further needed please do not hesitate to call us back. The impression and plan of care has been dictated as directed. Dr. Linares I performed a history and examination of this patient, discussed the same with the dictator. I agree with the dictator's note ,documented as a scribe. Any additional findings or plans will be noted.
--- NOTE | 2024-10-14 11:53 | P.PN ---
Subjective Patient was seen in follow-up for acute kidney injury on chronic kidney disease. Started on hemodialysis October 09, 2024 via right femoral catheter. Poor historian. Has Linares catheter. Oliguric. No changes overnight. Dialysis catheter not functioning well. Vital signs are stable. General: No acute distress. HEENT: Head exam is unremarkable. On nasal cannula. LUNGS: No audible rhonchi or wheezes. HEART: Rate and Rhythm are regular. ABDOMEN: Nontender. EXTREMITITES: Trace edema. Objective - Vital Signs Vital signs: Vital Signs Temp 97.8 F 10/14/24 08:30 Pulse 72 10/14/24 10:30 Resp 18 10/14/24 08:30 BP 155/69 10/14/24 10:30 Pulse Ox 96 10/14/24 08:30 FiO2 Intake & Output 10/13/24 10/14/24 10/14/24 18:59 06:59 18:59 Intake Total 800 240 0 Output Total 3000 200 Balance -2200 40 0 Weight 81.5 kg Intake: Oral 0 240 0 Hemodialysis 800 Output: Urine 200 200 Hemodialysis 1800 Hemodialysis Net Amount 1000 Other: Voiding Method Indwelling Catheter Indwelling Catheter Indwelling Catheter # Bowel Movements 0 - Labs CBC & Chem 7: 10/14/24 07:05 10/14/24 07:05 Labs: Abnormal Lab Results - Last 24 Hours (Table) 10/13/24 10/13/24 10/14/24 Range/Units 20:25 21:00 01:56 Lymphocytes # (1.0-4.8) k/uL Sodium (137-145) mmol/L Chloride (98-107) mmol/L BUN (7-17) mg/dL Creatinine (0.52-1.04) mg/dL Glucose (74-99) mg/dL POC Glucose (mg/dL) 53 L 117 H 119 H (70-110) mg/dL Total Protein (6.3-8.2) g/dL Albumin (3.5-5.0) g/dL 10/14/24 10/14/24 Range/Units 07:05 07:05 Lymphocytes # 0.8 L (1.0-4.8) k/uL Sodium 131 L (137-145) mmol/L Chloride 96 L (98-107) mmol/L BUN 19 H (7-17) mg/dL Creatinine 3.52 H (0.52-1.04) mg/dL Glucose 135 H (74-99) mg/dL POC Glucose (mg/dL) (70-110) mg/dL Total Protein 5.4 L (6.3-8.2) g/dL Albumin 3.0 L (3.5-5.0) g/dL Assessment and Plan Plan: Assessment: 1. Acute kidney injury secondary to ATN secondary to volume depletion and infection. No evidence of obstructive uropathy. Started on hemodialysis October 09, 2024 via right femoral catheter. Creatinine as high as 9.63 this admission. Oliguric. 2. Chronic kidney disease stage IIIb with baseline creatinine 1.4-1.6 secondary to diabetic kidney disease. 3. E. coli UTI s/p antibiotics. 4. Metabolic acidosis secondary to acute kidney injury. Improved postdialysis. 5. Hypertension with chronic kidney disease. 6. Diabetes mellitus. 7. Acute GI bleed status post EGD which showed recently bleeding duodenal ulcer. Surgery following. Plan: Hemodialysis tomorrow. Will maintain on Friday schedule. No response in urine output status post IV Lasix given October 12, 2024. Monitor for renal recovery. Phosphorus level 4.1 dated October 12, 2024. Follow-up serologies. Negative so far. Vascular surgery notified to remove temporary catheter in place permacath.
[2024-10-14 12:08] LABS: Glucose,Whole Blood 139 mg/dL (70-110)
--- NOTE | 2024-10-14 12:54 | P.PN ---
Subjective Progress Note Date: 10/14/24 CHIEF COMPLAINT: GI bleed HISTORY OF PRESENT ILLNESS: Patient has no new complaints. She is lying in bed comfortably. Denies any abdominal pain. Denies any bowel movement. Patient reports eating a small amount of her food. She is status post EGD with results reporting acute GI bleed due to bleeding duodenal ulcer and acute gastritis with bleeding. Hemoglobin stable at 12.1 PHYSICAL EXAM: VITAL SIGNS: Reviewed GENERAL: Well-developed in no acute distress. HEENT: No sclera icterus. Extraocular movements grossly intact. Moist buccal mucosa. Head is atraumatic, normocephalic. Hears conversational speech. No nasal drainage. NECK: Supple without lymphadenopathy. CHEST: Non-labored respirations and equal bilateral excursions. CARDIOVASCULAR: Palpable 2+ radial pulses. ABDOMEN: Soft. Nondistended. Nontender. MUSCULOSKELETAL: No clubbing or cyanosis. NEUROLOGIC: No focal or lateralizing signs. Cranial nerves II through XII grossly intact. PSYCH: Appropriate affect. Awake and alert. SKIN: Well perfused. Good skin turgor. ASSESSMENT: 1. Acute gastrointestinal bleeding due to bleeding duodenal ulcer 2. Acute gastritis with bleeding 3. Acute kidney injury with chronic kidney disease started on hemodialysis 4. UTI PLAN: -Avoid blood thinners for 3 to 4 weeks due to acute bleeding duodenal ulcer -Continue Protonix twice a day and Carafate 1 g 3 times a day added for duodenal ulcer Physician Meat And Seafood Manager note has been reviewed by physician. Signing provider agrees with the documented findings, assessment, and plan of care. As above. Please see additional documentation below. CHIEF COMPLAINT: Acute GI bleed HISTORY OF PRESENT ILLNESS: The patient is a 84-year-old female status post upper endoscopy with finding of acute duodenal ulcer with bleeding. Her is at bedside. She is resting comfortably. No new episodes of bleeding. Hemoglobin is improving. She is status post hemodialysis access. REVIEW OF ORGAN SYSTEMS: No fevers or chills. No acute shortness of breath. PHYSICAL EXAM: VITALS: Reviewed CONSTITUTIONAL: Well developed and in no acute distress. EYES: Conjuctivae without sclera icterus. Extraocular movements grossly inta ct. HEAD, EARS, NOSE, THROAT: Moist buccal mucosa. Head is atraumatic, normocephalic. Hears conversational speech. No nasal drainage. RESPIRATORY: Non-labored respirations and equal bilateral excursions. No gross wheezes. CARDIOVASCULAR: Palpable 2+ radial pulses. ABDOMEN: Obese. Nontender. MUSCULOSKELETAL: No clubbing cyanosis or edema SKIN: Warm and well perfused with good skin turgor. NEUROLOGIC: Cranial nerves II through XII grossly intact. No focal or lateralizing signs. PSYCH: Appropriate affect. Alert and oriented to person. CLINCAL LABS: Reviewed. Hemoglobin 10.9 up to 12.1. ASSESSMENT: 1. Acute GI bleed with melena 2. Acute anemia 3. Acute renal failure, dialysis intervention needed 4. Chronic obstructive pulmonary disease with asthma 5. Congestive heart failure with hypertensive heart disease 6. Diabetes type 2, dialysis dependent 7. Hypertensive and diabetic nephropathy 8. Hypomagnesia 9. E. coli urinary tract infection 10. Bleeding duodenal ulcer. PLAN: 1. Continue Protonix and Carafate for acute bleeding duodenal ulcer. 2. Recommend avoiding anticoagulants due to high risk of rebleed at least for the next 3 to 4 weeks. Objective - Vital Signs Vital signs: Vital Signs Temp 97.8 F 10/14/24 08:30 Pulse 72 10/14/24 10:30 Resp 18 10/14/24 08:30 BP 155/69 10/14/24 10:30 Pulse Ox 96 10/14/24 08:30 FiO2 Intake & Output 10/13/24 10/14/24 10/14/24 18:59 06:59 18:59 Intake Total 800 240 0 Output Total 3000 200 Balance -2200 40 0 Weight 81.5 kg Intake: Oral 0 240 0 Hemodialysis 800 Output: Urine 200 200 Hemodialysis 1800 Hemodialysis Net Amount 1000 Other: Voiding Method Indwelling Catheter Indwelling Catheter Indwelling Catheter # Bowel Movements 0 - Labs CBC & Chem 7: 10/14/24 07:05 10/14/24 07:05 Labs: Abnormal Lab Results - Last 24 Hours (Table) 10/13/24 10/13/24 10/14/24 Range/Units 20:25 21:00 01:56 Lymphocytes # (1.0-4.8) k/uL Sodium (137-145) mmol/L Chloride (98-107) mmol/L BUN (7-17) mg/dL Creatinine (0.52-1.04) mg/dL Glucose (74-99) mg/dL POC Glucose (mg/dL) 53 L 117 H 119 H (70-110) mg/dL Total Protein (6.3-8.2) g/dL Albumin (3.5-5.0) g/dL 10/14/24 10/14/24 10/14/24 Range/Units 07:05 07:05 12:06 Lymphocytes # 0.8 L (1.0-4.8) k/uL Sodium 131 L (137-145) mmol/L Chloride 96 L (98-107) mmol/L BUN 19 H (7-17) mg/dL Creatinine 3.52 H (0.52-1.04) mg/dL Glucose 135 H (74-99) mg/dL POC Glucose (mg/dL) 139 H (70-110) mg/dL Total Protein 5.4 L (6.3-8.2) g/dL Albumin 3.0 L (3.5-5.0) g/dL
[2024-10-14] MEDS: LIDOCAINE 1% INJ 10MG/ML (20 ML MDV) SQ ONE ×2 (14:20→14:21)
[2024-10-14] MEDS: fentaNYL (PF) 50 MCG/ML 2 ML AMP IVP ONE (14:23)
[2024-10-14] MEDS: MIDAZOLAM 2 MG/2 ML VIAL IVP ONE (14:23)
[2024-10-14] MEDS: HEPARIN SODIUM,PORCINE (1 ML) 2,500 UNIT in SODIUM CHLORIDE 0.9% 250 ML IRRIGATION ONE (14:29)
--- NOTE | 2024-10-14 14:57 | P.OP ---
Date of Procedure: 10/14/24 Description of Procedure: DATE OF PROCEDURE: 10/14/2024 PREOPERATIVE DIAGNOSIS: Need for dialysis PROCEDURE: 1. Ultrasound-guided right internal jugular vein access. 2. Placement of a 23 cm tunneled dialysis catheter with fluoroscopic assistance. 3. Moderate conscious sedation times 13 minutes PROCEDURE: The patient was brought to the Advertising Sales Agent placed in supine position. The bilateral necks were prepped and draped in usual sterile fashion. A preprocedure timeout was performed, all parties were in agreement. Using ultrasound the right internal jugular was identified. The site overlying the vein was anesthetized with 1% lidocaine plain and an access needle was used to gain access to the internal jugular vein with return of dark venous, nonpulsatile blood. Seldinger technique was used and a micro-access sheath was placed. Attention was then turned towards the tunnel. The chest wall was anesthetized with 1% lidocaine plain. A small camilo and the skin was made and the previously flushed catheter was tunneled through the anticipated location. Using Seldinger technique and fluoroscopic assistance, the 35 Glidewire was placed and the tract was serially dilated. The final tear-away sheath was left in place. The inner cannula and wire were removed. The catheter was placed in the tear-away sheath was removed in standard fashion. The catheter showed good positioning was final resting place in the cavoatrial junction. The catheter aspirated and flushed freely. The incision at the neck was reapproximated with interrupted sutures of 4-0 Vicryl. The catheter was sutured in place with 3-0 nylon. Dressings were placed. The patient was allowed to awaken from anesthesia and transferred to recovery in stable condition having tolerated the procedure well. A post procedure chest x-ray is pending
--- NOTE | 2024-10-14 15:07 | IR ---
EXAMINATION TYPE: IR cvc insert central tunneled DATE OF EXAM: 10/14/2024 2:45 PM COMPARISON: Pre Operative Images if available both CT/MRI or plain film CLINICAL INDICATION: Female, 84 years old with history of Dialysis, 0.4m/2.3693DAP, Rt IJ 14.5 x 23cm cath; TECHNIQUE: IR cvc insert central tunneled, multiple fluoroscopic images provided for procedure. Total fluoroscopy time: 0.4 min Total submitted images to PACS: 0 DAP: 2.3693 mGym2 Gycm2 uGym2 cGycm2 or equivalent. FINDINGS: IMPRESSION: 1. Report was generated for administrative purposes only. 2. Please see the operative/procedural note for further details. [facility], Workstation: [facility], 10/14/2024 3:05 PM
[2024-10-14] MEDS: hydrALAZINE HCL 50 MG TAB PO SCH (15:37)
[2024-10-14 15:43] LABS: Albumin 2.86 g/dL (3.80-4.90); Gamma Globulin 0.64 g/dL (0.70-1.50)
[2024-10-14 16:58] LABS: Glucose,Whole Blood 124 mg/dL (70-110)
[2024-10-14 20:19] LABS: Glucose,Whole Blood 114 mg/dL (70-110)
[2024-10-15 05:51] LABS: Glucose,Whole Blood 97 mg/dL (70-110)
--- NOTE | 2024-10-15 08:32 | P.PN ---
Subjective Progress Note Date: 10/15/24 Principal diagnosis: Acute kidney injury Patient is seen and examined today as a follow-up for acute kidney injury who is requiring hemodialysis. Right IJ tunnel catheter was placed yesterday. Patient denies any bleeding from the site, no pain. She denies any shortness of breath or chest pain Objective - Vital Signs Vital signs: Vital Signs Temp 98.6 F 10/15/24 03:41 Pulse 65 10/15/24 03:41 Resp 18 10/15/24 03:41 BP 117/60 10/15/24 03:41 Pulse Ox 97 10/15/24 03:41 FiO2 Intake & Output 10/14/24 10/15/24 10/15/24 18:59 06:59 18:59 Intake Total 170 540 Output Total 200 Balance 170 340 Weight 84 kg Intake: IV 50 Oral 120 540 Output: Urine 200 Other: Voiding Method Indwelling Catheter Indwelling Catheter # Voids 0 # Bowel Movements 0 - Exam General appearance: The patient is alert, oriented, appears in no acute distress. HET: Head is normocephalic and atraumatic. Pupils are equal and reactive. Neck: Supple. Right IJ tunnel catheter with dressing clean dry and intact. No bleeding or surrounding hematoma. Heart: Regular. Lungs: Equal expansion, normal respiratory effort. Abdomen: Soft, nondistended. Extremities: Normal skin color and turgor. Right groin with temporary HD catheter with dressing clean dry and intact. Neurological: Patient appears to be alert oriented to self, but pleasantly confused. - Labs CBC & Chem 7: 10/14/24 07:05 10/14/24 07:05 Labs: Abnormal Lab Results - Last 24 Hours (Table) 10/12/24 10/14/24 10/14/24 Range/Units 10:23 07:05 07:05 Lymphocytes # 0.8 L (1.0-4.8) k/uL Sodium 131 L (137-145) mmol/L Chloride 96 L (98-107) mmol/L BUN 19 H (7-17) mg/dL Creatinine 3.52 H (0.52-1.04) mg/dL Glucose 135 H (74-99) mg/dL POC Glucose (mg/dL) (70-110) mg/dL Total Protein 5.4 L (6.3-8.2) g/dL Albumin 3.0 L (3.5-5.0) g/dL Albumin (PEP) 2.86 L (3.80-4.90) g/dL Gamma Globulins 0.64 L (0.70-1.50) g/dL 10/14/24 10/14/24 10/14/24 Range/Units 12:06 16:52 20:17 Lymphocytes # (1.0-4.8) k/uL Sodium (137-145) mmol/L Chloride (98-107) mmol/L BUN (7-17) mg/dL Creatinine (0.52-1.04) mg/dL Glucose (74-99) mg/dL POC Glucose (mg/dL) 139 H 124 H 114 H (70-110) mg/dL Total Protein (6.3-8.2) g/dL Albumin (3.5-5.0) g/dL Albumin (PEP) (3.80-4.90) g/dL Gamma Globulins (0.70-1.50) g/dL Assessment and Plan Assessment: 1. Acute kidney injury requiring hemodialysis status post right IJ tunnel catheter placement 2. Status post temporary HD catheter placement 3. Urinary tract infection Plan: 1. Stat chest x-ray ordered to evaluate tunneled catheter placement 2. Hemodialysis per recommendations from nephrology Thank you for this consultation, we will be on standby. If further needed please do not hesitate to call us back. The impression and plan of care has been dictated as directed. Dr. Linares I performed a history and examination of this patient, discussed the same with the dictator. I agree with the dictator's note ,documented as a scribe. Any additional findings or plans will be noted.
--- NOTE | 2024-10-15 08:52 | PN ---
PROGRESS NOTE DATE OF SERVICE: 10/14/2024 SUBJECTIVE: This is an 84-year-old woman, who was admitted with acute renal failure secondary to acute tubular necrosis, is scheduled to have a PermCath. No chest pain. No palpitation. OBJECTIVE: VITAL SIGNS: Pulse is 66, blood pressure 182/81, respirations 18. CHEST: Few scattered rhonchi. ABDOMEN: Soft. NERVOUS SYSTEM: Nonfocal. LABORATORY DATA: Creatinine 3.5. ASSESSMENT: 1. Acute renal failure secondary to acute tubular necrosis, on hemodialysis, for PermCath. 2. Hyperkalemia. 3. Urinary tract infection with Escherichia coli. 4. Acute upper GI bleed. 5. Multiple medical issues. RECOMMENDATIONS: Recommend to continue current management. Continue symptomatic treatment. Repeat labs. Monitor blood pressure closely. Otherwise, PermCath. Guarded prognosis. Further recommendations to follow. I would add p.o. hydralazine. MMODL / IJN: [id number] /
[2024-10-15 09:10] LABS: Basophils % (A) 0 %; Eosinophils # (A) 0.2 k/uL (0-0.7); Eosinophils % (A) 3 %; HCT 34.4 % (34.0-46.0); HGB 10.9 gm/dL (11.4-16.0); Hypochromasia Slight; Lymphocytes # (A) 0.7 k/uL (1.0-4.8); Lymphocytes % (A) 9 %; MCH 28.6 pg (25.0-35.0); MCHC 31.8 g/dL (31.0-37.0); MCV 90.1 fL (80.0-100.0); Mean Platelet Volume 9.2; Monocytes # (A) 0.5 k/uL (0-1.0); Monocytes % (A) 6 %; Neutrophils # (A) 6.4 k/uL (1.3-7.7); Neutrophils % (A) 81 %; Platelet Count 274 k/uL (150-450); RBC 3.82 m/uL (3.80-5.40); RDW 14.2 % (11.5-15.5); WBC 7.9 k/uL (3.8-10.6)
[2024-10-15 09:42] LABS: ALT 9 U/L (4-34); AST 20 U/L (14-36); African American GFR (CKD) 10 (>60 ml/min/1.73 sqM); Albumin 2.6 g/dL (3.5-5.0); Alkaline Phosphatase 54 U/L (38-126); Anion Gap 6 mmol/L; Blood Urea Nitrogen 27 mg/dL (7-17); Calcium 8.9 mg/dL (8.4-10.2); Carbon Dioxide 27 mmol/L (22-30); Chloride 98 mmol/L (98-107); Glucose 92 mg/dL (74-99); Non-African American GFR(CKD) 8 (>60 ml/min/1.73 sqM); Potassium 3.8 mmol/L (3.5-5.1); Sodium 131 mmol/L (137-145); Total Bilirubin 0.5 mg/dL (0.2-1.3); Total Protein 5.1 g/dL (6.3-8.2)
--- NOTE | 2024-10-15 10:11 | XR ---
EXAMINATION TYPE: XR chest 1V confirm line plcmt DATE OF EXAM: 10/15/2024 9:06 AM COMPARISON: Chest radiographs from 10/07/2024 CLINICAL INDICATION: Female, 84 years old with history of Right IJ tunnel catheter placed; [facility] TECHNIQUE: XR chest 1V confirm line plcmt Frontal view of the chest. FINDINGS: Lungs/Pleura: There is no evidence of pleural effusion, focal consolidation, or pneumothorax. Pulmonary vascularity: Unremarkable. Heart/mediastinum: Cardiac size is normal. Atherosclerotic calcifications are seen in the aorta. Musculoskeletal: No acute osseous pathology. Other findings: None Lines/Tubes: Right internal jugular central venous catheter with distal tip at the cavoatrial junction. IMPRESSION: No acute cardiopulmonary disease/process. [facility], , 10/15/2024 10:08 AM
--- NOTE | 2024-10-15 10:40 | P.PN ---
Subjective Progress Note Date: 10/15/24 CHIEF COMPLAINT: GI bleed HISTORY OF PRESENT ILLNESS: Patient has no new complaints. She is lying in bed comfortably. Denies any abdominal pain. Denies any bleeding. She is status post EGD on 10/11/24 with results reporting acute GI bleed due to bleeding duodenal ulcer and acute gastritis with bleeding. Hemoglobin stable at 12.1 PHYSICAL EXAM: VITAL SIGNS: Reviewed GENERAL: Well-developed in no acute distress. HEENT: No sclera icterus. Extraocular movements grossly intact. Moist buccal mucosa. Head is atraumatic, normocephalic. Hears conversational speech. No nasal drainage. NECK: Supple without lymphadenopathy. CHEST: Non-labored respirations and equal bilateral excursions. CARDIOVASCULAR: Palpable 2+ radial pulses. ABDOMEN: Soft. Nondistended. Nontender. MUSCULOSKELETAL: No clubbing or cyanosis. NEUROLOGIC: No focal or lateralizing signs. Cranial nerves II through XII gr ossly intact. PSYCH: Appropriate affect. Awake and alert. SKIN: Well perfused. Good skin turgor. ASSESSMENT: 1. Acute gastrointestinal bleeding due to bleeding duodenal ulcer 2. Acute gastritis with bleeding 3. Acute kidney injury with chronic kidney disease started on hemodialysis 4. UTI PLAN: -Avoid blood thinners for 3 to 4 weeks due to acute bleeding duodenal ulcer -Continue Protonix twice a day and Carafate 1 g 3 times a day added for duodenal ulcer Physician Metallurgical Lab Technician note has been reviewed by physician. Signing provider agrees with the documented findings, assessment, and plan of care. As above. Please see additional documentation below. CHIEF COMPLAINT: GI bleed HISTORY OF PRESENT ILLNESS: The patient is a 84-year-old female during mission found to have acute GI bleed. No complaints. She is on hemodialysis. ROS: No reports of nausea and vomiting. No fevers or chills. No new chest pain. No productive sputum PHYSICAL EXAM: VITAL SIGNS: Reviewed CONSTITUTIONAL: Well developed and in no acute distress. EYES: Conjuctivae without sclera icterus. Extraocular movements grossly intact. HEAD, EARS, NOSE, THROAT: Moist buccal mucosa. Head is atraumatic, normocephalic. Hears conversational speech. No nasal drainage. RESPIRATORY: Non-labored respirations and equal bilateral excursions. CARDIOVASCULAR: Palpable 2+ radial pulses. ABDOMEN: Obese. No peritonitis. MUSCULOSKELETAL: No gross deformity of the lower extremities noted. No clubbing. No cyanosis. SKIN: Good skin turgor. Well perfused. NEUROLOGIC: Cranial nerves II through XII grossly intact. No focal or lateralizing signs. PSYCH: Appropriate affect. Alert and oriented to person, place and time. CLINICAL LABS: Reviewed. Hemoglobin 12.1 from 10/14/2024 ASSESSMENT: 1. Anemia GI bleed due to bleeding duodenal ulcer PLAN: 1. Continue to monitor hemoglobin 2. Avoid blood thinners for 3 to 4 weeks for bleeding duodenal ulcer Objective - Vital Signs Vital signs: Vital Signs Temp 98.1 F 10/15/24 08:10 Pulse 71 10/15/24 08:10 Resp 18 10/15/24 08:10 BP 135/62 10/15/24 08:10 Pulse Ox 96 10/15/24 09:14 FiO2 Intake & Output 10/14/24 10/15/24 10/15/24 18:59 06:59 18:59 Intake Total 170 540 Output Total 200 Balance 170 340 Weight 84 kg Intake: IV 50 Oral 120 540 Output: Urine 200 Other: Voiding Method Indwelling Catheter Indwelling Catheter Indwelling Catheter # Voids 0 # Bowel Movements 0 - Labs CBC & Chem 7: 10/19/24 08:07 10/19/24 06:37 Labs: Abnormal Lab Results - Last 24 Hours (Table) 10/12/24 10/14/24 10/14/24 Range/Units 10:23 12:06 16:52 Hgb (11.4-16.0) gm/dL Lymphocytes # (1.0-4.8) k/uL Sodium (137-145) mmol/L BUN (7-17) mg/dL Creatinine (0.52-1.04) mg/dL POC Glucose (mg/dL) 139 H 124 H (70-110) mg/dL Total Protein (6.3-8.2) g/dL Albumin (3.5-5.0) g/dL Albumin (PEP) 2.86 L (3.80-4.90) g/dL Gamma Globulins 0.64 L (0.70-1.50) g/dL 10/14/24 10/15/24 10/15/24 Range/Units 20:17 08:41 08:41 Hgb 10.9 L (11.4-16.0) gm/dL Lymphocytes # 0.7 L (1.0-4.8) k/uL Sodium 131 L (137-145) mmol/L BUN 27 H (7-17) mg/dL Creatinine 4.53 H (0.52-1.04) mg/dL POC Glucose (mg/dL) 114 H (70-110) mg/dL Total Protein 5.1 L (6.3-8.2) g/dL Albumin 2.6 L (3.5-5.0) g/dL Albumin (PEP) (3.80-4.90) g/dL Gamma Globulins (0.70-1.50) g/dL
[2024-10-15 11:36] LABS: Glucose,Whole Blood 109 mg/dL (70-110)
--- NOTE | 2024-10-15 11:47 | P.PN ---
Subjective Patient was seen in follow-up for acute kidney injury on chronic kidney disease. Started on hemodialysis October 09, 2024 via right femoral catheter. Now has permacath. Poor historian. Has Linares catheter. Oliguric. No changes overnight. Vital signs are stable. General: No acute distress. HEENT: Head exam is unremarkable. On nasal cannula. LUNGS: No audible rhonchi or wheezes. HEART: Rate and Rhythm are regular. ABDOMEN: Nontender. EXTREMITITES: Trace edema. Objective - Vital Signs Vital signs: Vital Signs Temp 98.1 F 10/15/24 08:10 Pulse 71 10/15/24 08:10 Resp 18 10/15/24 08:10 BP 135/62 10/15/24 08:10 Pulse Ox 96 10/15/24 09:14 FiO2 Intake & Output 10/14/24 10/15/24 10/15/24 18:59 06:59 18:59 Intake Total 170 540 Output Total 200 Balance 170 340 Weight 84 kg Intake: IV 50 Oral 120 540 Output: Urine 200 Other: Voiding Method Indwelling Catheter Indwelling Catheter Indwelling Catheter # Voids 0 # Bowel Movements 0 - Labs CBC & Chem 7: 10/15/24 08:41 10/15/24 08:41 Labs: Abnormal Lab Results - Last 24 Hours (Table) 10/12/24 10/14/24 10/14/24 Range/Units 10:23 12:06 16:52 Hgb (11.4-16.0) gm/dL Lymphocytes # (1.0-4.8) k/uL Sodium (137-145) mmol/L BUN (7-17) mg/dL Creatinine (0.52-1.04) mg/dL POC Glucose (mg/dL) 139 H 124 H (70-110) mg/dL Total Protein (6.3-8.2) g/dL Albumin (3.5-5.0) g/dL Albumin (PEP) 2.86 L (3.80-4.90) g/dL Gamma Globulins 0.64 L (0.70-1.50) g/dL 10/14/24 10/15/24 10/15/24 Range/Units 20:17 08:41 08:41 Hgb 10.9 L (11.4-16.0) gm/dL Lymphocytes # 0.7 L (1.0-4.8) k/uL Sodium 131 L (137-145) mmol/L BUN 27 H (7-17) mg/dL Creatinine 4.53 H (0.52-1.04) mg/dL POC Glucose (mg/dL) 114 H (70-110) mg/dL Total Protein 5.1 L (6.3-8.2) g/dL Albumin 2.6 L (3.5-5.0) g/dL Albumin (PEP) (3.80-4.90) g/dL Gamma Globulins (0.70-1.50) g/dL Assessment and Plan Plan: Assessment: 1. Acute kidney injury secondary to ATN secondary to volume depletion and infection. No evidence of obstructive uropathy. Started on hemodialysis October 09, 2024 via right femoral catheter. Now has permacath. Creatinine as high as 9.63 this admission. Oliguric. 2. Chronic kidney disease stage IIIb with baseline creatinine 1.4-1.6 secondary to diabetic kidney disease. 3. E. coli UTI s/p antibiotics. 4. Metabolic acidosis secondary to acute kidney injury. Improved postdialysis. 5. Hypertension with chronic kidney disease. Controlled. 6. Diabetes mellitus. 7. Acute GI bleed status post EGD which showed recently bleeding duodenal ulcer. Surgery following. Plan: Hemodialysis today. Will be maintained on Friday schedule outpatient at [facility]. Repeat IV Lasix today. Monitor for renal recovery. Phosphorus level 4.1 dated October 12, 2024. Follow-up serologies. Negative so far.
[2024-10-15 12:11] VITALS: BMI 29.9
[2024-10-15] MEDS ORDERED: IPRATROPIUM-ALBUTEROL 3 ML NEB INHALATION PRN (14:31)
[2024-10-15] MEDS: SYMBICORT 160-4.5 MCG INHALER INHALATION SCH (15:56)
[2024-10-15 16:38] LABS: Glucose,Whole Blood 87 mg/dL (70-110)
[2024-10-15 20:19] LABS: Glucose,Whole Blood 163 mg/dL (70-110)
--- NOTE | 2024-10-15 21:13 | PN ---
PROGRESS NOTE DATE OF SERVICE: 10/15/2024 SUBJECTIVE: This is an 84-year-old woman, who was admitted with acute renal failure, is mildly confused. PermCath has been placed. Mildly short of breath. The chest x-ray was reviewed. OBJECTIVE: VITAL SIGNS: Pulse is 71, blood pressure 120/69, respirations 18. CHEST: A few scattered rhonchi and crackles. ABDOMEN: Soft. NERVOUS SYSTEM: Nonfocal. LABORATORY DATA: Reviewed. ASSESSMENT: 1. Acute renal failure secondary to acute tubular necrosis, on hemodialysis, status post PermCath. 2. Hyperkalemia. 3. Urinary tract infection with Escherichia coli. 4. Acute upper gastrointestinal bleed history. 5. Chronic obstructive pulmonary disease. 6. Multiple complex medical issues. RECOMMENDATIONS AND DISCUSSION: Recommend to continue the current medications. I would add bronchodilators to current regimen. Continue to monitor. Further recommendations to follow. MMODL / IJN: [id number] /
[2024-10-15] MEDS: IPRATROPIUM-ALBUTEROL 3 ML NEB INHALATION SCH (21:20)
[2024-10-16 06:22] LABS: Glucose,Whole Blood 109 mg/dL (70-110)
--- NOTE | 2024-10-16 09:58 | P.PN ---
Subjective Patient was seen in follow-up for acute kidney injury on chronic kidney disease. Started on hemodialysis October 09, 2024 via right femoral catheter. Now has permacath. Poor historian. Has Linares catheter. Oliguric. No active complaints. Sitting up in chair. Vital signs are stable. General: No acute distress. HEENT: Head exam is unremarkable. On nasal cannula. LUNGS: No audible rhonchi or wheezes. HEART: Rate and Rhythm are regular. ABDOMEN: Nontender. EXTREMITITES: Trace edema. Objective - Vital Signs Vital signs: Vital Signs Temp 97.9 F 10/16/24 08:55 Pulse 90 10/16/24 08:55 Resp 22 10/16/24 08:55 BP 119/85 10/16/24 08:55 Pulse Ox 97 10/16/24 08:55 FiO2 Intake & Output 10/15/24 10/16/24 10/16/24 18:59 06:59 18:59 Intake Total 400 120 0 Output Total 2400 Balance -2000 120 0 Weight 84 kg 82 kg Intake: Oral 120 0 Hemodialysis 400 Output: Hemodialysis 1400 Hemodialysis Net Amount 1000 Other: Voiding Method Indwelling Catheter Indwelling Catheter # Bowel Movements 0 - Labs CBC & Chem 7: 10/15/24 08:41 10/15/24 08:41 Labs: Abnormal Lab Results - Last 24 Hours (Table) 10/15/24 Range/Units 20:17 POC Glucose (mg/dL) 163 H (70-110) mg/dL Assessment and Plan Plan: Assessment: 1. Acute kidney injury secondary to ATN secondary to volume depletion and infection. No evidence of obstructive uropathy. Started on hemodialysis October 09, 2024 via right femoral catheter. Now has permacath. Creatinine as high as 9.63 this admission. Oliguric. 2. Chronic kidney disease stage IIIb with baseline creatinine 1.4-1.6 secondary to diabetic kidney disease. 3. E. coli UTI s/p antibiotics. 4. Metabolic acidosis secondary to acute kidney injury. Improved postdialysis. 5. Hypertension with chronic kidney disease. Controlled. 6. Diabetes mellitus. 7. Acute GI bleed status post EGD which showed recently bleeding duodenal ulcer. Surgery following. Plan: Hemodialysis Friday. Will be maintained on Friday schedule outpatient at [facility]. Add torsemide. Monitor for renal recovery. Phosphorus level 4.1 dated October 12, 2024. Follow-up serologies. Negative so far.
[2024-10-16 09:59] LABS: Basophils % (A) 0 %; Eosinophils # (A) 0.2 k/uL (0-0.7); Eosinophils % (A) 2 %; HCT 36.2 % (34.0-46.0); HGB 11.1 gm/dL (11.4-16.0); Hypochromasia Moderate; Lymphocytes # (A) 0.6 k/uL (1.0-4.8); Lymphocytes % (A) 7 %; MCH 27.9 pg (25.0-35.0); MCHC 30.7 g/dL (31.0-37.0); MCV 90.7 fL (80.0-100.0); Mean Platelet Volume 9.3; Monocytes # (A) 0.6 k/uL (0-1.0); Monocytes % (A) 6 %; Neutrophils # (A) 7.8 k/uL (1.3-7.7); Neutrophils % (A) 84 %; Platelet Count 283 k/uL (150-450); RBC 3.99 m/uL (3.80-5.40); RDW 14.4 % (11.5-15.5); WBC 9.3 k/uL (3.8-10.6)
--- NOTE | 2024-10-16 10:07 | P.PN ---
Subjective Progress Note Date: 10/16/24 NAEON. No N/V. No abdominal pain. No melena or hematochezia. Tolerating liquids without issue. In chair at time of evaluation today. Objective - Vital Signs Vital signs: Vital Signs Temp 97.9 F 10/16/24 08:55 Pulse 90 10/16/24 08:55 Resp 22 10/16/24 08:55 BP 119/85 10/16/24 08:55 Pulse Ox 97 10/16/24 08:55 FiO2 Intake & Output 10/15/24 10/16/24 10/16/24 18:59 06:59 18:59 Intake Total 400 120 0 Output Total 2400 Balance -2000 120 0 Weight 84 kg 82 kg Intake: Oral 120 0 Hemodialysis 400 Output: Hemodialysis 1400 Hemodialysis Net Amount 1000 Other: Voiding Method Indwelling Catheter Indwelling Catheter # Bowel Movements 0 - Exam Gen: AxO, NAD Pulm: non-labored respirations Abd: soft, non-tender, non-distended. No guarding/rebound/rigidity Extrem: no edema appreciated - Labs CBC & Chem 7: 10/16/24 09:25 10/15/24 08:41 Labs: Abnormal Lab Results - Last 24 Hours (Table) 10/15/24 10/16/24 Range/Units 20:17 09:25 Hgb 11.1 L (11.4-16.0) gm/dL MCHC 30.7 L (31.0-37.0) g/dL Neutrophils # 7.8 H (1.3-7.7) k/uL Lymphocytes # 0.6 L (1.0-4.8) k/uL POC Glucose (mg/dL) 163 H (70-110) mg/dL Assessment and Plan Assessment: Patient is a 84 year old female with GIB and EGD evidence of duodenal ulceration Plan: -Avoid blood thinners due to acute GIB -Trend Hb -PPI and carafate therapy -Diet as tolerated -Care per primary Finn German M.D. General Surgery
[2024-10-16 10:21] LABS: African American GFR (CKD) 18 (>60 ml/min/1.73 sqM); Anion Gap 5 mmol/L; Blood Urea Nitrogen 13 mg/dL (7-17); Carbon Dioxide 32 mmol/L (22-30); Chloride 96 mmol/L (98-107); Glucose 127 mg/dL (74-99); Non-African American GFR(CKD) 15 (>60 ml/min/1.73 sqM); Potassium 3.1 mmol/L (3.5-5.1); Sodium 133 mmol/L (137-145)
[2024-10-16 11:13] LABS: Glucose,Whole Blood 123 mg/dL (70-110)
[2024-10-16] MEDS: POTASSIUM CHLORIDE ER 20 MEQ TAB.ER PO STA (11:48)
[2024-10-16] MEDS: TORSEMIDE 20 MG TAB PO SCH (11:48)
--- NOTE | 2024-10-16 11:50 | XR ---
EXAMINATION TYPE: XR chest 1V DATE OF EXAM: 10/16/2024 11:02 AM COMPARISON: Chest radiograph from one day prior. CLINICAL INDICATION: Female, 84 years old with history of sob; [facility] TECHNIQUE: XR chest 1V Frontal view of the chest. FINDINGS: Lungs/Pleura: There is no evidence of pleural effusion, focal consolidation, or pneumothorax. Pulmonary vascularity: Pulmonary vascular congestion. Heart/mediastinum: Cardiomediastinal silhouette is enlarged. Musculoskeletal: No acute osseous pathology. Other findings: None Lines/Tubes: Right internal jugular central venous catheter with distal tip at the cavoatrial junction. IMPRESSION: Cardiomegaly and mild pulmonary vascular congestion. Correlate with BNP for congestive heart failure. [facility], , 10/16/2024 11:48 AM
[2024-10-16 16:08] LABS: Glucose,Whole Blood 200 mg/dL (70-110)
--- NOTE | 2024-10-16 16:53 | P.PN ---
Subjective Progress Note Date: 10/16/24 83-year-old female was transferred from a long term to her district in from [facility] to here weekly dose of acute renal failure with serum creatinine going up to 8.5 baseline around 1.3. Patient has longstanding history of major depression and is on multiple antidepressants and antianxiety medications has been in long term as her was unable to take care of the patient. Patient does have some memory loss appears to have mild to moderate dementia occasional agitation episodes. Patient denies any fever chills dysuria nausea vomiting abdominal pain increased urinary urgency or frequency but patient has not been urinating. Renal ultrasound was done which showed incidental finding of cholelithiasis without any evidence of cholecystitis. Patient urine is significantly abnormal with highly elevated white count patient does not have any fever or leukocytosis. Patient is on losartan as well as along with diuretics for congestive heart failure patient has a normal systolic function appears to have chronic diastolic function has admissions in the past for heart failure exacerbations. Objective - Vital Signs Vital signs: Vital Signs Temp 97.9 F 10/16/24 08:55 Pulse 65 10/16/24 11:47 Resp 18 10/16/24 11:47 BP 115/55 10/16/24 11:47 Pulse Ox 100 10/16/24 11:47 FiO2 Intake & Output 10/15/24 10/16/24 10/16/24 18:59 06:59 18:59 Intake Total 400 120 0 Output Total 2400 0 Balance -2000 120 0 Weight 84 kg 82 kg Intake: Oral 120 0 Hemodialysis 400 Output: Stool 0 Hemodialysis 1400 Hemodialysis Net Amount 1000 Other: Voiding Method Indwelling Catheter Indwelling Catheter Indwelling Catheter # Bowel Movements 0 - Exam GENERAL: The patient is alert and oriented x2, not in any acute distress. Well developed, well nourished. Obese appears to be severely depressed. HEENT: Pupils are round and equally reacting to light. EOMI. No scleral icterus. No conjunctival pallor. Normocephalic, atraumatic. No pharyngeal erythema. No thyromegaly. CARDIOVASCULAR: S1 and S2 present. No murmurs, rubs, or gallops. PULMONARY: Chest is clear to auscultation, no wheezing or crackles. ABDOMEN: Soft, nontender, nondistended, normoactive bowel sounds. No palpable organomegaly. MUSCULOSKELETAL: No joint swelling or deformity. EXTREMITIES: No cyanosis, clubbing, or pedal edema. NEUROLOGICAL: Gross neurological examination did not reveal any focal deficits. SKIN: No rashes. - Labs CBC & Chem 7: 10/16/24 09:25 10/16/24 09:25 Labs: Abnormal Lab Results - Last 24 Hours (Table) 10/15/24 10/16/24 10/16/24 Range/Units 20:17 09:25 09:25 Hgb 11.1 L (11.4-16.0) gm/dL MCHC 30.7 L (31.0-37.0) g/dL Neutrophils # 7.8 H (1.3-7.7) k/uL Lymphocytes # 0.6 L (1.0-4.8) k/uL Sodium 133 L (137-145) mmol/L Potassium 3.1 L (3.5-5.1) mmol/L Chloride 96 L (98-107) mmol/L Carbon Dioxide 32 H (22-30) mmol/L Creatinine 2.75 H (0.52-1.04) mg/dL Glucose 127 H (74-99) mg/dL POC Glucose (mg/dL) 163 H (70-110) mg/dL 10/16/24 Range/Units 11:11 Hgb (11.4-16.0) gm/dL MCHC (31.0-37.0) g/dL Neutrophils # (1.3-7.7) k/uL Lymphocytes # (1.0-4.8) k/uL Sodium (137-145) mmol/L Potassium (3.5-5.1) mmol/L Chloride (98-107) mmol/L Carbon Dioxide (22-30) mmol/L Creatinine (0.52-1.04) mg/dL Glucose (74-99) mg/dL POC Glucose (mg/dL) 123 H (70-110) mg/dL Assessment and Plan Assessment: -Acute renal failure secondary to acute tubular necrosis patient has poor p.o. intake and UTI may have contributed to her acute tubular necrosis patient has been started hemodialysis -Hyperkalemia secondary to acute renal failure improved with lokelma and plans to start hemodialysis. -Possible urinary tract infection patient is on Rocephin which will be continued urine culture showing E. coli -Acute upper GI bleed with findings of an acute duodenal bleeding ulcer on EGD patient will need to hold her Eliquis for 3 to 4 weeks and has been started on Carafate. General surgery recommending a course of oral Protonix twice a day if cleared by nephrology. -Cholelithiasis incidental finding no further intervention at this time -Dementia supportive care PT and OT evaluation Seroquel as needed at nighttime -Congestive heart failure chronic diastolic function without any acute exacerbation. -Hypertension hold off on losartan -Atrial fibrillation paroxysmal presently rate controlled continue with rate control medications -COPD without any acute exacerbation patient has chronic hypercapnic respiratory failure uses 2 L of oxygen presently on 2 L of oxygen -Obesity -Possibility of senile dementia/vascular dementia -Hypertension holding of losartan because of hyperkalemia and acute renal failure -Type 2 diabetes mellitus patient will be on sliding scale insulin hold of Actos
[2024-10-16 20:12] LABS: Glucose,Whole Blood 77 mg/dL (70-110)
[2024-10-17 06:07] LABS: Glucose,Whole Blood 114 mg/dL (70-110)
[2024-10-17 07:34] LABS: Basophils % (A) 0 %; Eosinophils # (A) 0.2 k/uL (0-0.7); Eosinophils % (A) 2 %; HCT 33.6 % (34.0-46.0); HGB 10.7 gm/dL (11.4-16.0); Hypochromasia Moderate; Lymphocytes # (A) 0.6 k/uL (1.0-4.8); Lymphocytes % (A) 8 %; MCH 28.8 pg (25.0-35.0); MCHC 31.9 g/dL (31.0-37.0); MCV 90.3 fL (80.0-100.0); Monocytes # (A) 0.5 k/uL (0-1.0); Monocytes % (A) 7 %; Neutrophils % (A) 82 %; Platelet Count 277 k/uL (150-450); RBC 3.72 m/uL (3.80-5.40); RDW 14.4 % (11.5-15.5); WBC 7.4 k/uL (3.8-10.6)
[2024-10-17 07:49] LABS: African American GFR (CKD) 13 (>60 ml/min/1.73 sqM); Anion Gap 5 mmol/L; Blood Urea Nitrogen 18 mg/dL (7-17); Calcium 8.9 mg/dL (8.4-10.2); Carbon Dioxide 30 mmol/L (22-30); Chloride 99 mmol/L (98-107); Glucose 113 mg/dL (74-99); Non-African American GFR(CKD) 11 (>60 ml/min/1.73 sqM); Potassium 3.6 mmol/L (3.5-5.1); Sodium 134 mmol/L (137-145)
--- NOTE | 2024-10-17 09:43 | P.PN ---
Subjective Patient was seen in follow-up for acute kidney injury on chronic kidney disease. Started on hemodialysis October 09, 2024 via right femoral catheter. Now has permacath. Poor historian. Has Linares catheter. Oliguric. No active complaints. Vital signs are stable. General: No acute distress. HEENT: Head exam is unremarkable. On nasal cannula. LUNGS: No audible rhonchi or wheezes. HEART: Rate and Rhythm are regular. ABDOMEN: Nontender. EXTREMITITES: Trace edema. Objective - Vital Signs Vital signs: Vital Signs Temp 97.9 F 10/17/24 04:50 Pulse 76 10/17/24 07:55 Resp 19 10/17/24 04:50 BP 151/79 10/17/24 04:50 Pulse Ox 98 10/17/24 07:43 FiO2 Intake & Output 10/16/24 10/17/24 10/17/24 18:59 06:59 18:59 Intake Total 110 130 110 Output Total 200 150 Balance -90 -20 110 Weight 78 kg Intake: IV 10 Invasive Line 5 10 Oral 110 120 110 Output: Urine 200 150 Stool 0 Other: Voiding Method Indwelling Catheter Indwelling Catheter - Labs CBC & Chem 7: 10/17/24 07:07 10/17/24 07:07 Labs: Abnormal Lab Results - Last 24 Hours (Table) 10/16/24 10/16/24 10/16/24 Range/Units 09:25 09:25 11:11 RBC (3.80-5.40) m/uL Hgb 11.1 L (11.4-16.0) gm/dL Hct (34.0-46.0) % MCHC 30.7 L (31.0-37.0) g/dL Neutrophils # 7.8 H (1.3-7.7) k/uL Lymphocytes # 0.6 L (1.0-4.8) k/uL Sodium 133 L (137-145) mmol/L Potassium 3.1 L (3.5-5.1) mmol/L Chloride 96 L (98-107) mmol/L Carbon Dioxide 32 H (22-30) mmol/L BUN (7-17) mg/dL Creatinine 2.75 H (0.52-1.04) mg/dL Glucose 127 H (74-99) mg/dL POC Glucose (mg/dL) 123 H (70-110) mg/dL 10/16/24 10/17/24 10/17/24 Range/Units 16:07 06:05 07:07 RBC 3.72 L (3.80-5.40) m/uL Hgb 10.7 L (11.4-16.0) gm/dL Hct 33.6 L (34.0-46.0) % MCHC (31.0-37.0) g/dL Neutrophils # (1.3-7.7) k/uL Lymphocytes # 0.6 L (1.0-4.8) k/uL Sodium (137-145) mmol/L Potassium (3.5-5.1) mmol/L Chloride (98-107) mmol/L Carbon Dioxide (22-30) mmol/L BUN (7-17) mg/dL Creatinine (0.52-1.04) mg/dL Glucose (74-99) mg/dL POC Glucose (mg/dL) 200 H 114 H (70-110) mg/dL 10/17/24 Range/Units 07:07 RBC (3.80-5.40) m/uL Hgb (11.4-16.0) gm/dL Hct (34.0-46.0) % MCHC (31.0-37.0) g/dL Neutrophils # (1.3-7.7) k/uL Lymphocytes # (1.0-4.8) k/uL Sodium 134 L (137-145) mmol/L Potassium (3.5-5.1) mmol/L Chloride (98-107) mmol/L Carbon Dioxide (22-30) mmol/L BUN 18 H (7-17) mg/dL Creatinine 3.60 H (0.52-1.04) mg/dL Glucose 113 H (74-99) mg/dL POC Glucose (mg/dL) (70-110) mg/dL Assessment and Plan Plan: Assessment: 1. Acute kidney injury secondary to ATN secondary to volume depletion and infection. No evidence of obstructive uropathy. Started on hemodialysis October 09, 2024 via right femoral catheter. Now has permacath. Creatinine as high as 9.63 this admission. Oliguric. 2. Chronic kidney disease stage IIIb with baseline creatinine 1.4-1.6 secondary to diabetic kidney disease. 3. E. coli UTI s/p antibiotics. 4. Metabolic acidosis secondary to acute kidney injury. Improved postdialysis. 5. Hypertension with chronic kidney disease. Controlled. 6. Diabetes mellitus. 7. Acute GI bleed status post EGD which showed recently bleeding duodenal ulcer. Surgery following. Plan: Hemodialysis Friday. Will be maintained on Friday schedule outpatient at [facility]. Maintain torsemide. Monitor for renal recovery. Phosphorus level 4.1 dated October 12, 2024. Follow-up serologies. Negative so far.
[2024-10-17 11:20] LABS: Glucose,Whole Blood 116 mg/dL (70-110)
--- NOTE | 2024-10-17 15:21 | P.PN ---
Subjective Progress Note Date: 10/17/24 CHIEF COMPLAINT: Acute GI bleed HISTORY OF PRESENT ILLNESS: The patient is a 84-year-old female who presented with GI bleed. She had upper endoscopy demonstrating acute duodenal ulcer with bleeding. She did not have a lower endoscopy upon this admission. She is now on hemodialysis. She denies any epigastric pain. No reports of blood in stools. REVIEW OF ORGAN SYSTEMS: No fevers or chills. No acute shortness of breath. PHYSICAL EXAM: VITALS: Reviewed CONSTITUTIONAL: Well developed and in no acute distress. EYES: Conjuctivae without sclera icterus. Extraocular movements grossly intact. HEAD, EARS, NOSE, THROAT: Moist buccal mucosa. Head is atraumatic, normocephalic. Hears conversational speech. No nasal drainage. RESPIRATORY: Non-labored respirations and equal bilateral excursions. No gross wheezes. CARDIOVASCULAR: Palpable 2+ radial pulses. ABDOMEN: Obese. Nontender. MUSCULOSKELETAL: No clubbing cyanosis or edema SKIN: Warm and well perfused with good skin turgor. NEUROLOGIC: Cranial nerves II through XII grossly intact. No focal or lateralizing signs. PSYCH: Appropriate affect. Alert and oriented to person. CLINCAL LABS: Reviewed. Hemoglobin improved to 12.1 now declined to 10.7. ASSESSMENT: 1. Acute GI bleed with melena due to acute duodenal ulcer 2. Acute anemia 3. Acute renal failure, dialysis intervention needed 4. Chronic obstructive pulmonary disease with asthma 5. Congestive heart failure with hypertensive heart disease 6. Diabetes type 2, dialysis dependent 7. Hypertensive and diabetic nephropathy 8. Hypomagnesia 9. E. coli urinary tract infection PLAN: 1. Patient's hemoglobin had gone up and declined. At some point, may benefit from colonoscopy/lower endoscopy upon this admission due to decline in hemoglobin. 2. Will adjust diet to low fiber diet to mitigate any irritation of her duodenal ulcer. Objective - Vital Signs Vital signs: Vital Signs Temp 98.0 F 10/17/24 12:00 Pulse 80 10/17/24 12: Resp 10/17/24 12:00 BP 124/58 10/17/24 12:00 Pulse Ox 97 10/17/24 12:00 FiO2 Intake & Output 10/16/24 10/17/24 10/17/24 18:59 06:59 18:59 Intake Total 110 130 110 Output Total 200 150 100 Balance -90 -20 10 Weight 78 kg Intake: IV 10 Invasive Line 5 10 Oral 110 120 110 Output: Urine 200 150 100 Stool 0 Other: Voiding Method Indwelling Catheter Indwelling Catheter Indwelling Catheter # Bowel Movements 1 - Labs CBC & Chem 7: 10/17/24 07:07 10/17/24 07:07 Labs: Abnormal Lab Results - Last 24 Hours (Table) 10/16/24 10/17/24 10/17/24 Range/Units 16:07 06:05 07:07 RBC 3.72 L (3.80-5.40) m/uL Hgb 10.7 L (11.4-16.0) gm/dL Hct 33.6 L (34.0-46.0) % Lymphocytes # 0.6 L (1.0-4.8) k/uL Sodium (137-145) mmol/L BUN (7-17) mg/dL Creatinine (0.52-1.04) mg/dL Glucose (74-99) mg/dL POC Glucose (mg/dL) 200 H 114 H (70-110) mg/dL 10/17/24 10/17/24 Range/Units 07:07 11:18 RBC (3.80-5.40) m/uL Hgb (11.4-16.0) gm/dL Hct (34.0-46.0) % Lymphocytes # (1.0-4.8) k/uL Sodium 134 L (137-145) mmol/L BUN 18 H (7-17) mg/dL Creatinine 3.60 H (0.52-1.04) mg/dL Glucose 113 H (74-99) mg/dL POC Glucose (mg/dL) 116 H (70-110) mg/dL
--- NOTE | 2024-10-17 15:31 | P.PN ---
Subjective Progress Note Date: 10/17/24 83-year-old female was transferred from a fdc to her district in from [facility] to here weekly dose of acute renal failure with serum creatinine going up to 8.5 baseline around 1.3. Patient has longstanding history of major depression and is on multiple antidepressants and antianxiety medications has been in fdc as her was unable to take care of the patient. Patient does have some memory loss appears to have mild to moderate dementia occasional agitation episodes. Patient denies any fever chills dysuria nausea vomiting abdominal pain increased urinary urgency or frequency but patient has not been urinating. Renal ultrasound was done which showed incidental finding of cholelithiasis without any evidence of cholecystitis. Patient urine is significantly abnormal with highly elevated white count patient does not have any fever or leukocytosis. Patient is on losartan as well as along with diuretics for congestive heart failure patient has a normal systolic function appears to have chronic diastolic function has admissions in the past for heart failure exacerbations. 24-hour interval change 10/17/2024 Patient is seen and evaluated resting comfortably in bed Patient presented with GI bleed. She had upper endoscopy demonstrating acute duodenal ulcer with bleeding. She did not have a lower endoscopy upon this admission. She is now on hemodialysis. She denies any epigastric pain. No reports of blood in stools. Hemoglobin remained stable at 10.7 -- Patient to have next hemodialysis session tomorrow with plans to continue o utpatient hemodialysis every Friday, Friday and Friday Objective - Vital Signs Vital signs: Vital Signs Temp 98.0 F 10/17/24 12:00 Pulse 80 10/17/24 12: Resp 22 10/17/24 12:00 BP 124/58 10/17/24 12:00 Pulse Ox 97 10/17/24 12:00 FiO2 Intake & Output 10/16/24 10/17/24 10/17/24 18:59 06:59 18:59 Intake Total 110 130 110 Output Total 200 150 Balance -90 -20 110 Weight 78 kg Intake: IV 10 Invasive Line 5 10 Oral 110 120 110 Output: Urine 200 150 Stool 0 Other: Voiding Method Indwelling Catheter Indwelling Catheter Indwelling Catheter - Exam GENERAL: The patient is alert and oriented x2, not in any acute distress. Well developed, well nourished. Obese appears to be severely depressed. HEENT: Pupils are round and equally reacting to light. EOMI. No scleral icterus. No conjunctival pallor. Normocephalic, atraumatic. No pharyngeal erythema. No thyromegaly. CARDIOVASCULAR: S1 and S2 present. No murmurs, rubs, or gallops. PULMONARY: Chest is clear to auscultation, no wheezing or crackles. ABDOMEN: Soft, nontender, nondistended, normoactive bowel sounds. No palpable organomegaly. MUSCULOSKELETAL: No joint swelling or deformity. EXTREMITIES: No cyanosis, clubbing, or pedal edema. NEUROLOGICAL: Gross neurological examination did not reveal any focal deficits. SKIN: No rashes. - Labs CBC & Chem 7: 10/17/24 07:07 10/17/24 07:07 Labs: Abnormal Lab Results - Last 24 Hours (Table) 10/16/24 10/17/24 10/17/24 Range/Units 16:07 06:05 07:07 RBC 3.72 L (3.80-5.40) m/uL Hgb 10.7 L (11.4-16.0) gm/dL Hct 33.6 L (34.0-46.0) % Lymphocytes # 0.6 L (1.0-4.8) k/uL Sodium (137-145) mmol/L BUN (7-17) mg/dL Creatinine (0.52-1.04) mg/dL Glucose (74-99) mg/dL POC Glucose (mg/dL) 200 H 114 H (70-110) mg/dL 10/17/24 10/17/24 Range/Units 07:07 11:18 RBC (3.80-5.40) m/uL Hgb (11.4-16.0) gm/dL Hct (34.0-46.0) % Lymphocytes # (1.0-4.8) k/uL Sodium 134 L (137-145) mmol/L BUN 18 H (7-17) mg/dL Creatinine 3.60 H (0.52-1.04) mg/dL Glucose 113 H (74-99) mg/dL POC Glucose (mg/dL) 116 H (70-110) mg/dL Assessment and Plan Assessment: -Acute renal failure secondary to acute tubular necrosis patient has poor p.o. intake and UTI may have contributed to her acute tubular necrosis patient has been started hemodialysis -Hyperkalemia secondary to acute renal failure improved with lokelma and plans to start hemodialysis. -Possible urinary tract infection patient is on Rocephin which will be continued urine culture showing E. coli -Acute upper GI bleed with findings of an acute duodenal bleeding ulcer on EGD patient will need to hold her Eliquis for 3 to 4 weeks and has been started on Carafate. General surgery recommending a course of oral Protonix twice a day if cleared by nephrology. -Cholelithiasis incidental finding no further intervention at this time -Dementia supportive care PT and OT evaluation Seroquel as needed at nighttime -Congestive heart failure chronic diastolic function without any acute exacerbation. -Hypertension hold off on losartan -Atrial fibrillation paroxysmal presently rate controlled continue with rate control medications -COPD without any acute exacerbation patient has chronic hypercapnic respiratory failure uses 2 L of oxygen presently on 2 L of oxygen -Obesity -Possibility of senile dementia/vascular dementia -Hypertension holding of losartan because of hyperkalemia and acute renal failure -Type 2 diabetes mellitus patient will be on sliding scale insulin hold of Actos
[2024-10-17 17:09] LABS: Glucose,Whole Blood 128 mg/dL (70-110)
[2024-10-17 20:00] LABS: Glucose,Whole Blood 154 mg/dL (70-110)
[2024-10-18 05:54] LABS: Glucose,Whole Blood 123 mg/dL (70-110)
[2024-10-18 07:59] LABS: African American GFR (CKD) 10 (>60 ml/min/1.73 sqM); Anion Gap 8 mmol/L; Blood Urea Nitrogen 25 mg/dL (7-17); Calcium 9.1 mg/dL (8.4-10.2); Carbon Dioxide 26 mmol/L (22-30); Chloride 102 mmol/L (98-107); Glucose 104 mg/dL (74-99); Non-African American GFR(CKD) 9 (>60 ml/min/1.73 sqM); Sodium 136 mmol/L (137-145)
[2024-10-18 08:08] LABS: Potassium 3.9 mmol/L (3.5-5.1)
--- NOTE | 2024-10-18 10:18 | P.PN ---
Subjective Patient was seen in follow-up for acute kidney injury on chronic kidney disease. Started on hemodialysis October 09, 2024 via right femoral catheter. Now has permacath. Poor historian. Has Linares catheter. Tolerating dialysis well. Vital signs are stable. General: No acute distress. HEENT: Head exam is unremarkable. On nasal cannula. LUNGS: No audible rhonchi or wheezes. HEART: Rate and Rhythm are regular. ABDOMEN: Nontender. EXTREMITITES: Trace edema. Objective - Vital Signs Vital signs: Vital Signs Temp 97.9 F 10/18/24 04:00 Pulse 80 10/18/24 08:59 Resp 18 10/18/24 04:00 BP 151/76 10/18/24 04:00 Pulse Ox 96 10/18/24 08:49 FiO2 Intake & Output 10/17/24 10/18/24 10/18/24 18:59 06:59 18:59 Intake Total 110 690 Output Total 100 Balance 10 690 Weight 80 kg Intake: IV 30 Invasive Line 5 20 Invasive Line 6 10 Oral 110 660 Output: Urine 100 Other: Voiding Method Indwelling Catheter Indwelling Catheter # Bowel Movements 1 - Labs CBC & Chem 7: 10/17/24 07:07 10/18/24 06:36 Labs: Abnormal Lab Results - Last 24 Hours (Table) 10/17/24 10/17/24 10/17/24 Range/Units 11:18 16:09 19:59 Sodium (137-145) mmol/L BUN (7-17) mg/dL Creatinine (0.52-1.04) mg/dL Glucose (74-99) mg/dL POC Glucose (mg/dL) 116 H 128 H 154 H (70-110) mg/dL 10/18/24 10/18/24 Range/Units 05:52 06:36 Sodium 136 L (137-145) mmol/L BUN 25 H (7-17) mg/dL Creatinine 4.28 H (0.52-1.04) mg/dL Glucose 104 H (74-99) mg/dL POC Glucose (mg/dL) 123 H (70-110) mg/dL Assessment and Plan Plan: Assessment: 1. Acute kidney injury secondary to ATN secondary to volume depletion and infection. No evidence of obstructive uropathy. Started on hemodialysis October 09, 2024 via right femoral catheter. Now has permacath. Creatinine as high as 9.63 this admission. Oliguric. Creatinine 4.28 today. 2. Chronic kidney disease stage IIIb with baseline creatinine 1.4-1.6 secondary to diabetic kidney disease. 3. E. coli UTI s/p antibiotics. 4. Metabolic acidosis secondary to acute kidney injury. Improved postdialysis. 5. Hypertension with chronic kidney disease. Controlled. 6. Diabetes mellitus. 7. Acute GI bleed status post EGD which showed recently bleeding duodenal ulcer. Surgery following. Plan: Currently seen while undergoing hemodialysis. Will be maintained on Friday schedule outpatient at [facility]. Maintain torsemide. Monitor for renal recovery. Phosphorus level 4.1 dated October 12, 2024. Follow-up serologies. Negative so far.
[2024-10-18 11:45] LABS: Glucose,Whole Blood 104 mg/dL (70-110)
--- NOTE | 2024-10-18 14:54 | P.PN ---
Subjective Progress Note Date: 10/18/24 CHIEF COMPLAINT: GI bleed HISTORY OF PRESENT ILLNESS: Patient has no new complaints. She is getting hemo dialysis. No blood reported in the stools. Hemoglobin is 10.7. Patient did have a drop in hemoglobin over the weekend. She is status post EGD on 10/11/24 with results reporting acute GI bleed due to bleeding duodenal ulcer and acute gastritis with bleeding. PHYSICAL EXAM: VITAL SIGNS: Reviewed GENERAL: Well-developed in no acute distress. HEENT: No sclera icterus. Extraocular movements grossly intact. Moist buccal mucosa. Head is atraumatic, normocephalic. Hears conversational speech. No nasal drainage. NECK: Supple without lymphadenopathy. CHEST: Non-labored respirations and equal bilateral excursions. CARDIOVASCULAR: Palpable 2+ radial pulses. ABDOMEN: Soft. Nondistended. Nontender. MUSCULOSKELETAL: No clubbing or cyanosis. NEUROLOGIC: No focal or lateralizing signs. Cranial nerves II through XII grossly intact. PSYCH: Appropriate affect. Awake and alert. SKIN: Well perfused. Good skin turgor. ASSESSMENT: 1. Acute gastrointestinal bleeding due to bleeding duodenal ulcer 2. Acute gastritis with bleeding 3. Acute kidney injury with chronic kidney disease started on hemodialysis 4. UTI PLAN: -Patient scheduled for colonoscopy tomorrow due to the decline in her hemoglobin. Discussed case with nephrology who cleared patient to proceed with colonoscopy. -Clear liquid diet today -Nulytely bowel prep with lactulose and a dose of milk of mag for bowel prep -Avoid blood thinners for 3 to 4 weeks due to acute bleeding duodenal ulcer -Continue Protonix twice a day and Carafate 1 g 3 times a day added for duodenal ulcer Physician Hims Clerk note has been reviewed by physician. Signing provider agrees with the documented findings, assessment, and plan of care. As above. Please see additional documentation below. CHIEF COMPLAINT: GI bleed HISTORY OF PRESENT ILLNESS: The patient is a 84-year-old female being followed for GI bleed. Patient did have additional decline in hemoglobin for which lower endoscopy was not previously performed. No reports of abdominal pain. ROS: No reports of nausea and vomiting. No fevers or chills. No new chest pain. No productive sputum PHYSICAL EXAM: VITAL SIGNS: Reviewed CONSTITUTIONAL: Well developed and in no acute distress. EYES: Conjuctivae without sclera icterus. Extraocular movements grossly intact. HEAD, EARS, NOSE, THROAT: Moist buccal mucosa. Head is atraumatic, normocephalic. Hears conversational speech. No nasal drainage. RESPIRATORY: Non-labored respirations and equal bilateral excursions. CARDIOVASCULAR: Palpable 2+ radial pulses. ABDOMEN: Obese. No peritonitis. MUSCULOSKELETAL: No gross deformity of the lower extremities noted. No clubbing. No cyanosis. SKIN: Good skin turgor. Well perfused. NEUROLOGIC: Cranial nerves II through XII grossly intact. No focal or lateralizing signs. PSYCH: Appropriate affect. Alert and oriented to person, place and time. CLINICAL LABS: Reviewed. Hemoglobin down 11.1 to 10.7, anemia ASSESSMENT: 1. Anemia GI bleed due to bleeding duodenal ulcer 2. Acute gastrointestinal bleeding PLAN: 1. As her blood count continues to decline, will proceed with colonoscopy. Clearance from nephrology obtained. 2. Patient is elevated risk due to dialysis and comorbidities. Objective - Vital Signs Vital signs: Vital Signs Temp 97.9 F 10/18/24 12:00 Pulse 65 10/18/24 14:00 Resp 16 10/18/24 14:00 BP 120/75 10/18/24 12:00 Pulse Ox 96 10/18/24 12:00 FiO2 Intake & Output 10/17/24 10/18/24 10/18/24 18:59 06:59 18:59 Intake Total 110 690 118 Output Total 100 12 Balance 10 690 106 Weight 80 kg Intake: IV 30 Invasive Line 5 20 Invasive Line 6 10 Oral 110 660 118 Output: Urine 100 Post Void Residual 12 Stool 0 Other: Voiding Method Indwelling Catheter Indwelling Catheter Indwelling Catheter # Bowel Movements 1 - Labs CBC & Chem 7: 10/19/24 08:07 10/19/24 06:37 Labs: Abnormal Lab Results - Last 24 Hours (Table) 10/17/24 10/17/24 10/18/24 Range/Units 16:09 19:59 05:52 Sodium (137-145) mmol/L BUN (7-17) mg/dL Creatinine (0.52-1.04) mg/dL Glucose (74-99) mg/dL POC Glucose (mg/dL) 128 H 154 H 123 H (70-110) mg/dL 10/18/24 Range/Units 06:36 Sodium 136 L (137-145) mmol/L BUN 25 H (7-17) mg/dL Creatinine 4.28 H (0.52-1.04) mg/dL Glucose 104 H (74-99) mg/dL POC Glucose (mg/dL) (70-110) mg/dL
[2024-10-18 17:00] LABS: Glucose,Whole Blood 88 mg/dL (70-110)
[2024-10-18] MEDS: ALPRAZolam 1 MG TAB PO STA (17:20)
[2024-10-18 20:35] LABS: Glucose,Whole Blood 111 mg/dL (70-110)
[2024-10-18] MEDS: ALPRAZolam 1 MG TAB PO PRN (23:37)
[2024-10-19 06:15] LABS: Glucose,Whole Blood 95 mg/dL (70-110)
--- NOTE | 2024-10-19 06:58 | P.PN ---
Subjective Progress Note Date: 10/18/24 83-year-old female was transferred from a long term to her district in from [facility] to here weekly dose of acute renal failure with serum creatinine going up to 8.5 baseline around 1.3. Patient has longstanding history of major depression and is on multiple antidepressants and antianxiety medications has been in long term as her was unable to take care of the patient. Patient does have some memory loss appears to have mild to moderate dementia occasional agitation episodes. Patient denies any fever chills dysuria nausea vomiting abdominal pain increased urinary urgency or frequency but patient has not been urinating. Renal ultrasound was done which showed incidental finding of cholelithiasis without any evidence of cholecystitis. Patient urine is significantly abnormal with highly elevated white count patient does not have any fever or leukocytosis. Patient is on losartan as well as along with diuretics for congestive heart failure patient has a normal systolic function appears to have chronic diastolic function has admissions in the past for heart failure exacerbations. 24-hour interval change 10/17/2024 Patient is seen and evaluated resting comfortably in bed Patient presented with GI bleed. She had upper endoscopy demonstrating acute duodenal ulcer with bleeding. She did not have a lower endoscopy upon this admission. She is now on hemodialysis. She denies any epigastric pain. No reports of blood in stools. Hemoglobin remained stable at 10.7 -- Patient to have next hemodialysis session tomorrow with plans to continue outpatient hemodialysis every Friday, Friday and Friday10/18/2024 Patient is seen in follow-up today with multiple consultations following. Nephrology following and patient is maintained on hemodialysis and scheduled to receive dialysis today. Plan is for Friday/Friday/Friday. Patient resides at [facility] with plans on returning there on discharge. Given the holiday coming up on Friday, unsure if patient can discharge and receive dialysis on appropriate days. Will discuss with case management as well as nephrology regarding discharge planning. Patient continues to be confused at baseline and will increase anxiety meds slightly. Patient is afebrile with no reported chest pain or shortness of breath. Patient is currently maintained on 2 to 3 L via nasal cannula. Review of systems: Unable to completely assess given patient's mentation Physical exam: GENERAL: The patient is alert and oriented x1, baseline not in any acute distress. Well developed, elderly appearing, ill-appearing. Obese appears to be severely depressed. HEENT: Pupils are round and equally reacting to light. EOMI. No scleral icterus. No conjunctival pallor. Normocephalic, atraumatic. No pharyngeal erythema. No thyromegaly. CARDIOVASCULAR: S1 and S2 muffled PULMONARY: Diminished breath sounds bilaterally otherwise chest is clear to auscultation, no wheezing or crackles. Upper bronchial congestion noted ABDOMEN: Soft, nontender, nondistended, normoactive bowel sounds. No palpable organomegaly. MUSCULOSKELETAL: No joint swelling or deformity. EXTREMITIES: No cyanosis, clubbing, or pedal edema. NEUROLOGICAL: Gross neurological examination did not reveal any focal deficits. Diffusely weak SKIN: No rashes. Assessment: -Acute renal failure secondary to acute tubular necrosis patient has poor p.o. intake and UTI may have contributed to her acute tubular necrosis patient has been started hemodialysis, has a permacath and will be scheduled for Friday/Friday/Friday -Hyperkalemia secondary to acute renal failure improved -Acute urinary tract infection, present on admission patient is on Rocephin which will be continued urine culture showing E. coli -Acute upper GI bleed with findings of an acute duodenal bleeding ulcer on EGD patient will need to hold her Eliquis for 3 to 4 weeks and has been started on Carafate. General surgery recommending a course of oral Protonix twice a day if cleared by nephrology. Patient family refusing colonoscopy at this time -Cholelithiasis incidental finding no further intervention at this time -Dementia -Congestive heart failure chronic diastolic function without any acute exacerbation. -Hypertension -Atrial fibrillation paroxysmal, presently rate controlled and -COPD without any acute exacerbation patient has chronic hypercapnic respiratory failure uses 2 L of oxygen presently on 2 L of oxygen -Obesity -Type 2 diabetes mellitus patient will be on sliding scale insulin hold of Actos GI prophylaxis DVT prophylaxis Full code Plan: Patient has received permacath and is maintained on dialysis and scheduled to receive today. Patient will continue Friday/Friday/Friday. Case management/social work following and will discuss further regarding discharge planning as [place] is on Friday and unsure if dialysis is ongoing during this day. Per nephrology patient will receive dialysis again on Friday and will discuss regarding discharge planning Plan will be for patient to return to [facility] where she resides on discharge Follow-up on repeat labs and monitor closely Adjusted anxiety medications as patient becomes increasingly agitated. Continue with Seroquel at night Due to multiple complex medical issues, overall prognosis is guarded The impression and plan of care has been dictated by Keya Viera, Nurse Practitioner as directed. Dr. Cristobal MD I have performed a history and examination and MDM of this patient, discussed the same with the dictator, and agree with the dictator's assessment and plan as written ,documented as a scribe. Based on total visit time, I have performed more than 50% of the visit. Objective - Vital Signs Vital signs: Vital Signs Temp 98.1 F 10/19/24 03:31 Pulse 82 10/19/24 03:31 Resp 18 10/19/24 03:31 BP 158/72 10/19/24 03:31 Pulse Ox 95 10/19/24 03:31 FiO2 Intake & Output 10/18/24 10/18/24 10/19/24 06:59 18:59 06:59 Intake Total 690 2258 Output Total 1912 0 Balance 690 346 0 Weight 80 kg 82.9 kg Intake: IV 30 Invasive Line 5 20 Invasive Line 6 10 Oral 660 358 Hemodialysis 1900 Output: Post Void Residual 12 Stool 0 0 Hemodialysis 400 Hemodialysis Net Amount 1500 Other: Voiding Method Indwelling Catheter Indwelling Catheter Bedpan Diaper - Labs CBC & Chem 7: 10/17/24 07:07 10/18/24 06:36 Labs: Abnormal Lab Results - Last 24 Hours (Table) 10/18/24 10/18/24 10/18/24 Range/Units 05:52 06:36 20:34 Sodium 136 L (137-145) mmol/L BUN 25 H (7-17) mg/dL Creatinine 4.28 H (0.52-1.04) mg/dL Glucose 104 H (74-99) mg/dL POC Glucose (mg/dL) 123 H 111 H (70-110) mg/dL
[2024-10-19 07:49] LABS: African American GFR (CKD) 19 (>60 ml/min/1.73 sqM); Anion Gap 5 mmol/L; Blood Urea Nitrogen 13 mg/dL (7-17); Calcium 8.5 mg/dL (8.4-10.2); Carbon Dioxide 31 mmol/L (22-30); Chloride 95 mmol/L (98-107); Glucose 90 mg/dL (74-99); Magnesium 1.7 mg/dL (1.6-2.3); Non-African American GFR(CKD) 16 (>60 ml/min/1.73 sqM); Potassium 3.7 mmol/L (3.5-5.1); Sodium 131 mmol/L (137-145)
[2024-10-19] MEDS: LACTULOSE 20 GM/30 ML CUP PO SCH (08:24)
[2024-10-19] MEDS: MAGNESIUM HYDROXIDE 2,400 MG/30 ML CUP PO SCH (08:26)
[2024-10-19] MEDS: PEG 3350 (420 GM/BTL) + LYTES 4,000 ML BOTTLE PO ONE (08:31)
[2024-10-19 08:58] LABS: Basophils # (A) 0.1 k/uL (0-0.2); Basophils % (A) 1 %; Eosinophils # (A) 0.2 k/uL (0-0.7); Eosinophils % (A) 3 %; HCT 38.6 % (34.0-46.0); HGB 11.9 gm/dL (11.4-16.0); Hypochromasia Marked; Lymphocytes # (A) 0.8 k/uL (1.0-4.8); Lymphocytes % (A) 11 %; MCH 29.5 pg (25.0-35.0); MCHC 30.8 g/dL (31.0-37.0); Mean Platelet Volume 8.6; Monocytes # (A) 0.6 k/uL (0-1.0); Monocytes % (A) 8 %; Neutrophils # (A) 5.7 k/uL (1.3-7.7); Neutrophils % (A) 75 %; Platelet Count 260 k/uL (150-450); RBC 4.03 m/uL (3.80-5.40); RDW 14.4 % (11.5-15.5); WBC 7.6 k/uL (3.8-10.6)
[2024-10-19 08:59] LABS: MCV 95.9 fL (80.0-100.0)
--- NOTE | 2024-10-19 10:21 | P.PN ---
Progress Note - Text Progress Note Date: 10/18/24 Patient reassessed since. at bedside. Patient and has declined colonoscopy. "I want mashed potatoes." Hemoglobin has improved. Will cancel colonoscopy. Will sign off. Please reconsult if needed.
--- NOTE | 2024-10-19 10:43 | P.PN ---
Subjective Patient was seen in follow-up for acute kidney injury on chronic kidney disease. Started on hemodialysis October 09, 2024 via right femoral catheter. Now has permacath. Poor historian. Linares catheter removed. Tolerated 1.5 L ultrafiltration yesterday. Vital signs are stable. General: No acute distress. HEENT: Head exam is unremarkable. On nasal cannula. LUNGS: No audible rhonchi or wheezes. HEART: Rate and Rhythm are regular. ABDOMEN: Nontender. EXTREMITITES: Trace edema. Objective - Vital Signs Vital signs: Vital Signs Temp 97.6 F 10/19/24 08:22 Pulse 78 10/19/24 08:48 Resp 18 10/19/24 08:48 BP 139/74 10/19/24 08:22 Pulse Ox 98 10/19/24 08:39 FiO2 Intake & Output 10/18/24 10/19/24 10/19/24 18:59 06:59 18:59 Intake Total 2258 Output Total 1912 0 0 Balance 346 0 0 Weight 82.9 kg Intake: Oral 358 Hemodialysis 1900 Output: Post Void Residual 12 Stool 0 0 0 Hemodialysis 400 Hemodialysis Net Amount 1500 Other: Voiding Method Indwelling Catheter Bedpan Bedpan Diaper Diaper - Labs CBC & Chem 7: 10/19/24 08:07 10/19/24 06:37 Labs: Abnormal Lab Results - Last 24 Hours (Table) 10/18/24 10/19/24 10/19/24 Range/Units 20:34 06:37 08:07 MCHC 30.8 L (31.0-37.0) g/dL Lymphocytes # 0.8 L (1.0-4.8) k/uL Sodium 131 L (137-145) mmol/L Chloride 95 L (98-107) mmol/L Carbon Dioxide 31 H (22-30) mmol/L Creatinine 2.64 H (0.52-1.04) mg/dL POC Glucose (mg/dL) 111 H (70-110) mg/dL Assessment and Plan Plan: Assessment: 1. Acute kidney injury secondary to ATN secondary to volume depletion and infection. No evidence of obstructive uropathy. Started on hemodialysis October 09, 2024 via right femoral catheter. Now has permacath. Creatinine as high as 9.63 this admission. Oliguric. 2. Chronic kidney disease stage IIIb with baseline creatinine 1.4-1.6 secondary to diabetic kidney disease. 3. E. coli UTI s/p antibiotics. 4. Metabolic acidosis secondary to acute kidney injury. Improved postdialysis. 5. Hypertension with chronic kidney disease. Controlled. 6. Diabetes mellitus. 7. Acute GI bleed status post EGD which showed recently bleeding duodenal ulcer. Surgery following. Plan: Hemodialysis today due to holiday schedule. Will be maintained on Friday schedule outpatient at [facility]. Maintain torsemide. Monitor for renal recovery outpatient. Phosphorus level 4.1 dated October 12, 2024. Follow-up serologies. Negative so far. Potential discharge to rehab today.
[2024-10-19 11:54] LABS: Glucose,Whole Blood 98 mg/dL (70-110)
[2024-10-19 16:32] LABS: Glucose,Whole Blood 104 mg/dL (70-110)
--- NOTE | 2024-10-19 20:01 | PN ---
PROGRESS NOTE DATE OF SERVICE: 10/19/2024 SUBJECTIVE: This is an 84-year-old woman, who was admitted with acute renal failure secondary to acute tubular necrosis, was on dialysis. PermCath has been placed. Colonoscopy was declined by the patient. OBJECTIVE: VITAL SIGNS: Pulse is 78, blood pressure 139/74, respirations 18. CHEST: Clear to auscultation. CARDIOVASCULAR: S1, S2. ABDOMEN: Soft. NERVOUS SYSTEM: Diffusely weak. LABORATORY DATA: Reviewed. ASSESSMENT: 1. Acute renal failure secondary to acute tubular necrosis. 2. Hyperkalemia. 3. Acute urinary tract infection. 4. Acute upper gastrointestinal bleed. 5. Cholelithiasis. 6. Multiple complex medical issues. 7. Gait dysfunction. RECOMMENDATIONS AND DISCUSSION: Recommend to continue current management and continue symptomatic treatment. I would recommend repeat labs. PT/OT evaluation. Possible ECF rehab. Further recommendations to follow. MMODL / IJN: [id number] /
[2024-10-19 20:26] LABS: Glucose,Whole Blood 102 mg/dL (70-110)
[2024-10-20 06:14] LABS: Glucose,Whole Blood 116 mg/dL (70-110)
[2024-10-20 07:52] LABS: Basophils # (A) 0.1 k/uL (0-0.2); Basophils % (A) 1 %; Eosinophils # (A) 0.2 k/uL (0-0.7); Eosinophils % (A) 2 %; HCT 35.1 % (34.0-46.0); HGB 10.6 gm/dL (11.4-16.0); Hypochromasia Marked; Lymphocytes # (A) 0.7 k/uL (1.0-4.8); Lymphocytes % (A) 7 %; MCH 27.9 pg (25.0-35.0); MCHC 30.3 g/dL (31.0-37.0); Mean Platelet Volume 8.6; Monocytes # (A) 0.7 k/uL (0-1.0); Monocytes % (A) 8 %; Neutrophils # (A) 7.9 k/uL (1.3-7.7); Neutrophils % (A) 81 %; Platelet Count 252 k/uL (150-450); RBC 3.81 m/uL (3.80-5.40); RDW 14.6 % (11.5-15.5); WBC 9.7 k/uL (3.8-10.6)
[2024-10-20 08:11] LABS: African American GFR (CKD) 24 (>60 ml/min/1.73 sqM); Anion Gap 5 mmol/L; Blood Urea Nitrogen 7 mg/dL (7-17); Calcium 8.9 mg/dL (8.4-10.2); Carbon Dioxide 31 mmol/L (22-30); Chloride 95 mmol/L (98-107); Glucose 105 mg/dL (74-99); Non-African American GFR(CKD) 21 (>60 ml/min/1.73 sqM); Potassium 3.6 mmol/L (3.5-5.1); Sodium 131 mmol/L (137-145)
--- NOTE | 2024-10-20 10:08 | P.PN ---
Subjective Patient was seen in follow-up for acute kidney injury on chronic kidney disease. Started on hemodialysis October 09, 2024 via right femoral catheter. Now has permacath. Poor historian. Linares catheter removed. Tolerated 1 L ultrafiltration yesterday. Vital signs are stable. General: No acute distress. HEENT: Head exam is unremarkable. On nasal cannula. LUNGS: No audible rhonchi or wheezes. HEART: Rate and Rhythm are regular. ABDOMEN: Nontender. EXTREMITITES: Trace edema. Objective - Vital Signs Vital signs: Vital Signs Temp 98.1 F 10/20/24 08:49 Pulse 88 10/20/24 08:49 Resp 18 10/20/24 08:49 BP 116/61 10/20/24 08:49 Pulse Ox 98 10/20/24 08:49 FiO2 Intake & Output 10/19/24 10/20/24 10/20/24 18:59 06:59 18:59 Intake Total 720 10 Output Total 0 2600 Balance 0 -1880 10 Weight 80.7 kg Intake: IV 10 Invasive Line 6 10 Oral 120 Hemodialysis 600 Output: Stool 0 0 Hemodialysis 1600 Hemodialysis Net Amount 1000 Other: Voiding Method Bedpan Bedpan Bedpan Diaper Diaper Diaper # Voids 0 # Bowel Movements 2 - Labs CBC & Chem 7: 10/20/24 07:27 10/20/24 07:27 Labs: Abnormal Lab Results - Last 24 Hours (Table) 10/20/24 10/20/24 10/20/24 Range/Units 06:13 07:27 07:27 Hgb 10.6 L (11.4-16.0) gm/dL MCHC 30.3 L (31.0-37.0) g/dL Neutrophils # 7.9 H (1.3-7.7) k/uL Lymphocytes # 0.7 L (1.0-4.8) k/uL Sodium 131 L (137-145) mmol/L Chloride 95 L (98-107) mmol/L Carbon Dioxide 31 H (22-30) mmol/L Creatinine 2.16 H (0.52-1.04) mg/dL Glucose 105 H (74-99) mg/dL POC Glucose (mg/dL) 116 H (70-110) mg/dL Assessment and Plan Plan: Assessment: 1. Acute kidney injury secondary to ATN secondary to volume depletion and infection. No evidence of obstructive uropathy. Started on hemodialysis October 09, 2024 via right femoral catheter. Now has permacath. Creatinine as high as 9.63 this admission. Oliguric. 2. Chronic kidney disease stage IIIb with baseline creatinine 1.4-1.6 secondary to diabetic kidney disease. 3. E. coli UTI s/p antibiotics. 4. Metabolic acidosis secondary to acute kidney injury. Improved postdialysis. 5. Hypertension with chronic kidney disease. Controlled. 6. Diabetes mellitus. 7. Acute GI bleed status post EGD which showed recently bleeding duodenal ulcer. Surgery following. Plan: Hemodialysis Friday. Will be maintained on Friday schedule outpatient at [facility]. Maintain torsemide. Monitor for renal recovery outpatient. Phosphorus level 4.1 dated October 12, 2024. Serologies negative. Awaits discharge to rehab.
[2024-10-20 16:19] VITALS: RESP 16
[2024-10-20 16:43] LABS: Glucose,Whole Blood 93 mg/dL (70-110)
--- NOTE | 2024-10-20 17:28 | PN ---
PROGRESS NOTE DATE OF SERVICE: 10/20/2024 SUBJECTIVE: This is an 84-year-old woman, who was admitted with acute renal failure, is scheduled to go to ECF. PermCath was placed. No chest pain. No palpitation. The most recent chest x-ray was reviewed. PHYSICAL EXAMINATION: VITAL SIGNS: Pulse is 80, blood pressure 110/48, respirations 18. CHEST: Scattered rhonchi. ABDOMEN: Soft. NERVOUS SYSTEM: Nonfocal. LABORATORY DATA: Sodium 131. ASSESSMENT: 1. Acute renal failure secondary to acute tubular necrosis, on hemodialysis. 2. Hyperkalemia. 3. Acute urinary tract infection. 4. Acute upper gastrointestinal bleed. 5. Cholelithiasis. 6. Multiple complex medical issues. RECOMMENDATIONS AND DISCUSSION: Recommend to continue current management and continue symptomatic treatment. I would recommend repeat labs. PT/OT evaluation. Possible ECF rehab tomorrow. MMODL / IJN: [id number] /
[2024-10-20 20:22] LABS: Glucose,Whole Blood 188 mg/dL (70-110)
[2024-10-21 06:05] LABS: Glucose,Whole Blood 97 mg/dL (70-110)
[2024-10-21 08:21] LABS: Basophils % (A) 1 %; Eosinophils # (A) 0.2 k/uL (0-0.7); Eosinophils % (A) 2 %; HCT 33.3 % (34.0-46.0); HGB 10.7 gm/dL (11.4-16.0); Hypochromasia Slight; Lymphocytes # (A) 0.8 k/uL (1.0-4.8); Lymphocytes % (A) 9 %; MCH 28.6 pg (25.0-35.0); MCHC 32.2 g/dL (31.0-37.0); MCV 88.9 fL (80.0-100.0); Mean Platelet Volume 9.5; Monocytes # (A) 0.6 k/uL (0-1.0); Monocytes % (A) 7 %; Neutrophils # (A) 6.9 k/uL (1.3-7.7); Neutrophils % (A) 80 %; Platelet Count 284 k/uL (150-450); RBC 3.75 m/uL (3.80-5.40); RDW 14.9 % (11.5-15.5); WBC 8.6 k/uL (3.8-10.6)
[2024-10-21 08:35] LABS: African American GFR (CKD) 14 (>60 ml/min/1.73 sqM); Anion Gap 7 mmol/L; Blood Urea Nitrogen 14 mg/dL (7-17); Calcium 9.2 mg/dL (8.4-10.2); Carbon Dioxide 28 mmol/L (22-30); Chloride 96 mmol/L (98-107); Glucose 100 mg/dL (74-99); Non-African American GFR(CKD) 12 (>60 ml/min/1.73 sqM); Sodium 131 mmol/L (137-145)
[2024-10-21 08:38] VITALS: TEMP 98
--- NOTE | 2024-10-21 09:45 | P.PN ---
Subjective Patient was seen in follow-up for acute kidney injury on chronic kidney disease. Started on hemodialysis October 09, 2024 via right femoral catheter. Now has permacath. Poor historian. Linares catheter removed. Tolerated 1 L ultrafiltration October 19, 2024. Vital signs are stable. General: No acute distress. HEENT: Head exam is unremarkable. On nasal cannula. LUNGS: No audible rhonchi or wheezes. HEART: Rate and Rhythm are regular. ABDOMEN: Nontender. EXTREMITITES: Trace edema. Objective - Vital Signs Vital signs: Vital Signs Temp 98.0 F 10/21/24 08:00 Pulse 85 10/21/24 08:13 Resp 16 10/21/24 08:00 BP 119/65 10/21/24 08:00 Pulse Ox 96 10/21/24 08:04 FiO2 Intake & Output 10/20/24 10/21/24 10/21/24 18:59 06:59 18:59 Intake Total 20 380 Balance 20 380 Weight 81 kg Intake: IV 20 20 Invasive Line 6 20 20 Oral 360 Other: Voiding Method Bedpan Bedpan Diaper Diaper # Voids 0 - Labs CBC & Chem 7: 10/21/24 07:30 10/21/24 07:30 Labs: Abnormal Lab Results - Last 24 Hours (Table) 10/20/24 10/21/24 10/21/24 Range/Units 20:18 07:30 07:30 RBC 3.75 L (3.80-5.40) m/uL Hgb 10.7 L (11.4-16.0) gm/dL Hct 33.3 L (34.0-46.0) % Lymphocytes # 0.8 L (1.0-4.8) k/uL Sodium 131 L (137-145) mmol/L Chloride 96 L (98-107) mmol/L Creatinine 3.28 H (0.52-1.04) mg/dL Glucose 100 H (74-99) mg/dL POC Glucose (mg/dL) 188 H (70-110) mg/dL Assessment and Plan Plan: Assessment: 1. Acute kidney injury secondary to ATN secondary to volume depletion and infection. No evidence of obstructive uropathy. Started on hemodialysis October 09, 2024 via right femoral catheter. Now has permacath. Creatinine as high as 9.63 this admission. Oliguric. 2. Chronic kidney disease stage IIIb with baseline creatinine 1.4-1.6 secondary to diabetic kidney disease. 3. E. coli UTI s/p antibiotics. 4. Metabolic acidosis secondary to acute kidney injury. Improved postdialysis. 5. Hypertension with chronic kidney disease. Controlled. 6. Diabetes mellitus. 7. Acute GI bleed status post EGD which showed recently bleeding duodenal ulcer. Surgery following. Plan: Hemodialysis Friday. Will be maintained on Friday schedule outpatient at [facility]. Maintain torsemide. Monitor for renal recovery outpatient. Phosphorus level 4.1 dated October 12, 2024. Serologies negative. Awaits discharge to rehab.
[2024-10-21 11:37] LABS: Glucose,Whole Blood 154 mg/dL (70-110)
--- NOTE | 2024-10-21 13:01 | P.DS ---
Providers Date of admission: 10/06/24 19:17 Expected date of discharge: 10/21/24 Attending physician: Aure Jain Consults: 10/06/24 19:17 Consult Physician Routine Consulting Provider: Liliam Hancock Consult Reason/Comments: hyperkalemia, acute renal failure. Do you want consulting provider notified?: Already Contacted Primary care physician: France Bolden, DO Hospital Course: Final diagnosis -Acute renal failure secondary to acute tubular necrosis as well as poor p.o. intake and UTI that was present on admission that likely contributed to her acute tubular necrosis and requiring hemodialysis, has a permacath and will be continued on Friday/Friday/Friday hemodialysis outpatient -Hyperkalemia secondary to acute renal failure improved -Acute urinary tract infection, present on admission with culture showing E. coli -Acute upper GI bleed with findings of an acute duodenal bleeding ulcer on EGD patient will need to hold her Eliquis for 3 to 4 weeks and has been started on Carafate. Patient family refusing colonoscopy at this time -Cholelithiasis incidental finding no further intervention at this time -Dementia -Congestive heart failure chronic diastolic function without any acute exacerbation. -Hypertension -Atrial fibrillation paroxysmal, presently rate controlled -COPD without any acute exacerbation patient has chronic hypercapnic respiratory failure uses 2 L of oxygen presently on 2 L of oxygen -Obesity -Type 2 diabetes mellitus, patient will be on continued on sliding scale insulin hold of Actos and metformin for now GI prophylaxis DVT prophylaxis Full code Discharge disposition Patient is being discharged in a stable condition with guarded prognosis to [facility] where she resides. Patient will follow-up with Dr. France Bolden in the outpatient setting upon discharge. Patient is to continue with hemodialysis as scheduled on Friday/Friday/Friday with her next session being on Friday. Continue holding Eliquis for now for the next 3 weeks and follow-up with nephrology and cardiology outpatient. Total time taken is greater than 35 minutes. Hospital course This is a 84-year-old female who was recently admitted with increasing altered mentation with concerns of acute urinary tract infection and acute renal failure secondary to acute tubular necrosis with significantly poor oral intake and worsening mentation being closely monitored with multiple consultations. Patient received a permacath of the chest and has been started on hemodialysis. Patient is being arranged for outpatient and will be continued on Friday/. Patient urine cultures finalized with E. coli and has been treated adequately not requiring any antibiotics on discharge. Patient will continue to hold Eliquis for now as she was on 2.5 mg twice daily for renal functionality and there was concern of GI bleeding. Patient did undergo EGD with concerns of acute duodenal ulcer and will continue on Carafate and again has been instructed to hold Eliquis for 3 more weeks. General surgery following recommending a colonoscopy as there was a slight drop in hemoglobin with no active bleeding noted although patient family has refused. Patient to follow-up with them in the outpatient setting if needed. Please refer to other consultation notes for further HPI. Patient has been cleared for discharge and will be going to [facility] Currently no reports of chest pain, shortness of breath, or palpitations. Patient is afebrile. No reports of nausea or vomiting and patient is tolerating diet. Patient will be going to [facility] today. Guarded prognosis and high risk for readmissions given patient significant comorbidities. CODE STATUS needs to be addressed with family. Physical exam: Gen: This is a 84-year-old who is awake, alert and oriented x 1-2, baseline HEENT: Head is atraumatic, normocephalic. Pupils equal, round. Sclerae is anicteric. NECK: Supple. No JVD. No lymphadenopathy. No thyromegaly. LUNGS: Clear to auscultation. No wheezes or rhonchi. No intercostal retractions. HEART: Regular rate and rhythm. No murmur. ABDOMEN: Soft. Bowel sounds are present. No masses. No tenderness. EXTREMITIES: No pedal edema. No calf tenderness. NEUROLOGICAL: Patient is awake, alert and oriented x3. Cranial nerves 2 through 12 are grossly intact. Please refer to medication reconciliation sheet for a list of medications. The impression and plan of care has been dictated by Keya Viera, Nurse Practitioner as directed. Dr. Cristobal MD I have performed a history and examination and MDM of this patient, discussed the same with the dictator, and agree with the dictator's assessment and plan as written ,documented as a scribe. Based on total visit time, I have performed more than 50% of the visit. Patient Condition at Discharge: Fair Plan - Discharge Summary Discharge Rx Participant: Yes New Discharge Prescriptions: New hydrALAZINE HCL [Apresoline] 50 mg PO TID tab Sucralfate [Carafate] 1 gm PO AC-TID tab Ipratropium-Albuterol Nebulize [Duoneb 0.5 mg-3 mg/3 ml Soln] 3 ml INHALATION RT-TID PRN each PRN Reason: Shortness Of Breath Or Wheezing QUEtiapine [SEROquel] 12.5 mg PO HS PRN tab PRN Reason: Agitation ALPRAZolam [Xanax] 1 mg PO Q6H PRN #4 tab PRN Reason: Anxiety Apixaban [Eliquis] 2.5 mg PO BID #60 tab Lactulose [Cephulac] 30 gm PO TID ml Torsemide [Demadex] 40 mg PO DAILY tab Ipratropium-Albuterol Nebulize [Duoneb 0.5 mg-3 mg/3 ml Soln] 3 ml INHALATION RT-TID each amLODIPine [Norvasc] 5 mg PO BID tab INSULIN ASPART (NovoLOG) [NovoLOG (formulary)] 0 unit SQ AC-TID each Budesonide-Formot 160-4.5 Mcg [Symbicort 160-4.5 Mcg Inhaler] 2 puff INHALATION RT-BID each Acetaminophen Tab [Tylenol] 650 mg PO Q6HR PRN tab PRN Reason: Mild Pain Or Fever > 100.5 Continue Metoprolol Tartrate [Lopressor] 25 mg PO BID Desvenlafaxine [Pristiq ER] 100 mg PO DAILY Pravastatin Sodium 80 mg PO HS Fenofibrate Nanocrystallized [Fenofibrate] 145 mg PO DAILY Cholecalciferol [Vitamin D3 (125 Mcg = 5000 Iu)] 125 mcg PO DAILY Escitalopram [Lexapro] 20 mg PO DAILY Ferrous Sulfate [Iron (65 MG Elemental)] 325 mg PO DAILY ARIPiprazole [Abilify] 2 mg PO DAILY busPIRone HCL 15 mg PO BID Melatonin 5 mg PO HS Discontinued Apixaban [Eliquis] 5 mg PO BID Bumetanide [Bumex] 1 mg PO DAILY INSULIN LISPRO (HumaLOG) [humaLOG] See Protocol SQ ACHS Losartan [Cozaar] 25 mg PO DAILY ALPRAZolam [Xanax] 0.5 mg PO Q6H PRN PRN Reason: Anxiety metFORMIN HCL 1,000 mg PO BID Pioglitazone [Actos] 15 mg PO DAILY amLODIPine [Norvasc] 5 mg PO DAILY Discharge Medication List Desvenlafaxine [Pristiq ER] 100 mg PO DAILY 03/04/24 [History] Fenofibrate Nanocrystallized [Fenofibrate] 145 mg PO DAILY 03/04/24 [History] Ferrous Sulfate [Iron (65 MG Elemental)] 325 mg PO DAILY 03/04/24 [History] Metoprolol Tartrate [Lopressor] 25 mg PO BID 03/04/24 [History] Pravastatin Sodium 80 mg PO HS 03/04/24 [History] ARIPiprazole [Abilify] 2 mg PO DAILY 10/06/24 [History] Cholecalciferol [Vitamin D3 (125 Mcg = 5000 Iu)] 125 mcg PO DAILY 10/06/24 [History] Escitalopram [Lexapro] 20 mg PO DAILY 10/06/24 [History] Melatonin 5 mg PO HS 10/06/24 [History] busPIRone HCL 15 mg PO BID 10/06/24 [History] ALPRAZolam [Xanax] 1 mg PO Q6H PRN #4 tab 10/21/24 [Rx] Acetaminophen Tab [Tylenol] 650 mg PO Q6HR PRN tab 10/21/24 [Rx] Apixaban [Eliquis] 2.5 mg PO BID #60 tab 10/21/24 [Rx] Budesonide-Formot 160-4.5 Mcg [Symbicort 160-4.5 Mcg Inhaler] 2 puff INHALATION RT-BID each 10/21/24 [Rx] INSULIN ASPART (NovoLOG) [NovoLOG (formulary)] 0 unit SQ AC-TID each 10/21/24 [Rx] Ipratropium-Albuterol Nebulize [Duoneb 0.5 mg-3 mg/3 ml Soln] 3 ml INHALATION RT-TID each 10/21/24 [Rx] Ipratropium-Albuterol Nebulize [Duoneb 0.5 mg-3 mg/3 ml Soln] 3 ml INHALATION RT-TID PRN each 10/21/24 [Rx] Lactulose [Cephulac] 30 gm PO TID ml 10/21/24 [Rx] QUEtiapine [SEROquel] 12.5 mg PO HS PRN tab 10/21/24 [Rx] Sucralfate [Carafate] 1 gm PO AC-TID tab 10/21/24 [Rx] Torsemide [Demadex] 40 mg PO DAILY tab 10/21/24 [Rx] amLODIPine [Norvasc] 5 mg PO BID tab 10/21/24 [Rx] hydrALAZINE HCL [Apresoline] 50 mg PO TID tab 10/21/24 [Rx] Follow up Appointment(s)/Referral(s): France Bolden DO [Primary Care Provider] - 1-2 days Activity/Diet/Wound Care/Special Instructions: [facility] - start date 10/21/24 - arrive at 1:30pm. Schedule is different this week due to the holiday - normal schedule will be MWF @2pm Patient is going to [facility] Activity as tolerated Continue taking medications as prescribed Continue with heart healthy, renal diet, diabetic diet Continue monitoring Accu-Cheks before meals and at bedtime Continue sliding scale NovoLog sliding scale 0-150 equals 0 units 151-200 equals 2 units 201-250 equals 4 units 251-300 equals 6 units 301-350 equals 8 units 351-400 equals 10 units Please notify provider if blood sugar is 400 or above Follow-up with nephrology outpatient Discharge Disposition: TRANSFER TO SNF/ECF
[2024-10-21 13:09] VITALS: BP 111/61; PULSE 79
[2024-10-25 07:40] LABS: Glucose,Whole Blood 104 mg/dL (70-110)
== END 2024-10-21 16:51 | DRG 673 ==
LOC: EC 15:20 → 3SCARD 19:17
PROVIDERS: ADMIT Hospitalist; ATTEND Hospitalist
PROC: 06HM33Z Insertion of Infusion Device into Right Femoral Vein, Percutaneous Approach (ICD-10-PCS; 2024-10-08)
PROC: 5A1D70Z Performance of Urinary Filtration, Intermittent, Less than 6 Hours Per Day (ICD-10-PCS; 2024-10-09)
PROC: 0DJ08ZZ Inspection of Upper Intestinal Tract, Via Natural or Artificial Opening Endoscopic (ICD-10-PCS; 2024-10-11)
PROC: 02HV33Z Insertion of Infusion Device into Superior Vena Cava, Percutaneous Approach (ICD-10-PCS; 2024-10-14)
PROC: 0JH63XZ Insertion of Tunneled Vascular Access Device into Chest Subcutaneous Tissue and Fascia, Percutaneous Approach (ICD-10-PCS; principal; 2024-10-14 10:05)
DX: N17.0 Acute kidney failure with tubular necrosis (principal); K26.0 Acute duodenal ulcer with hemorrhage; K29.01 Acute gastritis with bleeding; N39.0 Urinary tract infection, site not specified; E87.20 Acidosis, unspecified; I13.0 Hypertensive heart and chronic kidney disease with heart failure and stage 1 through stage 4 chronic kidney disease, or unspecified chronic kidney disease; I50.32 Chronic diastolic (congestive) heart failure; K22.10 Ulcer of esophagus without bleeding; E11.22 Type 2 diabetes mellitus with diabetic chronic kidney disease; E66.9 Obesity, unspecified; E78.5 Hyperlipidemia, unspecified; E86.0 Dehydration; E87.5 Hyperkalemia; D63.1 Anemia in chronic kidney disease; I48.0 Paroxysmal atrial fibrillation; B96.20 Unspecified Escherichia coli [E. coli] as the cause of diseases classified elsewhere; F03.B0 Unspecified dementia, moderate, without behavioral disturbance, psychotic disturbance, mood disturbance, and anxiety; E83.42 Hypomagnesemia; N18.32 Chronic kidney disease, stage 3b; F32.A Depression, unspecified; J44.89 Other specified chronic obstructive pulmonary disease; K80.20 Calculus of gallbladder without cholecystitis without obstruction; Z53.29 Procedure and treatment not carried out because of patient's decision for other reasons; Z79.01 Long term (current) use of anticoagulants; Z79.4 Long term (current) use of insulin; Z79.84 Long term (current) use of oral hypoglycemic drugs; Z79.899 Other long term (current) drug therapy; Z87.891 Personal history of nicotine dependence
CPT/HCPCS: 36415; 36558; 43235; 71045; 76770; 76937; 77001; 80048; 80053; 80074; 81001; 82272; 82565; 83735; 83880; 84100; 84132; 84165; 84484; 84520; 85025; 86038; 86160; 86162; 86225; 86255; 86334; 86704; 86706; 87077; 87086; 87186; 87340; 90935; 93005; 94640; 94760; 96361; 96365; 96375; 99285

== ENCOUNTER 2024-11-15 06:21 | Emergency (ER) | payer MEDICARE, OTHER ==
--- NOTE | 2024-11-15 06:34 | ED ---
General Adult HPI - General Chief complaint: Arrhythmia/Palpitations Stated complaint: Tachycardia Time Seen by Provider: 11/15/24 06:31 Source: EMS, RN notes reviewed Mode of arrival: EMS Limitations: altered mental status (dementia, A&O 1 at baseline) - History of Present Illness Initial comments: 84-year-old female with history of end-stage renal disease on hemodialysis (M,W,F), heart failure, dementia, COPD on 2 L NC, A-fib on eliquis, hypertension, and type 2 diabetes, presenting to the emergency department via EMS from [facility] with concern for tachycardia and hypotension. History is mainly provided from nursing staff and EMS note. It is reported that patient had an episode of tachycardia while at dialysis with a heart rate in the 200s her EKG was completed remarkable for atrial fibrillation with rapid ventricular response. Of note at this time patient was hypotensive. When EMS arrived to the scene, patient was no longer tachycardic and blood pressure had resolved. Patient is A&O x 1, however she is denying any acute complaints. Patient is also reported that [facility] dialysis center was unable to access fistula for dialysis. 10/15/24 patient underwent a tunneled hemodialysis catheter placement by Dr. Linares - Related Data Home Medications Medication Instructions Recorded Confirmed Desvenlafaxine [Pristiq ER] 100 mg PO DAILY 03/04/24 10/06/24 Fenofibrate Nanocrystallized 145 mg PO DAILY 03/04/24 10/06/24 [Fenofibrate] Ferrous Sulfate [Iron (65 MG 325 mg PO DAILY 03/04/24 10/06/24 Elemental)] Metoprolol Tartrate [Lopressor] 25 mg PO BID 03/04/24 10/06/24 Pravastatin Sodium 80 mg PO HS 03/04/24 10/06/24 ARIPiprazole [Abilify] 2 mg PO DAILY 10/06/24 10/06/24 Cholecalciferol [Vitamin D3 (125 125 mcg PO DAILY 10/06/24 10/06/24 Mcg = 5000 Iu)] Escitalopram [Lexapro] 20 mg PO DAILY 10/06/24 10/06/24 Melatonin 5 mg PO HS 10/06/24 10/06/24 busPIRone HCL 15 mg PO BID 10/06/24 10/06/24 Previous Rx's Medication Instructions Recorded ALPRAZolam [Xanax] 1 mg PO Q6H PRN #4 tab 10/21/24 Acetaminophen Tab [Tylenol] 650 mg PO Q6HR PRN tab 10/21/24 Budesonide-Formot 160-4.5 Mcg 2 puff INHALATION RT-BID each 10/21/24 [Symbicort 160-4.5 Mcg Inhaler] INSULIN ASPART (NovoLOG) [NovoLOG 0 unit SQ AC-TID each 10/21/24 (formulary)] Ipratropium-Albuterol Nebulize 3 ml INHALATION RT-TID each 10/21/24 [Duoneb 0.5 mg-3 mg/3 ml Soln] Ipratropium-Albuterol Nebulize 3 ml INHALATION RT-TID PRN each 10/21/24 [Duoneb 0.5 mg-3 mg/3 ml Soln] Lactulose [Cephulac] 30 gm PO TID ml 10/21/24 QUEtiapine [SEROquel] 12.5 mg PO HS PRN tab 10/21/24 Sucralfate [Carafate] 1 gm PO AC-TID tab 10/21/24 Torsemide [Demadex] 40 mg PO DAILY tab 10/21/24 amLODIPine [Norvasc] 5 mg PO BID tab 10/21/24 hydrALAZINE HCL [Apresoline] 50 mg PO TID tab 10/21/24 Allergies Allergy/AdvReac Type Severity Reaction Status Date / Time No Known Allergies Allergy Verified 11/15/24 06:39 Review of Systems ROS Statement: Those systems with pertinent positive or pertinent negative responses have been documented in the HPI. ROS Other: All systems not noted in ROS Statement are negative. Past Medical History Past Medical History: Atrial Fibrillation, Asthma, COPD, CVA/TIA, Dementia, Diabetes Mellitus, Hyperlipidemia, Hypertension, Memory Impairment, Osteoarth ritis (OA) Additional Past Medical History / Comment(s): UTI History of Any Multi-Drug Resistant Organisms: None Reported Past Surgical History: Appendectomy, Hysterectomy, Orthopedic Surgery Additional Past Surgical History / Comment(s): hip Additional Past Anesthesia/Blood Transfusion Reaction / Comment(s): Never rcvd. blood Past Psychological History: Anxiety Smoking Status: Former smoker Past Alcohol Use History: None Reported Past Drug Use History: None Reported General Exam Limitations: altered mental status General appearance: alert, in no apparent distress Neck exam: Present: normal inspection. Absent: tenderness, meningismus, lymphadenopathy Respiratory exam: Present: normal lung sounds bilaterally. Absent: respiratory distress, wheezes, rales, rhonchi, stridor Cardiovascular Exam: Present: regular rate, irregular rhythm, normal heart sounds. Absent: systolic murmur, diastolic murmur, rubs, gallop, clicks GI/Abdominal exam: Present: soft, normal bowel sounds. Absent: distended, tend erness, guarding, rebound, rigid Extremities exam: Present: normal inspection, full ROM, normal capillary refill. Absent: tenderness, pedal edema, joint swelling, calf tenderness Course Vital Signs 11/15/24 06:24 Temperature 98.0 F Pulse Rate 87 Respiratory 18 Rate Blood Pressure 126/66 O2 Sat by Pulse 95 Oximetry Medical Decision Making - Medical Decision Making Was pt. sent in by a medical professional or institution (, PA, EMPLOYEE RELATIONS DIRECTOR, urgent care, hospital, or residential...) When possible be specific @ -No Did you speak to anyone other than the patient for history (EMS, parent, family, police, friend...)? What history was obtained from this source @ -No Did you review nursing and triage notes (agree or disagree)? Why? @ -I reviewed and agree with nursing and triage notes Were old charts reviewed (outside hosp., previous admission, EMS record, old EKG, old radiological studies, urgent care reports/EKG's, residential records)? Report findings @ -reviewed Emergency Department visit note from 10/06/2024 where patient presented as a transfer for acute renal failure Reviewed discharge summary from 10/21/2024. Patient was initiated on hemodialysis with permacath and discharged with dialysis schedule for M,W,F and sent to [facility] surgical case record from where she underwent a tunneled hemodialysis ca theter placement by Dr. Linares Differential Diagnosis (chest pain, altered mental status, abdominal pain women, abdominal pain men, vaginal bleeding, weakness, fever, dyspnea, syncope, head ache, dizziness, GI bleed, back pain, seizure, CVA, palpatations, mental health, musculoskeletal)? @ -Differential Palpitations Ventricular arrhythmias, atrial arrhythmias, myocardial infarction, anemia, thyrotoxicosis, electrolyte imbalance, hypokalemia, pulmonary embolism, pulmonary disease, drugs, alcohol, anxiety, stress.... This is not meant to be an all-inclusive list. EKG interpreted by me (3pts min.). @ -completed at 0632 atrial fibrillation with occasional PVCs, ventricular rate of 83, CT interval 164, QRS 109, QTc 464. X-rays interpreted by me (1pt min.). @ -None done CT interpreted by me (1pt min.). @ -None done U/S interpreted by me (1pt. min.). @ -None done What testing was considered but not performed or refused? (CT, X-rays, U/S, labs)? Why? @ -None What meds were considered but not given or refused? Why? @ -None Did you discuss the management of the patient with other professionals (professionals i.e. , PA, EMPLOYEE RELATIONS DIRECTOR, lab, RT, psych nurse, social professionals, senior credit officer, teacher, water resources technical officer, watch case polisher)? Give summary @ -No Was smoking cessation discussed for >3mins.? @ -No Was critical care preformed (if so, how long)? @ -No Were there social determinants of health that impacted care today? How? (Homelessness, low income, unemployed, alcoholism, drug addiction, transpo rtation, low edu. Level, literacy, decrease access to med. care, assisted, rehab)? @ -No Was there de-escalation of care discussed even if they declined (Discuss DNR or withdrawal of care, Hospice)? DNR status @ -No What co-morbidities impacted this encounter? (DM, HTN, Smoking, COPD, CAD, Cancer, CVA, ARF, Chemo, Hep., AIDS, mental health diagnosis, sleep apnea, morbid obesity)? @ -None Was patient admitted / discharged? Hospital course, mention meds given and route, prescriptions, significant lab abnormalities, going to OR and other pertinent info. @ -discharged. 84-year-old female presenting with tachycardia and hypotension. On arrival patient noted to be in atrial fibrillation with a controlled rate of the 80s and blood pressure stable in the 120s over 80s. Review of systems is limited as patient does have a baseline of dementia however she denies symptoms of chest pain, abdominal pain, nausea or vomiting. Physical examination is benign. Labs remarkable for anemia with a hemoglobin 10.6 that appears chronic. Additionally, elevated creatinine of 5.7 and BUN of 32 consistent with diagnosis of end-stage renal disease. INR 1.2. Duration of patient's ED visit her BP and HR have remained stable. Patient is stable back for discharge to [facility] with follow-up complete dialysis as scheduled. Case discussed with Dr. Mary Undiagnosed new problem with uncertain prognosis? @ -No Drug Therapy requiring intensive monitoring for toxicity (Heparin, Nitro, Insul in, Cardizem)? @ -No Were any procedures done? @ -No Diagnosis/symptom? @ -a fib, history of tachycardia and hypotension Acute, or Chronic, or Acute on Chronic? @ -acute Uncomplicated (without systemic symptoms) or Complicated (systemic symptoms)? @ -uncomplicated Side effects of treatment? @ -No Exacerbation, Progression, or Severe Exacerbation? @ -No Poses a threat to life or bodily function? How? (Chest pain, USA, NM, pneumonia, PE, COPD, DKA, ARF, appy, cholecystitis, CVA, Diverticulitis, Homicidal, Suicidal, threat to staff... and all critical care pts) @ -No - Lab Data Result diagrams: 11/15/24 06:43 11/15/24 06:43 Lab Results 11/15/24 11/15/24 11/15/24 Range/Units 06:43 06:43 06:43 WBC 12.3 H (3.8-10.6) k/uL RBC 3.66 L (3.80-5.40) m/uL Hgb 10.6 L (11.4-16.0) gm/dL Hct 33.0 L (34.0-46.0) % MCV 90.0 (80.0-100.0) fL MCH 28.8 (25.0-35.0) pg MCHC 32.0 (31.0-37.0) g/dL RDW 15.4 (11.5-15.5) % Plt Count 451 H (150-450) k/uL MPV 8.8 Hypochromasia Slight PT 12.9 H (10.0-12.5) sec INR 1.2 H (<1.2) APTT 21.5 L (22.0-30.0) sec Sodium 135 L (137-145) mmol/L Potassium 3.4 L (3.5-5.1) mmol/L Chloride 97 L (98-107) mmol/L Carbon Dioxide 28 (22-30) mmol/L Anion Gap 10 mmol/L BUN 32 H (7-17) mg/dL Creatinine 5.87 H (0.52-1.04) mg/dL Est GFR (CKD-EPI)AfAm 7 (>60 ml/min/1.73 sqM) Est GFR (CKD-EPI)NonAf 6 (>60 ml/min/1.73 sqM) Glucose 116 H (74-99) mg/dL Calcium 9.6 (8.4-10.2) mg/dL Magnesium 2.2 (1.6-2.3) mg/dL Total Bilirubin 0.6 (0.2-1.3) mg/dL AST 24 (14-36) U/L ALT 10 (4-34) U/L Alkaline Phosphatase 78 (38-126) U/L Total Protein 5.9 L (6.3-8.2) g/dL Albumin 3.1 L (3.5-5.0) g/dL Disposition Clinical Impression: Atrial fibrillation Disposition: HOME SELF-CARE Condition: Good Instructions (If sedation given, give patient instructions): A-fib (Atrial Fibrillation) (ED) Additional Instructions: Please return to the Emergency Department if symptoms worsen or any other concerns. Is patient prescribed a controlled substance at d/c from ED?: No Referrals: France Bolden DO [Primary Care Provider] - 1-2 days Time of Disposition: 08:18
[2024-11-15 07:09] LABS: INR 1.2 (<1.2); Prothrombin Time 12.9 sec (10.0-12.5)
[2024-11-15 07:22] LABS: HGB 10.6 gm/dL (11.4-16.0); Hypochromasia Slight; MCH 28.8 pg (25.0-35.0); Mean Platelet Volume 8.8; Platelet Count 451 k/uL (150-450); RBC 3.66 m/uL (3.80-5.40); RDW 15.4 % (11.5-15.5); WBC 12.3 k/uL (3.8-10.6)
[2024-11-15 07:24] LABS: Partial Thromboplastin Time 21.5 sec (22.0-30.0)
[2024-11-15 07:25] LABS: ALT 10 U/L (4-34); AST 24 U/L (14-36); African American GFR (CKD) 7 (>60 ml/min/1.73 sqM); Albumin 3.1 g/dL (3.5-5.0); Alkaline Phosphatase 78 U/L (38-126); Anion Gap 10 mmol/L; Blood Urea Nitrogen 32 mg/dL (7-17); Calcium 9.6 mg/dL (8.4-10.2); Carbon Dioxide 28 mmol/L (22-30); Chloride 97 mmol/L (98-107); Glucose 116 mg/dL (74-99); Magnesium 2.2 mg/dL (1.6-2.3); Non-African American GFR(CKD) 6 (>60 ml/min/1.73 sqM); Potassium 3.4 mmol/L (3.5-5.1); Sodium 135 mmol/L (137-145); Total Bilirubin 0.6 mg/dL (0.2-1.3); Total Protein 5.9 g/dL (6.3-8.2)
[2024-11-15 08:39] LABS: Band Neutrophils % 9 %; Basophils # (M) 0.12 k/uL (0-0.2); Eosinophils # (M) 0.25 k/uL (0-0.7); Lymphocytes # (M) 0.86 k/uL (1.0-4.8); Metamyelocytes # (M) 0.25 k/uL (0); Metamyelocytes % 2 %; Monocytes # (M) 0.74 k/uL (0-1.0); Myelocytes # (M) 0.25 k/uL (0); Myelocytes % 2 %; Neutrophils % (M) 72 %; Nucleated Red Blood Cells 0 /100 WBC (0-0); Total Cells Counted 200
[2024-11-15 08:40] LABS: Anisocytosis (M) Present
[2024-11-15 08:41] LABS: Toxic Vacuolation Present
--- NOTE | 2024-11-15 11:19 | XR ---
EXAMINATION TYPE: XR chest 1V confirm line plcmt DATE OF EXAM: 11/15/2024 COMPARISON: NONE CLINICAL INDICATION: Female, 84 years old with history of dialysis port placement; , TECHNIQUE: XR chest 1V confirm line plcmt views of the chest. FINDINGS: Exam limited by patient positioning and rotation. Right-sided dialysis catheter seen with the tip ove rlying the right atrium. No pneumothorax. Heart is enlarged and there is a persistent interstitial pa ttern with no sizable pleural effusion or pneumothorax. Atherosclerotic change of the aorta. Osteopen ia, degenerative change of the spine and arthropathy of the shoulders. Biapical pleural thickening. IMPRESSION: 1. Dialysis catheter appears in good position with tip overlying the right atrium and no evidence of pneumothorax. 2. Correlate for mild interstitial edema or interstitial pneumonitis. [facility], , 11/15/2024 11:17 AM
[2024-11-15 12:01] VITALS: BP 101/63; PULSE 96; RESP 24; TEMP 98.3
== END 2024-11-15 12:06 | disposition home or self-care (01) ==
LOC: EC 06:21
DX: I48.91 Unspecified atrial fibrillation (principal); Z87.891 Personal history of nicotine dependence; Z86.73 Personal history of transient ischemic attack (TIA), and cerebral infarction without residual deficits; Z86.79 Personal history of other diseases of the circulatory system
CPT/HCPCS: 36415; 80053; 83735; 85025; 85610; 85730; 93005; 99285

== ENCOUNTER 2024-11-17 09:13 | Inpatient (IN) | payer MEDICARE, OTHER ==
--- NOTE | 2024-11-17 09:20 | ED ---
Recheck HPI - General Chief Complaint: Recheck/Abnormal Lab/Rx Stated Complaint: port issue Time Seen by Provider: 11/17/24 09:17 Source: EMS, RN notes reviewed, old records reviewed Mode of arrival: EMS Limitations: altered mental status - History of Present Illness Initial Comments: This is an 84 female she presents today for evaluation regards to dialysis catheter malfunction. Patient has missed 2 dialysis now unable to complete dialysis today and sent to ER for evaluation. MD Complaint: wound re-check (Dialysis catheter malfunction) -: days(s) Returns Today for: other Symptoms Since Prior Visit: no new symptoms Context: called for abnormal lab result (Unable to complete dialysis x 2) Associated Symptoms: none Treatments Prior to Arrival: other - Related Data Home Medications Medication Instructions Recorded Confirmed Desvenlafaxine [Pristiq ER] 100 mg PO DAILY 03/04/24 11/17/24 Fenofibrate Nanocrystallized 145 mg PO DAILY 03/04/24 11/17/24 [Fenofibrate] Metoprolol Tartrate [Lopressor] 25 mg PO Q12H 03/04/24 11/17/24 Pravastatin Sodium 80 mg PO HS 03/04/24 11/17/24 ARIPiprazole [Abilify] 2 mg PO DAILY 10/06/24 11/17/24 Cholecalciferol [Vitamin D3 (125 125 mcg PO DAILY 10/06/24 11/17/24 Mcg = 5000 Iu)] Escitalopram [Lexapro] 20 mg PO DAILY 10/06/24 11/17/24 Melatonin 5 mg PO HS 10/06/24 11/17/24 busPIRone HCL 15 mg PO Q12H 10/06/24 11/17/24 ALPRAZolam [Xanax] 1 mg PO QID 11/17/24 11/17/24 Budesonide-Formot 160-4.5 Mcg 2 puff INHALATION RT-Q12H 11/17/24 11/17/24 [Symbicort 160-4.5 Mcg Inhaler] INSULIN ASPART (NovoLOG) [NovoLOG See Protocol SQ AC-TID 11/17/24 11/17/24 (formulary)] Ipratropium-Albuterol Nebulize 3 ml INHALATION RT-Q8H PRN 11/17/24 11/17/24 [Duoneb 0.5 mg-3 mg/3 ml Soln] Lactulose [Cephulac] 30 gm PO Q8H 11/17/24 11/17/24 Midodrine [ProAmatine] 5 mg PO Q12H PRN 11/17/24 11/17/24 amLODIPine [Norvasc] 5 mg PO Q12H 11/17/24 11/17/24 Previous Rx's Medication Instructions Recorded Acetaminophen Tab [Tylenol] 650 mg PO Q6HR PRN tab 10/21/24 Ipratropium-Albuterol Nebulize 3 ml INHALATION RT-TID each 10/21/24 [Duoneb 0.5 mg-3 mg/3 ml Soln] Sucralfate [Carafate] 1 gm PO AC-TID tab 10/21/24 Torsemide [Demadex] 40 mg PO DAILY tab 10/21/24 hydrALAZINE HCL [Apresoline] 50 mg PO TID tab 10/21/24 Allergies Allergy/AdvReac Type Severity Reaction Status Date / Time No Known Allergies Allergy Verified 11/17/24 13:50 Review of Systems ROS Statement: Those systems with pertinent positive or pertinent negative responses have been documented in the HPI. ROS Other: All systems not noted in ROS Statement are negative. Past Medical History Past Medical History: Atrial Fibrillation, Asthma, COPD, CVA/TIA, Dementia, Diabetes Mellitus, Hyperlipidemia, Hypertension, Memory Impairment, Osteoarthritis (OA) Additional Past Medical History / Comment(s): UTI History of Any Multi-Drug Resistant Organisms: None Reported Past Surgical History: Appendectomy, Hysterectomy, Orthopedic Surgery Additional Past Surgical History / Comment(s): hip Additional Past Anesthesia/Blood Transfusion Reaction / Comment(s): Never rcvd. blood Past Psychological History: Anxiety Smoking Status: Former smoker Past Alcohol Use History: None Reported Past Drug Use History: None Reported General Exam Limitations: altered mental status General appearance: alert, in no apparent distress Head exam: Present: atraumatic, normocephalic, normal inspection Eye exam: Present: normal appearance, PERRL, EOMI. Absent: scleral icterus, conjunctival injection, periorbital swelling ENT exam: Present: normal exam, mucous membranes moist Neck exam: Present: normal inspection. Absent: tenderness, meningismus, lymphadenopathy Respiratory exam: Present: normal lung sounds bilaterally. Absent: respiratory distress, wheezes, rales, rhonchi, stridor Cardiovascular Exam: Present: regular rate, normal rhythm, normal heart sounds. Absent: systolic murmur, diastolic murmur, rubs, gallop, clicks GI/Abdominal exam: Present: soft, normal bowel sounds. Absent: distended, tenderness, guarding, rebound, rigid Extremities exam: Present: normal inspection, full ROM, normal capillary refill. Absent: tenderness, pedal edema, joint swelling, calf tenderness Back exam: Present: normal inspection Neurological exam: Present: alert, oriented X3, CN II-XII intact Psychiatric exam: Present: normal affect, normal mood Skin exam: Present: warm, dry, intact, normal color. Absent: rash Course Vital Signs 11/17/24 11/17/24 11/17/24 09:16 10:35 15:00 Temperature 98.4 F 97.4 F L Pulse Rate 98 93 Pulse Rate [ 98 Pulse Oximetery ] Pulse Rate [ 80 Right] Respiratory 24 18 16 Rate Blood Pressure 113/94 178/100 Blood Pressure 146/80 [Right Arm] O2 Sat by Pulse 100 98 98 Oximetry 11/17/24 16:30 Temperature 99 F Pulse Rate 100 Pulse Rate [ Pulse Oximetery ] Pulse Rate [ Right] Respiratory 18 Rate Blood Pressure 170/99 Blood Pressure [Right Arm] O2 Sat by Pulse 94 L Oximetry - Reevaluation(s) Reevaluation #1: 11/17/24 09:28 Medical records reviewed Reevaluation #2: 11/17/24 11:18 Patient symptoms unchanged Reevaluation #3: 11/17/24 11:18 Patient informed of results questions answered Reevaluation #4: Was pt. sent in by a medical professional or institution (, PA, SENIOR PROJECT MANAGER, urgent care, hospital, or senior care...) When possible be specific @ -no Did you speak to anyone other than the patient for history (EMS, parent, family, police, friend...)? What history was obtained from this source @ -no Did you review nursing and triage notes (agree or disagree)? Why? @ -agree Are old charts reviewed (outside hosp., previous admission, EMS record, old EKG, old radiological studies, urgent care reports/EKG's, senior care records)? Report findings @ -yes Differential Diagnosis (chest pain, altered mental status, abdominal pain women, abdominal pain men, vaginal bleeding, weakness, fever, dyspnea, syncope, headache, dizziness, GI bleed, back pain, seizure, CVA, palpatations, mental health, musculoskeletal)? @ -prior EKG interpreted by me (3pts min.). @ -yes X-rays interpreted by me (1pt min.). @ -yes negative for acute disease CT interpreted by me (1pt min.). @ -no U/S interpreted by me (1pt. min.). @ -no What testing was considered but not performed or refused? (CT, X-rays, U/S, labs)? Why? @ -none What meds were considered but not given or refused? Why? @ -none Did you discuss the management of the patient with other professionals (professionals i.e. , PA, SENIOR PROJECT MANAGER, lab, RT, psych nurse, social problems specialist, reptile keeper, teacher, child support officer, lead case manager)? Give summary @ -no Was smoking cessation discussed for >3mins.? @ -no Was critical care preformed (if so, how long)? @ -no Were there social determinants of health that impacted care today? How? (Homelessness, low income, unemployed, alcoholism, drug addiction, t ransportation, low edu. Level, literacy, decrease access to med. care, usp, rehab)? @ -none Was there de-escalation of care discussed even if they declined (Discuss DNR or withdrawal of care, Hospice)? DNR status @ -no What co-morbidities impacted this encounter? (DM, HTN, Smoking, COPD, CAD, Can cer, CVA, ARF, Chemo, Hep., AIDS, mental health diagnosis, sleep apnea, morbid obesity)? @ -none Was patient admitted / discharged? Hospital course, mention meds given and route, prescriptions, significant lab abnormalities, going to OR and other pertinent info. @ - 84 female will be admitted for severe weakness altered mental status which is persistent and worsening and needing dialysis with history of kidney disease missing recent dialysis Admitted Undiagnosed new problem with uncertain prognosis? @ -no Drug Therapy requiring intensive monitoring for toxicity (Heparin, Nitro, Insulin, Cardizem)? @ -no Were any procedures done? @ -no Diagnosis/symptom? @ -Renal failure altered mental status dialysis catheter malfunction Acute, or Chronic, or Acute on Chronic? @ -Acute Uncomplicated (without systemic symptoms) or Complicated (systemic symptoms)? @ -Complicated Side effects of treatment? @ -no Exacerbation, Progression, or Severe Exacerbation? @ -exacerbation Poses a threat to life or bodily function? How? (Chest pain, USA, ME, pneumonia, PE, COPD, DKA, ARF, appy, cholecystitis, CVA, Diverticulitis, Homicidal, Suicidal, threat to staff... and all critical care pts) @ -yes extremes of age Reevaluation #5: Differential Altered Mental Status: Hypoglycemia, DKA, hypercapnia, ETOH, overdose, CO poisoning, trauma, myxedema coma, HTN encephalopathy, infection, encephalitis, psychosis, intercranial hemorrhage, hepatic encephalopathy, meningitis, CVA, this is not meant to be an all-inclusive list - Consultations Consultation #1: Spoke with sound to admit this patient Medical Decision Making - Medical Decision Making 84 female will be admitted for severe weakness altered mental status which is persistent and worsening and needing dialysis with history of kidney disease missing recent dialysis - Lab Data Result diagrams: 11/19/24 05:17 11/19/24 05:17 Lab Results 11/17/24 11/17/24 11/17/24 Range/Units 09:41 09:41 09:41 WBC 9.7 (3.8-10.6) k/uL RBC 3.66 L (3.80-5.40) m/uL Hgb 10.3 L (11.4-16.0) gm/dL Hct 32.2 L (34.0-46.0) % MCV 88.2 (80.0-100.0) fL MCH 28.2 (25.0-35.0) pg MCHC 32.0 (31.0-37.0) g/dL RDW 16.0 H (11.5-15.5) % Plt Count 513 H (150-450) k/uL Estimated Plt Count (Adequate) MPV 8.6 Absolute Nucleated RBC % Neutrophils % (Manual) 84 % Lymphocytes % (Manual) 7 % Monocytes % (Manual) 5 % Eosinophils % (Manual) 1 % Basophils % (Manual) % Metamyelocytes % 2 % Myelocytes % 2 % Neutrophils # (Manual) 8.15 H (1.3-7.7) k/uL Lymphocytes # (Manual) 0.68 L (1.0-4.8) k/uL Monocytes # (Manual) 0.49 (0-1.0) k/uL Eosinophils # (Manual) 0.10 (0-0.7) k/uL Basophils # (Manual) (0.00-0.10) X 10*3/uL Metamyelocytes # (Man) 0.19 H (0) k/uL Myelocytes # (Manual) 0.19 H (0) k/uL Nucleated RBCs 0 (0-0) /100 WBC NRBC/100 WBC Diff (0.00-0.01) X 10*3/uL Manual Slide Review Performed Polychromasia Present Anisocytosis Slight Anisocytosis (manual) Present PT 12.9 H (10.0-12.5) sec INR 1.2 H (<1.2) APTT 25.6 (22.0-30.0) sec Sodium 136 L (137-145) mmol/L Potassium 3.5 (3.5-5.1) mmol/L Chloride 98 (98-107) mmol/L Carbon Dioxide 24 (22-30) mmol/L Anion Gap 14 mmol/L BUN 46 H (7-17) mg/dL Creatinine 7.70 H* (0.52-1.04) mg/dL Est GFR (CKD-EPI) (>=60) Est GFR (CKD-EPI)AfAm 5 (>60 ml/min/1.73 sqM) Est GFR (CKD-EPI)NonAf 4 (>60 ml/min/1.73 sqM) BUN/Creatinine Ratio (12.00-20.00) Ratio Glucose 157 H (74-99) mg/dL POC Glucose (mg/dL) (70-110) mg/dL POC Glu Research And Development Technician ID Calcium 9.9 (8.4-10.2) mg/dL Phosphorus 2.2 L (2.5-4.5) mg/dL Magnesium 2.3 (1.6-2.3) mg/dL Total Bilirubin 0.9 (0.2-1.3) mg/dL AST 24 (14-36) U/L ALT 10 (4-34) U/L Alkaline Phosphatase 85 (38-126) U/L Troponin I (0.000-0.034) ng/mL Total Protein 6.0 L (6.3-8.2) g/dL Albumin 3.0 L (3.5-5.0) g/dL Globulin (1.6-3.3) g/dL Albumin/Globulin Ratio (1.60-3.17) Ratio 11/17/24 11/17/24 11/17/24 Range/Units 09:41 17:56 21:10 WBC (3.8-10.6) k/uL RBC (3.80-5.40) m/uL Hgb (11.4-16.0) gm/dL Hct (34.0-46.0) % MCV (80.0-100.0) fL MCH (25.0-35.0) pg MCHC (31.0-37.0) g/dL RDW (11.5-15.5) % Plt Count (150-450) k/uL Estimated Plt Count (Adequate) MPV Absolute Nucleated RBC % Neutrophils % (Manual) % Lymphocytes % (Manual) % Monocytes % (Manual) % Eosinophils % (Manual) % Basophils % (Manual) % Metamyelocytes % % Myelocytes % % Neutrophils # (Manual) (1.3-7.7) k/uL Lymphocytes # (Manual) (1.0-4.8) k/uL Monocytes # (Manual) (0-1.0) k/uL Eosinophils # (Manual) (0-0.7) k/uL Basophils # (Manual) (0.00-0.10) X 10*3/uL Metamyelocytes # (Man) (0) k/uL Myelocytes # (Manual) (0) k/uL Nucleated RBCs (0-0) /100 WBC NRBC/100 WBC Diff (0.00-0.01) X 10*3/uL Manual Slide Review Polychromasia Anisocytosis Anisocytosis (manual) PT (10.0-12.5) sec INR (<1.2) APTT (22.0-30.0) sec Sodium (137-145) mmol/L Potassium (3.5-5.1) mmol/L Chloride (98-107) mmol/L Carbon Dioxide (22-30) mmol/L Anion Gap mmol/L BUN (7-17) mg/dL Creatinine (0.52-1.04) mg/dL Est GFR (CKD-EPI) (>=60) Est GFR (CKD-EPI)AfAm (>60 ml/min/1.73 sqM) Est GFR (CKD-EPI)NonAf (>60 ml/min/1.73 sqM) BUN/Creatinine Ratio (12.00-20.00) Ratio Glucose (74-99) mg/dL POC Glucose (mg/dL) (70-110) mg/dL POC Glu Research And Development Technician ID Calcium (8.4-10.2) mg/dL Phosphorus (2.5-4.5) mg/dL Magnesium (1.6-2.3) mg/dL Total Bilirubin (0.2-1.3) mg/dL AST (14-36) U/L ALT (4-34) U/L Alkaline Phosphatase (38-126) U/L Troponin I 0.071 H* 0.105 H* 0.129 H* (0.000-0.034) ng/mL Total Protein (6.3-8.2) g/dL Albumin (3.5-5.0) g/dL Globulin (1.6-3.3) g/dL Albumin/Globulin Ratio (1.60-3.17) Ratio 11/17/24 11/18/24 11/18/24 Range/Units 23:21 05:42 05:42 WBC 9.42 (3.8-10.6) k/uL RBC 3.76 L (3.80-5.40) m/uL Hgb 10.6 L (11.4-16.0) gm/dL Hct 34.3 L (34.0-46.0) % MCV 91.2 (80.0-100.0) fL MCH 28.2 (25.0-35.0) pg MCHC 30.9 L (31.0-37.0) g/dL RDW 16.5 H (11.5-15.5) % Plt Count 542 H (150-450) k/uL Estimated Plt Count Increased (Adequate) MPV 11.3 Absolute Nucleated RBC 0 % Neutrophils % (Manual) 80 % Lymphocytes % (Manual) 6 % Monocytes % (Manual) 5 % Eosinophils % (Manual) 3 % Basophils % (Manual) 0 % Metamyelocytes % 4 % Myelocytes % 2 % Neutrophils # (Manual) 7.54 (1.3-7.7) k/uL Lymphocytes # (Manual) 0.57 L (1.0-4.8) k/uL Monocytes # (Manual) 0.47 (0-1.0) k/uL Eosinophils # (Manual) 0.28 (0-0.7) k/uL Basophils # (Manual) 0 (0.00-0.10) X 10*3/uL Metamyelocytes # (Man) (0) k/uL Myelocytes # (Manual) (0) k/uL Nucleated RBCs (0-0) /100 WBC NRBC/100 WBC Diff 0 (0.00-0.01) X 10*3/uL Manual Slide Review Man and Morph Polychromasia Anisocytosis Anisocytosis (manual) PT (10.0-12.5) sec INR (<1.2) APTT (22.0-30.0) sec Sodium 139 (137-145) mmol/L Potassium 3.9 (3.5-5.1) mmol/L Chloride 99 (98-107) mmol/L Carbon Dioxide 23.7 (22-30) mmol/L Anion Gap 16.30 H mmol/L BUN 45.0 H (7-17) mg/dL Creatinine 8.3 H (0.52-1.04) mg/dL Est GFR (CKD-EPI) 4 L (>=60) Est GFR (CKD-EPI)AfAm (>60 ml/min/1.73 sqM) Est GFR (CKD-EPI)NonAf (>60 ml/min/1.73 sqM) BUN/Creatinine Ratio 5.42 L (12.00-20.00) Ratio Glucose 113 H (74-99) mg/dL POC Glucose (mg/dL) (70-110) mg/dL POC Glu Research And Development Technician ID Calcium 9.8 (8.4-10.2) mg/dL Phosphorus 1.7 L (2.5-4.5) mg/dL Magnesium 2.4 (1.6-2.3) mg/dL Total Bilirubin 0.5 (0.2-1.3) mg/dL AST 35 (14-36) U/L ALT 13 (4-34) U/L Alkaline Phosphatase 77 (38-126) U/L Troponin I 0.137 H* (0.000-0.034) ng/mL Total Protein 5.7 L (6.3-8.2) g/dL Albumin 3.0 L (3.5-5.0) g/dL Globulin 2.7 (1.6-3.3) g/dL Albumin/Globulin Ratio 1.11 L (1.60-3.17) Ratio / Range/Units 17:37 WBC (3.8-10.6) k/uL RBC (3.80-5.40) m/uL Hgb (11.4-16.0) gm/dL Hct (34.0-46.0) % MCV (80.0-100.0) fL MCH (25.0-35.0) pg MCHC (31.0-37.0) g/dL RDW (11.5-15.5) % Plt Count (150-450) k/uL Estimated Plt Count (Adequate) MPV Absolute Nucleated RBC % Neutrophils % (Manual) % Lymphocytes % (Manual) % Monocytes % (Manual) % Eosinophils % (Manual) % Basophils % (Manual) % Metamyelocytes % % Myelocytes % % Neutrophils # (Manual) (1.3-7.7) k/uL Lymphocytes # (Manual) (1.0-4.8) k/uL Monocytes # (Manual) (0-1.0) k/uL Eosinophils # (Manual) (0-0.7) k/uL Basophils # (Manual) (0.00-0.10) X 10*3/uL Metamyelocytes # (Man) (0) k/uL Myelocytes # (Manual) (0) k/uL Nucleated RBCs (0-0) /100 WBC NRBC/100 WBC Diff (0.00-0.01) X 10*3/uL Manual Slide Review Polychromasia Anisocytosis Anisocytosis (manual) PT (10.0-12.5) sec INR (<1.2) APTT (22.0-30.0) sec Sodium (137-145) mmol/L Potassium (3.5-5.1) mmol/L Chloride (98-107) mmol/L Carbon Dioxide (22-30) mmol/L Anion Gap mmol/L BUN (7-17) mg/dL Creatinine (0.52-1.04) mg/dL Est GFR (CKD-EPI) (>=60) Est GFR (CKD-EPI)AfAm (>60 ml/min/1.73 sqM) Est GFR (CKD-EPI)NonAf (>60 ml/min/1.73 sqM) BUN/Creatinine Ratio (12.00-20.00) Ratio Glucose (74-99) mg/dL POC Glucose (mg/dL) 234 H (70-110) mg/dL POC Glu Research And Development Technician ID Sabrina Wood Calcium (8.4-10.2) mg/dL Phosphorus (2.5-4.5) mg/dL Magnesium (1.6-2.3) mg/dL Total Bilirubin (0.2-1.3) mg/dL AST (14-36) U/L ALT (4-34) U/L Alkaline Phosphatase (38-126) U/L Troponin I (0.000-0.034) ng/mL Total Protein (6.3-8.2) g/dL Albumin (3.5-5.0) g/dL Globulin (1.6-3.3) g/dL Albumin/Globulin Ratio (1.60-3.17) Ratio - EKG Data -: EKG Interpreted by Me (EKG is A-fib 93 QRS 110 QTc 446) - Radiology Data Radiology results: report reviewed (Chest x-ray is positive for fluid overload state), image reviewed Disposition Clinical Impression: AMS (altered mental status), Acute renal failure, CKD (chronic kidney disease) requiring chronic dialysis Disposition: ADMITTED IP TO THIS HOSP Is patient prescribed a controlled substance at d/c from ED?: No Time of Disposition: 11:00
[2024-11-17 09:56] LABS: Anisocytosis Slight; HCT 32.2 % (34.0-46.0); HGB 10.3 gm/dL (11.4-16.0); MCH 28.2 pg (25.0-35.0); MCV 88.2 fL (80.0-100.0); Mean Platelet Volume 8.6; Platelet Count 513 k/uL (150-450); RBC 3.66 m/uL (3.80-5.40); WBC 9.7 k/uL (3.8-10.6)
[2024-11-17] MEDS: diphenhydrAMINE 50 MG/ML 1 ML VIAL IVP STA (10:00)
[2024-11-17] MEDS: LORazepam 2 MG/ML INJ IV STA ×2 (10:01→13:52)
[2024-11-17 10:07] LABS: ALT 10 U/L (4-34); AST 24 U/L (14-36); African American GFR (CKD) 5 (>60 ml/min/1.73 sqM); Alkaline Phosphatase 85 U/L (38-126); Anion Gap 14 mmol/L; Blood Urea Nitrogen 46 mg/dL (7-17); Calcium 9.9 mg/dL (8.4-10.2); Carbon Dioxide 24 mmol/L (22-30); Chloride 98 mmol/L (98-107); Glucose 157 mg/dL (74-99); Magnesium 2.3 mg/dL (1.6-2.3); Non-African American GFR(CKD) 4 (>60 ml/min/1.73 sqM); Phosphorus 2.2 mg/dL (2.5-4.5); Potassium 3.5 mmol/L (3.5-5.1); Sodium 136 mmol/L (137-145); Total Bilirubin 0.9 mg/dL (0.2-1.3)
--- NOTE | 2024-11-17 10:07 | XR ---
EXAMINATION TYPE: XR chest 2V DATE OF EXAM: 11/17/2024 9:57 AM COMPARISON: Chest x-ray 2 days earlier CLINICAL INDICATION: Female, 84 years old with history of Weakness, TECHNIQUE: Frontal and lateral views of the chest are obtained. FINDINGS: Stable large bore right internal jugular dialysis catheter. Persistent cardiomegaly and mi ld central vascular congestion. No new suspicious focal airspace opacity or pneumothorax seen bilate rally. The osseous structures are intact. IMPRESSION: Persistent CHF exacerbation/fluid overload state. No significant change from most recent study. [facility], , 11/17/2024 10:04 AM
[2024-11-17 10:11] LABS: INR 1.2 (<1.2); Partial Thromboplastin Time 25.6 sec (22.0-30.0); Prothrombin Time 12.9 sec (10.0-12.5)
[2024-11-17 11:11] LABS: Anisocytosis (M) Present; Lymphocytes # (M) 0.68 k/uL (1.0-4.8); Metamyelocytes # (M) 0.19 k/uL (0); Metamyelocytes % 2 %; Monocytes # (M) 0.49 k/uL (0-1.0); Myelocytes # (M) 0.19 k/uL (0); Myelocytes % 2 %; Neutrophils # (M) 8.15 k/uL (1.3-7.7); Neutrophils % (M) 84 %; Nucleated Red Blood Cells 0 /100 WBC (0-0); Polychromasia Present; Total Cells Counted 200
[2024-11-17] MEDS ORDERED: ONDANSETRON 4 MG/2 ML VIAL IVP PRN (11:15)
[2024-11-17] MEDS ORDERED: NALOXONE 0.4 MG/ML 1 ML VIAL IV PRN (11:15)
[2024-11-17] MEDS: SODIUM CHLORIDE 0.9% 1,000 ML IV SCH (11:55)
[2024-11-17] MEDS: SODIUM CHLORIDE 0.9% 1,000 ML IV STA (11:56)
--- NOTE | 2024-11-17 14:05 | P.HPIM ---
History of Present Illness H&P Date: 11/17/24 History of Presenting Illness: Patient is a 84-year-old female who is a resident of [facility]. She has a past medical history of ESRD on hemodialysis, T2DM, Atrial Fibrillation, CHF, chronic hypoxic respiratory failure 2L home O2 dependent, and HTN who presented to the emergency department 11/17/2024 from [facility] with chief complaint of tunneled right IJ HD catheter malfunction. Her daughter states that previously, she had a right femoral HD catheter explanted earlier this month and replaced with the right IJ tunneled catheter and has not received HD since Friday11/12/2024. Per daughter, upon arrival patient had AMS, which she is normally AO/4 at baseline. Daughter also reports that she is unsure when she last took her medications. Her only associated concerns include loss of appetite, nausea, and poor fluid intake; however, denies abdominal pain and change in bowel habits. Daughter endorses that patient does still produce urine. Patient denies shortness of breath, chest pain, or palpitations. Denies headache, vision changes, cough, recent illness or exposure. Upon arrival to emergency department, vitals signs are as follows: blood pressure 178/100; HR 93, RR 18, Temp 98.4 F, and SpO2 98% on 2L nasal cannula. EKG was completed showing atrial fibrillation at 93 bpm with T-wave inversion in anterior and an terolateral leads with and incomplete RBBB in leads I, aVL, V4, V5, and V6, Troponin I: 0.071 Chest X-ray findings include : persistent cardiomegaly and mild central vascular congestion and persistent CHF exacerbation/fluid overload state with no changes from recent study. Labs completed and reviewed. CBC: wbc 9.7, hgb 10.3, hematocrit 32.2, platelets 513.Coagulation profile: PT 12.9, INR 1.2, APTT 25.6. BMP: Sodium 136, potassium 3.5, BUN 46, creatinine 7.7, glucose 157, Phos 2.2, total protein 6.0, albumin 3.0. Patient was started on Lasix for treatment of CHF exacerbation/fluid overload and admitted under our services with consultation to vascular surgery and nephrology. Review of systems: Pertinent positives and negatives as discussed in HPI, a complete review of systems was performed and all other systems are negative. Physical exam: Vital signs reviewed and stable. Persistent cardiomegaly and mild central vascular congestion General: Nontoxic, no distress and appears stated age. Derm: Skin warm and dry, normal coloration for ethnicity. Head: Atraumatic, normocephalic and symmetric. Eyes: EOM's intact, no lid lag, and anicteric sclera Mouth: no lip lesions, mucus membranes moist Cardiovascular: regular rate and rhythm with normal S1S2, systolic murmur, positive posterior tibial pulses bilaterally, and cap refill < 2 seconds. Dialysis permacath right anterior chest Lungs: Respirations even, regular, and unlabored on room air. Lungs CTA bilaterally, no rhonchi, no rales, no wheezing, and no accessory muscle usage. Abdominal: soft, nontender to palpation, no guarding, no appreciable organomegaly Ext: ROM intact. No gross muscle atrophy, no edema, no contractures Neuro: Speech clear, face symmetrical and CN II-XII grossly intact with no noted focal neuro deficits Psych: Alert and oriented to person, place, time, and situation. Appropriate and pleasant affect. Assessment and Plan of Care: Fluid overload secondary to ESRD, missing dialysis, and mild diastolic CHF exacerbation. Malfunctioning tunneled HD catheter Chronic hypoxic respiratory failure home oxygen dependent -Last HD run 5 days ago due to malfuntioning tunneled HD catheter -Chest x-ray findings: central vascular congestion and persistent CHF exacerbation/fluid overload state. -Troponin elevated at 0.071. Patient free from cardiac complaints. Elevated troponin likely secondary to ESRD with fluid volume overload/mild CHF exacerbation -Furosemide 60 mg IV x 1 dose given -Daily weights and close monitoring of intake and output -Repeat troponin, BMP, and CBC -Telemetry monitoring -Dr. Hamilton with nephrology consulted for ESRD -Dr. Linares with vascular surgery consulted for malfunctioning dialysis catheter. Hypertension Home medications include metoprolol 25mg by mouth Q12 and amlodipine 5mg by mouth Q12 BP 178/100 on arrival -To continue home medications DVT prophylasis Heparin 5,000 Units SQ Q8 hr T2DM with hyperglycemia Fasting Glucose 156 History of T2DM -Monitor Blood glucose AC and HS -Sliding Scale insulin aspart AC TID as ordered Data and imaging reviewed: As stated above in HPI CODE STATUS: Full DVT prophylaxis: Heparin SQ Discussed with: Patient, patient's daughter, and ED physician Anticipated discharge date: Pending clinical course Anticipated discharge place: [facility] Patient was seen independently by Nurse Practitioner. This document was prepared using [employer] dictation software. Please allow for errors in wood furniture assembler while rare they do occur. Max Couch NP rendered care for this patient independently, reviewed the findings and plan as documented in the note above and agree with plan. I did not physically speak with or examine the patient on this date. Past Medical History Past Medical History: Atrial Fibrillation, Asthma, COPD, CVA/TIA, Dementia, Diabetes Mellitus, Hyperlipidemia, Hypertension, Memory Impairment, Osteoarth ritis (OA) Additional Past Medical History / Comment(s): UTI History of Any Multi-Drug Resistant Organisms: None Reported Past Surgical History: Appendectomy, Hysterectomy, Orthopedic Surgery Additional Past Surgical History / Comment(s): hip Additional Past Anesthesia/Blood Transfusion Reaction / Comment(s): Never rcvd. blood Past Psychological History: Anxiety Smoking Status: Former smoker Past Alcohol Use History: None Reported Past Drug Use History: None Reported Medications and Allergies Home Medications Medication Instructions Recorded Confirmed Type Desvenlafaxine [Pristiq ER] 100 mg PO DAILY 03/04/24 11/17/24 History Fenofibrate Nanocrystallized 145 mg PO DAILY 03/04/24 11/17/24 History [Fenofibrate] Metoprolol Tartrate [Lopressor] 25 mg PO Q12H 03/04/24 11/17/24 History Pravastatin Sodium 80 mg PO HS 03/04/24 11/17/24 History ARIPiprazole [Abilify] 2 mg PO DAILY 10/06/24 11/17/24 History Cholecalciferol [Vitamin D3 (125 125 mcg PO DAILY 10/06/24 11/17/24 History Mcg = 5000 Iu)] Escitalopram [Lexapro] 20 mg PO DAILY 10/06/24 11/17/24 History Melatonin 5 mg PO HS 10/06/24 11/17/24 History busPIRone HCL 15 mg PO Q12H 10/06/24 11/17/24 History Acetaminophen Tab [Tylenol] 650 mg PO Q6HR PRN tab 10/21/24 11/17/24 Rx Ipratropium-Albuterol Nebulize 3 ml INHALATION RT-TID each 10/21/24 11/17/24 Rx [Duoneb 0.5 mg-3 mg/3 ml Soln] Sucralfate [Carafate] 1 gm PO AC-TID tab 10/21/24 11/17/24 Rx Torsemide [Demadex] 40 mg PO DAILY tab 10/21/24 11/17/24 Rx hydrALAZINE HCL [Apresoline] 50 mg PO TID tab 10/21/24 11/17/24 Rx ALPRAZolam [Xanax] 1 mg PO QID 11/17/24 11/17/24 History Budesonide-Formot 160-4.5 Mcg 2 puff INHALATION RT-Q12H 11/17/24 11/17/24 Hist ory [Symbicort 160-4.5 Mcg Inhaler] INSULIN ASPART (NovoLOG) [NovoLOG See Protocol SQ AC-TID 11/17/24 11/17/24 History (formulary)] Ipratropium-Albuterol Nebulize 3 ml INHALATION RT-Q8H PRN 11/17/24 11/17/24 History [Duoneb 0.5 mg-3 mg/3 ml Soln] Lactulose [Cephulac] 30 gm PO Q8H 11/17/24 11/17/24 History Midodrine [ProAmatine] 5 mg PO Q12H PRN 11/17/24 11/17/24 History amLODIPine [Norvasc] 5 mg PO Q12H 11/17/24 11/17/24 History Allergies Allergy/AdvReac Type Severity Reaction Status Date / Time No Known Allergies Allergy Verified 11/17/24 13:50 Physical Exam Vitals: Vital Signs Temp Pulse Resp BP Pulse Ox 11/17/24 10:35 93 18 178/100 98 11/17/24 09:16 98.4 F 98 24 113/94 100 Intake and Output 11/16/24 11/17/24 11/17/24 22:59 06:59 14:59 Other: Weight 81.647 kg Results CBC & Chem 7: 11/17/24 09:41 11/17/24 09:41 Labs: Abnormal Lab Results - Last 24 Hours (Table) 11/17/24 11/17/24 11/17/24 Range/Units 09:41 09:41 09:41 RBC 3.66 L (3.80-5.40) m/uL Hgb 10.3 L (11.4-16.0) gm/dL Hct 32.2 L (34.0-46.0) % RDW 16.0 H (11.5-15.5) % Plt Count 513 H (150-450) k/uL Neutrophils # (Manual) 8.15 H (1.3-7.7) k/uL Lymphocytes # (Manual) 0.68 L (1.0-4.8) k/uL Metamyelocytes # (Man) 0.19 H (0) k/uL Myelocytes # (Manual) 0.19 H (0) k/uL PT 12.9 H (10.0-12.5) sec INR 1.2 H (<1.2) Sodium 136 L (137-145) mmol/L BUN 46 H (7-17) mg/dL Creatinine 7.70 H* (0.52-1.04) mg/dL Glucose 157 H (74-99) mg/dL Phosphorus 2.2 L (2.5-4.5) mg/dL Troponin I (0.000-0.034) ng/mL Total Protein 6.0 L (6.3-8.2) g/dL Albumin 3.0 L (3.5-5.0) g/dL 11/17/24 Range/Units 09:41 RBC (3.80-5.40) m/uL Hgb (11.4-16.0) gm/dL Hct (34.0-46.0) % RDW (11.5-15.5) % Plt Count (150-450) k/uL Neutrophils # (Manual) (1.3-7.7) k/uL Lymphocytes # (Manual) (1.0-4.8) k/uL Metamyelocytes # (Man) (0) k/uL Myelocytes # (Manual) (0) k/uL PT (10.0-12.5) sec INR (<1.2) Sodium (137-145) mmol/L BUN (7-17) mg/dL Creatinine (0.52-1.04) mg/dL Glucose (74-99) mg/dL Phosphorus (2.5-4.5) mg/dL Troponin I 0.071 H* (0.000-0.034) ng/mL Total Protein (6.3-8.2) g/dL Albumin (3.5-5.0) g/dL
[2024-11-17] MEDS ORDERED: MIDODRINE 5 MG TAB PO PRN (14:12)
[2024-11-17] MEDS ORDERED: ACETAMINOPHEN TAB 325 MG TAB PO PRN (14:12)
[2024-11-17] MEDS ORDERED: IPRATROPIUM-ALBUTEROL 3 ML NEB INHALATION PRN (14:12)
[2024-11-17] MEDS: FUROSEMIDE 10 MG/ML 10 ML VIAL IV STA (14:31)
--- NOTE | 2024-11-17 14:33 | P.GSCN ---
History of Present Illness Consult date: 11/17/24 Reason for Consult: Malfunctioning tunneled dialysis catheter Requesting physician: Max Couch History of present illness: Pleasant 84-year-old female who resides at [facility] was brought in secondary to malfunctioning tunneled dialysis catheter. Apparently patient went to dialysis on Friday and they were unable to do dialysis secondary to seeing something in her port. She was sent into the emergency department she had a chest x-ray that showed good placement of tunneled catheter. She was sent home. She went for dialysis today and again same thing was found that appeared to have metal substance in patient's port therefore she was unable to get dialysis and sent in for further evaluation. Patient is known to Dr. Linares who placed right IJ tunneled dialysis catheter October 14, 2024. Vascular surgery consulted for malfunctioning dialysis catheter. BUN 46 creatinine 7.7 Review of Systems A 14 point review systems was completed all pertinent positives and negatives as stated in the HPI. Past Medical History Past Medical History: Atrial Fibrillation, Asthma, COPD, CVA/TIA, Dementia, Diabetes Mellitus, Hyperlipidemia, Hypertension, Memory Impairment, Osteoarthritis (OA) Additional Past Medical History / Comment(s): UTI History of Any Multi-Drug Resistant Organisms: None Reported Past Surgical History: Appendectomy, Hysterectomy, Orthopedic Surgery Additional Past Surgical History / Comment(s): hip Additional Past Anesthesia/Blood Transfusion Reaction / Comm: Never rcvd. blood Past Psychological History: Anxiety Smoking Status: Former smoker Past Alcohol Use History: None Reported Past Drug Use History: None Reported Medications and Allergies Home Medications Medication Instructions Recorded Confirmed Type Desvenlafaxine [Pristiq ER] 100 mg PO DAILY 03/04/24 11/17/24 History Fenofibrate Nanocrystallized 145 mg PO DAILY 03/04/24 11/17/24 History [Fenofibrate] Metoprolol Tartrate [Lopressor] 25 mg PO Q12H 03/04/24 11/17/24 History Pravastatin Sodium 80 mg PO HS 03/04/24 11/17/24 History ARIPiprazole [Abilify] 2 mg PO DAILY 10/06/24 11/17/24 History Cholecalciferol [Vitamin D3 (125 125 mcg PO DAILY 10/06/24 11/17/24 History Mcg = 5000 Iu)] Escitalopram [Lexapro] 20 mg PO DAILY 10/06/24 11/17/24 History Melatonin 5 mg PO HS 10/06/24 11/17/24 History busPIRone HCL 15 mg PO Q12H 10/06/24 11/17/24 History Acetaminophen Tab [Tylenol] 650 mg PO Q6HR PRN tab 10/21/24 11/17/24 Rx Ipratropium-Albuterol Nebulize 3 ml INHALATION RT-TID each 10/21/24 11/17/24 Rx [Duoneb 0.5 mg-3 mg/3 ml Soln] Sucralfate [Carafate] 1 gm PO AC-TID tab 10/21/24 11/17/24 Rx Torsemide [Demadex] 40 mg PO DAILY tab 10/21/24 11/17/24 Rx hydrALAZINE HCL [Apresoline] 50 mg PO TID tab 10/21/24 11/17/24 Rx ALPRAZolam [Xanax] 1 mg PO QID 11/17/24 11/17/24 History Budesonide-Formot 160-4.5 Mcg 2 puff INHALATION RT-Q12H 11/17/24 11/17/24 History [Symbicort 160-4.5 Mcg Inhaler] INSULIN ASPART (NovoLOG) [NovoLOG See Protocol SQ AC-TID 11/17/24 11/17/24 History (formulary)] Ipratropium-Albuterol Nebulize 3 ml INHALATION RT-Q8H PRN 11/17/24 11/17/24 History [Duoneb 0.5 mg-3 mg/3 ml Soln] Lactulose [Cephulac] 30 gm PO Q8H 11/17/24 11/17/24 History Midodrine [ProAmatine] 5 mg PO Q12H PRN 11/17/24 11/17/24 History amLODIPine [Norvasc] 5 mg PO Q12H 11/17/24 11/17/24 History Allergies Allergy/AdvReac Type Severity Reaction Status Date / Time No Known Allergies Allergy Verified 11/17/24 13:50 Surgical - Exam Vital Signs Temp Pulse Resp BP Pulse Ox 98.4 F 98 24 113/94 100 11/17/24 09:16 11/17/24 09:16 11/17/24 09:16 11/17/24 09:16 11/17/24 09:16 General appearance: The patient is alert, oriented, appears in no acute distress. HET: Head is normocephalic and atraumatic. Pupils are equal and reactive. Neck: Supple. Chest: Right IJ tunneled catheter with dressing clean dry and intact. Port lines were wrapped with gauze, arterial port without cap. Heart: Regular. Lungs: Equal expansion, normal respiratory effort. Abdomen: Soft, nontender, nondistended. Extremities: Normal skin color and turgor. Neurological: Alert and oriented Results - Labs 11/18/24 05:42 11/18/24 05:42 Abnormal Lab Results - Last 24 Hours (Table) 11/17/24 11/17/24 11/17/24 Range/Units 09:41 09:41 09:41 RBC 3.66 L (3.80-5.40) m/uL Hgb 10.3 L (11.4-16.0) gm/dL Hct 32.2 L (34.0-46.0) % RDW 16.0 H (11.5-15.5) % Plt Count 513 H (150-450) k/uL Neutrophils # (Manual) 8.15 H (1.3-7.7) k/uL Lymphocytes # (Manual) 0.68 L (1.0-4.8) k/uL Metamyelocytes # (Man) 0.19 H (0) k/uL Myelocytes # (Manual) 0.19 H (0) k/uL PT 12.9 H (10.0-12.5) sec INR 1.2 H (<1.2) Sodium 136 L (137-145) mmol/L BUN 46 H (7-17) mg/dL Creatinine 7.70 H* (0.52-1.04) mg/dL Glucose 157 H (74-99) mg/dL Phosphorus 2.2 L (2.5-4.5) mg/dL Troponin I (0.000-0.034) ng/mL Total Protein 6.0 L (6.3-8.2) g/dL Albumin 3.0 L (3.5-5.0) g/dL 11/17/24 Range/Units 09:41 RBC (3.80-5.40) m/uL Hgb (11.4-16.0) gm/dL Hct (34.0-46.0) % RDW (11.5-15.5) % Plt Count (150-450) k/uL Neutrophils # (Manual) (1.3-7.7) k/uL Lymphocytes # (Manual) (1.0-4.8) k/uL Metamyelocytes # (Man) (0) k/uL Myelocytes # (Manual) (0) k/uL PT (10.0-12.5) sec INR (<1.2) Sodium (137-145) mmol/L BUN (7-17) mg/dL Creatinine (0.52-1.04) mg/dL Glucose (74-99) mg/dL Phosphorus (2.5-4.5) mg/dL Troponin I 0.071 H* (0.000-0.034) ng/mL Total Protein (6.3-8.2) g/dL Albumin (3.5-5.0) g/dL Diabetes panel 11/17/24 Range/Units 09:41 Sodium 136 L (137-145) mmol/L Potassium 3.5 (3.5-5.1) mmol/L Chloride 98 (98-107) mmol/L Carbon Dioxide 24 (22-30) mmol/L BUN 46 H (7-17) mg/dL Creatinine 7.70 H* (0.52-1.04) mg/dL Glucose 157 H (74-99) mg/dL Calcium 9.9 (8.4-10.2) mg/dL AST 24 (14-36) U/L ALT 10 (4-34) U/L Alkaline Phosphatase 85 (38-126) U/L Total Protein 6.0 L (6.3-8.2) g/dL Albumin 3.0 L (3.5-5.0) g/dL Calcium panel 11/17/24 Range/Units 09:41 Calcium 9.9 (8.4-10.2) mg/dL Phosphorus 2.2 L (2.5-4.5) mg/dL Albumin 3.0 L (3.5-5.0) g/dL Pituitary panel 11/17/24 Range/Units 09:41 Sodium 136 L (137-145) mmol/L Potassium 3.5 (3.5-5.1) mmol/L Chloride 98 (98-107) mmol/L Carbon Dioxide 24 (22-30) mmol/L BUN 46 H (7-17) mg/dL Creatinine 7.70 H* (0.52-1.04) mg/dL Glucose 157 H (74-99) mg/dL Calcium 9.9 (8.4-10.2) mg/dL Adrenal panel 11/17/24 Range/Units 09:41 Sodium 136 L (137-145) mmol/L Potassium 3.5 (3.5-5.1) mmol/L Chloride 98 (98-107) mmol/L Carbon Dioxide 24 (22-30) mmol/L BUN 46 H (7-17) mg/dL Creatinine 7.70 H* (0.52-1.04) mg/dL Glucose 157 H (74-99) mg/dL Calcium 9.9 (8.4-10.2) mg/dL Total Bilirubin 0.9 (0.2-1.3) mg/dL AST 24 (14-36) U/L ALT 10 (4-34) U/L Alkaline Phosphatase 85 (38-126) U/L Total Protein 6.0 L (6.3-8.2) g/dL Albumin 3.0 L (3.5-5.0) g/dL - Imaging Chest x-ray: report reviewed (Persistent CHF exacerbation/fluid overload state. No significant change from most recent study. Stable large bore right internal jugular dialysis catheter) Assessment and Plan Assessment: 1. Malfunctioning HD tunneled dialysis catheter 2. End-stage renal disease on hemodialysis Plan: 1. Keep n.p.o. 2. Dialysis port evaluated by Dr. Linares noting broken piece of plastic. Will plan for revision or replacement of hemodialysis catheter today 3. Hemodialysis per recommendations from nephrology Thank you for this consultation, we will continue to follow. The impression and plan of care has been dictated as directed. Dr. Linares I performed a history and examination of this patient, discussed the same with the dictator. I agree with the dictator's note ,documented as a scribe. Any additional findings or plans will be noted. Patient seen and examined. Catheter evaluated. There is a piece of plastic lodged inside the arterial port of her catheter. Initial attempts were unsuccessful at removal, attempted again with OR equipment and was able to remove the plastic piece of from likely a flush or slip tip type syringe. Multiple phone calls made on the patient's behalf in regards to the facility as well as dialysis in order to evaluate and educate.. Daughter at the bedside was appreciative. Dialysis catheter okay for utilization of
[2024-11-17] MEDS: busPIRone HCl 5 MG TAB PO SCH (14:34)
[2024-11-17] MEDS: METOPROLOL TARTRATE 25 MG TAB PO SCH (14:35)
[2024-11-17] MEDS: amLODIPine 5 MG TAB PO SCH (14:35)
[2024-11-17] MEDS: LACTULOSE 20 GM/30 ML CUP PO SCH (14:35)
[2024-11-17] MEDS: hydrALAZINE HCL 50 MG TAB PO SCH (16:24)
[2024-11-17] MEDS: HEPARIN SODIUM,PORCINE 5,000 UNIT/ML 1 ML VIAL SQ SCH (16:24)
[2024-11-17] MEDS: SUCRALFATE 1 GM TAB PO SCH (18:08)
[2024-11-17] MEDS: IPRATROPIUM-ALBUTEROL 3 ML NEB INHALATION SCH (19:35)
[2024-11-17] MEDS: SYMBICORT 160-4.5 MCG INHALER INHALATION SCH (19:35)
[2024-11-17] MEDS: PRAVASTATIN SODIUM 80 MG TAB PO SCH (22:22)
[2024-11-17] MEDS: MELATONIN 5 MG TABLET PO SCH (22:23)
[2024-11-18] MEDS ORDERED: ZINC OXIDE PASTE (Z-GUARD) 1 APPLIC TOPICAL PRN (03:29)
[2024-11-18] MEDS: DESVENLAFAXINE SUCCINATE 50 MG TAB.ER.24H PO SCH (08:51)
[2024-11-18] MEDS: ARIPiprazole 2 MG TAB PO SCH (08:51)
[2024-11-18] MEDS: CHOLECALCIFEROL 125 MCG (5000 IU) TABLET PO SCH (08:52)
[2024-11-18] MEDS: ESCITALOPRAM 20 MG TAB PO SCH (08:52)
[2024-11-18] MEDS: FENOFIBRATE 160 MG TAB PO SCH (08:52)
[2024-11-18 09:17] LABS: BUN/Creat Ratio 5.42 Ratio (12.00-20.00); Chloride 99 mmol/L (96-109); Glucose 113 mg/dL (70-110); Magnesium 2.4 mg/dL (1.5-2.4); Phosphorus 1.7 mg/dL (2.4-5.1); Potassium 3.9 mmol/L (3.5-5.5); Sodium 139 mmol/L (135-145)
[2024-11-18 09:18] LABS: ALT 13 U/L (8-44); AST 35 U/L (13-35); Albumin/Globulin Ratio 1.11 Ratio (1.60-3.17); Alkaline Phosphatase 77 U/L (41-126); Calcium 9.8 mg/dL (8.7-10.3); Carbon Dioxide 23.7 mmol/L (21.6-31.8); Globulin 2.7 g/dL (1.6-3.3); Total Bilirubin 0.5 mg/dL (0.3-1.2); Total Protein 5.7 g/dL (6.2-8.2)
[2024-11-18 09:19] LABS: HCT 34.3 % (37.2-46.3); HGB 10.6 g/dL (12.0-15.0); MCH 28.2 pg (27.0-32.0); MCHC 30.9 g/dL (32.0-37.0); MCV 91.2 FL (80.0-97.0); Mean Platelet Volume 11.3 FL (9.5-12.2); NRBC Per 100 WBC 0 X 10*3/uL (0.00-0.01); Platelet Count 542 X 10*3/uL (140-440); RBC 3.76 X 10*6/uL (4.10-5.20); RDW 16.5 % (11.5-14.5); WBC 9.42 X 10*3/uL (4.50-10.00)
[2024-11-18 10:40] LABS: Basophils # (M) 0 X 10*3/uL (0.00-0.10); Eosinophils # (M) 0.28 X 10*3/uL (0.04-0.35); Lymphocytes # (M) 0.57 X 10*3/uL (0.90-5.00); Metamyelocytes % 4 % (0-0); Monocytes # (M) 0.47 X 10*3/uL (0.20-1.00); Myelocytes % 2 % (0-0); Neutrophils # (M) 7.54 X 10*3/uL (1.80-7.70); Neutrophils % (M) 80 %
[2024-11-18] MEDS: LORazepam 2 MG/ML INJ IV PRN ×2 (10:45→16:04)
[2024-11-18] MEDS ORDERED: LORazepam 2 MG/ML INJ IV PRN (12:50)
--- NOTE | 2024-11-18 12:58 | P.PN ---
Subjective Progress Note Date: 11/18/24 Principal diagnosis: Malfunctioning dialysis catheter Patient is seen and examined today as a follow-up. Yesterday she had presented to the emergency department with reports of inability to access tunneled dialysis port secondary to foreign body. Foreign body retrieval was done by Dr. Linares at the bedside. Patient denies any pain in her right chest. No shortness of breath. Objective - Vital Signs Vital signs: Vital Signs Temp 97.9 F 11/18/24 07:00 Pulse 68 11/18/24 09:33 Resp 15 11/18/24 08:00 BP 120/60 11/18/24 07:00 Pulse Ox 97 11/18/24 09:19 FiO2 Intake & Output 11/17/24 11/18/24 11/18/24 18:59 06:59 18:59 Weight 81.647 kg Other: Voiding Method External Catheter External Catheter External Catheter # Bowel Movements 4 - Exam General appearance: The patient is alert, oriented, appears in no acute distre ss. HET: Head is normocephalic and atraumatic. Neck: Supple. Chest: Right IJ tunnel catheter in place with dressing clean dry and intact with caps over ports Heart: Regular. Lungs: Equal expansion, normal respiratory effort. Abdomen: Soft, nondistended. Extremities: Normal skin color and turgor. Neurological: Awake and Alert. - Labs CBC & Chem 7: 11/18/24 05:42 11/18/24 05:42 Labs: Abnormal Lab Results - Last 24 Hours (Table) 11/17/24 11/17/24 11/17/24 Range/Units 17:56 21:10 23:21 RBC (4.10-5.20) X 10*6/uL Hgb (12.0-15.0) g/dL Hct (37.2-46.3) % MCHC (32.0-37.0) g/dL RDW (11.5-14.5) % Plt Count (140-440) X 10*3/uL Lymphocytes # (Manual) (0.90-5.00) X 10*3/uL Anion Gap (4.00-12.00) mmol/L BUN (9.0-27.0) mg/dL Creatinine (0.6-1.5) mg/dL Est GFR (CKD-EPI) (>=60) BUN/Creatinine Ratio (12.00-20.00) Ratio Glucose (70-110) mg/dL Phosphorus (2.4-5.1) mg/dL Troponin I 0.105 H* 0.129 H* 0.137 H* (0.000-0.034) ng/mL Total Protein (6.2-8.2) g/dL Albumin (3.8-4.9) g/dL Albumin/Globulin Ratio (1.60-3.17) Ratio 11/18/24 11/18/24 Range/Units 05:42 05:42 RBC 3.76 L (4.10-5.20) X 10*6/uL Hgb 10.6 L (12.0-15.0) g/dL Hct 34.3 L (37.2-46.3) % MCHC 30.9 L (32.0-37.0) g/dL RDW 16.5 H (11.5-14.5) % Plt Count 542 H (140-440) X 10*3/uL Lymphocytes # (Manual) 0.57 L (0.90-5.00) X 10*3/uL Anion Gap 16.30 H (4.00-12.00) mmol/L BUN 45.0 H (9.0-27.0) mg/dL Creatinine 8.3 H (0.6-1.5) mg/dL Est GFR (CKD-EPI) 4 L (>=60) BUN/Creatinine Ratio 5.42 L (12.00-20.00) Ratio Glucose 113 H (70-110) mg/dL Phosphorus 1.7 L (2.4-5.1) mg/dL Troponin I (0.000-0.034) ng/mL Total Protein 5.7 L (6.2-8.2) g/dL Albumin 3.0 L (3.8-4.9) g/dL Albumin/Globulin Ratio 1.11 L (1.60-3.17) Ratio Assessment and Plan Assessment: 1. Malfunctioning HD tunneled dialysis catheter 2. End-stage renal disease on hemodialysis Plan: May access dialysis port for hemodialysis. Hemodialysis per recommendations from nephrology. Thank you for this consultation, we will continue to follow. The impression and plan of care has been dictated as directed. Dr. Giliberto I performed a history and examination of this patient, discussed the same with the dictator. I agree with the dictator's note ,documented as a scribe. Any additional findings or plans will be noted.
--- NOTE | 2024-11-18 14:45 | P.CRDCN ---
History of Present Illness Consult date: 11/18/24 Reason for Consult (text): Elevated troponin History of present illness: This is an 84-year-old female patient follows with Dr. Dennis with past medical history of chronic diastolic heart failure, hypertension, diabetes mellitus type 2, paroxysmal atrial fibrillation on Eliquis, chronic hypoxic respiratory failure on home O2 at 3 L, depression. We have been asked to evaluate the patient for elevated troponin. Patient was last seen at Dr. Dennis's office on 09/28/2024 after a hospitalization at [facility] for heart failure. Patient h ad no complaints of chest pain at the office visit and it is noted the patient was on Eliquis. In September, patient was hospitalized at [facility] for acute renal failure and started on dialysis. She is now end-stage renal disease on hemodialysis. Patient had an acute upper GI bleed with duodenal bleeding ulcer on EGD and plan was to hold Eliquis for 3 to 4 weeks. Patient has now been sent into the hospital from [facility] due to mental status changes and access issue with for her dialysis catheter and missed dialysis treatments. Patient has been seen by vascular surgery to resolve dialysis catheter issue. Troponins were elevated and we have been asked to evaluate the patient. Patient states that she is a "very nervous wreck." She denies having pain anywhere including no chest pain no chest pressure no chest tightness. She denies shortness of breath. She denies being confused. Blood pressure 120/60, heart rate 59, pulse ox 100% on 3 L nasal cannula. -EKG: Atrial fibrillation 93 bpm -Chest x-ray: Persistent CHF exacerbation fluid overload state. No significant change from recent study. -Laboratory studies: WBC 9.4, hemoglobin 10.6. Sodium 139, potassium 3.9, BUN 45 creatinine 8.3. Troponins are 0.071, 0.105, 0.129, 0.137. -Home cardiac medications: Amlodipine 5 mg every 12 hours, hydralazine 50 mg 3 times daily, Lopressor 25 mg every 12 hours, pravastatin 80 mg at bedtime, torsemide 40 mg daily, patient is also on midodrine as needed. -Echocardiogram performed 03/04/2024: Technically very difficult study for interpretation. Probably normal LV systolic function. Poorly visualized intracardiac valves. -Echocardiogram performed at [facility] 12/2023 revealed EF 55 to 60%. No mitral regurgitation, no aortic regurgitation. Trivial pericardial effusion. Review Of Systems: At the time of my exam: CONSTITUTIONAL: Denies fever or chills. HEENT: Denies blurred vision, vision changes, or eye pain. Denies hemoptysis CARDIOVASCULAR: Denies chest pain. Denies orthopnea. Denies PND. Denies palpitations RESPIRATORY: Denies shortness of breath. GASTROINTESTINAL: Denies abdominal pain. Denies nausea or vomiting. HEMATOLOGIC: Denies bleeding disorders. GENITOURINARY: Denies any blood in urine. SKIN: Denies puritis. Denies rash. Physical examination: Gen: This is an 84-year-old female in no acute distress, patient is anxious. VS: reviewed HEENT: Head is atraumatic, normocephalic. Pupils equal, round. Sclerae is anicteric. NECK: Supple. No JVD. LUNGS: Clear to auscultation. No wheezes or rhonchi. No intercostal retractions. HEART: Irregular rate and rhythm. No murmur. ABDOMEN: Soft No tenderness. EXTREMITIES: No pedal edema. No calf tenderness. NEUROLOGICAL: Patient is awake, alert and oriented to person and place. Assessment: Paroxysmal atrial fibrillation End-stage renal disease on HD Malfunctioning HD tunneled dialysis catheter Acute fluid overload due to missed dialysis treatments Metabolic encephalopathy Recent history of upper GI bleed with duodenal bleeding ulcer placing Eliquis on hold x metabolic encephalopathy 4 weeks Chronic diastolic heart failure Hypertension Diabetes mellitus type 2 with hemoglobin A1c of 7.5 in August 2024 Chronic hypoxic respiratory failure on home O2 at 3 L Depression Plan: Resume patient's home cardiac medications Patient may be resumed back onto Eliquis 2.5 mg twice daily Obtain 2-D echocardiogram and Doppler study to assess cardiac structure and function Further recommendations to follow based upon clinical course Thank you kindly for this consultation. Nurse practitioner note has been reviewed, I agree with documented findings and plan of care. Patient was seen and examined. Past Medical History Past Medical History: Atrial Fibrillation, Asthma, COPD, CVA/TIA, Dementia, Diabetes Mellitus, Hyperlipidemia, Hypertension, Memory Impairment, Osteoarthritis (OA) Additional Past Medical History / Comment(s): UTI History of Any Multi-Drug Resistant Organisms: None Reported Past Surgical History: Appendectomy, Hysterectomy, Orthopedic Surgery Additional Past Surgical History / Comment(s): hip Additional Past Anesthesia/Blood Transfusion Reaction / Comment(s): Never rcvd. blood Past Psychological History: Anxiety Smoking Status: Former smoker Past Alcohol Use History: None Reported Past Drug Use History: None Reported Medications and Allergies Home Medications Medication Instructions Recorded Confirmed Type Desvenlafaxine [Pristiq ER] 100 mg PO DAILY 03/04/24 11/17/24 History Fenofibrate Nanocrystallized 145 mg PO DAILY 03/04/24 11/17/24 History [Fenofibrate] Metoprolol Tartrate [Lopressor] 25 mg PO Q12H 03/04/24 11/17/24 History Pravastatin Sodium 80 mg PO HS 03/04/24 11/17/24 History ARIPiprazole [Abilify] 2 mg PO DAILY 10/06/24 11/17/24 History Cholecalciferol [Vitamin D3 (125 125 mcg PO DAILY 10/06/24 11/17/24 History Mcg = 5000 Iu)] Escitalopram [Lexapro] 20 mg PO DAILY 10/06/24 11/17/24 History Melatonin 5 mg PO HS 10/06/24 11/17/24 History busPIRone HCL 15 mg PO Q12H 10/06/24 11/17/24 History Acetaminophen Tab [Tylenol] 650 mg PO Q6HR PRN tab 10/21/24 11/17/24 Rx Ipratropium-Albuterol Nebulize 3 ml INHALATION RT-TID each 10/21/24 11/17/24 Rx [Duoneb 0.5 mg-3 mg/3 ml Soln] Sucralfate [Carafate] 1 gm PO AC-TID tab 10/21/24 11/17/24 Rx Torsemide [Demadex] 40 mg PO DAILY tab 10/21/24 11/17/24 Rx hydrALAZINE HCL [Apresoline] 50 mg PO TID tab 10/21/24 11/17/24 Rx ALPRAZolam [Xanax] 1 mg PO QID 11/17/24 11/17/24 History Budesonide-Formot 160-4.5 Mcg 2 puff INHALATION RT-Q12H 11/17/24 11/17/24 History [Symbicort 160-4.5 Mcg Inhaler] INSULIN ASPART (NovoLOG) [NovoLOG See Protocol SQ AC-TID 11/17/24 11/17/24 History (formulary)] Ipratropium-Albuterol Nebulize 3 ml INHALATION RT-Q8H PRN 11/17/24 11/17/24 History [Duoneb 0.5 mg-3 mg/3 ml Soln] Lactulose [Cephulac] 30 gm PO Q8H 11/17/24 11/17/24 History Midodrine [ProAmatine] 5 mg PO Q12H PRN 11/17/24 11/17/24 History amLODIPine [Norvasc] 5 mg PO Q12H 11/17/24 11/17/24 History Allergies Allergy/AdvReac Type Severity Reaction Status Date / Time No Known Allergies Allergy Verified 11/17/24 13:50 Physical Exam Vitals: Vital Signs Temp Pulse Pulse Pulse Resp BP BP 11/18/24 09:33 68 11/18/24 09:19 64 11/18/24 08:00 15 11/18/24 07:00 97.9 F 59 L 15 120/60 11/18/24 03:40 97.5 F L 59 L 18 11/17/24 22:21 70 11/17/24 19:59 97.4 F L 71 17 11/17/24 19:51 68 11/17/24 19:36 66 11/17/24 16:30 99 F 100 18 170/99 11/17/24 15:00 97.4 F L 98 80 16 BP Pulse Ox 11/18/24 09:33 11/18/24 09:19 97 11/18/24 08:00 11/18/24 07:00 100 11/18/24 03:40 109/64 100 11/17/24 22:21 126/68 11/17/24 19:59 121/63 99 11/17/24 19:51 11/17/24 19:36 11/17/24 16:30 94 L 11/17/24 15:00 146/80 98 Intake and Output 11/17/24 11/18/24 11/18/24 22:59 06:59 14:59 Other: Voiding Method External Catheter External Catheter External Catheter # Bowel Movements 1 4 Weight 81.647 kg Results 11/18/24 05:42 11/18/24 05:42 Cardiac Enzymes 11/17/24 11/17/24 11/17/24 Range/Units 17:56 21:10 23:21 AST (13-35) U/L Troponin I 0.105 H* 0.129 H* 0.137 H* (0.000-0.034) ng/mL 11/18/24 Range/Units 05:42 AST 35 (13-35) U/L Troponin I (0.000-0.034) ng/mL CBC 11/18/24 Range/Units 05:42 WBC 9.42 (4.50-10.00) X 10*3/uL RBC 3.76 L (4.10-5.20) X 10*6/uL Hgb 10.6 L (12.0-15.0) g/dL Hct 34.3 L (37.2-46.3) % Plt Count 542 H (140-440) X 10*3/uL Comprehensive Metabolic Panel 11/18/24 Range/Units 05:42 Sodium 139 (135-145) mmol/L Potassium 3.9 (3.5-5.5) mmol/L Chloride 99 (96-109) mmol/L Carbon Dioxide 23.7 (21.6-31.8) mmol/L BUN 45.0 H (9.0-27.0) mg/dL Creatinine 8.3 H (0.6-1.5) mg/dL Glucose 113 H (70-110) mg/dL Calcium 9.8 (8.7-10.3) mg/dL AST 35 (13-35) U/L ALT 13 (8-44) U/L Alkaline Phosphatase 77 (41-126) U/L Total Protein 5.7 L (6.2-8.2) g/dL Albumin 3.0 L (3.8-4.9) g/dL Current Medications Generic Name Dose Route Start Last Admin Trade Name Freq PRN Reason Stop Dose Admin Acetaminophen 650 mg 11/17/24 14:12 Acetaminophen Tab 325 Mg Tab PO Q6HR PRN Mild Pain or Fever > 100.5 Albuterol/Ipratropium 3 ml 11/17/24 14:12 Ipratropium-Albuterol 3 Ml Neb INHALATION RT-Q8H PRN Wheezing Albuterol/Ipratropium 3 ml 11/17/24 20:00 11/18/24 09:19 Ipratropium-Albuterol 3 Ml Neb INHALATION 3 ml RT-TID JAD Administration Amlodipine Besylate 5 mg 11/17/24 14:15 11/18/24 08:51 Amlodipine 5 Mg Tab PO 5 mg Q12HR JAD Administration Aripiprazole 2 mg 11/18/24 09:00 11/18/24 08:51 Aripiprazole 2 Mg Tab PO 2 mg DAILY JAD Administration Aspirin 81 mg 11/18/24 10:45 Aspirin 81 Mg PO DAILY REPLACED BY [facility] Budesonide/Formoterol Fumarate 2 puff 11/17/24 20:00 11/18/24 09:19 Symbicort 160-4.5 Mcg Inhaler INHALATION 2 puff RT-Q12H JAD Administration Buspirone HCl 15 mg 11/17/24 14:15 11/18/24 08:51 Buspirone Hcl 5 Mg Tab PO 15 mg Q12HR JAD Administration Cholecalciferol 125 mcg 11/18/24 09:00 11/18/24 08:52 Cholecalciferol 125 Mcg (5000 Iu) Tablet PO 125 mcg DAILY JAD Administration Desvenlafaxine Succinate 100 mg 11/18/24 09:00 11/18/24 08:51 Desvenlafaxine Succinate 50 Mg Tab.Er.24h PO 100 mg DAILY JAD Administration Escitalopram Oxalate 20 mg 11/18/24 09:00 11/18/24 08:52 Escitalopram 20 Mg Tab PO 20 mg DAILY JAD Administration Fenofibrate 160 mg 11/18/24 09:00 11/18/24 08:52 Fenofibrate 160 Mg Tab PO 160 mg DAILY JAD Administration Heparin Sodium (Porcine) 5,000 unit 11/17/24 16:00 11/18/24 08:52 Heparin Sodium,Porcine 5,000 Unit/Ml 1 Ml Vial SQ 5,000 unit Q8HR JAD Administration Hydralazine HCl 50 mg 11/17/24 16:00 11/18/24 08:51 Hydralazine Hcl 50 Mg Tab PO 50 mg TID JAD Administration Lactulose 30 gm 11/17/24 14:15 11/18/24 05:49 Lactulose 20 Gm/30 Ml Cup PO Not Given Q8H JAD Lorazepam 1 mg 11/18/24 12:50 Lorazepam 2 Mg/Ml Inj IV ONCE PRN Sedation Lorazepam 1 mg 11/18/24 13:24 Lorazepam 2 Mg/Ml Inj IV Q6H PRN Agitation or Acute Anxiety Melatonin 5 mg 11/17/24 21:00 11/17/24 22:23 Melatonin 5 Mg Tablet PO 5 mg HS JAD Administration Metoprolol Tartrate 25 mg 11/17/24 14:15 11/18/24 08:51 Metoprolol Tartrate 25 Mg Tab PO 25 mg Q12HR JAD Administration Midodrine 5 mg 11/17/24 14:12 Midodrine 5 Mg Tab PO Q12H PRN Hypotension Naloxone HCl 0.2 mg 11/17/24 11:15 Naloxone 0.4 Mg/Ml 1 Ml Vial IV Q2M PRN Opioid Reversal Ondansetron HCl 4 mg 11/17/24 11:15 Ondansetron 4 Mg/2 Ml Vial IVP Q8HR PRN Nausea And Vomiting Petrolatum 1 applic 11/18/24 03:29 Zinc Oxide Paste (Z-Guard) 1 Applic TOPICAL BID PRN Wound Healing Protocol Pravastatin Sodium 80 mg 11/17/24 21:00 11/17/24 22:22 Pravastatin Sodium 80 Mg Tab PO 80 mg HS JAD Administration Sucralfate 1 gm 11/17/24 17:30 11/18/24 06:29 Sucralfate 1 Gm Tab PO 1 gm AC-TID JAD Administration Intake and Output 11/17/24 11/18/24 11/18/24 22:59 06:59 14:59 Other: Voiding Method External Catheter External Catheter External Catheter # Bowel Movements 1 4 Weight 81.647 kg 11/18/24 05:42 11/18/24 05:42
[2024-11-18] MEDS: ALTEPLASE 2 MG VIAL (CATHFLO) IV STA (16:09)
[2024-11-18] MEDS ORDERED: DEXTROSE 50% SYRINGE 50 ML IVP PRN ×2 (16:49)
[2024-11-18 17:38] LABS: Glucose,Whole Blood 234 mg/dL (70-110)
--- NOTE | 2024-11-18 17:46 | P.NPCON ---
History of Present Illness - Reason for Consult acute renal failure, end stage renal disease - History of Present Illness Patient is an 84-year-old female with end-stage renal disease on hemodialysis on Friday schedule at [place]. She is admitted to the hospital with malfunctioning catheter. Last dialysis was about 1 week ago. Patient resides at [facility]. She has been confused. No history of fever or chills nausea vomiting or diarrhea. Serum creatinine was 8.3 and serum potassium 3.9. Patient has had some urine output. Patient was evaluated by vascular surgery and for permacath has been cleared for use. However review had very poor flows during treatment today and patient clotted her system. tPA will be placed and we will try dialysis again tomorrow. Past Medical History Past Medical History: Atrial Fibrillation, Asthma, COPD, CVA/TIA, Dementia, Diabetes Mellitus, Hyperlipidemia, Hypertension, Memory Impairment, Osteoarthritis (OA) Additional Past Medical History / Comment(s): UTI History of Any Multi-Drug Resistant Organisms: None Reported Past Surgical History: Appendectomy, Hysterectomy, Orthopedic Surgery Additional Past Surgical History / Comment(s): hip Additional Past Anesthesia/Blood Transfusion Reaction / Comment(s): Never rcvd. blood Past Psychological History: Anxiety Smoking Status: Former smoker Past Alcohol Use History: None Reported Past Drug Use History: None Reported Medications and Allergies Home Medications Medication Instructions Recorded Confirmed Type Desvenlafaxine [Pristiq ER] 100 mg PO DAILY 03/04/24 11/17/24 History Fenofibrate Nanocrystallized 145 mg PO DAILY 03/04/24 11/17/24 History [Fenofibrate] Metoprolol Tartrate [Lopressor] 25 mg PO Q12H 03/04/24 11/17/24 History Pravastatin Sodium 80 mg PO HS 03/04/24 11/17/24 History ARIPiprazole [Abilify] 2 mg PO DAILY 10/06/24 11/17/24 History Cholecalciferol [Vitamin D3 (125 125 mcg PO DAILY 10/06/24 11/17/24 History Mcg = 5000 Iu)] Escitalopram [Lexapro] 20 mg PO DAILY 10/06/24 11/17/24 History Melatonin 5 mg PO HS 10/06/24 11/17/24 History busPIRone HCL 15 mg PO Q12H 10/06/24 11/17/24 History Acetaminophen Tab [Tylenol] 650 mg PO Q6HR PRN tab 10/21/24 11/17/24 Rx Ipratropium-Albuterol Nebulize 3 ml INHALATION RT-TID each 10/21/24 11/17/24 Rx [Duoneb 0.5 mg-3 mg/3 ml Soln] Sucralfate [Carafate] 1 gm PO AC-TID tab 10/21/24 11/17/24 Rx Torsemide [Demadex] 40 mg PO DAILY tab 10/21/24 11/17/24 Rx hydrALAZINE HCL [Apresoline] 50 mg PO TID tab 10/21/24 11/17/24 Rx ALPRAZolam [Xanax] 1 mg PO QID 11/17/24 11/17/24 History Budesonide-Formot 160-4.5 Mcg 2 puff INHALATION RT-Q12H 11/17/24 11/17/24 History [Symbicort 160-4.5 Mcg Inhaler] INSULIN ASPART (NovoLOG) [NovoLOG See Protocol SQ AC-TID 11/17/24 11/17/24 History (formulary)] Ipratropium-Albuterol Nebulize 3 ml INHALATION RT-Q8H PRN 11/17/24 11/17/24 History [Duoneb 0.5 mg-3 mg/3 ml Soln] Lactulose [Cephulac] 30 gm PO Q8H 11/17/24 11/17/24 History Midodrine [ProAmatine] 5 mg PO Q12H PRN 11/17/24 11/17/24 History amLODIPine [Norvasc] 5 mg PO Q12H 11/17/24 11/17/24 History Allergies Allergy/AdvReac Type Severity Reaction Status Date / Time No Known Allergies Allergy Verified 11/17/24 13:50 Physical Exam Vitals: Vital Signs Temp Pulse Pulse Resp BP BP Pulse Ox 11/18/24 17:13 98 F 76 18 119/93 11/18/24 15:00 98.4 F 71 16 112/62 98 11/18/24 09:33 68 11/18/24 09:19 64 97 11/18/24 08:00 15 11/18/24 07:00 97.9 F 59 L 15 120/60 100 11/18/24 03:40 97.5 F L 59 L 18 109/64 100 11/17/24 22:21 70 126/68 11/17/24 19:59 97.4 F L 71 17 121/63 99 11/17/24 19:51 68 11/17/24 19:36 66 Intake and Output 11/18/24 11/18/24 11/18/24 06:59 14:59 22:59 Intake Total 250 Output Total 1910 Balance -1660 Intake: Hemodialysis 250 Output: Hemodialysis 1080 Hemodialysis Net Amount 830 Other: Voiding Method External Catheter External Catheter # Bowel Movements 4 Patient is awake, confused No acute distress Examination of the heart S1 and S2 Examination of the lungs bilateral breath sounds are heard Abdomen is soft nontender Examination of lower extremities shows 1+ edema Results - Lab Results Most recent lab results Calcium 9.8 mg/dL (8.7-10.3) 11/18/24 05:42 Phosphorus 1.7 mg/dL (2.4-5.1) L 11/18/24 05:42 Magnesium 2.4 mg/dL (1.5-2.4) 11/18/24 05:42 11/18/24 05:42 11/18/24 05:42 Assessment and Plan Assessment: 1. End-stage renal disease on hemodialysis on Friday schedule 2. Malfunctioning catheter due to foreign body noted in the catheter which was removed by vascular surgery and cleared for use for dialysis. 3. Mental status changes 4. CKD mineral bone disorder 5. Volume overload Plan: Hemodialysis today was unsuccessful as patient had poor flows and clotted her system. TPA has been placed and we will attempt hemodialysis again tomorrow.
[2024-11-18] MEDS: INSULIN ASPART (NovoLOG) 100 UNIT/ML VIAL SQ SCH (17:48)
[2024-11-18] MEDS: ASPIRIN 81 MG PO SCH (17:49)
--- NOTE | 2024-11-18 18:41 | P.PN ---
Subjective Progress Note Date: 11/18/24 Hospital course: Patient is a 84-year-old female who is a resident of [facility]. She has a past medical history of ESRD on hemodialysis, T2DM, Chronic Atrial Fibrillation not on anticoagulation, CHF, chronic hypoxic respiratory failure 2L home O2 dependent, and HTN who presented to the emergency department 11/17/2024 from [facility] with chief complaint of tunneled right IJ HD catheter malfunction. Upon arrival to emergency department, vitals signs are as follows: blood pressure 178/100; HR 93, RR 18, Temp 98.4 F, and SpO2 98% on 2L nasal cannula. EKG was completed showing atrial fibrillation at 93 bpm with T-wave inversion in anterior and anterolateral leads with and incomplete RBBB in leads I, aVL, V4, V5, and V6, Troponin I: 0.071 Chest X-ray findings include : persistent cardiomegaly and mild central vascular congestion and persistent CHF exacerbation/fluid overload state with no changes from recent study. Labs completed and reviewed. CBC: wbc 9.7, hgb 10.3, hematocrit 32.2, platelets 513.Coagulation profile: PT 12.9, INR 1.2, APTT 25.6. BMP: Sodium 136, potassium 3.5, BUN 46, creatinine 7.7, glucose 157, Phos 2.2, total protein 6.0, albumin 3.0. Patient was admitted under our services with consultation to vascular surgery and nephrology.Troponins uptrending resulting at 0.071, 0.105, 0.129, and 0.137. Cardiology consulted starting patient back on Eliquis 2.5 mg twice daily and ordered echo.Vascular surgery evaluated and reported tunneled dialysis port not functioning secondary to foreign body which was removed by Dr. Linares at bedside. Vascular surgery stated hemodialysis catheter may be accessed for need ed dialysis treatment at this time.. Nephrology ordered for dialysis today. Physical exam: Patient seen and fully evaluated at bedside. Reports anxiety presently and overnight. Denies shortness of breath, chest pain, and palpitations. Denies pain to permacath site to right chest. CBC this morning: wbc 9.7 , hgb 10.6, hematocrit 34.3, platelets 542; BMP NA 139, K 3.9, Anion Gap 16.3, BUN 45.0, Creatinine 8.3, Phos 1.7, Mag 2.4. Troponin 0.137 this morning from 0.129. Vital signs reviewed and stable. General: Nontoxic, appears anxious. Derm: Skin warm and dry, normal coloration for ethnicity. Head: Atraumatic, normocephalic and symmetric. Eyes: EOM's intact, no lid lag, and anicteric sclera Mouth: no lip lesions, mucus membranes moist Cardiovascular: irregularly irregular systolic murmur, positive posterior tibial pulses bilaterally, and cap refill < 2 seconds. Dialysis permacath right anterior chest Lungs: Respirations even, regular, and unlabored on 2L nasal cannula. Lungs CTA bilaterally, no rhonchi, no rales, no wheezing, and no accessory muscle usage. Abdominal: soft, nontender to palpation, no guarding, no appreciable organomegaly Ext: ROM intact. No gross muscle atrophy, no edema, no contractures Neuro: Speech clear, face symmetrical and CN II-XII grossly intact with no noted focal neuro deficits Psych: Alert and oriented to person and place, confused to time and situation. Appears agitated, shouting from room for help stating get me out of here. Assessment and Plan of Care: Fluid overload secondary to ESRD and missing dialysis resulting in mild diastolic CHF exacerbation. Elevated troponins, likely secondary to missing dialysis and CHF exacerbation Malfunctioning tunneled HD catheter Chronic hypoxic respiratory failure home oxygen dependent -Vascular surgery following, reports tunneled dialysis port not functioning secondary to foreign body which was removed by Dr. Linares at bedside. Vascular surgery stating hemodialysis catheter may be accessed for needed dialysis treatment at this time.. -Nephrology following, managing dialysis. Patient to undergo dialysis later today. -Troponins uptrending resulting at 0.071, 0.105, 0.129, and 0.137. -Cardiology consulted starting patient back on Eliquis 2.5 mg twice daily and ordered echo. -Furosemide 60 mg IV x 1 dose given and pt to undergo dialysis today. -Continue Daily weights and close monitoring of intake and output -Telemetry monitoring Hypertension Monitor vital signs and continue daily home medication regimen with metoprolol 25 mg twice daily and amlodipine 5 mg twice daily. T2DM with hyperglycemia Fasting Glucose 156 History of T2DM -Monitor Blood glucose AC and HS -Sliding Scale insulin aspart AC TID as ordered Chronic atrial fibrillation -Not on home anticoagulation, unclear reasoning. [id number] score is 7. Cardiology evaluated and restarted patient on Eliquis 2.5 mg twice daily. Data and imaging reviewed: Morning labs reviewed. Troponins uptrending resulting at 0.071, 0.105, 0.129, and 0.137. CBC showing normocytic anemia with hemoglobin of 10.6 and worsening thrombocytopenia with platelet count of 542. BMP showing Vital signs reviewed. Blood pressure 120/68, heart rate 59, respiratory rate 15, temp 97.9 F, and SpO2 of 100% on 3 L. CODE STATUS: Full DVT prophylaxis: Heparin SQ Anticipated discharge date: Pending clinical course Anticipated discharge place: [facility] Patient was seen independently by Nurse Practitioner. This document was prepared using [employer] dictation software. Please allow for errors in child nurse while rare they do occur. Max Couch NP rendered care for this patient independently, reviewed the findings and plan as documented in the note above and agree with plan. I did not physically speak with or examine the patient on this date. Objective - Vital Signs Vital signs: Vital Signs Temp 97.9 F 11/18/24 07:00 Pulse 59 L 11/18/24 07:00 Resp 15 11/18/24 07:00 BP 120/60 11/18/24 07:00 Pulse Ox 100 11/18/24 07:00 FiO2 Intake & Output 11/17/24 11/18/24 11/18/24 18:59 06:59 18:59 Weight 81.647 kg Other: Voiding Method External Catheter External Catheter # Bowel Movements 4 - Labs CBC & Chem 7: 11/18/24 05:42 11/18/24 05:42 Labs: Abnormal Lab Results - Last 24 Hours (Table) 11/17/24 11/17/24 11/17/24 Range/Units 09:41 09:41 09:41 RBC 3.66 L (3.80-5.40) m/uL Hgb 10.3 L (11.4-16.0) gm/dL Hct 32.2 L (34.0-46.0) % RDW 16.0 H (11.5-15.5) % Plt Count 513 H (150-450) k/uL Neutrophils # (Manual) 8.15 H (1.3-7.7) k/uL Lymphocytes # (Manual) 0.68 L (1.0-4.8) k/uL Metamyelocytes # (Man) 0.19 H (0) k/uL Myelocytes # (Manual) 0.19 H (0) k/uL PT 12.9 H (10.0-12.5) sec INR 1.2 H (<1.2) Sodium 136 L (137-145) mmol/L BUN 46 H (7-17) mg/dL Creatinine 7.70 H* (0.52-1.04) mg/dL Glucose 157 H (74-99) mg/dL Phosphorus 2.2 L (2.5-4.5) mg/dL Troponin I (0.000-0.034) ng/mL Total Protein 6.0 L (6.3-8.2) g/dL Albumin 3.0 L (3.5-5.0) g/dL 11/17/24 11/17/24 11/17/24 Range/Units 09:41 17:56 21:10 RBC (3.80-5.40) m/uL Hgb (11.4-16.0) gm/dL Hct (34.0-46.0) % RDW (11.5-15.5) % Plt Count (150-450) k/uL Neutrophils # (Manual) (1.3-7.7) k/uL Lymphocytes # (Manual) (1.0-4.8) k/uL Metamyelocytes # (Man) (0) k/uL Myelocytes # (Manual) (0) k/uL PT (10.0-12.5) sec INR (<1.2) Sodium (137-145) mmol/L BUN (7-17) mg/dL Creatinine (0.52-1.04) mg/dL Glucose (74-99) mg/dL Phosphorus (2.5-4.5) mg/dL Troponin I 0.071 H* 0.105 H* 0.129 H* (0.000-0.034) ng/mL Total Protein (6.3-8.2) g/dL Albumin (3.5-5.0) g/dL 11/17/24 Range/Units 23:21 RBC (3.80-5.40) m/uL Hgb (11.4-16.0) gm/dL Hct (34.0-46.0) % RDW (11.5-15.5) % Plt Count (150-450) k/uL Neutrophils # (Manual) (1.3-7.7) k/uL Lymphocytes # (Manual) (1.0-4.8) k/uL Metamyelocytes # (Man) (0) k/uL Myelocytes # (Manual) (0) k/uL PT (10.0-12.5) sec INR (<1.2) Sodium (137-145) mmol/L BUN (7-17) mg/dL Creatinine (0.52-1.04) mg/dL Glucose (74-99) mg/dL Phosphorus (2.5-4.5) mg/dL Troponin I 0.137 H* (0.000-0.034) ng/mL Total Protein (6.3-8.2) g/dL Albumin (3.5-5.0) g/dL
[2024-11-18 20:06] LABS: Glucose,Whole Blood 129 mg/dL (70-110)
[2024-11-18] MEDS: APIXABAN 2.5 MG TABLET PO SCH (21:15)
[2024-11-19 06:08] LABS: Glucose,Whole Blood 92 mg/dL (70-110)
[2024-11-19 08:32] LABS: HCT 33.8 % (37.2-46.3); HGB 10.6 g/dL (12.0-15.0); MCH 28.5 pg (27.0-32.0); MCHC 31.4 g/dL (32.0-37.0); MCV 90.9 FL (80.0-97.0); Mean Platelet Volume 11.2 FL (9.5-12.2); NRBC Per 100 WBC 0.04 X 10*3/uL (0.00-0.01); Platelet Count 495 X 10*3/uL (140-440); RBC 3.72 X 10*6/uL (4.10-5.20); RDW 16.8 % (11.5-14.5)
[2024-11-19 08:39] LABS: BUN/Creat Ratio 5.35 Ratio (12.00-20.00); Blood Urea Nitrogen 39.6 mg/dL (9.0-27.0); Calcium 9.4 mg/dL (8.7-10.3); Carbon Dioxide 24.1 mmol/L (21.6-31.8); Chloride 94 mmol/L (96-109); Glucose 86 mg/dL (70-110); Magnesium 2.2 mg/dL (1.5-2.4); Potassium 3.5 mmol/L (3.5-5.5); Sodium 134 mmol/L (135-145)
[2024-11-19] MEDS: MIDODRINE 5 MG TAB PO ONE (09:24)
[2024-11-19 11:44] LABS: Glucose,Whole Blood 104 mg/dL (70-110)
--- NOTE | 2024-11-19 12:22 | P.PN ---
Subjective Progress Note Date: 11/19/24 Principal diagnosis: Malfunctioning dialysis catheter Patient is seen and examined today as a follow-up for malfunctioning tunneled dialysis catheter. Yesterday she underwent dialysis for about an hour and then there was clotting so they stopped and put in tPA. Today no problems with dialysis other than patient was hypotensive however treated. Otherwise dialysis port is without incident at this time. Objective - Vital Signs Vital signs: Vital Signs Temp 98.0 F 11/19/24 07:00 Pulse 78 11/19/24 08:41 Resp 16 11/19/24 07:00 BP 91/57 11/19/24 07:00 Pulse Ox 98 11/19/24 07:00 FiO2 Intake & Output 11/18/24 11/19/24 11/19/24 18:59 06:59 18:59 Intake Total 350 Output Total 1910 Balance -1560 Intake: Oral 100 Hemodialysis 250 Output: Hemodialysis 1080 Hemodialysis Net Amount 830 Other: Voiding Method External Catheter External Catheter # Bowel Movements 1 - Exam General appearance: The patient is alert, oriented, appears in no acute distress. HET: Head is normocephalic and atraumatic. Neck: Supple. Chest: Right IJ tunnel catheter in place with dressing clean dry and intact with caps over ports Abdomen: Soft, nondistended. Extremities: Normal skin color and turgor. Neurological: Awake and Alert. - Labs CBC & Chem 7: 11/19/24 05:17 11/19/24 05:17 Labs: Abnormal Lab Results - Last 24 Hours (Table) 11/18/24 11/18/24 11/19/24 Range/Units 17:37 19:51 05:17 WBC 12.40 H (4.50-10.00) X 10*3/uL RBC 3.72 L (4.10-5.20) X 10*6/uL Hgb 10.6 L (12.0-15.0) g/dL Hct 33.8 L (37.2-46.3) % MCHC 31.4 L (32.0-37.0) g/dL RDW 16.8 H (11.5-14.5) % Plt Count 495 H (140-440) X 10*3/uL NRBC/100 WBC Diff 0.04 H (0.00-0.01) X 10*3/uL Sodium (135-145) mmol/L Chloride (96-109) mmol/L Anion Gap (4.00-12.00) mmol/L BUN (9.0-27.0) mg/dL Creatinine (0.6-1.5) mg/dL Est GFR (CKD-EPI) (>=60) BUN/Creatinine Ratio (12.00-20.00) Ratio POC Glucose (mg/dL) 234 H 129 H (70-110) mg/dL 11/19/24 Range/Units 05:17 WBC (4.50-10.00) X 10*3/uL RBC (4.10-5.20) X 10*6/uL Hgb (12.0-15.0) g/dL Hct (37.2-46.3) % MCHC (32.0-37.0) g/dL RDW (11.5-14.5) % Plt Count (140-440) X 10*3/uL NRBC/100 WBC Diff (0.00-0.01) X 10*3/uL Sodium 134 L (135-145) mmol/L Chloride 94 L (96-109) mmol/L Anion Gap 15.90 H (4.00-12.00) mmol/L BUN 39.6 H (9.0-27.0) mg/dL Creatinine 7.4 H (0.6-1.5) mg/dL Est GFR (CKD-EPI) 5 L (>=60) BUN/Creatinine Ratio 5.35 L (12.00-20.00) Ratio POC Glucose (mg/dL) (70-110) mg/dL Assessment and Plan Assessment: 1. Malfunctioning HD tunneled dialysis catheter status post retrieval of foreign body 2. End-stage renal disease on hemodialysis Plan: May access dialysis port for hemodialysis. Hemodialysis per recommendations [facility] nephrology. Thank you for this consultation, we sign off at this time. Please do not hesitate to reach out to us if further needed. The impression and plan of care has been dictated as directed. Dr. Hunt I performed a history and examination of this patient, discussed the same with the dictator. I agree with the dictator's note ,documented as a scribe. Any additional findings or plans will be noted.
--- NOTE | 2024-11-19 13:59 | CA ---
Transthoracic Echo Report Name: Wanda Teran Age: 84 Gender: F : 1940 Exam Date: 11/18/2024 11:28 Exam Location: [facility] Ht (in): 65 Wt (lb): 180 Ordering Physician: Irish [address] Attending/Referring Phys: [id number], Yenifer [employer] Composite Technician Aline Hdz RDCS Procedure CPT: Indications: LVF Cardiac Hx: Very challenging, limited study Technical Quality: Very technically difficult study Contrast 1: Total Dose (mL): Contrast 2: Total Dose (mL): MEASUREMENTS (Male / Female) Normal Values 2D ECHO LV Diastolic Volume MOD 4C 64.0 cm??? LV Systolic Volume MOD 4C 27.1 cm??? LV Ejection Fraction MOD 4C 57.6 % LV Cardiac Index MOD 4C 1503.5 cm???/min???m??? LV Diastolic Length 4C 7.5 cm LV Systolic Length 4C 6.2 cm Ascending Aorta Diameter 2.7 cm DOPPLER AV Peak Velocity 183.8 cm/s AV Peak Gradient 13.5 mmHg AV Mean Velocity 140.2 cm/s AV Mean Gradient 8.5 mmHg AV Velocity Time Integral 28.8 cm MV Area PHT 2.6 cm??? Mitral E Point Velocity 60.4 cm/s Mitral A Point Velocity 91.6 cm/s Mitral E to A Ratio 0.7 MV Deceleration Time 296.0 ms FINDINGS Left Ventricle Left ventricular ejection fraction is estimated at 55-60 %. Left ventricular cavity size normal. Right Ventricle Right ventricle not well visualized. Right Atrium Right atrium not well visualized. Left Atrium Left atrium not well visualized. Mitral Valve Mitral valve not well visualized. No mitral stenosis, regurgitation or prolapse. Aortic Valve Aortic valve not well visualized. No aortic valve stenosis or regurgitation. Tricuspid Valve Tricuspid valve not well visualized. Pulmonic Valve Pulmonic valve not well visualized. Pericardium No pericardial effusion. Prominent epicardial fat. Aorta Aortic root and proximal ascending aorta not well visualized. CONCLUSIONS Technically difficult study Left ventricular ejection fraction 55-60% No mitral regurgitation Echo density surrounding the right ventricular free wall may be epicardial fat pad however appears more calcified. May be fibrinous pericardial effusion. If clinically indicated consider KING or CTA. Previewed by: Dr. Joseph Marmolejo DO (Electronically Signed) Final Date: 19 November 2024 13:59
--- NOTE | 2024-11-19 14:52 | P.PN ---
Subjective This is an 84-year-old female patient follows with Dr. Dennis with past medical history of chronic diastolic heart failure, hypertension, diabetes mellitus type 2, paroxysmal atrial fibrillation on Eliquis, chronic hypoxic respiratory failure on home O2 at 3 L, depression. We have been asked to evaluate the patient for elevated troponin. Patient was last seen at Dr. Dennis's office on 09/28/2024 after a hospitalization at [facility] for heart failure. Patient had no complaints of chest pain at the office visit and it is noted the patient was on Eliquis. In September, patient was hospitalized at [facility] for acute renal failure and started on dialysis. She is now end-stage renal disease on hemodialysis. Patient had an acute upper GI bleed with duodenal bleeding ulcer on EGD and plan was to hold Eliquis for 3 to 4 weeks. Patient has now been sent into the hospital from [facility] due to mental status changes and access issue with for her dialysis catheter and missed dialysis treatments. Patient has been seen by vascular surgery to resolve dialysis catheter issue. Troponins were elevated and we have been asked to evaluate the patient. Patient states that she is a "very nervous wreck." She denies having pain anywhere including no chest pain no chest pressure no chest tightness. She denies shortness of breath. She denies being confused. Blood pressure 120/60, heart rate 59, pulse ox 100% on 3 L nasal cannula. -EKG: Atrial fibrillation 93 bpm -Chest x-ray: Persistent CHF exacerbation fluid overload state. No significant change from recent study. -Laboratory studies: WBC 9.4, hemoglobin 10.6. Sodium 139, potassium 3.9, BUN 45 creatinine 8.3. Troponins are 0.071, 0.105, 0.129, 0.137. -Home cardiac medications: Amlodipine 5 mg every 12 hours, hydralazine 50 mg 3 times daily, Lopressor 25 mg every 12 hours, pravastatin 80 mg at bedtime, torsemide 40 mg daily, patient is also on midodrine as needed. -Echocardiogram performed 03/04/2024: Technically very difficult study for interpretation. Probably normal LV systolic function. Poorly visualized intracardiac valves. -Echocardiogram performed at [facility] 12/2023 revealed EF 55 to 60%. No mitral regurgitation, no aortic regurgitation. Trivial pericardial effusion. 11/19 patient seen and examined. Patient still somewhat confused. Denies any chest pain or pressure. Denies any significant shortness breath. Echocardiogram performed with preserved EF with echo density around the right ventricular free wall maybe epicardial fat pad. Had some hypotension with HD. Physical examination: Gen: This is an 84-year-old female in no acute distress, patient is anxious. VS: reviewed HEENT: Head is atraumatic, normocephalic. Pupils equal, round. Sclerae is anicteric. NECK: Supple. No JVD. LUNGS: Clear to auscultation. No wheezes or rhonchi. No intercostal retractions. HEART: Irregular rate and rhythm. No murmur. ABDOMEN: Soft No tenderness. EXTREMITIES: No pedal edema. No calf tenderness. NEUROLOGICAL: Patient is awake, alert and oriented to person and place. Assessment: Paroxysmal atrial fibrillation End-stage renal disease on HD Malfunctioning HD tunneled dialysis catheter Acute fluid overload due to missed dialysis treatments Metabolic encephalopathy Recent history of upper GI bleed with duodenal bleeding ulcer placing Eliquis on hold x metabolic encephalopathy 4 weeks Chronic diastolic heart failure Hypertension Diabetes mellitus type 2 with hemoglobin A1c of 7.5 in August 2024 Chronic hypoxic respiratory failure on home O2 at 3 L Depression Plan: echocardiogram shows preserved EF. Not having typical angina symptoms. Continue medical therapy given multiple medical comorbidities. Vague echodensity noted around the right ventricular free wall. Continue with conservative management however if continued hypotension may consider further evaluation. Continue with aspirin and Eliquis. Monitor hgb closely. Objective - Vital Signs Vital signs: Vital Signs Temp 96.0 F L 11/19/24 14:03 Pulse 90 11/19/24 14:03 Resp 15 11/19/24 14:03 BP 104/59 11/19/24 14:03 Pulse Ox 95 11/19/24 14:03 FiO2 Intake & Output 11/18/24 11/19/24 11/19/24 18:59 06:59 18:59 Intake Total 350 600 Output Total 1910 840 Balance -1560 -240 Intake: Oral 100 Hemodialysis 250 600 Output: Hemodialysis 1080 720 Hemodialysis Net Amount 830 120 Other: Voiding Method External Catheter External Catheter # Voids 0 # Bowel Movements 1 - Labs CBC & Chem 7: 11/19/24 05:17 11/19/24 05:17 Labs: Abnormal Lab Results - Last 24 Hours (Table) 11/18/24 11/18/24 11/19/24 Range/Units 17:37 19:51 05:17 WBC 12.40 H (4.50-10.00) X 10*3/uL RBC 3.72 L (4.10-5.20) X 10*6/uL Hgb 10.6 L (12.0-15.0) g/dL Hct 33.8 L (37.2-46.3) % MCHC 31.4 L (32.0-37.0) g/dL RDW 16.8 H (11.5-14.5) % Plt Count 495 H (140-440) X 10*3/uL NRBC/100 WBC Diff 0.04 H (0.00-0.01) X 10*3/uL Sodium (135-145) mmol/L Chloride (96-109) mmol/L Anion Gap (4.00-12.00) mmol/L BUN (9.0-27.0) mg/dL Creatinine (0.6-1.5) mg/dL Est GFR (CKD-EPI) (>=60) BUN/Creatinine Ratio (12.00-20.00) Ratio POC Glucose (mg/dL) 234 H 129 H (70-110) mg/dL 11/19/24 Range/Units 05:17 WBC (4.50-10.00) X 10*3/uL RBC (4.10-5.20) X 10*6/uL Hgb (12.0-15.0) g/dL Hct (37.2-46.3) % MCHC (32.0-37.0) g/dL RDW (11.5-14.5) % Plt Count (140-440) X 10*3/uL NRBC/100 WBC Diff (0.00-0.01) X 10*3/uL Sodium 134 L (135-145) mmol/L Chloride 94 L (96-109) mmol/L Anion Gap 15.90 H (4.00-12.00) mmol/L BUN 39.6 H (9.0-27.0) mg/dL Creatinine 7.4 H (0.6-1.5) mg/dL Est GFR (CKD-EPI) 5 L (>=60) BUN/Creatinine Ratio 5.35 L (12.00-20.00) Ratio POC Glucose (mg/dL) (70-110) mg/dL
[2024-11-19] MEDS: SODIUM CHLORIDE 0.9% 500 ML 200 ML IV ONE (15:10)
[2024-11-19] MEDS: SODIUM CHLORIDE 0.9% 500 ML IV SCH (16:13)
[2024-11-19 17:19] LABS: Glucose,Whole Blood 113 mg/dL (70-110)
--- NOTE | 2024-11-19 17:35 | P.PN ---
Subjective Progress Note Date: 11/19/24 Hospital course: Patient is a 84-year-old female who is a resident of [facility]. She has a past medical history of ESRD on hemodialysis, T2DM, Chronic Atrial Fibrillation not on anticoagulation, CHF, chronic hypoxic respiratory failure 2L home O2 dependent, and HTN who presented to the emergency department 11/17/2024 from [facility] with chief complaint of tunneled right IJ HD catheter malfunction. Upon arrival to emergency department, vitals signs are as follows: blood pressure 178/100; HR 93, RR 18, Temp 98.4 F, and SpO2 98% on 2L nasal cannula. EKG was completed showing atrial fibrillation at 93 bpm with T-wave inversion in anterior and anterolateral leads with and incomplete RBBB in leads I, aVL, V4, V5, and V6, Troponin I: 0.071 Chest X-ray findings include : persistent cardiomegaly and mild central vascular congestion and persistent CHF exacerbation/fluid overload state with no changes from recent study. Labs completed and reviewed. CBC: wbc 9.7, hgb 10.3, hematocrit 32.2, platelets 513.Coagulation profile: PT 12.9, INR 1.2, APTT 25.6. BMP: Sodium 136, potassium 3.5, BUN 46, creatinine 7.7, glucose 157, Phos 2.2, total protein 6.0, albumin 3.0. Patient was admitted under our services with consultation to vascular surgery and nephrology.Troponins uptrending resulting at 0.071, 0.105, 0.129, and 0.137. Cardiology consulted starting patient back on Eliquis 2.5 mg twice daily and ordered echo.Vascular surgery evaluated and reported tunneled dialysis port not functioning secondary to foreign body which was removed by Dr. Linares at bedside. Vascular surgery stated hemodialysis catheter may be accessed for need ed dialysis treatment at this time.. Nephrology managing dialysis. Physical exam: Patient seen and fully evaluated at bedside. She was undergoing dialysis this morning. Daughter at bedside. Patient alert to person and place but continues to be slightly agitated and yelling out frequently. Patient's daughter states that patient has same mentation and behavior at [facility], but states it is slightly worse in the hospital as she does not want to be here. Vital signs reviewed and stable. General: Nontoxic, appears anxious. Derm: Skin warm and dry, normal coloration for ethnicity. Head: Atraumatic, normocephalic and symmetric. Eyes: EOM's intact, no lid lag, and anicteric sclera Mouth: no lip lesions, mucus membranes moist Cardiovascular: irregularly irregular systolic murmur, positive posterior tibial pulses bilaterally, and cap refill < 2 seconds. Dialysis permacath right anterior chest Lungs: Respirations even, regular, and unlabored on 2L nasal cannula. Lungs CTA bilaterally, no rhonchi, no rales, no wheezing, and no accessory muscle usage. Abdominal: soft, nontender to palpation, no guarding, no appreciable organomegaly Ext: ROM intact. No gross muscle atrophy, no edema, no contractures Neuro: Speech clear, face symmetrical and CN II-XII grossly intact with no noted focal neuro deficits Psych: Alert and oriented to person and place, confused to time and situation. Appears agitated, shouting from room for help stating get me out of here. Assessment and Plan of Care: Fluid overload secondary to ESRD and missing dialysis resulting in mild diastolic CHF exacerbation. Elevated troponins, likely secondary to missing dialysis and CHF exacerbation Malfunctioning tunneled HD catheter Chronic hypoxic respiratory failure home oxygen dependent -Vascular surgery evaluated patient and reported tunneled dialysis port not functioning secondary to foreign body which was removed by Dr. Linares at bedside on 11/17/2024. -Nephrology following, managing dialysis. Patient undergoing dialysis this morning. -Troponins uptrended resulting at 0.071, 0.105, 0.129, and 0.137. -Cardiology consulted starting patient back on Eliquis 2.5 mg twice daily and ordered echo. -Patient undergoing dialysis at this time was going to resume home torsemide 40 mg daily however patient had episode of hypotension with blood pressure 70 systolic during dialysis requiring midodrine 10 mg this morning. -Continue Daily weights and close monitoring of intake and output -Telemetry monitoring -Follow-up on echocardiogram report once available. Hypertension Monitor vital signs and continue daily home medication regimen with metoprolol 25 mg twice daily and amlodipine 5 mg twice daily. Type 2 [id number] diabetes mellitus with hyperglycemia -Continue glycemic protocol with NovoLog sliding scale. Chronic atrial fibrillation -Not on home anticoagulation, unclear reasoning. [id number] score is 7. Cardiology evaluated and restarted patient on Eliquis 2.5 mg twice daily. Data and imaging reviewed: Morning labs reviewed. CBC showing mild leukocytosis with WBC count of 12.40, normocytic anemia with hemoglobin of 10.6, thrombocytosis with platelet count of 495. BMP showing hypochloremic hyponatremia and metabolic alkalosis with sodium of 134 and chloride of 94, bicarb of 24.1, and anion gap of 15.90. Renal function showing BUN of 39.6, creatinine of 7.4, and GFR of 5 Vital signs reviewed. Blood pressure 91/57, heart rate 74, respiratory rate 16, temp 98.0 F, and SpO2 of 98% on room air. CODE STATUS: Full DVT prophylaxis: Heparin SQ Anticipated discharge date: Pending clinical course Anticipated discharge place: [facility] Patient was seen independently by Nurse Practitioner. This document was prepared using [employer] dictation software. Please allow for errors in steam press operator while rare they do occur. Max Couch NP rendered care for this patient independently, reviewed the findings and plan as documented in the note above and agree with plan. I did not physically speak with or examine the patient on this date. Objective - Vital Signs Vital signs: Vital Signs Temp 98.0 F 11/19/24 07:00 Pulse 78 11/19/24 08:41 Resp 16 11/19/24 07:00 BP 91/57 11/19/24 07:00 Pulse Ox 98 11/19/24 07:00 FiO2 Intake & Output 11/18/24 11/19/24 11/19/24 18:59 06:59 18:59 Intake Total 350 Output Total 1910 Balance -1560 Intake: Oral 100 Hemodialysis 250 Output: Hemodialysis 1080 Hemodialysis Net Amount 830 Other: Voiding Method External Catheter External Catheter # Bowel Movements 1 - Labs CBC & Chem 7: 11/19/24 05:17 11/19/24 05:17 Labs: Abnormal Lab Results - Last 24 Hours (Table) 11/18/24 11/18/24 11/18/24 Range/Units 05:42 17:37 19:51 WBC (4.50-10.00) X 10*3/uL RBC (4.10-5.20) X 10*6/uL Hgb (12.0-15.0) g/dL Hct (37.2-46.3) % MCHC (32.0-37.0) g/dL RDW (11.5-14.5) % Plt Count (140-440) X 10*3/uL Lymphocytes # (Manual) 0.57 L (0.90-5.00) X 10*3/uL NRBC/100 WBC Diff (0.00-0.01) X 10*3/uL Sodium (135-145) mmol/L Chloride (96-109) mmol/L Anion Gap (4.00-12.00) mmol/L BUN (9.0-27.0) mg/dL Creatinine (0.6-1.5) mg/dL Est GFR (CKD-EPI) (>=60) BUN/Creatinine Ratio (12.00-20.00) Ratio POC Glucose (mg/dL) 234 H 129 H (70-110) mg/dL 11/19/24 11/19/24 Range/Units 05:17 05:17 WBC 12.40 H (4.50-10.00) X 10*3/uL RBC 3.72 L (4.10-5.20) X 10*6/uL Hgb 10.6 L (12.0-15.0) g/dL Hct 33.8 L (37.2-46.3) % MCHC 31.4 L (32.0-37.0) g/dL RDW 16.8 H (11.5-14.5) % Plt Count 495 H (140-440) X 10*3/uL Lymphocytes # (Manual) (0.90-5.00) X 10*3/uL NRBC/100 WBC Diff 0.04 H (0.00-0.01) X 10*3/uL Sodium 134 L (135-145) mmol/L Chloride 94 L (96-109) mmol/L Anion Gap 15.90 H (4.00-12.00) mmol/L BUN 39.6 H (9.0-27.0) mg/dL Creatinine 7.4 H (0.6-1.5) mg/dL Est GFR (CKD-EPI) 5 L (>=60) BUN/Creatinine Ratio 5.35 L (12.00-20.00) Ratio POC Glucose (mg/dL) (70-110) mg/dL
[2024-11-19] MEDS: ALPRAZolam 1 MG TAB PO SCH (18:07)
[2024-11-19 19:26] VITALS: TEMP 98.3
[2024-11-19 20:02] LABS: Glucose,Whole Blood 125 mg/dL (70-110)
--- NOTE | 2024-11-19 21:09 | P.PN ---
Subjective Patient is seen for follow-up for end-stage renal disease. Currently seen on hemodialysis. Blood pressure was low therefore no significant UF today. Status post tPA overnight. Catheter is functioning well today. Objective - Vital Signs Vital signs: Vital Signs Temp 98.3 F 11/19/24 19:24 Pulse 87 11/19/24 19:24 Resp 17 11/19/24 19:24 BP 101/69 11/19/24 19:24 Pulse Ox 99 11/19/24 19:24 FiO2 Intake & Output 11/19/24 11/19/24 11/20/24 06:59 18:59 06:59 Intake Total 600 Output Total 840 Balance -240 Intake: Hemodialysis 600 Output: Hemodialysis 720 Hemodialysis Net Amount 120 Other: Voiding Method External Catheter # Voids 0 # Bowel Movements 1 - Exam Patient is awake, comfortable. Answers questions appropriately. Examination of the heart S1 and S2 Examination of the lungs bilateral breath sounds are heard Abdomen is soft nontender Examination of lower extremities shows no significant edema - Labs CBC & Chem 7: 11/19/24 05:17 11/19/24 05:17 Labs: Abnormal Lab Results - Last 24 Hours (Table) 11/19/24 11/19/24 11/19/24 Range/Units 05:17 05:17 17:19 WBC 12.40 H (4.50-10.00) X 10*3/uL RBC 3.72 L (4.10-5.20) X 10*6/uL Hgb 10.6 L (12.0-15.0) g/dL Hct 33.8 L (37.2-46.3) % MCHC 31.4 L (32.0-37.0) g/dL RDW 16.8 H (11.5-14.5) % Plt Count 495 H (140-440) X 10*3/uL NRBC/100 WBC Diff 0.04 H (0.00-0.01) X 10*3/uL Sodium 134 L (135-145) mmol/L Chloride 94 L (96-109) mmol/L Anion Gap 15.90 H (4.00-12.00) mmol/L BUN 39.6 H (9.0-27.0) mg/dL Creatinine 7.4 H (0.6-1.5) mg/dL Est GFR (CKD-EPI) 5 L (>=60) BUN/Creatinine Ratio 5.35 L (12.00-20.00) Ratio POC Glucose (mg/dL) 113 H (70-110) mg/dL 11/19/24 Range/Units 20:00 WBC (4.50-10.00) X 10*3/uL RBC (4.10-5.20) X 10*6/uL Hgb (12.0-15.0) g/dL Hct (37.2-46.3) % MCHC (32.0-37.0) g/dL RDW (11.5-14.5) % Plt Count (140-440) X 10*3/uL NRBC/100 WBC Diff (0.00-0.01) X 10*3/uL Sodium (135-145) mmol/L Chloride (96-109) mmol/L Anion Gap (4.00-12.00) mmol/L BUN (9.0-27.0) mg/dL Creatinine (0.6-1.5) mg/dL Est GFR (CKD-EPI) (>=60) BUN/Creatinine Ratio (12.00-20.00) Ratio POC Glucose (mg/dL) 125 H (70-110) mg/dL Assessment and Plan Assessment: 1. End-stage renal disease on hemodialysis on Friday schedule 2. Malfunctioning catheter due to foreign body noted in the catheter which was removed by vascular surgery and cleared for use for dialysis. 3. Mental status changes 4. CKD mineral bone disorder 5. Volume overload although clinically patient does not have significant edema or lung findings. Plan: Hemodialysis today. Minimal UF today with dialysis. Patient does not appear to be in significant volume overload clinically. She has had poor oral intake prior to admission and has not had an increase in oxygen requirement. Currently laying flat with no dyspnea.
[2024-11-20] MEDS: LORazepam 2 MG/ML INJ IV PRN (01:02)
[2024-11-20] MEDS: LORazepam 2 MG/ML INJ IM STA (01:56)
[2024-11-20 02:17] VITALS: BP 128/67; PULSE 64; RESP 21
[2024-11-20 05:06] LABS: Glucose,Whole Blood 19 mg/dL (70-110)
[2024-11-20 05:24] LABS: Glucose,Whole Blood 16 mg/dL (70-110)
[2024-11-20 05:24] LABS: Glucose,Whole Blood 33 mg/dL (70-110)
[2024-11-20 05:27] LABS: Glucose,Whole Blood 23 mg/dL (70-110)
--- NOTE | 2024-11-20 09:24 | P.DS ---
Providers Date of admission: 11/18/24 19:10 Expected date of discharge: 11/20/24 Attending physician: Evangelista Moralez MD Consults: 11/17/24 11:15 Consult Physician Routine Consulting Provider: Arnaldo Hamilton Consult Reason/Comments: ckd Do you want consulting provider notified?: Yes 11/18/24 09:12 Consult Physician Routine Consulting Provider: Joseph Marmolejo Consult Reason/Comments: elevated troponin Do you want consulting provider notified?: Yes Primary care physician: France Bolden DO Hospital Course: Discharge Diagnosis: Fluid overload secondary to ESRD and missing dialysis resulting in mild diastolic CHF exacerbation. 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 She has a past medical history of ESRD on hemodialysis, T2DM, Chronic Atrial Fibrillation not on anticoagulation, CHF, chronic hypoxic respiratory failure 2L home O2 dependent, and HTN who presented to the emergency department 11/17/2024 from [facility] with chief complaint of tunneled right IJ HD catheter malfunction. Upon arrival to emergency department, vitals signs are as follows: blood pressure 178/100; HR 93, RR 18, Temp 98.4 F, and SpO2 98% on 2L nasal cannula. EKG was completed showing atrial fibrillation at 93 bpm with T-wave inversion in anterior and anterolateral leads with and incomplete RBBB in leads I, aVL, V4, V5, and V6, Troponin I: 0.071 Chest X-ray findings include : persistent cardiomegaly and mild central vascular congestion and persistent CHF exacerbation/fluid overload state with no changes from recent study. Labs completed and reviewed. CBC: wbc 9.7, hgb 10.3, hematocrit 32.2, platelets 513.Coagulation profile: PT 12.9, INR 1.2, APTT 25.6. BMP: Sodium 136, potassium 3.5, BUN 46, creatinine 7.7, glucose 157, Phos 2.2, total protein 6.0, albumin 3.0. Patient was admitted under our services with consultation to vascular surgery and nephrology.Troponins uptrending resulting at 0.071, 0.105, 0.129, and 0.137. Cardiology consulted starting patient back on Eliquis 2.5 mg twice daily and ordered echo.Vascular surgery evaluated and reported tunneled dialysis port not functioning secondary to foreign body which was removed by Dr. Linares at bedside clearing patient and stated hemodialysis catheter may be accessed for needed dialysis treatment at this time.. Nephrology managing dialysis. Patient last underwent dialysis on 11/19/2024. During dialysis patient did become hypotensive with blood pressure reportedly dipping down into the 70s systolic and school bus mechanic ordered for stopping of dialysis early and for patient to receive one-time dose of midodrine 10 mg along with a 500 cc bolus of normal saline. This resulted in improvement of blood pressure to 108/84 with heart rate of 62. Echocardiogram was completed showing a preserved EF of 55 to 60% with an echodensity surrounding the right ventricular free wall which may be epicardial fat pad however appears more calcified and may be fibrinous pericardial effusion. Predatory Animal Hunter recommending continuing with conservative management however if patient continued to become hypotensive they may consider further evaluation. Patient again monitored overnight and around 5 AM this morning, patient became bradycardic with heart rate in the 30s. Per documentation in chart, nursing staff went to bedside and stated patient did have a pulse, but was not responsive and called an A team and contacted family at this time. Dr. Guzman at bedside and at 5:07 AM it was documented that pt lost her pulse and CPR with ACLS interventions began and patient successfully intubated by [employer]. Despite CPR with ACLS intervention, patient remained asystole on the heart monitor and time of was pronounced on 11/20/2024 at 5:27 AM. Time of pronounced 11/20/2024 at 5:27 AM This document was prepared using [employer] dictation software. Please allow for errors in [place] while rare they do occur. Max Couch NP rendered care for this patient independently, reviewed the findings and plan as documented in the note above. I did not physically speak with or examine the patient on this date. Plan - Discharge Summary Discharge Rx Participant: No New Discharge Prescriptions: No Action Metoprolol Tartrate [Lopressor] 25 mg PO Q12H Desvenlafaxine [Pristiq ER] 100 mg PO DAILY Pravastatin Sodium 80 mg PO HS Fenofibrate Nanocrystallized [Fenofibrate] 145 mg PO DAILY Cholecalciferol [Vitamin D3 (125 Mcg = 5000 Iu)] 125 mcg PO DAILY Escitalopram [Lexapro] 20 mg PO DAILY hydrALAZINE HCL [Apresoline] 50 mg PO TID tab Sucralfate [Carafate] 1 gm PO AC-TID tab Budesonide-Formot 160-4.5 Mcg [Symbicort 160-4.5 Mcg Inhaler] 2 puff INHALATION RT-Q12H INSULIN ASPART (NovoLOG) [NovoLOG (formulary)] See Protocol SQ AC-TID Ipratropium-Albuterol Nebulize [Duoneb 0.5 mg-3 mg/3 ml Soln] 3 ml INHALATION RT-Q8H PRN PRN Reason: Wheezing Lactulose [Cephulac] 30 gm PO Q8H ARIPiprazole [Abilify] 2 mg PO DAILY busPIRone HCL 15 mg PO Q12H Melatonin 5 mg PO HS Torsemide [Demadex] 40 mg PO DAILY tab Ipratropium-Albuterol Nebulize [Duoneb 0.5 mg-3 mg/3 ml Soln] 3 ml INHALATION RT-TID each Acetaminophen Tab [Tylenol] 650 mg PO Q6HR PRN tab PRN Reason: Mild Pain Or Fever > 100.5 amLODIPine [Norvasc] 5 mg PO Q12H Midodrine [ProAmatine] 5 mg PO Q12H PRN PRN Reason: Hypotension ALPRAZolam [Xanax] 1 mg PO QID Discharge Medication List Desvenlafaxine [Pristiq ER] 100 mg PO DAILY 03/04/24 [History] Fenofibrate Nanocrystallized [Fenofibrate] 145 mg PO DAILY 03/04/24 [History] Metoprolol Tartrate [Lopressor] 25 mg PO Q12H 03/04/24 [History] Pravastatin Sodium 80 mg PO HS 03/04/24 [History] ARIPiprazole [Abilify] 2 mg PO DAILY 10/06/24 [History] Cholecalciferol [Vitamin D3 (125 Mcg = 5000 Iu)] 125 mcg PO DAILY 10/06/24 [History] Escitalopram [Lexapro] 20 mg PO DAILY 10/06/24 [History] Melatonin 5 mg PO HS 10/06/24 [History] busPIRone HCL 15 mg PO Q12H 12/11/24 [History] Acetaminophen Tab [Tylenol] 650 mg PO Q6HR PRN tab 10/21/24 [Rx] Ipratropium-Albuterol Nebulize [Duoneb 0.5 mg-3 mg/3 ml Soln] 3 ml INHALATION RT-TID each 10/21/24 [Rx] Sucralfate [Carafate] 1 gm PO AC-TID tab 10/21/24 [Rx] Torsemide [Demadex] 40 mg PO DAILY tab 10/21/24 [Rx] hydrALAZINE HCL [Apresoline] 50 mg PO TID tab 10/21/24 [Rx] ALPRAZolam [Xanax] 1 mg PO QID 11/17/24 [History] Budesonide-Formot 160-4.5 Mcg [Symbicort 160-4.5 Mcg Inhaler] 2 puff INHALATION RT-Q12H 11/17/24 [History] INSULIN ASPART (NovoLOG) [NovoLOG (formulary)] See Protocol SQ AC-TID 11/17/24 [History] Ipratropium-Albuterol Nebulize [Duoneb 0.5 mg-3 mg/3 ml Soln] 3 ml INHALATION RT-Q8H PRN 11/17/24 [History] Lactulose [Cephulac] 30 gm PO Q8H 11/17/24 [History] Midodrine [ProAmatine] 5 mg PO Q12H PRN 11/17/24 [History] amLODIPine [Norvasc] 5 mg PO Q12H 11/17/24 [History] Follow up Appointment(s)/Referral(s): France Bolden DO [Primary Care Provider] - 1-2 days Discharge Disposition: - Preliminary Cause of Preliminary Cause of : Hypoglycemia, ESRD, HFpEF, CAD
== END 2024-11-20 08:15 | disposition expired ==
LOC: EC 09:13 → 6NMEDSUR 11:24 → OBSVTOIN 11-18 19:10
PROVIDERS: ADMIT Internal Medicine; ATTEND Internal Medicine
PROC: 5A1D70Z Performance of Urinary Filtration, Intermittent, Less than 6 Hours Per Day (ICD-10-PCS; principal; 2024-11-19)
PROC: 5A12012 Performance of Cardiac Output, Single, Manual (ICD-10-PCS; 2024-11-20)
PROC: 0BH17EZ Insertion of Endotracheal Airway into Trachea, Via Natural or Artificial Opening (ICD-10-PCS; 2024-11-20)
DX: I13.2 Hypertensive heart and chronic kidney disease with heart failure and with stage 5 chronic kidney disease, or end stage renal disease (principal); G93.41 Metabolic encephalopathy; I21.A1 Myocardial infarction type 2; I50.33 Acute on chronic diastolic (congestive) heart failure; N18.6 End stage renal disease; N17.9 Acute kidney failure, unspecified; E83.9 Disorder of mineral metabolism, unspecified; Z99.2 Dependence on renal dialysis; F03.93 Unspecified dementia, unspecified severity, with mood disturbance; E11.22 Type 2 diabetes mellitus with diabetic chronic kidney disease; J44.89 Other specified chronic obstructive pulmonary disease; J96.11 Chronic respiratory failure with hypoxia; T82.41XA Breakdown (mechanical) of vascular dialysis catheter, initial encounter; F03.94 Unspecified dementia, unspecified severity, with anxiety; I46.9 Cardiac arrest, cause unspecified; E11.65 Type 2 diabetes mellitus with hyperglycemia; R00.1 Bradycardia, unspecified; M19.90 Unspecified osteoarthritis, unspecified site; Z79.4 Long term (current) use of insulin; Z99.81 Dependence on supplemental oxygen; Z91.158 Patient's noncompliance with renal dialysis for other reason; Z79.01 Long term (current) use of anticoagulants; I95.9 Hypotension, unspecified; I25.10 Atherosclerotic heart disease of native coronary artery without angina pectoris; I45.10 Unspecified right bundle-branch block; I48.0 Paroxysmal atrial fibrillation; Y71.2 Prosthetic and other implants, materials and accessory cardiovascular devices associated with adverse incidents; E78.5 Hyperlipidemia, unspecified; Z87.11 Personal history of peptic ulcer disease; Z79.51 Long term (current) use of inhaled steroids; Z79.899 Other long term (current) drug therapy; Z87.891 Personal history of nicotine dependence; Z87.440 Personal history of urinary (tract) infections
CPT/HCPCS: 36415; 71046; 80048; 80053; 83036; 83735; 84100; 84484; 85025; 85027; 85610; 85730; 87340; 90935; 92950; 93005; 93308; 94640; 94664; 94760; 96372; 96374; 96375; 96376; 99285